=== PATIENT | female | born 1960 | race Caucasian/White ===

== ENCOUNTER → 2016-10-24 | Outpatient (REF) | payer BC ==
[~2016-10-24] MED LIST: /CIPR75TA; /ZOLP6ER; ALEV220C2 PO; ALLE25CA; AMBI10TA PO; ANAS0.12 PO; CELE-19 PO; CELE20TA PO; DILA2TAB; DILA4TAB PO; EX-L5TAB; FLAG500T; FLEXERIL PO; FURO20TA2 PO; METO10TA2; MIRA3350 PO; OMEP20CA3 PO; PERC5TAB8; PROBCAP13 PO; PROCAER4 PR; PROZ40CA; SENN8.6T5; VITA400T13 PO; XANA0.25 PO
== END ==
LOC: M LAB REF 16:32
PROVIDERS: ATTEND Internal Medicine
DX: M54.12 Radiculopathy, cervical region (principal)

== ENCOUNTER → 2016-12-04 | Outpatient (CLI) | payer BC ==
--- NOTE | 2016-12-19 00:29 | ECWPNPC ---
PATIENT NAME: RAVEN MUKHERJEE : 1960 GENDER: FEMALE VISIT DATE: 12/04/2016 DISCHARGE DATE: 12/04/16 1637 VISIT LOCKED DATE TIME: PHYSICIAN: BRADEN BAKER RESOURCE: BRADEN BAKER REASON FOR APPOINTMENT 1. NECK HISTORY OF PRESENT ILLNESS NEW PATIENT CONSULT: WHEN DID YOUR PAIN FIRST START? . BRIEFLY DESCRIBE HOW YOUR PAIN STARTED? . HOW DOES YOUR PAIN CHANGE WITH TIME? . DOES YOUR PAIN AWAKEN YOU FROM SLEEP? . HOW MANY HOURS OF SLEEP DO YOU NORMALLY GET? . ANY DIAGNOSTIC TESTING? . FACILITY WHERE TESTS WERE DONE? ____. PAIN TREATMENT TREATMENT YES CANCER HAVE YOU EVER HAD ANY TYPE OF CANCER?NO NO. PAIN SCREENING: PATIENT HAS A COMPLAINT OF ACUTE OR CHRONIC PAIN :YES FALL RISK SCREENING: SCREENING :NO FALLS IN THE PAST YEAR GAN INVENTORY: QUESTIONNAIRE ASSESSEDYES PT DID NOT COMPLETE QUESTIONAIRE SCORE VALUE CALCULATED YES SCORE: UNABLE TO CALCULATE - DID CHECK NO REGARDING THOUGHTS OF SUICIDE AND HOMICIDE TODAY'S VISIT: NOTES: PT REFERRED BY JANICE CORNELIUS WITH DR MARQUEZ AND DR GARCIA/ NEUROSURGERY FOR FURTHER EVALUATION AND TREATMENT OF NECK PAIN. ONSET OF PAIN BEGAN A FEW MONTHS AGO - SEVERE SPASM NECK MUSCLES. . CURRENTLY IS SEEING PHYSICAL THERAPY AND THEY ARE DOING TRACTION THERE IS NO SPINAL FLUID ALONG THE NERVES. TRACTION IS HELPFUL BUT PAIN RETURNS WHEN GOING HOME. HAS PAIN AT BASE OF NECK AND HAD OCCASIONAL HEADACHE - THIS IS NEW. NO PRIOR TRAUMA. NO WORK RELATED INJURY. HAS NUMBNESS AND TINGLING IN HAND RIGHT, 3,RD4,TH AND 5TH FINGERS,. BOTH HANDS, AND LEFT HAND LIS NUMB. HAS TROUBLE DROPPING AND HOLDING ON TO THINGS. HAVING TROUBLE WITH COORDINATION. NO PRIOR OR INJECTION TREATMENTS PHYSICAL THERAPY. NOTES HEAD FEELS STUCK - CAN'T RAISE. . CURRENT MEDICATIONS TAKING ROSUVASTATIN CALCIUM 5 MG TABLET 1 TABLET ORALLY ONCE A DAY TAKING AMBIEN 10 MG TABLET 1 TABLET AT BEDTIME NEEDED ORALLY ONCE A DAY TAKING CELECOXIB 200 MG CAPSULE 1 CAPSULE WITH FOOD ORALLY ONCE A DAY TAKING PRILOSEC 40 MG CAPSULE DELAYED RELEASE 1 CAPSULE ORALLY ONCE A DAY TAKING PROMETHAZINE HCL 25 MG TABLET 1 TABLET NEEDED ORALLY EVERY 6 HR TAKING BACLOFEN 10 MG TABLET 1 TABLET WITH FOOD OR MILK ORALLY THREE TIMES A DAY TAKING CYCLOBENZAPRINE HCL 10 MG TABLET 1 TABLET NEEDED ORALLY BID NEEDED TAKING PERCOCET 5-325 MG TABLET 1 TABLET NEEDED ORALLY EVERY 8 PRN MDD 3 TAKING XANAX 0.25 MG TABLET 1 TABLET ORALLY DAILY TAKING GENERLAC 10 GM/15ML SYRUP 15 ML ORALLY ONCE A DAY TAKING LASIX 20 MG TABLET 1 TABLET ORALLY PRN TAKING HYOSCYAMINE 0.15 MG TABLET ORALLY MEDICATION LIST REVIEWED AND RECONCILED WITH THE PATIENT PAST MEDICAL HISTORY HEMORRHOIDS KIDNEY STONES HYPERLIPIDEMIA BACK PAIN DEPRESSION ANXIETY MUSCLE DISORDER GERD ALLERGIES DEMEROL: ALLERGY CODEINE SULFATE: ITCHING SURGICAL HISTORY PELVIC/ VAGINAL WALL PROLAPSE REPAIR X3 2010 HYSTERETOMY 2006 COLONOSOPY 2015 ANXIALLY LYMPH NODES RIGHT REMOVED..NEGATIVE 2003 FAMILY HISTORY FATHER: MOTHER: ALIVE SIBLINGS: ALIVE SON(S): ALIVE DAUGHTER(S): ALIVE SOCIAL HISTORY GENERAL: TOBACCO USE ARE YOU A:FORMER SMOKER ALCOHOL SCREENING POINTS0 INTERPRETATIONNEGATIVE CAFFEINE CAFFEINE USE?YES 3 CUPS DAILY OCCUPATION: RETIRED. DIET: REGULAR. MARITAL STATUS: ARRIED. YAZDANISM YAZDANISM NO PREFERENCE LANGUAGE LANGUAGES SPOKEN:[facility] PFS, CLERGY, PUBLIC HEALTH REFERRALS CLERGY REFERRAL NEEDED?NO WAS THE PROVIDER NOTIFIED OF ANY PERTINENT INFO?NO PFS REFERRAL NEEDED?NO PUBLIC HEALTH REFERRAL NEEDED?NO PATIENT: ____. HOSPITALIZATION/MAJOR DIAGNOSTIC PROCEDURE NO HOSPITALIZATION HISTORY. REVIEW OF SYSTEMS CONSTITUTIONAL: ANY CHANGE IN YOUR MEDICAL CONDITION? NO . CHILLS NO . FEVER NO . INFECTION: DO YOU HAVE NEW INFECTIONS? NO . DO YOU HAVE HISTORY OF MRSA? NO . MUSCULOSKELETAL: ANY NEW PATTERNS OF PAIN OR NUMBNESS? NO . SYTEMIC LUPUS NO . ARTHRITIS LOWER SPINE IS FUSING ITSELF - HAS BEEN DEALING WITH THIS SINCE .TREATED WITH [place] . GASTROENTEROLOGY: GENERAL FREQ CHOCKING WITH SWALLOW . ANY NEW CHANGE IN BOWEL CONTROL? NO . BARRETTS ESOPHAGUS NO . CIRRHOSIS NO . HEPATITIS NO . LIVER FAILURE NO . ACID REFLUX YES IMPROVED WITH MEDS . UNEXPLAINED WEIGHT LOSS NO . GENITOURINARY: ANY NEW CHANGE IN BLADDER CONTROL? NO . IS THERE A CHANCE YOU COULD BE ? NO . HEMATOLOGY/LYMPH: DO YOU TAKE ANY BLOOD THINNERS? (FOR EXAMPLE- COUMADIN, PLAVIX, AGGRENOX, PLATEL, PRADAXA, OR XARELTO) NO . WHEN WAS YOUR LAST DOSE? DATE: TIME: . LOW PLATELET COUNT NO . SICKLE CELL DISEASE NO . VON WILLIEBRANDS NO . FACTOR V LEIDEN NO . THALLASEMIA NO . ANEMIA NO . EASY BRUISING NO . NEUROLOGY: HAVE YOU FALLEN IN THE PAST 6 MONTHS? NO . ANY NEW EXTREMITY NUMBNESS OR WEAKNESS? NO . HEAD INJURY NO . DEMENTIA NO . CEREBRAL PALSY NO . MULTIPLE SCLEROSIS NO . DIZZINESS NO . HEADACHE NO . STROKES NO . VERTIGO NO . CARDIOLOGY: DO YOU HAVE A PACEMAKER OR DEFIBRILLATOR? NO . ANGINA NO . HEART ATTACK NO . HEART SURGERY NO . CONGESTIVE HEART FAILURE/FLUID OVERLOAD NO . CHEST PAIN NO . HIGH BLOOD PRESSURE NO . IRREGULAR HEART BEAT NO . PALPITATIONS HAD CARDIAC WORKUP. HAD CATH - CLEAN CORONARY ARTERIES . RESPIRATORY: HAVE YOU BEEN SICK IN THE PAST WEEK? NO . FEVER NO . FLU LIKE SYMPTOMS? NO . CPAP NO . BYPAP NO . ASTHMA NO . EMPHYSEMA NO . CHRONIC LUNG DISEASES NO . SHORTNESS OF BREATH ON EXERTION NO . DO YOU USE ANY TYPE OF TOBACCO (SMOKE, SMOKELESS, CHEW)? NO . COUGH NO . SNORING NO . INTEGUMENTARY: DO YOU HAVE ANY RASHES OR OPEN SORES? NO . ALLERGIC/IMMUNO: ARE YOU ALLERGIC TO SHELLFISH OR IV DYE? NO . ANY NEW ALLERGIES? NO . PSYCHIATRIC: DO YOU HAVE THOUGHTS OF HURTING YOURSELF OR SOMEONE ELSE? NO . ARE YOU ABUSED, NEGLECTED, OR IN AN UNSAFE ENVIRONMENT? NO . ENDOCRINOLOGY: ARE YOU DIABETIC? NO . THYROID DISORDER YES - NODES IN THYROID - DR WHITT FOLLOWS . OTHER: DO YOU NEED ANY PRESCRIPTIONS? NO . IF YES, PLEASE LIST: ____ . ANY NEW PROBLEMS WITH YOUR MEDICATIONS? NO . WHEN DID YOU LAST EAT? ____ . WHEN DID YOU LAST DRINK? ____ . WHAT DID YOU LAST DRINK? ____ . NAME OF PERSON DRIVING YOU HOME? ____ . DO YOU HAVE ANY OTHER QUESTIONS OR CONCERNS NO . SKIN: DO YOU HAVE ANY RASHES OR OPEN SORES? HIVES INTERMITTANTLY - UNKNOWN CAUSE . UROLOGY: GENERAL KIDNEYS TONES - DECLINES SURGERY. INTERMITTANT HEMATURIA . REVIEWED BY: PROVIDER: BRADEN MAS . VITAL SIGNS WT 186 LBS, HT 58 IN, BMI 38.87 INDEX, BP 133/74 MM HG, HR 99 /MIN, RR 18 /MIN, TEMP 98.6 F, OXYGEN SAT % 100, NA INITIALS AW 1512, REVIEWED BY: KG. EXAMINATION GENERAL EXAMINATION: PSYCHALERT , ORIENTED X 3 , APPROPRIATE MOOD AND AFFECT . HEENT:NORMOCEPHALIC, NO LYMPHADENOPATHY, NO THYROMEGLY. LUNGS:CLEAR TO AUSCULTATION BILATERALLY, NO WHEEZES, RALES OR RHONCHI. HEART:HEART RATE REGULAR, NORMAL S1S2, NO MURMURS, CLICK OR RUBS, NO CAROTID BRUITS. MUSCULOSKELETAL:MUSCLE STRENGTH TESTING 5/5 BILATERAL UPPER AND LOWER EXTREMITIES. POINT TENDERNESS OVER CERVICAL SPINOUS PROCESSES AND BILATERALLY AT THE OCCIPITAL NOTCH REGIONS. , TRIGGER POINTS AND TIGHT FIBROUS BANDS IDENTIFIED OVER CERVICAL PARASPINOUS MUSCLES AND OVER THE TRAPEZIUS BILATERALLY. FAIR SHOULDER SHRUG. DECREASED ROM WITH NECK FLEXION, EXTENSION AND ROTATION. IMMIGRATION MANAGER STRENGTH EQUAL AND STRONG. NEUROLOGIC EXAM:CN'S II-XII GROSSLY INTACT. TR'S 2+ BILATERAL UPPER EXTREMITIES, 3+ BILATERAL LOWER EXTREMITES. PLANTAR RESPONSE IS FLEXOR. NO CLONUS. DECREASED SENSATION OVER ULNAR DISTRIBUTION BILATERALLY. DIAGNOSTIC TESTS REVIEWEDMRI OF CERVICAL SPINE COMPLETED 10/25/12. CERVICAL SPONDYLOSIS AT THE C2-3 THROUGH C6-7 LEVELS MOST SIGNIFICANT AT C4-5 THROUGH C6-7 WHERE THERE IS MINIMAL SPINAL CORD COMPRESSION. UPDATED XRAY OF CERVICAL SPINE COMPLETED 10/09/16 WHICH DEMONSTRATES SEVERE DEGENERATIVE DISC DISEASE INVOLVING C4 THROUGH C7 WITH PRIMARY FINDINGS AT C4-5 AND C5-6.THESE LEVELS HAVE MARGINAL FORAMINAL LEVEL ENCROACHMENT SPURRS. ASSESSMENTS FACET ARTHROPATHY, CERVICAL - M12.88 (PRIMARY) CERVICAL RADICULOPATHY - M54.12 MYALGIA - M79.1 BILATERAL OCCIPITAL NEURALGIA - M54.81 TREATMENT FACET ARTHROPATHY, CERVICAL CERVICAL FACET JOINT BRADEN VILLAVICENCIO 12/04/2016 4:25:20 PM > BILATERAL CERVICAL FACET BLOCK C2-3, C3-4 NOTES: CONTINUE TRACTION,CERVICAL EPIDURAL INJECTION: YOUR EXPERIENCE MATERIAL WAS PRINTED,CERVICAL EPIDURAL INJECTION: YOUR EXPERIENCE MATERIAL WAS PRINTED. DISPOSITION & COMMUNICATION FOLLOW UP AFTER INJECTION (REASON: CHECK AUTH FOR BILATERAL CERVICAL FACET BLOCK, C2-3, C3-4 GIANLUCA) ELECTRONICALLY SIGNED BY VIJAYA OLIVO ON 12/18/2016 AT 05:03 PM EDT DISCLAIMER : THIS IS A VISIT SUMMARY EXTRACTED FROM THE [employer] CHART. IT IS NOT A COPY OF THE [employer] PROGRESS NOTE. MTDD
== END ==
LOC: M PAIN 15:20
PROVIDERS: ATTEND Nurse Practitioner Family
DX: G89.29 Other chronic pain (principal); M12.88 Other specific arthropathies, not elsewhere classified, other specified site; M54.12 Radiculopathy, cervical region; M79.1 Myalgia; M54.81 Occipital neuralgia; E78.5 Hyperlipidemia, unspecified; F32.9 Major depressive disorder, single episode, unspecified; F41.9 Anxiety disorder, unspecified; K21.9 Gastro-esophageal reflux disease without esophagitis; Z87.891 Personal history of nicotine dependence; Z88.5 Allergy status to narcotic agent; Z79.899 Other long term (current) drug therapy

== ENCOUNTER → 2016-12-18 | Outpatient (CLI) | payer BC ==
[~2016-12-18] MED LIST changes: +BUPIVACAINE HCL 0.25% 30 ML VIAL As Ordered ONE; +ISOVUE-M 300 61% 15ML VIAL (Q9967) As Ordered ONE; +LIDOCAINE 1% SDV INJ 30 ML VIAL As Ordered ONE; +TRIAMCINOLONE ACETONIDE SUSP 40 MG/ML VIAL (J3301) As Ordered ONE; +diazePAM 5 MG TAB As Ordered ONE; +diphenhydrAMINE 25 MG CAP As Ordered ONE; +oxyCODONE 5MG TAB As Ordered ONE
--- NOTE | 2016-12-18 18:14 | REP ---
FACET BLOCK: The images were reviewed with Dr. North. The patient has a history of neck pain and numbness and weakness in the right arm. The portable C-ARM was provided in the OR for Dr. Christie for fluoroscopic guidance. 1 intraoperative fluoroscopic spot film was obtained for needle placement verification for bilateral cervical facet injection. The film is on the PACs system and is available for review. 8 seconds of fluoroscopic time was utilized for this procedure. Reviewed by LAURA Conn 12/19/2016 08:27 AEdited and Signed by Barry North MD 12/19/2016 05:08 P
--- NOTE | 2016-12-23 01:12 | ECWPNPC ---
PATIENT NAME: RAVEN MUKHERJEE : 1960 GENDER: FEMALE VISIT DATE: 12/18/2016 DISCHARGE DATE: 12/18/16 1344 VISIT LOCKED DATE TIME: PHYSICIAN: SARAH BETH CAO RESOURCE: SARAH BETH CAO REASON FOR APPOINTMENT 1. BALDO CERV FACET BLOCK HISTORY OF PRESENT ILLNESS HISTORY OF PRESENT ILLNESS: PAIN THE PATIENT DESCRIBES THE PAIN... THE PATIENT DESCRIBES THE PAIN... PAIN THE PATIENT DESCRIBES THE PAIN... THE PATIENT DESCRIBES THE PAIN... FALL RISK SCREENING: SCREENING :NO FALLS IN THE PAST YEAR :NO FALLS IN THE PAST YEAR SCREENING :NO FALLS IN THE PAST YEAR :NO FALLS IN THE PAST YEAR CURRENT MEDICATIONS TAKING ROSUVASTATIN CALCIUM 5 MG TABLET 1 TABLET ORALLY ONCE A DAY, NOTES: 11/17/16 1100 TAKING AMBIEN 10 MG TABLET 1 TABLET AT BEDTIME NEEDED ORALLY ONCE A DAY, NOTES: 11/17/162299 TAKING CELECOXIB 200 MG CAPSULE 1 CAPSULE WITH FOOD ORALLY ONCE A DAY, NOTES: 11/17/162299 TAKING PRILOSEC 40 MG CAPSULE DELAYED RELEASE 1 CAPSULE ORALLY ONCE A DAY, NOTES: 11/17/162299 TAKING PROMETHAZINE HCL 25 MG TABLET 1 TABLET NEEDED ORALLY EVERY 6 HR, NOTES: MORE THAN A WEEK TAKING BACLOFEN 10 MG TABLET 1 TABLET WITH FOOD OR MILK ORALLY THREE TIMES A DAY, NOTES: 11/17/162299 TAKING CYCLOBENZAPRINE HCL 10 MG TABLET 1 TABLET NEEDED ORALLY BID NEEDED, NOTES: 2-3 DAYS AGO TAKING PERCOCET 5-325 MG TABLET 1 TABLET NEEDED ORALLY EVERY 8 PRN MDD 3, NOTES: MORE THAN A WEEK TAKING XANAX 0.25 MG TABLET 1 TABLET ORALLY DAILY, NOTES: 11/17/162299 TAKING GENERLAC 10 GM/15ML SYRUP 15 ML ORALLY ONCE A DAY, NOTES: MORE THAN A WEEK TAKING LASIX 20 MG TABLET 1 TABLET ORALLY PRN, NOTES: MORE THAN A WEEK TAKING HYOSCYAMINE 0.15 MG TABLET ORALLY DIRECTED, NOTES: 2-3 DAUS AGO MEDICATION LIST REVIEWED AND RECONCILED WITH THE PATIENT PAST MEDICAL HISTORY HEMORRHOIDS KIDNEY STONES HYPERLIPIDEMIA BACK PAIN DEPRESSION ANXIETY MUSCLE DISORDER GERD ALLERGIES DEMEROL: ALLERGY CODEINE SULFATE: ITCHING OXYCODONE HCL: ITCHING SURGICAL HISTORY PELVIC/ VAGINAL WALL PROLAPSE REPAIR X3 2010 HYSTERETOMY 2006 COLONOSOPY 2015 ANXIALLY LYMPH NODES RIGHT REMOVED..NEGATIVE 2003 HOSPITALIZATION/MAJOR DIAGNOSTIC PROCEDURE SURGERIES REVIEW OF SYSTEMS CONSTITUTIONAL: ANY CHANGE IN YOUR MEDICAL CONDITION? NO, NO . CHILLS NO, NO . FEVER NO, NO . INFECTION: DO YOU HAVE NEW INFECTIONS? NO, NO . DO YOU HAVE HISTORY OF MRSA? NO, NO . MUSCULOSKELETAL: ANY NEW PATTERNS OF PAIN OR NUMBNESS? NO, NO . GASTROENTEROLOGY: ANY NEW CHANGE IN BOWEL CONTROL? NO, NO . GENITOURINARY: ANY NEW CHANGE IN BLADDER CONTROL? NO, NO . IS THERE A CHANCE YOU COULD BE ? NO, NO . HEMATOLOGY/LYMPH: DO YOU TAKE ANY BLOOD THINNERS? (FOR EXAMPLE- COUMADIN, PLAVIX, AGGRENOX, PLATEL, PRADAXA, OR XARELTO) NO, NO . WHEN WAS YOUR LAST DOSE? DATE: TIME: , DATE: TIME: . NEUROLOGY: HAVE YOU FALLEN IN THE PAST 6 MONTHS? NO, NO . ANY NEW EXTREMITY NUMBNESS OR WEAKNESS? NO, NO . CARDIOLOGY: DO YOU HAVE A PACEMAKER OR DEFIBRILLATOR? NO, NO . RESPIRATORY: HAVE YOU BEEN SICK IN THE PAST WEEK? NO, NO . FEVER NO, NO . FLU LIKE SYMPTOMS? NO, NO . COUGH NO, NO . INTEGUMENTARY: DO YOU HAVE ANY RASHES OR OPEN SORES? NO, NO . ALLERGIC/IMMUNO: ARE YOU ALLERGIC TO SHELLFISH OR IV DYE? NO, NO . ANY NEW ALLERGIES? NO, NO . PSYCHIATRIC: DO YOU HAVE THOUGHTS OF HURTING YOURSELF OR SOMEONE ELSE? NO, NO . ARE YOU ABUSED, NEGLECTED, OR IN AN UNSAFE ENVIRONMENT? NO, NO . ENDOCRINOLOGY: ARE YOU DIABETIC? NO, NO . OTHER: DO YOU NEED ANY PRESCRIPTIONS? NO, NO . IF YES, PLEASE LIST: ____, ____ . ANY NEW PROBLEMS WITH YOUR MEDICATIONS? NO, NO . WHEN DID YOU LAST EAT? 12/17/16 . WHEN DID YOU LAST DRINK? 12/17/16 . WHAT DID YOU LAST DRINK? WATER . NAME OF PERSON DRIVING YOU HOME? JAY MUKHERJEE . DO YOU HAVE ANY OTHER QUESTIONS OR CONCERNS NO, NO . REVIEWED BY: PROVIDER: , . VITAL SIGNS WT 193.4 LBS, HT 58 IN, BMI 40.42 INDEX, BP 121/65 MM HG, HR 101 /MIN, RR 16 /MIN, TEMP 98.0 F, OXYGEN SAT % 94%, NA INITIALS SC10:44, REVIEWED BY: LS. ASSESSMENTS SPONDYLOSIS WITHOUT MYELOPATHY OR RADICULOPATHY, CERVICAL REGION - M47.812 (PRIMARY) PROCEDURES PN CERVICAL FACET BLOCK LOW BILATERAL CERVICAL PRE PROCEDURE DIAGNOSIS CERVICAL SPONDYLOSIS POST PROCEDURE DIAGNOSIS CERVICAL SPONDYLOSIS PROCEDURE BILATERAL C3-C4, C4-C5, AND C5-C6 CERVICAL FACET BLOCK THERAPEUTIC SURGEON DR. SARAH BETH CAO CLAIM AGENT NONE ANESTHESIA LOCAL PRE PROCEDURE NOTE THE PATIENT HAS HISTORY OF CHRONIC CERVICAL PAIN. I EVALUATE THE PATIENT AND REVIEWED THE CHART. I WENT OVER THE RISKS, ALTERNATIVES, AND BENEFITS ASSOCIATED WITH THIS PROCEDURE. THE PATIENT WOULD LIKE TO PROCEED AND GIVE CONSENT TO PERFORMED THE PROCEDURE. THE PATIENT DENIES UNEXPLAINABLE WEIGHT LOSS, FEVER, CHILLS, OR NEW CHANGES IN URINARY OR BOWEL CONTROL. DESCRIPTION OF PROCEDURE THE PATIENT WAS BROUGHT TO THE PROCEDURE ROOM AND PLACED IN THE PRONE POSITION. THE CERVICOTHORACIC AREA WAS CLEANED WITH CHLORAPREP SOLUTION AND DRAPED ASEPTICALLY. THE PROCEDURE WAS DONE UNDER STERILE CONDITIONS. I CHECKED LATERALITY AND THE LEVEL WHERE THE PROCEDURE WAS GOING TO BE PERFORMED WITH THE PATIENT AND THE SUPPORTING STAFF AT THE MOMENT OF THE TIME OUT IN THE PROCEDURE ROOM. UNDER FLUOROSCOPIC GUIDANCE, TARGET POINT WAS SELECTED AT THE RIGHT AND LEFT C3-C4, C4-C5, AND C5-C6 CERVICAL FACET JOINT. TARGET POINTS WERE SELECTED AFTER LATERAL ROTATION AND TILT OF THE MAGNIFIER OF THE C-ARM. LIDOCAINE 0.5% WAS USED TO NUMB THE SKIN AND THE SUBCUTANEOUS TISSUE BELOW IT. SPINAL NEEDLES, 22-GAUGE, WERE ADVANCED UNDER FLUOROSCOPIC GUIDANCE AND FOLLOWING PATIENT FEEDBACK UNTIL THE TARGETS WERE TOUCHED. THE POSITION OF THE NEEDLES WAS VERIFIED WITH AP AND LATERAL VIEWS. AFTER PROPER POSITION OF THE NEEDLES WAS ACHIEVED, ISOVUE M DYE 30, 0.1 ML WAS INJECTED SHOWING SPREAD OF THE DYE. THEN A SOLUTION OF 0.9 ML OF BUPIVACAINE 0.125% AND KENALOG 10 MG WAS INJECTED AT EACH SITE. THERE WAS NO EVIDENCE OF BLOOD, PARESTHESIA OR CEREBROSPINAL FLUID DURING THE PROCEDURE. THE PATIENT EXPERIENCE A VASOVAGAL DURING THE PROCEDURE. SHE RESPOND WITH IV FLUIDS .THE PATIENT WAS SENT TO THE RECOVERY ROOM. THE PATIENT WAS MOVING THE EXTREMITIES AND DOING WELL. THERE WAS NO COMPLICATION DURING THE PROCEDURE. FLUOROSCOPY TIME WAS 10 SECONDS POST PROCEDURE NOTE BEFORE STARTING THE PROCEDURE THE PATIENT EXPRESSED DESIRE OF USING IV SEDATION. AFTER DISCUSSING THE CASE THE PATIENT AGREED ON DOING THE PROCEDURE WITH LOCAL. UNFORTUNATELY SHE EXPERIENCE A VASOVAGAL. IF ANY PROCEDURE IS DONE IN THE FUTURE THE PATIENT SHOULD RECEIVE AT LEAST 500 CC OF R/L IV AND IV SEDATION. THIS WAS DISCUSSED WITH THE PATIENT. THE PATIENT WILL BE SEEN IN A FOLLOW UP IN THE NEXT FEW WEEKS. INSTRUCTIONS WERE GIVEN, QUESTIONS WERE ANSWERED, AND THE PATIENT EXPRESSED UNDERSTANDING AND AGREES WITH THE PLAN. I, MOE ROBLES, DOCUMENTED THE ABOVE INFORMATION ACTING A SCRIBE FOR DR. CAO. I HAVE REVIEWED THE ABOVE DOCUMENT, WRITTEN BY MOE ROBLES SCRIBE AND I VERIFY THAT IT IS ACCURATE DIAGNOSTIC IMAGING [facility] FACET BLOCK (PAIN)[id number] PROCEDURE CODES 6045F RADXPS IN END [id number] PXD 21461 INJ PARAVERT F JNT C/T 1 LEV 10636 INJ PARAVERT F JNT C/T 2 LEV 47967 INJ PARAVERT F JNT C/T 3 LEV DISPOSITION & COMMUNICATION FOLLOW UP 3 WEEKS ELECTRONICALLY SIGNED BY SARAH BETH CAO MD ON 12/22/2016 AT 09:40 PM EDT DISCLAIMER : THIS IS A VISIT SUMMARY EXTRACTED FROM THE [employer] CHART. IT IS NOT A COPY OF THE [employer] PROGRESS NOTE. MTDD
== END ==
LOC: M PAIN 11:00
PROVIDERS: ATTEND Anesthesiology
DX: G89.29 Other chronic pain (principal); M47.812 Spondylosis without myelopathy or radiculopathy, cervical region; E78.5 Hyperlipidemia, unspecified; F32.9 Major depressive disorder, single episode, unspecified; F41.9 Anxiety disorder, unspecified; K21.9 Gastro-esophageal reflux disease without esophagitis; M62.9 Disorder of muscle, unspecified; Z88.5 Allergy status to narcotic agent; Z79.899 Other long term (current) drug therapy
CPT/HCPCS: 64490; 64491; 64492; J3301; Q9967

== ENCOUNTER → 2017-01-06 | Outpatient (CLI) | payer BC ==
[~2017-01-06] MED LIST changes: -BUPIVACAINE HCL 0.25% 30 ML VIAL As Ordered ONE; -ISOVUE-M 300 61% 15ML VIAL (Q9967) As Ordered ONE; -LIDOCAINE 1% SDV INJ 30 ML VIAL As Ordered ONE; -TRIAMCINOLONE ACETONIDE SUSP 40 MG/ML VIAL (J3301) As Ordered ONE; -diazePAM 5 MG TAB As Ordered ONE; -diphenhydrAMINE 25 MG CAP As Ordered ONE; -oxyCODONE 5MG TAB As Ordered ONE
--- NOTE | 2017-01-24 01:20 | ECWPNPC ---
PATIENT NAME: RAVEN MUKHERJEE : 1960 GENDER: FEMALE VISIT DATE: 01/06/2017 DISCHARGE DATE: 01/06/17 1553 VISIT LOCKED DATE TIME: PHYSICIAN: BRADEN BAKER RESOURCE: BRADEN BAKER REASON FOR APPOINTMENT 1. POST PROCEDURE HISTORY OF PRESENT ILLNESS HISTORY OF PRESENT ILLNESS: PAIN THE PATIENT DESCRIBES THE PAIN... FALL RISK SCREENING: SCREENING :NO FALLS IN THE PAST YEAR TODAY'S VISIT: NOTES: RATES PAIN TODAYA S 6/10. IS S/P BILATERAL THERAPEUTIC CERVICAL FACET BLOCK AT C3-C4, C4-C5 AND C5-C6 ON .. NOTES PAIN LEVEL PRIOR WAS 8/10 AND POST PROCEDURE 0-3/10 FOR 3 DAYS. PAIN INCREASED TO 4/10 FOR ONE WEEK AND IS NOW AT THE CURRENT 6/10. NOTES HAS TENDERNESS OVER THE RIGHT OCCIPUT AND IN THE MIDLINE OF THE NECKS. NO PAIN RADIATING TO ARMS. IMMEDIATELY AFTER THE BLOCK NUMBNESS AND TINGLING WAS GONE IN THE FINGERS BUT IS NOW RETURNING. LAST WEEK HAD KALIESCOPE OF COLORS ALONG THE LEFT VISUAL FIELD, WENT TO BED AND IT RESOLVED BY MORNING. . CURRENT MEDICATIONS TAKING ROSUVASTATIN CALCIUM 5 MG TABLET 1 TABLET ORALLY ONCE A DAY, NOTES: 11/17/16 1100 TAKING AMBIEN 10 MG TABLET 1 TABLET AT BEDTIME NEEDED ORALLY ONCE A DAY, NOTES: 11/17/16 230 TAKING CELECOXIB 200 MG CAPSULE 1 CAPSULE WITH FOOD ORALLY ONCE A DAY, NOTES: 11/17/162299 TAKING PRILOSEC 40 MG CAPSULE DELAYED RELEASE 1 CAPSULE ORALLY ONCE A DAY, NOTES: 11/17/162299 TAKING PROMETHAZINE HCL 25 MG TABLET 1 TABLET NEEDED ORALLY EVERY 6 HR, NOTES: MORE THAN A WEEK TAKING BACLOFEN 10 MG TABLET 1 TABLET WITH FOOD OR MILK ORALLY THREE TIMES A DAY, NOTES: 11/17/162299 TAKING CYCLOBENZAPRINE HCL 10 MG TABLET 1 TABLET NEEDED ORALLY BID NEEDED, NOTES: 2-3 DAYS AGO TAKING PERCOCET 5-325 MG TABLET 1 TABLET NEEDED ORALLY EVERY 8 PRN MDD 3, NOTES: MORE THAN A WEEK TAKING XANAX 0.25 MG TABLET 1 TABLET ORALLY DAILY, NOTES: 11/17/162299 TAKING GENERLAC 10 GM/15ML SYRUP 15 ML ORALLY ONCE A DAY, NOTES: MORE THAN A WEEK TAKING LASIX 20 MG TABLET 1 TABLET ORALLY PRN, NOTES: MORE THAN A WEEK TAKING HYOSCYAMINE 0.15 MG TABLET ORALLY DIRECTED, NOTES: 2-3 DAUS AGO TAKING HYDROMORPHONE HCL 4 MG TABLET 1 TABLET NEEDED ORALLY EVERY 6 HRS TAKING ALEVE 220 MG TABLET 1 TABLET NEEDED ORALLY EVERY 12 HRS TAKING BENADRYL 25 MG CAPSULE 1 CAPSULE NEEDED ORALLY EVERY 8 HRS TAKING MIRALAX - PACKET 1 PACKET MIXED WITH 8 OUNCES OF FLUID ORALLY ONCE A DAY TAKING CELEXA 20 MG TABLET 1 TABLET ORALLY TWICE A DAY MEDICATION LIST REVIEWED AND RECONCILED WITH THE PATIENT PAST MEDICAL HISTORY HEMORRHOIDS KIDNEY STONES HYPERLIPIDEMIA BACK PAIN DEPRESSION ANXIETY MUSCLE DISORDER GERD ALLERGIES DEMEROL: ALLERGY CODEINE SULFATE: ITCHING OXYCODONE HCL: ITCHING REVIEW OF SYSTEMS CONSTITUTIONAL: ANY CHANGE IN YOUR MEDICAL CONDITION? NO . CHILLS NO . FEVER NO . INFECTION: DO YOU HAVE NEW INFECTIONS? NO . DO YOU HAVE HISTORY OF MRSA? NO . MUSCULOSKELETAL: ANY NEW PATTERNS OF PAIN OR NUMBNESS? NO . GASTROENTEROLOGY: ANY NEW CHANGE IN BOWEL CONTROL? NO . GENITOURINARY: ANY NEW CHANGE IN BLADDER CONTROL? NO . IS THERE A CHANCE YOU COULD BE ? NO . HEMATOLOGY/LYMPH: DO YOU TAKE ANY BLOOD THINNERS? (FOR EXAMPLE- COUMADIN, PLAVIX, AGGRENOX, PLATEL, PRADAXA, OR XARELTO) NO . WHEN WAS YOUR LAST DOSE? DATE: TIME: . NEUROLOGY: HAVE YOU FALLEN IN THE PAST 6 MONTHS? NO . ANY NEW EXTREMITY NUMBNESS OR WEAKNESS? NO . CARDIOLOGY: DO YOU HAVE A PACEMAKER OR DEFIBRILLATOR? NO . RESPIRATORY: HAVE YOU BEEN SICK IN THE PAST WEEK? NO . FEVER NO . FLU LIKE SYMPTOMS? NO . COUGH NO . INTEGUMENTARY: DO YOU HAVE ANY RASHES OR OPEN SORES? NO . ALLERGIC/IMMUNO: ARE YOU ALLERGIC TO SHELLFISH OR IV DYE? NO . ANY NEW ALLERGIES? NO . PSYCHIATRIC: DO YOU HAVE THOUGHTS OF HURTING YOURSELF OR SOMEONE ELSE? NO . ARE YOU ABUSED, NEGLECTED, OR IN AN UNSAFE ENVIRONMENT? NO . ENDOCRINOLOGY: ARE YOU DIABETIC? NO . OTHER: DO YOU NEED ANY PRESCRIPTIONS? NO . IF YES, PLEASE LIST: ____ . ANY NEW PROBLEMS WITH YOUR MEDICATIONS? NO . WHEN DID YOU LAST EAT? ____ . WHEN DID YOU LAST DRINK? ____ . WHAT DID YOU LAST DRINK? ____ . NAME OF PERSON DRIVING YOU HOME? ____ . DO YOU HAVE ANY OTHER QUESTIONS OR CONCERNS NO . REVIEWED BY: PROVIDER: BRADEN MAS . VITAL SIGNS WT 191 LBS, HT 58 IN, BMI 39.91 INDEX, BP 127/67 MM HG, HR 93 /MIN, RR 16 /MIN, TEMP 97.5 F, OXYGEN SAT % 94%, NA INITIALS SC 15:00. EXAMINATION GENERAL EXAMINATION: PSYCHALERT , ORIENTED X 3 , APPROPRIATE MOOD AND AFFECT . LUNGS:CLEAR TO AUSCULTATION BILATERALLY, NO WHEEZES, RALES OR RHONCHI. HEART:HEART RATE REGULAR, NORMAL S1S2, NO MURMURS, CLICK OR RUBS, NO CAROTID BRUITS. MUSCULOSKELETAL:MUSCLE STRENGTH TESTING 5/5 BILATERAL UPPER AND LOWER EXTREMITIES. MILD TENDERNESS OVER CERVICAL SPINOUS PROCESSES AND BILATERALLY AT THE OCCIPITAL NOTCH REGIONS. , TRIGGER POINTS AND TIGHT FIBROUS BANDS IDENTIFIED OVER CERVICAL PARASPINOUS MUSCLES AND OVER THE TRAPEZIUS BILATERALLY. FAIR SHOULDER SHRUG. . NEUROLOGIC EXAM:CN'S II-XII GROSSLY INTACT. DECREASED SENSATION OVER ULNAR DISTRIBUTION BILATERALLY. ASSESSMENTS MYALGIA - M79.1 (PRIMARY) BILATERAL OCCIPITAL NEURALGIA - M54.81 TREATMENT MYALGIA NOTES: TRIGGER POINT INJECTION: YOUR EXPERIENCE MATERIAL WAS PRINTED. OTHERS TRIGGER POINT 3 + BRADEN CARDONA 01/06/2017 3:34:09 PM > NECK AND UPPER SHOULDERS BILATERALLY NOTES: CONTINUE PHYSICAL THERAPY AND TRACTION. PROCEDURE CODES FA211 ESTABILISHED PATIENT [facility] CHARGE DISPOSITION & COMMUNICATION FOLLOW UP NEEDS TO BE LAST APPT OF THE DAY(PER DR CAO) MAY NEED IV SEDATION (REASON: CHECK AUTH FOR TPI) ELECTRONICALLY SIGNED BY VIJAYA OLIVO ON 01/23/2017 AT 05:50 PM EDT DISCLAIMER : THIS IS A VISIT SUMMARY EXTRACTED FROM THE [facility] CHART. IT IS NOT A COPY OF THE [facility] PROGRESS NOTE. CAMILA
== END ==
LOC: M PAIN 14:20
PROVIDERS: ATTEND Nurse Practitioner Family
DX: G89.29 Other chronic pain (principal); M79.1 Myalgia; M54.81 Occipital neuralgia; E78.5 Hyperlipidemia, unspecified; F32.9 Major depressive disorder, single episode, unspecified; F41.9 Anxiety disorder, unspecified; K21.9 Gastro-esophageal reflux disease without esophagitis; Z88.5 Allergy status to narcotic agent; Z79.899 Other long term (current) drug therapy

== ENCOUNTER → 2017-01-21 | Outpatient (CLI) | payer BC ==
[~2017-01-21] MED LIST changes: +BUPIVACAINE HCL 0.25% 10 ML VIAL As Ordered ONE; +BUPIVACAINE HCL 0.25% 30 ML VIAL As Ordered ONE; +TRIAMCINOLONE ACETONIDE SUSP 40 MG/ML VIAL (J3301) As Ordered ONE; +diazePAM 5 MG TAB As Ordered ONE; +oxyCODONE 5MG TAB As Ordered ONE
--- NOTE | 2017-02-03 01:54 | ECWPNPC ---
PATIENT NAME: RAVEN MUKHERJEE : 1960 GENDER: FEMALE VISIT DATE: 01/21/2017 DISCHARGE DATE: 01/21/17 1045 VISIT LOCKED DATE TIME: PHYSICIAN: SARAH BETH CAO RESOURCE: SARAH BETH CAO HISTORY OF PRESENT ILLNESS HISTORY OF PRESENT ILLNESS: PAIN THE PATIENT DESCRIBES THE PAIN... FALL RISK SCREENING: SCREENING :NO FALLS IN THE PAST YEAR CURRENT MEDICATIONS TAKING ROSUVASTATIN CALCIUM 5 MG TABLET 1 TABLET ORALLY ONCE A DAY, NOTES: 11/17/16 1100 TAKING AMBIEN 10 MG TABLET 1 TABLET AT BEDTIME NEEDED ORALLY ONCE A DAY, NOTES: 11/17/16 230 TAKING CELECOXIB 200 MG CAPSULE 1 CAPSULE WITH FOOD ORALLY ONCE A DAY, NOTES: 11/17/16 230 TAKING PRILOSEC 40 MG CAPSULE DELAYED RELEASE 1 CAPSULE ORALLY ONCE A DAY, NOTES: 11/17/162299 TAKING PROMETHAZINE HCL 25 MG TABLET 1 TABLET NEEDED ORALLY EVERY 6 HR, NOTES: MORE THAN A WEEK TAKING BACLOFEN 10 MG TABLET 1 TABLET WITH FOOD OR MILK ORALLY THREE TIMES A DAY, NOTES: 01-20-172199 TAKING CYCLOBENZAPRINE HCL 10 MG TABLET 1 TABLET NEEDED ORALLY BID NEEDED, NOTES: 01-20-17899 TAKING PERCOCET 5-325 MG TABLET 1 TABLET NEEDED ORALLY EVERY 8 PRN MDD 3, NOTES: BEEN A WHILE TAKING XANAX 0.25 MG TABLET 1 TABLET ORALLY DAILY, NOTES: 01-21-17799 TAKING GENERLAC 10 GM/15ML SYRUP 15 ML ORALLY ONCE A DAY, NOTES: A WEEK AGO TAKING LASIX 20 MG TABLET 1 TABLET ORALLY PRN, NOTES: NEEDED BEEN A WHILE TAKING HYOSCYAMINE 0.15 MG TABLET ORALLY DIRECTED, NOTES: 01-21-17799 TAKING HYDROMORPHONE HCL 4 MG TABLET 1 TABLET NEEDED ORALLY EVERY 6 HRS, NOTES: BEEN A WHILE TAKING ALEVE 220 MG TABLET 1 TABLET NEEDED ORALLY EVERY 12 HRS, NOTES: NEEDS BEEN OVER A WEEK TAKING BENADRYL 25 MG CAPSULE 1 CAPSULE NEEDED ORALLY EVERY 8 HRS, NOTES: BEEN A WHILE TAKING MIRALAX - PACKET 1 PACKET MIXED WITH 8 OUNCES OF FLUID ORALLY ONCE A DAY, NOTES: A WEEK TAKING CELEXA 20 MG TABLET 1 TABLET ORALLY TWICE A DAY, NOTES: 6-6-17 0800 MEDICATION LIST REVIEWED AND RECONCILED WITH THE PATIENT PAST MEDICAL HISTORY HEMORRHOIDS KIDNEY STONES HYPERLIPIDEMIA BACK PAIN DEPRESSION ANXIETY MUSCLE DISORDER GERD ALLERGIES DEMEROL: ALLERGY CODEINE SULFATE: ITCHING OXYCODONE HCL: ITCHING REVIEW OF SYSTEMS CONSTITUTIONAL: ANY CHANGE IN YOUR MEDICAL CONDITION? NO . CHILLS NO . FEVER NO . INFECTION: DO YOU HAVE NEW INFECTIONS? NO . DO YOU HAVE HISTORY OF MRSA? NO . MUSCULOSKELETAL: ANY NEW PATTERNS OF PAIN OR NUMBNESS? NO . GASTROENTEROLOGY: ANY NEW CHANGE IN BOWEL CONTROL? NO . GENITOURINARY: ANY NEW CHANGE IN BLADDER CONTROL? NO . IS THERE A CHANCE YOU COULD BE ? NO . HEMATOLOGY/LYMPH: DO YOU TAKE ANY BLOOD THINNERS? (FOR EXAMPLE- COUMADIN, PLAVIX, AGGRENOX, PLATEL, PRADAXA, OR XARELTO) NO . WHEN WAS YOUR LAST DOSE? DATE: TIME: . NEUROLOGY: HAVE YOU FALLEN IN THE PAST 6 MONTHS? NO . ANY NEW EXTREMITY NUMBNESS OR WEAKNESS? NO . CARDIOLOGY: DO YOU HAVE A PACEMAKER OR DEFIBRILLATOR? NO . RESPIRATORY: HAVE YOU BEEN SICK IN THE PAST WEEK? NO . FEVER NO . FLU LIKE SYMPTOMS? NO . COUGH NO . INTEGUMENTARY: DO YOU HAVE ANY RASHES OR OPEN SORES? NO . ALLERGIC/IMMUNO: ARE YOU ALLERGIC TO SHELLFISH OR IV DYE? NO . ANY NEW ALLERGIES? NO . PSYCHIATRIC: DO YOU HAVE THOUGHTS OF HURTING YOURSELF OR SOMEONE ELSE? NO . ARE YOU ABUSED, NEGLECTED, OR IN AN UNSAFE ENVIRONMENT? NO . ENDOCRINOLOGY: ARE YOU DIABETIC? NO . OTHER: DO YOU NEED ANY PRESCRIPTIONS? NO . IF YES, PLEASE LIST: ____ . ANY NEW PROBLEMS WITH YOUR MEDICATIONS? NO . WHEN DID YOU LAST EAT? ____01-20-17 . WHEN DID YOU LAST DRINK? ____01-21-17 . WHAT DID YOU LAST DRINK? ____ . NAME OF PERSON DRIVING YOU HOME? ____ . DO YOU HAVE ANY OTHER QUESTIONS OR CONCERNS NO . REVIEWED BY: PROVIDER: . VITAL SIGNS WT 198 LBS, HT 58 IN, BMI 41.38 INDEX, BP 145/72 MM HG, HR 98 /MIN, RR 18 /MIN, TEMP 98.0 F, OXYGEN SAT % 96%, NA INITIALS AW 1550, REVIEWED BY: KG. 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) PROCEDURES PN OCCIPITAL NERVE BLOCK GREATER PRE PROCEDURE DIAGNOSIS OCCIPITAL NEURALGIA POST PROCEDURE DIAGNOSIS OCCIPITAL NEURALGIA PROCEDURE BILATERAL GREATER OCCIPITAL NERVE BLOCK SURGEON DR. SARAH BETH CAO DIRECTOR POST NONE ANESTHESIA LOCAL PRE PROCEDURE NOTE 56 YEAR-OLD PATIENT WITH HISTORY OF CHRONIC OCCIPITAL PAIN. THE PAIN IS LOCATED OVER THE OCCIPITAL AREA WITH RADIATION TOWARDS THE PARIETAL AREA OF THE CRANIUM. I EVALUATED THE PATIENT AND REVIEWED THE CHART. I WENT OVER THE RISKS, ALTERNATIVES, AND BENEFITS ASSOCIATED WITH THIS PROCEDURE. THE PATIENT WOULD LIKE TO PROCEED AND GAVE CONSENT TO PERFORM THE PROCEDURE. THE PATIENT DENIES UNEXPLAINABLE WEIGHT LOSS, FEVER, CHILLS, OR NEW CHANGES IN URINARY OR BOWEL CONTROL DESCRIPTION OF PROCEDURE THE PATIENT WAS BROUGHT TO THE PROCEDURE ROOM AND PLACED IN THE SITTING POSITION. THE BILATERAL OCCIPITAL AREA WAS CLEANED WITH ALCOHOL. THE PROCEDURE WAS DONE USING STERILE TECHNIQUES. I CHECKED LATERALITY AND THE LEVEL WHERE THE PROCEDURE WAS GOING TO BE PERFORMED WITH THE PATIENT AND THE SUPPORTING STAFF AT THE MOMENT OF THE TIME OUT IN THE PROCEDURE ROOM. USING A 25-GAUGE NEEDLE, THE BILATERAL OCCIPITAL NERVE WAS INJECTED AT THE NUCHAL LINE, 1-INCH LATERAL OF MIDLINE. I USED A TOTAL OF 15 ML OF BUPIVACAINE 0.25% WITH KENALOG 20 MG AT EACH NERVE. THERE WAS NO EVIDENCE OF BLOOD, PARESTHESIA OR CEREBROSPINAL FLUID DURING THE PROCEDURE. THE PATIENT WAS SENT TO THE RECOVERY ROOM. THE PATIENT WAS MOVING THE EXTREMITIES AND DOING WELL. THERE WAS NO COMPLICATION DURING THE PROCEDURE POST PROCEDURE NOTE THE PATIENT WILL BE SEEN IN A FOLLOW UP IN THE NEXT FEW WEEKS. INSTRUCTIONS WERE GIVEN, QUESTIONS WERE ANSWERED, AND THE PATIENT EXPRESSED UNDERSTANDING AND AGREED WITH THE PLAN. I, SABINE HAMM, DOCUMENTED THE ABOVE INFORMATION ACTING A SCRIBE FOR DR. CAO. I HAVE REVIEWED THE ABOVE DOCUMENT, WRITTEN BY SABINE MORALES AND I VERIFY THAT IT IS ACCURATE PROCEDURE CODES 29793 N BLOCK INJ OCCIPITAL DISPOSITION & COMMUNICATION FOLLOW UP 3 WEEKS ELECTRONICALLY SIGNED BY SARAH BETH CAO MD ON 02/02/2017 AT 03:08 PM EDT DISCLAIMER : THIS IS A VISIT SUMMARY EXTRACTED FROM THE [employer] CHART. IT IS NOT A COPY OF THE [employer] PROGRESS NOTE. CAMILA
== END ==
LOC: M PAIN 15:20
PROVIDERS: ATTEND Anesthesiology
DX: G89.29 Other chronic pain (principal); M54.81 Occipital neuralgia; E78.5 Hyperlipidemia, unspecified; F32.9 Major depressive disorder, single episode, unspecified; F41.9 Anxiety disorder, unspecified; K21.9 Gastro-esophageal reflux disease without esophagitis; Z88.5 Allergy status to narcotic agent; Z79.899 Other long term (current) drug therapy
CPT/HCPCS: 64405; J3301

== ENCOUNTER → 2017-01-21 | Outpatient (CLI) | payer BC ==
[~2017-01-21] MED LIST changes: -BUPIVACAINE HCL 0.25% 10 ML VIAL As Ordered ONE; -BUPIVACAINE HCL 0.25% 30 ML VIAL As Ordered ONE; -TRIAMCINOLONE ACETONIDE SUSP 40 MG/ML VIAL (J3301) As Ordered ONE; -diazePAM 5 MG TAB As Ordered ONE; -oxyCODONE 5MG TAB As Ordered ONE
--- NOTE | 2017-01-22 06:16 | REP ---
Clinical: Nontoxic nodule for follow up. Technique: Real time otero scale and color evaluation using linear high frequency transducer. Comparison: 07/06/2015. Findings: The thyroid gland is relatively normal in contour, size, and echogenicity. Isthmus measures 2.4 mm in width. Right lobe measures 5.4 x 2.0 x 1.8 cm with a 1.5 x 1.1 x 1.3 cm mid pole solid nodule similar to prior examination. Left lobe measures 4.7 x 1.6 x 1.5 cm with new 3 mm and relatively stable 7 mm solid nodules which are otherwise nonspecific. Impression: Nodules as described above with prominent dominant nodule in the right midpole similar to prior examination. Signed by Silverio Peters MD 01/22/2017 06:07 A
== END ==
LOC: M RAD 12:17
PROVIDERS: ATTEND Otolaryngology
DX: E04.1 Nontoxic single thyroid nodule (principal)

== ENCOUNTER → 2017-02-09 | Outpatient (CLI) | payer BC ==
[~2017-02-09] MED LIST changes: +ALPR0.25 PO; +BACL10TA2 PO; +BENA25TA10 PO; -CELE-19 PO; +CELE10TA PO; +CELE1CAP4 PO; +CYCL10TA PO; -DILA4TAB PO; +DILA4TAB13 PO; +EXCETAB80 PO; +FLOM5CAP PO; +HYOS125TA PO; +OXYB5TAB10 PO; +OXYC-517 PO; +OXYC1TAB23 PO; +PANT40TA2 PO; +PROM25TA PO; +PROM50TA4 PO; +RANI75TA9 PO; +ULTR50TA8 PO; +ZOFR20TA PO; +ZOFR4TAB3 PO; +ZOLP10TA2
--- NOTE | 2017-02-26 00:44 | ECWPNPC ---
PATIENT NAME: RAVEN MUKHERJEE : 1960 GENDER: FEMALE VISIT DATE: 02/09/2017 DISCHARGE DATE: 02/09/17 1415 VISIT LOCKED DATE TIME: PHYSICIAN: BRADEN BAKER RESOURCE: BRADEN BAKER REASON FOR APPOINTMENT 1. POST PROC HISTORY OF PRESENT ILLNESS TODAY'S VISIT: NOTES: RATES PAIN TODAY 3/10 . IS S/P BILATERAL GREATER OCCIPITAL NERVE BLOCK COMPLETED ON 01/20/17. REPORTS TREATMENT WAS VERY SUCCESSFUL AND DECREASED PAIN FROM 7/10 TO 2/10. RIGHT SIDE STILL SOMEWHAT UNCOMFORTABLE. HAS HAS SOME "LITTLE HEADACHES" BUT NO MIGRAINES OR MIGRAINE AURAS. HAS BEEN USING CERVICAL TRACTION WITH GOOD EFFECT. CAN STRETCH ARMS AND HYACINTH NECK NOW. . HISTORY OF PRESENT ILLNESS: PAIN THE PATIENT DESCRIBES THE PAIN... FALL RISK SCREENING: SCREENING :NO FALLS IN THE PAST YEAR CURRENT MEDICATIONS TAKING AMBIEN 10 MG TABLET 1 TABLET AT BEDTIME NEEDED ORALLY ONCE A DAY, NOTES: 11/17/16 2300 TAKING BACLOFEN 10 MG TABLET 1 TABLET WITH FOOD OR MILK ORALLY THREE TIMES A DAY, NOTES: 01-20-172199 TAKING CYCLOBENZAPRINE HCL 10 MG TABLET 1 TABLET NEEDED ORALLY BID NEEDED, NOTES: 01-20-17 0900 TAKING PERCOCET 5-325 MG TABLET 1 TABLET NEEDED ORALLY EVERY 8 PRN MDD 3, NOTES: BEEN A WHILE TAKING GENERLAC 10 GM/15ML SYRUP 15 ML ORALLY ONCE A DAY, NOTES: A WEEK AGO TAKING LASIX 20 MG TABLET 1 TABLET ORALLY PRN, NOTES: NEEDED BEEN A WHILE TAKING HYOSCYAMINE 0.15 MG TABLET ORALLY DIRECTED, NOTES: 01-21-17 0800 TAKING HYDROMORPHONE HCL 4 MG TABLET 1 TABLET NEEDED ORALLY EVERY 6 HRS, NOTES: BEEN A WHILE TAKING ALEVE 220 MG TABLET 1 TABLET NEEDED ORALLY EVERY 12 HRS, NOTES: NEEDS BEEN OVER A WEEK TAKING BENADRYL 25 MG CAPSULE 1 CAPSULE NEEDED ORALLY EVERY 8 HRS, NOTES: BEEN A WHILE TAKING MIRALAX - PACKET 1 PACKET MIXED WITH 8 OUNCES OF FLUID ORALLY ONCE A DAY, NOTES: A WEEK TAKING CELEXA 20 MG TABLET 1 TABLET ORALLY TWICE A DAY, NOTES: 01-20-17 0800 NOT-TAKING ROSUVASTATIN CALCIUM 5 MG TABLET 1 TABLET ORALLY ONCE A DAY, NOTES: 11/17/16 1100 NOT-TAKING CELECOXIB 200 MG CAPSULE 1 CAPSULE WITH FOOD ORALLY ONCE A DAY, NOTES: 11/17/16 2300 NOT-TAKING PRILOSEC 40 MG CAPSULE DELAYED RELEASE 1 CAPSULE ORALLY ONCE A DAY, NOTES: 11/17/16 230 NOT-TAKING PROMETHAZINE HCL 25 MG TABLET 1 TABLET NEEDED ORALLY EVERY 6 HR, NOTES: MORE THAN A WEEK NOT-TAKING XANAX 0.25 MG TABLET 1 TABLET ORALLY DAILY, NOTES: 01-21-17 0800 MEDICATION LIST REVIEWED AND RECONCILED WITH THE PATIENT PAST MEDICAL HISTORY HEMORRHOIDS KIDNEY STONES HYPERLIPIDEMIA BACK PAIN DEPRESSION ANXIETY MUSCLE DISORDER GERD ALLERGIES DEMEROL: ALLERGY CODEINE SULFATE: ITCHING OXYCODONE HCL: ITCHING REVIEW OF SYSTEMS REVIEWED BY: PROVIDER: BRADEN MAS . CONSTITUTIONAL: ANY CHANGE IN YOUR MEDICAL CONDITION? NO . CHILLS NO . FEVER NO . INFECTION: DO YOU HAVE NEW INFECTIONS? NO . DO YOU HAVE HISTORY OF MRSA? NO . MUSCULOSKELETAL: ANY NEW PATTERNS OF PAIN OR NUMBNESS? NO . GASTROENTEROLOGY: ANY NEW CHANGE IN BOWEL CONTROL? NO . GENITOURINARY: ANY NEW CHANGE IN BLADDER CONTROL? NO . IS THERE A CHANCE YOU COULD BE ? NO . HEMATOLOGY/LYMPH: DO YOU TAKE ANY BLOOD THINNERS? (FOR EXAMPLE- COUMADIN, PLAVIX, AGGRENOX, PLATEL, PRADAXA, OR XARELTO) NO . WHEN WAS YOUR LAST DOSE? DATE: TIME: . NEUROLOGY: HAVE YOU FALLEN IN THE PAST 6 MONTHS? NO . ANY NEW EXTREMITY NUMBNESS OR WEAKNESS? NO . CARDIOLOGY: DO YOU HAVE A PACEMAKER OR DEFIBRILLATOR? NO . RESPIRATORY: HAVE YOU BEEN SICK IN THE PAST WEEK? NO . FEVER NO . FLU LIKE SYMPTOMS? NO . COUGH NO . INTEGUMENTARY: DO YOU HAVE ANY RASHES OR OPEN SORES? NO . ALLERGIC/IMMUNO: ARE YOU ALLERGIC TO SHELLFISH OR IV DYE? NO . ANY NEW ALLERGIES? NO . PSYCHIATRIC: DO YOU HAVE THOUGHTS OF HURTING YOURSELF OR SOMEONE ELSE? NO . ARE YOU ABUSED, NEGLECTED, OR IN AN UNSAFE ENVIRONMENT? NO . ENDOCRINOLOGY: ARE YOU DIABETIC? NO . OTHER: DO YOU NEED ANY PRESCRIPTIONS? NO . IF YES, PLEASE LIST: ____ . ANY NEW PROBLEMS WITH YOUR MEDICATIONS? NO . WHEN DID YOU LAST EAT? ____ . WHEN DID YOU LAST DRINK? ____ . WHAT DID YOU LAST DRINK? ____ . NAME OF PERSON DRIVING YOU HOME? ____ . DO YOU HAVE ANY OTHER QUESTIONS OR CONCERNS NO . VITAL SIGNS WT 187 LBS, HT 58 IN, BMI 39.08 INDEX, BP 132/69 MM HG, HR 84 /MIN, RR 16 /MIN, TEMP 97.5 F, OXYGEN SAT % 95%, SAFE IN ENV? (Y/N) YES, NA INITIALS CT 13:36, REVIEWED BY: MIRTA. EXAMINATION GENERAL EXAMINATION: PSYCHALERT , ORIENTED X 3 , APPROPRIATE MOOD AND AFFECT . LUNGS:CLEAR TO AUSCULTATION BILATERALLY. HEART:HEART RATE REGULAR. MUSCULOSKELETAL:MILD OCCIPITAL NOTCH TENDERNESS RIGHT SIDE ONLY. FEW TRIGGER POINTS NOTED OVER C7 PRMINENCE. CARPET OR RUG LAYER HELPER STRENGTH EQUAL AND STRONG. SOME DECREASE IN CERVICAL ROM. 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) MYALGIA - M79.1 (PRIMARY) TREATMENT OCCIPITAL NEURALGIA NOTES: CONTINUE EXERCISES AND STRETCHES. CONTINUE CERVICAL TRACTION. CONTINUE MASSAGE TO NECK AND SHOULDERS. PROCEDURE CODES FA211 ESTABILISHED PATIENT [facility] CHARGE DISPOSITION & COMMUNICATION FOLLOW UP 3 MONTH - OK TO CALL FOR REPEAT INJECTION (REASON: OCCIPITAL NEURALGIA) ELECTRONICALLY SIGNED BY VIJAYA OLIVO ON 02/25/2017 AT 09:03 AM EDT DISCLAIMER : THIS IS A VISIT SUMMARY EXTRACTED FROM THE [employer] CHART. IT IS NOT A COPY OF THE [employer] PROGRESS NOTE. CAMILA
== END ==
LOC: M PAIN 13:20
PROVIDERS: ATTEND Nurse Practitioner Family
DX: M54.81 Occipital neuralgia (principal); M79.1 Myalgia; Z79.891 Long term (current) use of opiate analgesic; Z79.899 Other long term (current) drug therapy; Z88.5 Allergy status to narcotic agent; Z88.8 Allergy status to other drugs, medicaments and biological substances

== ENCOUNTER 2017-02-17 20:39 | Emergency (ER) | payer BC ==
[~2017-02-17] VITALS: Ht 172.7 cm; Wt 86.8 kg
[~2017-02-17 20:39] MED LIST changes: -ALPR0.25 PO; -BACL10TA2 PO; -BENA25TA10 PO; -CELE10TA PO; -CYCL10TA PO; -EXCETAB80 PO; -FLOM5CAP PO; -HYOS125TA PO; -OXYB5TAB10 PO; -OXYC-517 PO; -OXYC1TAB23 PO; -PANT40TA2 PO; -PROM25TA PO; -PROM50TA4 PO; -RANI75TA9 PO; -ULTR50TA8 PO; -ZOFR20TA PO; -ZOFR4TAB3 PO; -ZOLP10TA2
[2017-02-17] MEDS ORDERED: ONDANSETRON 4MG/2ML VIAL (J2405) IV ONE (21:15)
[2017-02-17] MEDS ORDERED: KETOROLAC 30 MG/ML VIAL (J1885) IV ONE (21:15)
[2017-02-17] MEDS ORDERED: NS 1,000 ML IV ONE (21:15)
[2017-02-17] MEDS ORDERED: MORPHINE 2 MG/ML 1ML SYRINGE IV ONE (21:45)
[2017-02-17 22:00] LABS: BASO % 0.3 % (0.0-1.0); EOS # 0.1 K/mm3 (0.0-0.50); EOS % 0.8 % (0.0-3.0); LARGE UNSTAINED CELL # 0.2 K/mm3 (0.0-0.4); LARGE UNSTAINED CELL % 1.4 % (0.0-4.0); LYMPH # 2.3 K/mm3 (1.5-4.5); LYMPH % 20.7 % (24.0-44.0); MEAN CORPUSCULAR HEMOGLOBIN 29.1 pg (27.0-33.0); MEAN CORPUSCULAR HGB CONC 33.2 g/dl (32.0-36.5); MEAN CORPUSCULAR VOLUME 87.7 fl (80.0-96.0); MONO # 0.6 K/mm3 (0.0-0.8); MONO % 5.3 % (0.0-5.0); NEUTROPHILS # 7.4 K/mm3 (1.8-7.7); NEUTROPHILS % 71.4 % (36.0-66.0); PLATELET COUNT, AUTOMATED 261 k/mm3 (150-450); RED CELL DISTRIBUTION WIDTH 13.8 % (11.5-14.5); WHITE BLOOD COUNT 10.4 K/mm3 (4.0-10.0)
[2017-02-17 22:09] LABS: ALBUMIN 4.1 GM/DL (3.2-5.2); ALBUMIN/GLOBULIN RATIO 1.32 (1.00-1.93); ALKALINE PHOSPHATASE 96 U/L (45-117); ALT/SGPT 25 U/L (12-78); AMYLASE 59 U/L (25-115); ANION GAP 7 MEQ/L (8-16); AST/SGOT 15 U/L (15-37); BILIRUBIN,DIRECT < 0.1 MG/DL (0.0-0.2); BILIRUBIN,TOTAL 0.3 MG/DL (0.2-1.0); BLOOD UREA NITROGEN 15 MG/DL (7-18); CALCIUM LEVEL 8.7 MG/DL (8.5-10.1); CARBON DIOXIDE LEVEL 27 MEQ/L (21-32); CHLORIDE LEVEL 106 MEQ/L (98-107); CREATININE FOR GFR 0.93 MG/DL (0.55-1.02); GLOMERULAR FILTRATION RATE > 60.0 (>51); GLUCOSE, FASTING 106 MG/DL (70-105); POTASSIUM SERUM 4.2 MEQ/L (3.5-5.1); SODIUM LEVEL 140 MEQ/L (136-145); TOTAL PROTEIN 7.2 GM/DL (6.4-8.2)
[2017-02-17] MEDS ORDERED: METOCLOPRAMIDE INJ 10MG/2ML VIAL (J2765) IV ONE (22:30)
[2017-02-17] MEDS ORDERED: HYDROmorphone HCL 1 MG/ML SYRINGE (J1170) IV ONE (22:30)
--- NOTE | 2017-02-17 22:42 | REP ---
Clinical: Right flank pain. Findings: Moderate acute right-sided obstructive uropathy with hydronephrosis and proximal hydroureter along with periureteral stranding secondary to a 9 mm obstructing calculus in the ureteropelvic junction (images 75 - 79). 4 mm nonobstructing left renal calculus identified. Liver, spleen, pancreas, gallbladder, and bilateral adrenal glands are normal. The enteric system is without obstruction or acute inflammatory process. Colonic and sigmoid diverticulosis noted without acute diverticulitis. Pelvis demonstrates normal bladder and evidence for prior hysterectomy. No pelvic fluid or ascites. No free air. No adenopathy. Musculoskeletal structures demonstrate age-related degenerative changes. Lung bases are clear. Impression: 1. Moderate acute right-sided obstructive uropathy with a 9 mm calculus at the ureteropelvic junction. 4 mm nonobstructing left renal calculus. 2. Colonic diverticulosis without acute diverticulitis. Signed by Silverio Peters MD 02/17/2017 10:33 P
[2017-02-17 22:58] VITALS: BP 135/70
[2017-02-17] MEDS ORDERED: OXYC1TAB23 PO (23:02)
[2017-02-17] MEDS ORDERED: FLOM5CAP PO (23:02)
[2017-02-17] MEDS ORDERED: ZOFR4TAB3 PO (23:02)
[2017-02-19] MEDS ORDERED: PANT40TA2 PO (13:03)
[2017-02-19] MEDS ORDERED: BACL10TA2 PO (13:03)
[2017-02-19] MEDS ORDERED: FLOM5CAP PO (13:03)
[2017-02-19] MEDS ORDERED: CELE10TA PO (13:03)
[2017-02-19] MEDS ORDERED: EXCETAB80 PO (13:03)
[2017-02-19] MEDS ORDERED: BENA25TA10 PO (13:03)
[2017-03-26] MEDS ORDERED: CYCL10TA PO (10:02)
== END 2017-02-17 23:23 | disposition home or self-care (01) ==
LOC: M ED 20:39
DX: N20.1 Calculus of ureter (principal); Z87.442 Personal history of urinary calculi; Z87.891 Personal history of nicotine dependence; Z84.1 Family history of disorders of kidney and ureter; K57.90 Diverticulosis of intestine, part unspecified, without perforation or abscess without bleeding; Z79.899 Other long term (current) drug therapy; Z88.5 Allergy status to narcotic agent
CPT/HCPCS: 74176; 80048; 80076; 81001; 82150; 83690; 85025; 96361; 96374; 96375; 99283; J1170; J1885; J2405; J2765

== ENCOUNTER → 2017-02-19 | Day surgery (SDC) | payer BC, MEDICARE ==
[~2017-02-19] VITALS: Ht 172.7 cm; Wt 85.0 kg
[~2017-02-19] MED LIST changes: +ALPR0.25 PO; +BACL10TA2 PO; +BENA25TA10 PO; +CELE10TA PO; +CONRAY-60 60% 50ML VIAL (Q9961) As Ordered ONE; +CYCL10TA PO; +EXCETAB80 PO; +FLOM5CAP PO; +HYOS125TA PO; +KETOROLAC 30 MG/ML VIAL (J1885) IV ONE; +LIDOCAINE 2% 5ML JELLY UROJET As Ordered ONE; +LIDOCAINE 2% INJ 100 MG/5 ML SDV (FOR ANES.) As Ordered ONE; +LR 1,000 ML IV SCH; +MIDAZOLAM INJ 2 MG/2 ML VIAL (J2250) As Ordered ONE; +MORPHINE 4 MG/ML 1ML SYRINGE IV ONE; +ONDANSETRON 4MG/2ML VIAL (J2405) IV ONE; +ONDANSETRON 4MG/2ML VIAL (J2405) IV PRN; +OXYB5TAB10 PO; +OXYC-517 PO; +OXYC1TAB23 PO; +PANT40TA2 PO; +PERCOCET 5MG/325MG TAB PO PRN; +PROM25TA PO; +PROM50TA4 PO; +PROPOFOL 200 MG/20 ML VIAL As Ordered ONE; +RANI75TA9 PO; +SODIUM CHLORIDE 0.9% 1000 ML IV ONE; +ULTR50TA8 PO; +ZOFR20TA PO; +ZOFR4TAB3 PO; +ZOLP10TA2; +ceFAZolin 2 GM/D5W 50 ML IV BAG (J0690) As Ordered ONE; +diphenhydrAMINE INJ 50MG/ML VIAL (J1200) IV ONE; +fentaNYL 100 MCG/2 ML INJECTION (J3010) As Ordered ONE; +fentaNYL 100 MCG/2 ML INJECTION (J3010) IV PRN; +oxyBUTYnin 5 MG TAB PO PRN
[2017-02-19 09:37] LABS: BASO # 0.1 K/mm3 (0.0-0.2); BASO % 0.7 % (0.0-1.0); EOS # 0.2 K/mm3 (0.0-0.50); EOS % 2.7 % (0.0-3.0); LARGE UNSTAINED CELL # 0.2 K/mm3 (0.0-0.4); LYMPH # 2.3 K/mm3 (1.5-4.5); LYMPH % 28.1 % (24.0-44.0); MEAN CORPUSCULAR HGB CONC 32.8 g/dl (32.0-36.5); MEAN CORPUSCULAR VOLUME 88.4 fl (80.0-96.0); MONO # 0.6 K/mm3 (0.0-0.8); MONO % 7.2 % (0.0-5.0); NEUTROPHILS # 4.8 K/mm3 (1.8-7.7); NEUTROPHILS % 59.2 % (36.0-66.0); PLATELET COUNT, AUTOMATED 242 k/mm3 (150-450); RED CELL DISTRIBUTION WIDTH 13.6 % (11.5-14.5)
[2017-02-19 09:46] LABS: CALCIUM LEVEL 8.6 MG/DL (8.5-10.1); CREATININE FOR GFR 1.16 MG/DL (0.55-1.02); GLOMERULAR FILTRATION RATE 51.1 (>51); POTASSIUM SERUM 4.1 MEQ/L (3.5-5.1)
--- NOTE | 2017-02-19 17:06 | SMCUROLCON ---
Urology Consultation General Date of Consultation 02/19/17 Reason For Consultation This patient is seen for R Ureteral Stone. History of Present Illness This is a 56 y/o F w/ no significant PMH, coming back to the ER today w/ increasing right flank pain. She was seen in the ER 2 days ago w/ acute onset right flank pain and was found to have a 9mm obstructing proximal right ureteral stone. She was sent home once her pain was controlled but then the pain worsened today. She denies dysuria. She denies fevers or chills. A urine culture was not obtained 2 days ago but her UA was notable for 9 WBCs. The patient notes that she has passed one stone previously but has never had surgery for kidney stones. Past Medical History Medical History Kidney Stones Surgical Hstory Hysterectomy Medications Current Medications Current Medications Home Med (Med Rec Complete!) ASDIRECTED XX ; Start 02/19/17 at 13:15; Stop at 13:15; Status DC Allergies Allergies: Coded Allergies: Codeine (Verified Allergy, Mild, ITCHING, 11/16/12) Meperidine (Verified Adverse Reaction, Mild, , IRRITATION CLINICAL CYTOPATHOLOGIST AT SITE, 11/16/12) Review of Systems General: Denies: Fatigue, Malaise Constitutional: Denies: Fever, Chills, Sweats, Weakness, Malaise ENT: Denies: Head Aches Skin: Denies: Rash, Lesions, Breakdown Pulmonary: Denies: Dyspnea, Cough Cardiovascular: Denies Chest Pain, Denies Palpitations Gastrointestinal: Reports: Nausea, Abdominal Pain (right abdominal pain) Genitourinary: Denies: Dysuria, Frequency, Incontinence, Hematuria Musculoskeletal: Reports: Back Pain (right flank pain) Neurological: Denies: Weakness, Numbness, Incoordination, Change in Speech Psych: Reports: Mood Normal Physical Examination General Exam: No Acute Distress ENT EXAM: Atraumatic Chest Exam: Clear to auscultation Heart Exam: Rate Normal, Regular Rhythm Abdomen Exam: Soft, Tenderness (right upper and lower quadrant tenderness) Skin Exam: Nl turgor and temperature Neuro Exam: Normal Speech Psych Exam: Mental status NL, Mood NL Vital Signs/I&O Vital Signs Date Time Temp Pulse Resp B/P (MAP) Pulse Ox O2 Delivery O2 Flow Rate FiO2 02/19/17 16:53 18 Room Air 02/19/17 16:35 98.2 86 152/72 (98) 95 Laboratory Data 24H Labs Laboratory Tests 2 02/19/17 09:12: White Blood Count 8.0, Red Blood Count 4.44, Hemoglobin 12.9, Hematocrit 39.3, Mean Corpuscular Volume 88.4, Mean Corpuscular Hemoglobin 29.0, Mean Corpuscular Hemoglobin Concent 32.8, Red Cell Distribution Width 13.6, Platelet Count 242, Neutrophils (%) (Auto) 59.2, Lymphocytes (%) (Auto) 28.1, Monocytes ( %) (Auto) 7.2H, Eosinophils (%) (Auto) 2.7, Basophils (%) (Auto) 0.7, Neutrophils # (Auto) 4.8, Lymphocytes # (Auto) 2.3, Monocytes # (Auto) 0.6, Eosinophils # (Auto) 0.2, Basophils # (Auto) 0.1, Large Unclassified Cells % 2.0 , Large Unclassified Cells # 0.2, Anion Gap 6L, Glomerular Filtration Rate 51.1 , Blood Urea Nitrogen 17, Creatinine 1.16H, Sodium Level 142, Potassium Level 4.1, Chloride Level 108H, Carbon Dioxide Level 28, Calcium Level 8.6 CBC/BMP Laboratory Tests 02/19/17 09:12 Red Blood Count 4.44, Mean Corpuscular Volume 88.4, Mean Corpuscular Hemoglobin 29.0, Mean Corpuscular Hemoglobin Concent 32.8, Red Cell Distribution Width 13.6 , Neutrophils (%) (Auto) 59.2, Lymphocytes (%) (Auto) 28.1, Monocytes (%) (Auto ) 7.2 H, Eosinophils (%) (Auto) 2.7, Basophils (%) (Auto) 0.7, Neutrophils # ( Auto) 4.8, Lymphocytes # (Auto) 2.3, Monocytes # (Auto) 0.6, Eosinophils # (Auto ) 0.2, Basophils # (Auto) 0.1, Calcium Level 8.6 Assessment This is a 56 y/o F w/ an obstructing 9mm right ureteral stone. As we do not have a negative urine culture on her, I recommended just placing a stent today, w/ the plan to bring her back later once we have demonstrated a negative culture , for definitive management of the stone. The patient is agreeable. Plan - after a discussion of the risks and benefits, informed consent was signed for cystoscopy, right ureteral stent placement - 2g ancef IV supervisor [employer] to OR - NPO until surgery - likely discharge home after stent placement POORNIMA DUMONT MD Feb 19, 2017 17:06
[2017-02-19 21:49] VITALS: BP 169/79
--- NOTE | 2017-02-20 08:23 | REP ---
Clinical: Right-sided obstructive uropathy. Technique: Retrograde pyelogram with intraoperative fluoroscopic imaging. Findings: Intraoperative images demonstrate moderate right hydronephrosis with a mid ureteral stone and satisfactory placement for ureteral stent. Total fluoroscopic time 19 seconds. Impression: Hydronephrosis and ureteral stone with ureteral stent in place. Signed by Silverio Peters MD 02/20/2017 08:15 A
--- NOTE | 2017-02-20 15:28 | RO ---
DATE OF PROCEDURE: 02/19/2017 PREPROCEDURE DIAGNOSIS: Obstructing right ureteral stone. POSTPROCEDURE DIAGNOSIS: Obstructive right ureteral stone. PROCEDURE: Cystoscopy, right retrograde pyelogram with intraoperative interpretation of images, right ureteral stent placement. SURGEON: Dr. Calos Arrington AS400 ANALYST: None. ANESTHESIA: MAC. OPERATIVE INDICATIONS: This is a 56-year-old female who presented to the emergency room a few days ago with severe right flank pain. A CAT scan of the abdomen and pelvis was notable for obstructing proximal 9 mm right ureteral stone. The pain was well controlled in the emergency room and therefore she was sent home. Her pain returned today and she came back to the emergency room. Because this was her second trip to the emergency room, the recommendation was made that she come to the operating room for right ureteral stent placement. Of note, she did not have a urine culture done and it is possible that she might have a urinary tract infection. For that reason, we decided to place a stent this evening. DESCRIPTION OF PROCEDURE: The patient was brought to the operating room and MAC anesthesia was induced. Prophylactic antibiotics were infused. She was then placed in the dorsal lithotomy position and prepped and draped in the usual sterile fashion. A rigid cystoscope was then inserted into the urethral meatus and advanced into the bladder. A wire was advanced up the right collecting system. A ureteral catheter was then advanced over the wire up to the right collecting system. The wire was then removed and ureteral catheter was utilized first to obtain a urine sample from the right renal pelvis. This was sent for culture. Next, a retrograde pyelogram was performed and was notable for moderate to severe right hydronephrosis. At this point, the wire was advanced back up the right collecting system and then the ureteral catheter was removed leaving the wire in place. The wire was then utilized to advance a #6-Australian x 22-32 cm JJ ureteral stent up the right collecting system. The wire was then removed, and there were adequate curls of the stent in the right renal pelvis and in the bladder. The bladder was then emptied of all fluid, and this marked the conclusion of the procedure. The patient was then taken out of the dorsal lithotomy position, awakened from anesthesia, and transported to the recovery room in stable condition. ESTIMATED BLOOD LOSS: 0 mL. COMPLICATIONS: None. SPECIMENS: Right renal pelvis urine for culture. PLAN: The patient will be discharged home on antibiotics and pain medication. We will have her back to be seen in the office in a few weeks to set up for definitive stone management.
== END | disposition home or self-care (01) ==
LOC: M ED 08:11 → M SDC 16:26
PROVIDERS: ATTEND Urology
DX: N20.1 Calculus of ureter (principal); F41.9 Anxiety disorder, unspecified; E78.4 Other hyperlipidemia; Z79.899 Other long term (current) drug therapy; Z87.891 Personal history of nicotine dependence; M54.5 Low back pain
CPT/HCPCS: 52332; 74420; 80048; 85025; 87086; 99284; C1726; C2617; J0690; J1200; J1885; J2250; J2405; J3010; Q9961

== ENCOUNTER → 2017-03-02 | Outpatient (REF) | payer BC ==
[~2017-03-02] MED LIST changes: -CONRAY-60 60% 50ML VIAL (Q9961) As Ordered ONE; -KETOROLAC 30 MG/ML VIAL (J1885) IV ONE; -LIDOCAINE 2% 5ML JELLY UROJET As Ordered ONE; -LIDOCAINE 2% INJ 100 MG/5 ML SDV (FOR ANES.) As Ordered ONE; -LR 1,000 ML IV SCH; -MIDAZOLAM INJ 2 MG/2 ML VIAL (J2250) As Ordered ONE; -MORPHINE 4 MG/ML 1ML SYRINGE IV ONE; -ONDANSETRON 4MG/2ML VIAL (J2405) IV ONE; -ONDANSETRON 4MG/2ML VIAL (J2405) IV PRN; -PERCOCET 5MG/325MG TAB PO PRN; -PROPOFOL 200 MG/20 ML VIAL As Ordered ONE; -SODIUM CHLORIDE 0.9% 1000 ML IV ONE; -ceFAZolin 2 GM/D5W 50 ML IV BAG (J0690) As Ordered ONE; -diphenhydrAMINE INJ 50MG/ML VIAL (J1200) IV ONE; -fentaNYL 100 MCG/2 ML INJECTION (J3010) As Ordered ONE; -fentaNYL 100 MCG/2 ML INJECTION (J3010) IV PRN; -oxyBUTYnin 5 MG TAB PO PRN
== END ==
LOC: M SMT 17:44
PROVIDERS: ATTEND Urology
DX: Z01.818 Encounter for other preprocedural examination (principal); N20.0 Calculus of kidney; N39.0 Urinary tract infection, site not specified

== ENCOUNTER → 2017-03-03 | Outpatient (CLI) | payer BC ==
--- NOTE | 2017-03-03 12:30 | REP ---
Chest two views HISTORY: Kidney stones Comparison: 04/06/2013 The lungs are clear. The heart is normal in size. The pulmonary vasculature is normal in appearance. The bony structure is intact. IMPRESSION: No acute disease. Signed by Choco Hensley MD 03/03/2017 12:21 P
--- NOTE | 2017-03-03 13:17 | REP ---
KUB, TWO VIEWS: HISTORY: Kidney stones. A small amount of air is present in the small and large intestine. There are no air fluid levels or dilated loops of intestine. There is no pneumoperitoneum. A right ureteral stent is present. There is no definite nephrolithiasis. IMPRESSION: Nonspecific bowel gas pattern. Signed by Choco Hensley MD 03/03/2017 01:36 P
[2017-03-03 18:32] LABS: INR 0.96
[2017-03-03 18:37] LABS: CALCIUM LEVEL 8.8 MG/DL (8.5-10.1); CREATININE FOR GFR 1.06 MG/DL (0.55-1.02); GLOMERULAR FILTRATION RATE 56.7 (>51); POTASSIUM SERUM 4.1 MEQ/L (3.5-5.1)
[2017-03-03 19:01] LABS: MEAN CORPUSCULAR HEMOGLOBIN 29.2 pg (27.0-33.0); MEAN CORPUSCULAR HGB CONC 33.1 g/dl (32.0-36.5); MEAN CORPUSCULAR VOLUME 88.1 fl (80.0-96.0); RED CELL DISTRIBUTION WIDTH 13.4 % (11.5-14.5); WHITE BLOOD COUNT 7.2 K/mm3 (4.0-10.0)
== END ==
LOC: M SMT 11:44
PROVIDERS: ATTEND Urology
DX: Z01.818 Encounter for other preprocedural examination (principal); N20.0 Calculus of kidney

== ENCOUNTER → 2017-03-05 | Day surgery (SDC) | payer BC ==
[~2017-03-05] VITALS: Ht 172.7 cm; Wt 87.1 kg
[~2017-03-05] MED LIST changes: +LIDOCAINE 2% INJ 100 MG/5 ML SDV (FOR ANES.) As Ordered ONE; +MIDAZOLAM INJ 2 MG/2 ML VIAL (J2250) As Ordered ONE; +ONDANSETRON 4MG/2ML VIAL (J2405) As Ordered ONE; +PROPOFOL 500 MG/50 ML VIAL As Ordered ONE; +fentaNYL 100 MCG/2 ML INJECTION (J3010) As Ordered ONE
[2017-03-05 11:45] VITALS: BP 118/74
--- NOTE | 2017-03-06 10:09 | RO ---
DATE OF PROCEDURE: 03/05/2017 PREPROCEDURE DIAGNOSIS: Right ureteral stone. POSTPROCEDURE DIAGNOSIS: Right ureteral stone. PROCEDURE: Right extracorporeal shockwave lithotripsy. SURGEON: Dr. Calos Arrington GAS SYSTEM OPERATOR: None ANESTHESIA: Monitored anesthesia care (MAC). OPERATIVE INDICATIONS: This is a 56-year-old female who presented to the emergency room with severe right flank pain and was found to have an obstructing 8 mm proximal right ureteral stone. Due to the concern of a possible infection at this time, a stent was placed to decompress her kidney and she was placed on antibiotics. She was brought to the operating room today for definitive management of her stone. DESCRIPTION OF PROCEDURE: The patient was brought to the operating room where MAC anesthesia was administered. Prophylactic antibiotics were infused. She was then placed in supine position in preparation of right sided extracorporeal shockwave lithotripsy. Fluoroscopy was utilized to monitor stone position and fragmentation throughout the procedure. Shockwaves were then delivered to the right sided ureteral stone ungated. There were no arrhythmias. The stone did appear to fragment well. After 3000 shocks, the procedure was concluded. The patient was then awakened from anesthesia and transported to the recovery room in stable condition. ESTIMATED BLOOD LOSS: 0 mL. COMPLICATIONS: None. SPECIMENS: None. PLAN: The patient will followup in the clinic in a few weeks with imaging prior to assess for residual stone burden. If she has passed all of her stones at that point, we will remove her stent. CAMILA
== END | disposition home or self-care (01) ==
LOC: M SDC 07:58
PROVIDERS: ATTEND Urology
DX: N20.0 Calculus of kidney (principal); N20.1 Calculus of ureter; E78.5 Hyperlipidemia, unspecified; Z79.899 Other long term (current) drug therapy
CPT/HCPCS: 50590; J0690; J2250; J2405; J3010

== ENCOUNTER → 2017-03-09 | Outpatient (REF) | payer BC ==
[~2017-03-09] MED LIST changes: -LIDOCAINE 2% INJ 100 MG/5 ML SDV (FOR ANES.) As Ordered ONE; -MIDAZOLAM INJ 2 MG/2 ML VIAL (J2250) As Ordered ONE; -ONDANSETRON 4MG/2ML VIAL (J2405) As Ordered ONE; -PROPOFOL 500 MG/50 ML VIAL As Ordered ONE; -fentaNYL 100 MCG/2 ML INJECTION (J3010) As Ordered ONE
[2017-03-09 20:11] LABS: YEAST LIKE CELL URINE AUTO LARGE
== END ==
LOC: M SMT 16:59
PROVIDERS: ATTEND Urology
DX: R82.90 Unspecified abnormal findings in urine (principal)

== ENCOUNTER → 2017-03-25 | Outpatient (REF) | payer BC | LOC: M SMT 17:11 | PROVIDERS: ATTEND Urology | DX: Z01.818 Encounter for other preprocedural examination (principal); N20.0 Calculus of kidney; N39.0 Urinary tract infection, site not specified ==

== ENCOUNTER → 2017-03-25 | Outpatient (CLI) | payer BC ==
--- NOTE | 2017-03-25 12:24 | REP ---
KUB, ONE VIEW: HISTORY: Kidney stones. COMPARISON: 03/03/2017. Air is present in small and large intestine. There are no air fluid levels or dilated loops of intestine. There is no pneumoperitoneum. A right ureteral stent is present. Several calcifications are present overlying the right kidney and adjacent to the proximal stent consistent with nephrolithiasis. IMPRESSION: 1. Right nephrolithiasis. 2. There are several calcifications adjacent to the proximal right ureteral stent representing stones in the proximal right ureter. Signed by Choco Hensley MD 03/25/2017 12:29 P
[2017-03-25 18:51] LABS: MEAN CORPUSCULAR HEMOGLOBIN 29.1 pg (27.0-33.0); MEAN CORPUSCULAR HGB CONC 33.4 g/dl (32.0-36.5); MEAN CORPUSCULAR VOLUME 87.1 fl (80.0-96.0); RED CELL DISTRIBUTION WIDTH 13.3 % (11.5-14.5); WHITE BLOOD COUNT 5.9 K/mm3 (4.0-10.0)
[2017-03-25 19:48] LABS: ANION GAP 8 MEQ/L (8-16); BLOOD UREA NITROGEN 14 MG/DL (7-18); CALCIUM LEVEL 8.7 MG/DL (8.5-10.1); CARBON DIOXIDE LEVEL 26 MEQ/L (21-32); CHLORIDE LEVEL 108 MEQ/L (98-107); CREATININE FOR GFR 0.93 MG/DL (0.55-1.02); GLOMERULAR FILTRATION RATE > 60.0 (>51); GLUCOSE, FASTING 89 MG/DL (70-105); POTASSIUM SERUM 4.3 MEQ/L (3.5-5.1); SODIUM LEVEL 142 MEQ/L (136-145)
== END ==
LOC: M SMT 11:36
PROVIDERS: ATTEND Urology
DX: Z01.818 Encounter for other preprocedural examination (principal); N20.0 Calculus of kidney

== ENCOUNTER 2017-03-27 09:16 | Day surgery (SDC) | payer BC ==
[~2017-03-27] VITALS: Ht 172.7 cm; Wt 81.6 kg
[~2017-03-27 09:16] MED LIST changes: -ALPR0.25 PO; -HYOS125TA PO; +LR 1,000 ML IV ONE; -OXYB5TAB10 PO; -OXYC-517 PO; -PROM25TA PO; -PROM50TA4 PO; -RANI75TA9 PO; -ULTR50TA8 PO; -ZOFR20TA PO; -ZOLP10TA2
[2017-03-27] MEDS ORDERED: LIDOCAINE 1% SDV 5 ML VIAL SQ ONE (09:30)
[2017-03-27] MEDS ORDERED: CONRAY-60 60% 50ML VIAL (Q9961) As Ordered ONE (10:21)
[2017-03-27] MEDS ORDERED: PROPOFOL 200 MG/20 ML VIAL As Ordered ONE (10:49)
[2017-03-27] MEDS ORDERED: fentaNYL 100 MCG/2 ML INJECTION (J3010) As Ordered ONE (10:49)
[2017-03-27] MEDS ORDERED: MIDAZOLAM INJ 2 MG/2 ML VIAL (J2250) As Ordered ONE (10:49)
[2017-03-27] MEDS ORDERED: LIDOCAINE 2% INJ 100 MG/5 ML SDV (FOR ANES.) As Ordered ONE (10:49)
[2017-03-27] MEDS ORDERED: ONDANSETRON 4MG/2ML VIAL (J2405) As Ordered ONE (11:18)
[2017-03-27] MEDS ORDERED: dexameTHASONE 4 MG/ML 1ML VIAL (J1100) As Ordered ONE (11:18)
--- NOTE | 2017-03-27 12:02 | REP ---
C-ARM VIEWS DURING RETROGRADE PYELOGRAM AND URETERAL STENT PLACEMENT: Three C-arm views are performed. There is passage of a wire through the right ureter and contrast is injected into a dilated right pelvicaliceal system. There is placement of a right ureteral stent with the proximal end coiled in the right renal pelvis and the distal end coiled in the region of the urinary bladder. 17 seconds of fluoroscopy time utilized. Signed by Barry North MD 03/27/2017 05:09 P
[2017-03-27] MEDS ORDERED: PERCOCET 5MG/325MG TAB PO PRN ×3 (12:15)
[2017-03-27] MEDS ORDERED: oxyBUTYnin 5 MG TAB PO PRN (12:15)
[2017-03-27] MEDS ORDERED: LR 1,000 ML IV SCH (12:15)
[2017-03-27] MEDS ORDERED: METOCLOPRAMIDE INJ 10MG/2ML VIAL (J2765) IV PRN (12:15)
[2017-03-27] MEDS ORDERED: ONDANSETRON 4MG/2ML VIAL (J2405) IV PRN (12:15)
[2017-03-27] MEDS ORDERED: MEPERIDINE INJ 25 MG/ML VIAL (J2175) IV PRN (12:15)
[2017-03-27] MEDS: fentaNYL 100 MCG/2 ML INJECTION (J3010) IV PRN ×2 (12:22→12:27)
[2017-03-27 14:00] VITALS: BP 161/77
--- NOTE | 2017-03-28 10:43 | RO ---
DATE OF PROCEDURE: 03/27/2017 PREPROCEDURE DIAGNOSIS: Right ureteral stones. POSTPROCEDURE DIAGNOSIS: Right ureteral stones. PROCEDURE: Cystoscopy, right ureteroscopy with laser lithotripsy and basket extraction of stones, right retrograde pyelogram with intraoperative interpretation of images, right ureteral stent exchange. SURGEON: Calos Arrington MD FLYER BUILDER: None. ANESTHESIA: General. OPERATIVE INDICATIONS: This is a 56-year-old female who previously underwent a right extracorporeal shockwave lithotripsy. On followup KUB done in the office, she still had three stones in the proximal ureter. It was, therefore, recommended that she be brought to the operating room today for the above-listed procedure. DESCRIPTION OF PROCEDURE: The patient was brought to the operating room, and general anesthesia was induced. Prophylactic antibiotics were infused. She was then placed in dorsal lithotomy position and prepped and draped in the usual sterile fashion. A rigid cystoscope was inserted into the urethral meatus and advanced to the bladder. Her previously placed stent was seen and then grasped and withdrawn so that the distal end was protruded from the urethral meatus. I advanced a wire up the stent into the right collecting system. The stent was then removed leaving the wire in place. Next, I advanced a ureteral access sheath over the wire up the right collecting system. The wire was then secured to the drape to serve as a safety wire. We then went up the ureteral access sheath with the flexible ureteroscope, and in the proximal ureter, three stones were seen. Two of the stones were small enough to grab with the basket and withdraw. The other stone was too big and, therefore, it was broken into smaller fragments using a 200 micron laser fiber. Once that was done, the stone fragments were removed with the basket. The kidney was then examined, and no additional stone fragments were seen. A retrograde pyelogram was performed and was negative for extravasation. At this point, the ureteroscope was removed along with the access sheath, and no additional stones were seen in the ureter. I then used the previously placed wire to advance a #6-Fijian by 22-32 cm JJ ureteral stent up the right collecting system. The wire was then removed, and there were adequate curls of the stent in the right renal pelvis and in the bladder. The bladder was then emptied of all fluid, and this marked the conclusion of the procedure. The patient was taken out of the dorsal lithotomy position, awakened from anesthesia, and transported to the recovery room in stable condition. ESTIMATED BLOOD LOSS: 0 mL. COMPLICATIONS: None. SPECIMENS: Kidney stones. PLAN: The patient will followup in the clinic in a few weeks for stent removal. CAMILA
== END 2017-03-27 14:15 | disposition home or self-care (01) ==
LOC: M SDC 09:16
PROVIDERS: ATTEND Urology
DX: N20.0 Calculus of kidney (principal); N20.1 Calculus of ureter; E78.5 Hyperlipidemia, unspecified; Z87.891 Personal history of nicotine dependence; Z88.8 Allergy status to other drugs, medicaments and biological substances; Z79.899 Other long term (current) drug therapy
CPT/HCPCS: 52356; 74420; 82360; 88300; C1769; C1894; C2617; J0690; J1100; J2250; J2405; J3010; Q9961

== ENCOUNTER 2017-04-16 23:14 | Observation (INO) | payer BC ==
[~2017-04-16] VITALS: Ht 172.7 cm; Wt 88.3 kg
[~2017-04-16 23:14] MED LIST changes: -LR 1,000 ML IV ONE; +TAMSULOSIN 0.4 MG CAP PO SCH
[2017-04-16] MEDS ORDERED: OXYC-517 PO (23:38)
[2017-04-16] MEDS ORDERED: OXYB5TAB10 PO (23:38)
[2017-04-16] MEDS ORDERED: ALPR0.25 PO (23:38)
[2017-04-16] MEDS ORDERED: ZOLP10TA2 (23:38)
[2017-04-16] MEDS ORDERED: BACL10TA2 PO (23:38)
[2017-04-16] MEDS ORDERED: PROM50TA4 PO (23:40)
[2017-04-17] VITALS (9 sets, daily range): BP systolic 107–153; BP diastolic 55–76
[2017-04-17] MEDS ORDERED: ONDANSETRON 4MG/2ML VIAL (J2405) IV ONE (00:30)
[2017-04-17] MEDS ORDERED: NS 1,000 ML IV ONE (00:30)
[2017-04-17] MEDS: MORPHINE 4 MG/ML 1ML SYRINGE IV PRN ×2 (00:52→01:43)
[2017-04-17 00:59] LABS: BASO # 0.1 K/mm3 (0.0-0.2); BASO % 0.5 % (0.0-1.0); EOS # 0.5 K/mm3 (0.0-0.50); EOS % 4.6 % (0.0-3.0); LARGE UNSTAINED CELL # 0.1 K/mm3 (0.0-0.4); LARGE UNSTAINED CELL % 0.9 % (0.0-4.0); LYMPH # 1.5 K/mm3 (1.5-4.5); MEAN CORPUSCULAR HEMOGLOBIN 28.2 pg (27.0-33.0); MEAN CORPUSCULAR HGB CONC 32.9 g/dl (32.0-36.5); MEAN CORPUSCULAR VOLUME 85.6 fl (80.0-96.0); MONO # 0.8 K/mm3 (0.0-0.8); MONO % 6.9 % (0.0-5.0); NEUTROPHILS # 8.2 K/mm3 (1.8-7.7); NEUTROPHILS % 74.2 % (36.0-66.0); PLATELET COUNT, AUTOMATED 263 k/mm3 (150-450); RED CELL DISTRIBUTION WIDTH 13.6 % (11.5-14.5)
[2017-04-17 01:01] LABS: CALCIUM LEVEL 8.5 MG/DL (8.5-10.1); CREATININE FOR GFR 1.41 MG/DL (0.55-1.02); GLOMERULAR FILTRATION RATE 40.8 (>51); POTASSIUM SERUM 4.5 MEQ/L (3.5-5.1)
--- NOTE | 2017-04-17 01:20 | REPUSA ---
CLINICAL HISTORY: Abdominal pain. TECHNIQUE: Multiple axial, sagittal and coronal CT images were obtained through the abdomen and pelvi s without administration of oral or IV contrast material. COMMENTS: Comparison to prior exam on 02/17/2017. No change in the size 5.4 mm obstructing stone of the right ureter at L4/L5 level. This stone was at the L2 level on the prior exam. Mild increase in right hydroureteronephrosis. Mild increase in right perinephric fat stranding. Unchanged 4.1 mm nonobstructing left renal stone. Prior hysterectomy. Moderate large bowel fecal stasis. The liver is of uniform attenuation without mass or defect. There is no intra or extrahepatic biliary ductal dilatation. The spleen is normal. The gallbladder is within normal limits. The pancreas is of normal contour and attenuation characteristics. There is no evidence of adrenal mass. There is no evidence for appendicitis. There is no bowel wall thickening. No evidence for small or la rge bowel obstruction. There is no evidence of abdominal ascites or lymphadenopathy. There is no evidence of intrinsic or extrinsic bladder mass. There is no pelvic ascites or lymphadeno shawn. Images of the lung bases show no evidence of pleural or parenchymal mass. There are no pleural effusi ons. The bony structures are free of lytic or blastic lesions. Multilevel degenerative changes are seen in volving the thoracolumbar spine. Scattered calcifications are seen involving the aorta and major branches compatible with atherosclero sis. IMPRESSION: Comparison to prior exam on 02/17/2017. No change in the size 5.4 mm obstructing stone of the right ureter at L4/L5 level. This stone was at the L2 level on the prior exam. Mild increase in right hydroureteronephrosis. Mild increase in right perinephric fat stranding. Unchanged 4.1 mm nonobstructing left renal stone. Prior hysterectomy. Moderate large bowel fecal stasis. Uncomplicated diverticulosis. Thank you for your kind referral of this patient.
[2017-04-17] MEDS ORDERED: MORPHINE 4 MG/ML 1ML SYRINGE As Ordered ONE (02:22)
[2017-04-17] MEDS: MORPHINE 2 MG/ML 1ML SYRINGE IV PRN ×4 (02:24→13:04)
[2017-04-17] MEDS ORDERED: PROM25TA PO (02:25)
[2017-04-17] MEDS ORDERED: MORPHINE 2 MG/ML 1ML SYRINGE As Ordered ONE (02:25)
[2017-04-17] MEDS ORDERED: CELE1CAP4 PO (02:27)
[2017-04-17] MEDS ORDERED: RANI75TA9 PO (02:27)
[2017-04-17] MEDS ORDERED: HYOS125TA PO (02:27)
[2017-04-17] MEDS ORDERED: zolPIDEM TARTRATE 10MG TAB PO PRN (02:30)
[2017-04-17] MEDS ORDERED: NS 1,000 ML IV SCH (02:30)
[2017-04-17] MEDS ORDERED: KETOROLAC 30 MG/ML VIAL (J1885) IV ONE ×2 (07:15→14:30)
--- NOTE | 2017-04-17 07:30 | SMCUROLCON ---
Urology Consultation General Date of Consultation 04/17/17 Reason For Consultation This patient is seen for Kindey Stones. History of Present Illness This is a 56 y/o F w/ a history of kidney stones, s/p right ureteroscopy with laser lithotripsy and basket extraction of stones, and right ureteral stent exchange on 03/27/17, presenting to the ER w/ acute onset right flank pain. The patient had her stent removed in the office a few days ago and yesterday had the onset of severe right flank pain. She has had some nausea but denies vomiting. She denies dysuria. She denies fevers or chills. A CT A/P w/o contrast was obtained in the ER which was notable for an obstructing 7mm mid right ureteral stone. Past Medical History Medical History kidney stones Medications Current Medications Current Medications Citalopram Hydrobromide (CeleXA) 20 mg DAILY PO ; Start 04/17/17 at 09:00; Stop 05/17/17 at 08:59 Home Med (Med Rec Complete!) ASDIRECTED XX ; Start 04/17/17 at 02:30; Stop at 02:31; Status DC Morphine Sulfate (Morphine Sulfate Inj) 2 mg Q2HP PRN IV SEVERE PAIN (PS 8-10) Last administered on 04/17/17 06:20; Start 04/17/17 at 02:30; Stop 04/24/17 at 02: 29 Morphine Sulfate (Morphine Sulfate Inj) 4 mg Q15M PRN IV MODERATE/SEVERE PAIN ( PS 5-10) Last administered on 04/17/17 01:43; Start 04/17/17 at 00:30; Stop at 01:43; Status DC Ondansetron HCl (ZOFRAN INJection) 4 mg Q6HP PRN IV NAUSEA OR VOMITING; Start 04/17/17 at 02:30; Stop 05/17/17 at 02:29 Sodium Chloride 1,000 ml @ 50 mls/hr Q20H IV Last administered on 04/17/17 02: 30; Start 04/17/17 at 02:30; Stop 05/17/17 at 02:29 Tamsulosin HCl (Flomax) 0.4 mg DAILY@2100 PO ; Start 04/16/17 at 21:00; Stop at 20:59 Zolpidem Tartrate (Ambien) 10 mg QHSP PRN PO INSOMNIA; Start 04/17/17 at 02:30; Stop 04/24/17 at 02:29 Allergies Allergies: Coded Allergies: Omeprazole (Unverified Allergy, Unknown, CAUSES BEING BRUISED EASILY, ) Codeine (Verified Adverse Reaction, Mild, ITCHING, 03/26/17) Meperidine (Verified Adverse Reaction, Mild, IRRITATION CARE HOME AT SITE , 03/26/17) Review of Systems General: Denies: Fatigue, Malaise Constitutional: Denies: Fever, Chills, Sweats, Weakness, Malaise Eyes: Denies: Pain, Vision change Skin: Denies: Rash, Lesions, Breakdown, Nail Changes Pulmonary: Denies: Dyspnea, Cough Cardiovascular: Denies Chest Pain, Denies Palpitations Gastrointestinal: Reports: Nausea, Denies: Vomiting, Abdominal Pain Genitourinary: Denies: Dysuria, Frequency, Incontinence, Hematuria Musculoskeletal: Reports: Back Pain (right flank pain) Psych: Reports: Mood Normal Physical Examination General Exam: Alert, No Acute Distress ENT EXAM: Atraumatic Chest Exam: Clear to auscultation, Normal air movement Heart Exam: Rate Normal, Regular Rhythm Skin Exam: Nl turgor and temperature Neuro Exam: Normal Speech Psych Exam: Mental status NL, Mood NL Vital Signs/I&O Vital Signs Date Time Temp Pulse Resp B/P (MAP) Pulse Ox O2 Delivery O2 Flow Rate FiO2 04/17/17 06:52 16 04/17/17 01:28 Room Air 04/17/17 00:52 98 04/17/17 00:41 04/16/17 23:31 99.2 116 Laboratory Data 24H Labs Laboratory Tests 2 04/17/17 00:34: White Blood Count 11.0H, Red Blood Count 4.58, Hemoglobin 12.9, Hematocrit 39.2 , Mean Corpuscular Volume 85.6, Mean Corpuscular Hemoglobin 28.2, Mean Corpuscular Hemoglobin Concent 32.9, Red Cell Distribution Width 13.6, Platelet Count 263, Neutrophils (%) (Auto) 74.2H, Lymphocytes (%) (Auto) 13.0L, Monocytes (%) (Auto) 6.9H, Eosinophils (%) (Auto) 4.6H, Basophils (%) (Auto) 0.5 , Neutrophils # (Auto) 8.2H, Lymphocytes # (Auto) 1.5, Monocytes # (Auto) 0.8, Eosinophils # (Auto) 0.5, Basophils # (Auto) 0.1, Large Unclassified Cells % 0.9 , Large Unclassified Cells # 0.1, Anion Gap 8, Glomerular Filtration Rate 40.8L , Blood Urea Nitrogen 13, Creatinine 1.41H, Sodium Level 141, Potassium Level 4.5, Chloride Level 106, Carbon Dioxide Level 27, Calcium Level 8.5 04/17/17 01:24: Urine Appearance HAZY, Urine Color YELLOW, Urine pH 5.0, Urine Specific [place] 1.014, Urine Protein NEGATIVE, Urine Glucose (UA) NEGATIVE, Urine Ketones NEGATIVE, Urine Urobilinogen 0.2, Urine Bilirubin NEGATIVE, Urine Leukocyte Esterase 3+H, Urine Blood 1+H, Urine Nitrite NEGATIVE, Urine WBC (Auto) 54H, Urine RBC (Auto) 8H, Urine Hyaline Casts (Auto) 0, Urine Bacteria (Auto) NEGATIVE, Urine Squamous Epithelial Cells 0, Urine Mucus (Auto) SMALL, Urine Sperm (Auto) CBC/BMP Laboratory Tests 04/17/17 00:34 Red Blood Count 4.58, Mean Corpuscular Volume 85.6, Mean Corpuscular Hemoglobin 28.2, Mean Corpuscular Hemoglobin Concent 32.9, Red Cell Distribution Width 13.6 , Neutrophils (%) (Auto) 74.2 H, Lymphocytes (%) (Auto) 13.0 L, Monocytes (%) ( Auto) 6.9 H, Eosinophils (%) (Auto) 4.6 H, Basophils (%) (Auto) 0.5, Neutrophils # (Auto) 8.2 H, Lymphocytes # (Auto) 1.5, Monocytes # (Auto) 0.8, Eosinophils # (Auto) 0.5, Basophils # (Auto) 0.1, Calcium Level 8.5 Microbiology Microbiology 04/17/17 Urine Culture, Received Pending Assessment This is a 56 y/o F w/ an obstructing 7mm mid right ureteral stone. Plan - admit for pain control - morphine prn pain - IVF - flomax - strain urine - NPO - plan for OR later today for cystoscopy, right ureteroscopy w/ laser lithotripsy, right ureteral stent placement POORNIMA DUMONT MD Apr 17, 2017 07:30
[2017-04-17] MEDS: CitaloPRAM (CeleXA) 20 MG TAB PO SCH (10:11)
[2017-04-17] MEDS: ONDANSETRON 4MG/2ML VIAL (J2405) IV PRN ×2 (13:04→23:24)
[2017-04-17] MEDS ORDERED: CONRAY-60 60% 50ML VIAL (Q9961) As Ordered ONE (17:49)
[2017-04-17] MEDS ORDERED: ceFAZolin 2 GM/D5W 50 ML IV BAG (J0690) As Ordered ONE (17:51)
[2017-04-17] MEDS ORDERED: fentaNYL 100 MCG/2 ML INJECTION (J3010) As Ordered ONE (18:59)
[2017-04-17] MEDS ORDERED: LIDOCAINE 2% INJ 100 MG/5 ML SDV (FOR ANES.) As Ordered ONE (18:59)
[2017-04-17] MEDS ORDERED: METOCLOPRAMIDE INJ 10MG/2ML VIAL (J2765) As Ordered ONE (18:59)
[2017-04-17] MEDS ORDERED: PROPOFOL 200 MG/20 ML VIAL As Ordered ONE (18:59)
[2017-04-17] MEDS ORDERED: MIDAZOLAM INJ 2 MG/2 ML VIAL (J2250) As Ordered ONE (18:59)
[2017-04-17] MEDS ORDERED: ONDANSETRON 4MG/2ML VIAL (J2405) As Ordered ONE (18:59)
[2017-04-17] MEDS ORDERED: LR 1,000 ML IV SCH (19:30)
[2017-04-17] MEDS ORDERED: ONDANSETRON 4MG/2ML VIAL (J2405) IV PRN (19:30)
[2017-04-17] MEDS ORDERED: fentaNYL 100 MCG/2 ML INJECTION (J3010) IV PRN (19:30)
[2017-04-17] MEDS ORDERED: PERCOCET 5MG/325MG TAB PO PRN ×2 (19:30)
--- NOTE | 2017-04-17 21:38 | RO ---
DATE OF PROCEDURE: 04/17/2017 PREPROCEDURE DIAGNOSIS: Obstructing right ureteral stone. POSTPROCEDURE DIAGNOSIS: Obstructing right ureteral stone. PROCEDURE: Cystoscopy, right ureteroscopy with laser lithotripsy and basket extraction of stones, right retrograde pyelogram with intraoperative interpretation of images, right ureteral stent placement. SURGEON: Dr. Calos Arrington TEST ENG: None. ANESTHESIA: General. OPERATIVE INDICATIONS: This is a 56-year-old female with a history of right- sided nephrolithiasis who recently undergone right ureteroscopy with laser lithotripsy. Her stent was removed in the office recently, and she presented to the emergency room with severe right-sided flank pain yesterday evening. A CT scan was notable for an obstructing 7 mm right ureteral stone. Given the severity of her pain and difficulty keeping her pain under control, it was recommended she be brought to the operating room today for the above listed procedure. DESCRIPTION OF PROCEDURE: The patient was brought to the operating room and general anesthesia was induced. Prophylactic antibiotics were infused. She was then placed in the dorsal lithotomy position and prepped and draped in the usual sterile fashion. A rigid cystoscope was inserted into the urethral meatus and advanced to the bladder. Once within the bladder, a wire was advanced up the right collecting system. The cystoscope was then removed, and a ureteral access sheath was advanced over the wire up into the right collecting system. The stylet was then removed and the wire was secured to the drapes to serve as a safety wire. We then went up the ureteral access sheath with a flexible ureteroscope and within the mid ureter, a 7 mm stone was seen. The stone was then fragmented into smaller pieces using a 200 micron laser fiber and all the fragments were then removed with the basket. I then examined the remainder of the ureter as well as the kidney and no additional stones were seen within the ureter or inside the kidney. Of note, the proximal ureter and kidney were severely dilated. A retrograde pyelogram was performed and was notable for moderate to severe right hydroureteronephrosis but no extravasation. At this point, the ureteroscope was removed along with the access sheath and no additional stones were seen behind the access sheath. The previously placed wire was then utilized to advance a 6-Romanian x 22-32 cm JJ ureteral stent up into the right collecting system. The wire was then removed, and there were adequate curls of the stent in the right renal pelvis and in the bladder. The bladder was then emptied of all fluid, and this marked the conclusion of the procedure. The patient was then taken out of the dorsal lithotomy position, awakened from anesthesia, transported to the recovery room in stable condition. Estimated blood loss: 0 mL. Complications: None. Specimens: Kidney stone fragments. PLAN: The patient will followup in the clinic in a week or two for stent removal. CAMILA
[2017-04-18] VITALS: BP 131/71
[2017-04-18] MEDS: ACETAMINOPHEN TAB 650MG DOSE (2X325MG) PO PRN ×2 (00:55→14:38)
[2017-04-18] MEDS: oxyBUTYnin 5 MG TAB PO PRN ×2 (00:55→14:38)
[2017-04-18] MEDS: METOCLOPRAMIDE INJ 10MG/2ML VIAL (J2765) IV PRN ×2 (00:55→14:38)
[2017-04-18 01:00] VITALS: BP 127/59
[2017-04-18 06:00] VITALS: BP 113/56
[2017-04-18 08:00] VITALS: BP 110/56
[2017-04-18] MEDS: CitaloPRAM (CeleXA) 20 MG TAB PO SCH (08:51)
--- NOTE | 2017-04-18 09:47 | REP ---
Clinical: Nephrolithiasis. Technique: Retrograde pyelogram with fluoroscopic imaging. Findings: Intraoperative fluoroscopic images demonstrate moderate right hydroureteronephrosis final images demonstrate satisfactory right ureteral stent placement. Total fluoroscopic time 9 seconds. Impression: Status post right ureteral stent placement. Signed by Silverio Peters MD 04/18/2017 09:39 A
[2017-04-18] MEDS ORDERED: NS 500 ML IV ONE (10:15)
[2017-04-18] MEDS ORDERED: traMADol 50 MG TAB PO PRN (10:15)
--- NOTE | 2017-04-18 10:49 | IPNPDOC ---
Assessment/Plan Date Seen The patient was seen on 04/18/17. Patient Summary This is a 56 y/o F admitted for pain control for an obstructing right ureteral stone, now POD 1 s/p cysto, right ureteroscopy w/ laser lithotripsy and basket extraction of stones, right ureteral stent placement. She did not feel well after surgery last night, but is a little better this morning. I will give her a bolus of IVF as they were turned off after surgery and she has not had much PO intake at all. Likely discharge home later today once patient starts feeling better and taking in more PO. Plan/VTE VTE Prophylaxis Ordered?: Yes VTE Exclusion Mechanical Proph: N/A:VTE Prophy Ordered Plan - bolus 500cc NS - ultram prn pain - oxybutynin prn bladder spasms - ambulate - strict I/Os - likely discharge home later today Subjective Review oF Systems Chief Complaint The patient is a 56-year-old female admitted with a reason for visit of Kindey Stones. Events since Last Encounter Patient noted nausea and chills last night, both improved this morning. She still has not eaten much this morning. Her pain is well-controlled. Objective Physical Examination General Exam: Alert, Cooperative ENT EXAM: Atraumatic ABDOMEN EXAM: Soft, No: Tenderness Skin Exam: Nl turgor and temperature Psych Exam: Mental status NL, Mood NL Vital Signs/I&O Vital Signs Date Time Temp Pulse Resp B/P (MAP) Pulse Ox O2 Delivery O2 Flow Rate FiO2 04/18/17 08:52 18 04/18/17 08:00 98.5 87 110/56 (74) 95 Room Air 04/17/17 19:14 2 I&O- Last 24 Hours up to 6 AM 04/18/17 06:00 Intake Total 1160 ml Output Total 2750 ml Balance -1590 ml Laboratory Data Microbiology Microbiology 04/17/17 Urine Culture - Final, Complete POORNIMA DUMONT MD Apr 18, 2017 10:49
[2017-04-18] MEDS: ONDANSETRON 4MG/2ML VIAL (J2405) IV PRN (11:06)
[2017-04-18 12:00] VITALS: BP 115/58
[2017-04-18] MEDS ORDERED: ULTR50TA8 PO (15:27)
[2017-04-18] MEDS ORDERED: ZOFR20TA PO (15:27)
--- NOTE | 2017-04-19 10:31 | DSES ---
DATE OF ADMISSION: 04/17/2017 DATE OF DISCHARGE: 04/18/2017 ADMISSION DIAGNOSIS: Right ureteral stone. DISCHARGE DIAGNOSIS: Right ureteral stone. PROCEDURES PERFORMED: Cystoscopy, right ureteroscopy, laser lithotripsy with basket retraction of stones, right ureteral stent placement on 04/17/2017. HISTORY OF PRESENT ILLNESS: This is a 56-year-old female with a history of right-sided nephrolithiasis who recently had a stent removed in the office. She presented to the emergency room on the belt brander of 04/17/2017 with severe right flank pain. A CT scan obtained as notable for a 10 mm mid right ureteral stone. They were unable to manage her pain in the emergency room. Therefore, it was decided that she be brought into the hospital under observation with the plan to treat her stone later that day. HOSPITAL COURSE: The patient was admitted to the hospital on the belt brander of 04/17/2017 for pain control. She was taken to the operating room later that day for the above listed procedure. She had a moderate amount of nausea after the procedure, and therefore was not discharged home on that evening. By 2016, the nausea was improved and she was feeling better. She, therefore, was deemed ready for discharge home on 04/18/2017. She was discharged home with the plan for her to followup in the clinic in a few weeks for stent removal. CAMILA
== END 2017-04-18 15:50 | disposition home or self-care (01) ==
LOC: M ED 23:14 → M ED INP 04-17 02:00 → M PED 04-17 11:10
PROVIDERS: ADMIT Urology; ATTEND Urology
DX: N20.1 Calculus of ureter (principal); R11.0 Nausea; E78.4 Other hyperlipidemia; M54.5 Low back pain; Z79.899 Other long term (current) drug therapy; Z88.8 Allergy status to other drugs, medicaments and biological substances
CPT/HCPCS: 52356; 74176; 74420; 80048; 81001; 82360; 85025; 87086; 88300; 96374; 96375; 96376; 99284; C1769; C1894; C2617; J0690; J1885; J2250; J2405; J2765; J3010

== ENCOUNTER → 2017-05-05 | Outpatient (CLI) | payer BC ==
[~2017-05-05] MED LIST changes: +ALPR0.25 PO; +HYOS125TA PO; +OXYB5TAB10 PO; +OXYC-517 PO; +PROM25TA PO; +PROM50TA4 PO; +RANI75TA9 PO; -TAMSULOSIN 0.4 MG CAP PO SCH; +ULTR50TA8 PO; +ZOFR20TA PO; +ZOLP10TA2
--- NOTE | 2017-05-05 14:43 | REP ---
Supine abdomen two views: Comparison is 03/25/2017. There is a right ureteral stent in satisfactory location, unchanged. No calcifications are noted along the stent. No calcifications are projected over the kidneys or bladder. There are surgical staple lines in the pelvis bilaterally. Skeletal structures and soft tissues otherwise are unremarkable. Impression: No renal or ureteral calculi are identified. There is a right ureteral stent, unchanged. The previous calcifications noted adjacent to the proximal portion of the stent are no longer identified. Signed by Barry Solomon MD 05/05/2017 02:35 P
== END ==
LOC: M SMT 13:54
PROVIDERS: ATTEND Urology
DX: N20.0 Calculus of kidney (principal); Z98.890 Other specified postprocedural states

== ENCOUNTER → 2017-05-12 | Outpatient (CLI) | payer BC ==
--- NOTE | 2017-06-08 00:20 | ECWPNPC ---
PATIENT NAME: RAVEN MUKHERJEE : 1960 GENDER: FEMALE VISIT DATE: 05/12/2017 DISCHARGE DATE: 05/12/17 1427 VISIT LOCKED DATE TIME: PHYSICIAN: BRADEN BAKER RESOURCE: BRADEN BAKER REASON FOR APPOINTMENT 1. NECK HISTORY OF PRESENT ILLNESS HISTORY OF PRESENT ILLNESS: PAIN THE PATIENT DESCRIBES THE PAIN... FALL RISK SCREENING: SCREENING :NO FALLS IN THE PAST YEAR TODAY'S VISIT: NOTES: STATES HEAD PAIN AND NECK REMAINS UNDER CONTROL. IS STILL USING TRACTION AND DOING EXERCISES. RATES PAIN TODAY /10. NOTES PAIN IS INTERMITTANT AND SORE. HAS HAD 2 VISUAL [facility]URA PHENOM WITH NO HEADACHE. . CURRENT MEDICATIONS TAKING AMBIEN 10 MG TABLET 1 TABLET AT BEDTIME NEEDED ORALLY ONCE A DAY, NOTES: 11/17/16 2300 TAKING BACLOFEN 10 MG TABLET 1 TABLET WITH FOOD OR MILK ORALLY THREE TIMES A DAY, NOTES: 01-20-17 2200 TAKING HYOSCYAMINE 0.15 MG TABLET ORALLY DIRECTED PRN, NOTES: 01-21-17 0800 TAKING HYDROMORPHONE HCL 4 MG TABLET 1 TABLET NEEDED ORALLY EVERY 6 HRS, NOTES: BEEN A WHILE TAKING ALEVE 220 MG TABLET 1 TABLET NEEDED ORALLY EVERY 12 HRS, NOTES: NEEDS BEEN OVER A WEEK TAKING MIRALAX - PACKET 1 PACKET MIXED WITH 8 OUNCES OF FLUID ORALLY ONCE A DAY, NOTES: A WEEK TAKING CELEXA 20 MG TABLET 1 TABLET ORALLY TWICE A DAY, NOTES: 01-20-17 0800 TAKING OXYBUTYNIN CHLORIDE 5 MG TABLET 1 TABLET ORALLY EVERY 8 HOURS NEEDED FOR BLADDER SPASMS OR URINARY FREQUENCY TAKING TRAMADOL HCL 50 MG TABLET 1 TAB ORALLY EVERY 6 HOURS NEEDED/MMD#4 TAKING OXYCODONE HCL 5 MG CAPSULE 1 CAPSULE NEEDED ORALLY EVERY 6 HRS NOT-TAKING BENADRYL 25 MG CAPSULE 1 CAPSULE NEEDED ORALLY EVERY 8 HRS PRN, NOTES: BEEN A WHILE NOT-TAKING BACTRIM DS 800-160 MG TABLET 1 TABLET FOR YOUR CYSTOSCOPY TODAY ORALLY ONCE NOT-TAKING ULTRAM 50 MG TABLET 1 TABLET ORALLY EVERY 6 HRS NEEDED FOR PAIN (MDD 4) NOT-TAKING ZOFRAN 4 MG TABLET 1 TABLET ORALLY EVERY 6 HOURS NEEDED FOR NAUSEA NOT-TAKING PERCOCET 5-325 MG TABLET 1 TABLET ORALLY EVERY 6 HOURS NEEDED FOR PAIN (MDD 4), NOTES: BEEN A WHILE NOT-TAKING FLOMAX 0.4 MG CAPSULE 1 CAPSULE 30 MINUTES AFTER THE SAME MEAL EACH DAY ORALLY ONCE A DAY NOT-TAKING DIFLUCAN 100 MG TABLET 1 TABLET ORALLY TAKE TWO TABLETS ON DAY 1 AND THEN ONE TABLET DAILY ON DAYS 2-5 NOT-TAKING CYCLOBENZAPRINE HCL 10 MG TABLET 1 TABLET NEEDED ORALLY BID NEEDED, NOTES: 01-20-17 0900 NOT-TAKING GENERLAC 10 GM/15ML SYRUP 15 ML ORALLY ONCE A DAY, NOTES: A WEEK AGO NOT-TAKING LASIX 20 MG TABLET 1 TABLET ORALLY PRN, NOTES: NEEDED BEEN A WHILE NOT-TAKING CIPROFLOXACIN HCL 500 MG TABLET 1 TABLET ORALLY EVERY 12 HRS NOT-TAKING ROSUVASTATIN CALCIUM 5 MG TABLET 1 TABLET ORALLY ONCE A DAY, NOTES: 11/17/16 1100 NOT-TAKING CELECOXIB 200 MG CAPSULE 1 CAPSULE WITH FOOD ORALLY ONCE A DAY, NOTES: 11/17/16 2300 NOT-TAKING PRILOSEC 40 MG CAPSULE DELAYED RELEASE 1 CAPSULE ORALLY ONCE A DAY, NOTES: 11/17/16 230 NOT-TAKING PROMETHAZINE HCL 25 MG TABLET 1 TABLET NEEDED ORALLY EVERY 6 HR, NOTES: MORE THAN A WEEK NOT-TAKING XANAX 0.25 MG TABLET 1 TABLET ORALLY DAILY, NOTES: 01-21-17 0800 MEDICATION LIST REVIEWED AND RECONCILED WITH THE PATIENT PAST MEDICAL HISTORY HEMORRHOIDS KIDNEY STONES HYPERLIPIDEMIA BACK PAIN DEPRESSION ANXIETY MUSCLE DISORDER GERD ALLERGIES DEMEROL: ALLERGY CODEINE SULFATE: ITCHING OXYCODONE HCL: ITCHING SURGICAL HISTORY PELVIC/ VAGINAL WALL PROLAPSE REPAIR X3 2010 HYSTERETOMY 2006 COLONOSOPY 2015 ANXIALLY LYMPH NODES RIGHT REMOVED..NEGATIVE 2004 KIDNEY STONES BY LASER 2017 FAMILY HISTORY FATHER: MOTHER: ALIVE SIBLINGS: ALIVE SON(S): ALIVE DAUGHTER(S): ALIVE HOSPITALIZATION/MAJOR DIAGNOSTIC PROCEDURE SURGERIES KIDNEY STONES 2017 REVIEW OF SYSTEMS REVIEWED BY: PROVIDER: BRADEN MAS . CONSTITUTIONAL: ANY CHANGE IN YOUR MEDICAL CONDITION? NO . CHILLS NO . FEVER NO . INFECTION: DO YOU HAVE NEW INFECTIONS? NO . DO YOU HAVE HISTORY OF MRSA? NO . MUSCULOSKELETAL: ANY NEW PATTERNS OF PAIN OR NUMBNESS? NO . GASTROENTEROLOGY: ANY NEW CHANGE IN BOWEL CONTROL? NO . GENITOURINARY: ANY NEW CHANGE IN BLADDER CONTROL? NO . IS THERE A CHANCE YOU COULD BE ? NO . HEMATOLOGY/LYMPH: DO YOU TAKE ANY BLOOD THINNERS? (FOR EXAMPLE- COUMADIN, PLAVIX, AGGRENOX, PLATEL, PRADAXA, OR XARELTO) NO . WHEN WAS YOUR LAST DOSE? DATE: TIME: . NEUROLOGY: HAVE YOU FALLEN IN THE PAST 6 MONTHS? NO . ANY NEW EXTREMITY NUMBNESS OR WEAKNESS? NO . CARDIOLOGY: DO YOU HAVE A PACEMAKER OR DEFIBRILLATOR? NO . RESPIRATORY: HAVE YOU BEEN SICK IN THE PAST WEEK? NO . FEVER NO . FLU LIKE SYMPTOMS? NO . COUGH NO . INTEGUMENTARY: DO YOU HAVE ANY RASHES OR OPEN SORES? NO . ALLERGIC/IMMUNO: ARE YOU ALLERGIC TO SHELLFISH OR IV DYE? NO . ANY NEW ALLERGIES? NO . PSYCHIATRIC: DO YOU HAVE THOUGHTS OF HURTING YOURSELF OR SOMEONE ELSE? NO . ARE YOU ABUSED, NEGLECTED, OR IN AN UNSAFE ENVIRONMENT? NO . ENDOCRINOLOGY: ARE YOU DIABETIC? NO . OTHER: DO YOU NEED ANY PRESCRIPTIONS? NO . IF YES, PLEASE LIST: ____ . ANY NEW PROBLEMS WITH YOUR MEDICATIONS? NO . WHEN DID YOU LAST EAT? ____ . WHEN DID YOU LAST DRINK? ____ . WHAT DID YOU LAST DRINK? ____ . NAME OF PERSON DRIVING YOU HOME? ____ . DO YOU HAVE ANY OTHER QUESTIONS OR CONCERNS NO . UROLOGY: GENERAL HAD DIFFICULT SUMMER WITH NEEDING PLACEMENT OF RIGHT URETERAL STENT AND KIDNEY STONES. IS STILL DEALING WITH WITH RIGHT FLANK PAIN. . VITAL SIGNS WT 187 LBS, HT 58 IN, BMI 39.08 INDEX, BP 145/72 MM HG, HR 85 /MIN, RR 18 /MIN, TEMP 96.0 F, OXYGEN SAT % 96%, NA INITIALS AW 1353, REVIEWED BY: KG. EXAMINATION GENERAL EXAMINATION: PSYCHALERT , ORIENTED X 3 , APPROPRIATE MOOD AND AFFECT . LUNGS:CLEAR TO AUSCULTATION BILATERALLY. HEART:HEART RATE REGULAR. MUSCULOSKELETAL:TRIGGER POINTS OVER RIGHT CERVICAL PARAVERTEBRAL MUSCLES AND RIGHT TRAPEZIUS. POINT TENDERNESS OVER RIGHT OCCIPTAL NERVE. . 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 CONSIDER MASSGE TO NECK AND SHOULDER AREA. CONSIDER REPEAT INJECTIONS IF NECESSARY. CALL IF PAIN INCREASES. PROCEDURE CODES [id number] ESTABILISHED PATIENT [facility] CHARGE DISPOSITION & COMMUNICATION FOLLOW UP AUG 2017 (REASON: NECK/HEAD PAIN) ELECTRONICALLY SIGNED BY VIJAYA OLIVO ON 06/07/2017 AT 07:13 PM EDT DISCLAIMER : THIS IS A VISIT SUMMARY EXTRACTED FROM THE [employer] CHART. IT IS NOT A COPY OF THE [employer] PROGRESS NOTE. CAMILA
== END ==
LOC: M PAIN 14:00
PROVIDERS: ATTEND Nurse Practitioner Family
DX: G89.29 Other chronic pain (principal); M54.81 Occipital neuralgia; M79.1 Myalgia; F32.9 Major depressive disorder, single episode, unspecified; F41.9 Anxiety disorder, unspecified; Z88.5 Allergy status to narcotic agent; Z79.891 Long term (current) use of opiate analgesic

== ENCOUNTER → 2017-06-08 | Outpatient (CLI) | payer BC ==
--- NOTE | 2017-06-09 00:11 | ECWPNPC ---
PATIENT NAME: RAVEN MUKHERJEE : 1960 GENDER: FEMALE VISIT DATE: 06/08/2017 DISCHARGE DATE: 06/08/17 1418 VISIT LOCKED DATE TIME: PHYSICIAN: BRADEN BAKER RESOURCE: BRADEN BAKER REASON FOR APPOINTMENT 1. NECK-INCREASING PAIN HISTORY OF PRESENT ILLNESS HISTORY OF PRESENT ILLNESS: PAIN THE PATIENT DESCRIBES THE PAIN... FALL RISK SCREENING: SCREENING :NO FALLS IN THE PAST YEAR TODAY'S VISIT: NOTES: RATES PAIN LEVEL TODAY 8-9/10. STATES HAD BEEN DOING VERY WELL UNTIL 3 WEEKS AGO . REPORTS WENT TO HAVE HAIR DONE, WHEN HEAD WAS BACK EXPERIENCED ACUTE RECURRANCE OF NECK PAIN. AFTER THIS WHEN LOOKING UP HAD SUDDEN HEAVINESS AND NUMBNESS IN LEGS 1.5 WEEKS AGO. USED HER TRACTION FOR 30 MIN AND SYMPTOMS RESOLVED. HAS BEEN USING HER TRACTION DAILY SINCE. HAS HAD NO RECURRANCE OF THE LOWER EXTREMITY WEAKNESS.. CURRENT MEDICATIONS TAKING BACLOFEN 10 MG TABLET 1 TABLET WITH FOOD OR MILK ORALLY THREE TIMES A DAY TAKING HYOSCYAMINE 0.15 MG TABLET ORALLY DIRECTED PRN TAKING HYDROMORPHONE HCL 4 MG TABLET 1 TABLET NEEDED ORALLY EVERY 6 HRS TAKING MIRALAX - PACKET 1 PACKET MIXED WITH 8 OUNCES OF FLUID ORALLY ONCE A DAY TAKING CELEXA 10 MG TABLET 2 TABLETS ORALLY DAILY TAKING TRAMADOL HCL 50 MG TABLET 1 TAB ORALLY EVERY 6 HOURS NEEDED/MMD#4 TAKING OXYCODONE HCL 5 MG CAPSULE 1 CAPSULE NEEDED ORALLY EVERY 6 HRS TAKING ZANTAC 150 MG TABLET 1 TABLET AT BEDTIME ORALLY ONCE A DAY NEEDED TAKING ZOFRAN 4 MG TABLET 1 TABLET ORALLY EVERY 6 HOURS NEEDED FOR NAUSEA TAKING GENERLAC 10 GM/15ML SYRUP 15 ML ORALLY ONCE A DAY NEEDED TAKING LASIX 20 MG TABLET 1 TABLET ORALLY PRN TAKING CELECOXIB 200 MG CAPSULE 1 CAPSULE WITH FOOD ORALLY ONCE A DAY TAKING XANAX 0.25 MG TABLET 1 TABLET ORALLY DAILY NEEDED TAKING AMBIEN 10 MG TABLET 1 TABLET AT BEDTIME NEEDED ORALLY ONCE A DAY NOT-TAKING ALEVE 220 MG TABLET 1 TABLET NEEDED ORALLY EVERY 12 HRS NOT-TAKING OXYBUTYNIN CHLORIDE 5 MG TABLET 1 TABLET ORALLY EVERY 8 HOURS NEEDED FOR BLADDER SPASMS OR URINARY FREQUENCY NOT-TAKING BENADRYL 25 MG CAPSULE 1 CAPSULE NEEDED ORALLY EVERY 8 HRS PRN NOT-TAKING BACTRIM DS 800-160 MG TABLET 1 TABLET FOR YOUR CYSTOSCOPY TODAY ORALLY ONCE NOT-TAKING ULTRAM 50 MG TABLET 1 TABLET ORALLY EVERY 6 HRS NEEDED FOR PAIN (MDD 4) NOT-TAKING PERCOCET 5-325 MG TABLET 1 TABLET ORALLY EVERY 6 HOURS NEEDED FOR PAIN (MDD 4) NOT-TAKING FLOMAX 0.4 MG CAPSULE 1 CAPSULE 30 MINUTES AFTER THE SAME MEAL EACH DAY ORALLY ONCE A DAY NOT-TAKING DIFLUCAN 100 MG TABLET 1 TABLET ORALLY TAKE TWO TABLETS ON DAY 1 AND THEN ONE TABLET DAILY ON DAYS 2-5 NOT-TAKING CYCLOBENZAPRINE HCL 10 MG TABLET 1 TABLET NEEDED ORALLY BID NEEDED NOT-TAKING CIPROFLOXACIN HCL 500 MG TABLET 1 TABLET ORALLY EVERY 12 HRS NOT-TAKING ROSUVASTATIN CALCIUM 5 MG TABLET 1 TABLET ORALLY ONCE A DAY NOT-TAKING PRILOSEC 40 MG CAPSULE DELAYED RELEASE 1 CAPSULE ORALLY ONCE A DAY NOT-TAKING PROMETHAZINE HCL 25 MG TABLET 1 TABLET NEEDED ORALLY EVERY 6 HR MEDICATION LIST REVIEWED AND RECONCILED WITH THE PATIENT PAST MEDICAL HISTORY HEMORRHOIDS KIDNEY STONES HYPERLIPIDEMIA BACK PAIN DEPRESSION ANXIETY MUSCLE DISORDER GERD ALLERGIES DEMEROL: ALLERGY CODEINE SULFATE: ITCHING OXYCODONE HCL: ITCHING SOCIAL HISTORY GENERAL: TOBACCO USE ARE YOU A:FORMER SMOKER ALCOHOL SCREENING DID YOU HAVE A DRINK CONTAINING ALCOHOL IN THE PAST YEAR?NO POINTS0 INTERPRETATIONNEGATIVE CAFFEINE CAFFEINE USE?YES 3 CUPS DAILY OCCUPATION: RETIRED. DIET: REGULAR. MARITAL STATUS: ARRIED. JUDAISM JUDAISM NO PREFERENCE LANGUAGE LANGUAGES SPOKEN:GEORGIAN LEARNING BARRIERS / SPECIAL NEEDS BARRIERS TO LEARNING?NO HEARING IMPAIRED?NO VISION IMPAIRED?YES :CORRECTIVE LENSES COGNITIVELY IMPAIRED?NO READINESS TO LEARN?YES LEARNING PREFERENCES?NO LEARNING CAPABILITIES PRESENT?YES EMOTIONAL BARRIERS?NO SPECIAL DEVICES?NO HEBREW PROFESSOR NEEDED?NO PAIN CLINIC PFS, CLERGY, PUBLIC HEALTH REFERRALS PFS REFERRAL NEEDED?NO CLERGY REFERRAL NEEDED?NO PUBLIC HEALTH REFERRAL NEEDED?NO HAS THE PATIENT BEEN EDUCATED REGARDING HIS/HER PLAN OF CARE?YES HAS THE PATIENT BEEN EDUCATED REGARDING PAIN, THE RISK FOR PAIN, THE IMPORTANCE OF EFFECTIVE PAIN MANAGEMENT, AND THE PAIN ASSESSMENT PROCESS?YES PATIENT: ____. REVIEW OF SYSTEMS REVIEWED BY: PROVIDER: BRADEN MAS . CONSTITUTIONAL: ANY CHANGE IN YOUR MEDICAL CONDITION? NO . CHILLS NO . FEVER NO . INFECTION: DO YOU HAVE NEW INFECTIONS? NO . DO YOU HAVE HISTORY OF MRSA? NO . MUSCULOSKELETAL: ANY NEW PATTERNS OF PAIN OR NUMBNESS? NO . GASTROENTEROLOGY: ANY NEW CHANGE IN BOWEL CONTROL? NO . GENITOURINARY: ANY NEW CHANGE IN BLADDER CONTROL? NO . IS THERE A CHANCE YOU COULD BE ? NO . HEMATOLOGY/LYMPH: DO YOU TAKE ANY BLOOD THINNERS? (FOR EXAMPLE- COUMADIN, PLAVIX, AGGRENOX, PLATEL, PRADAXA, OR XARELTO) NO . WHEN WAS YOUR LAST DOSE? DATE: TIME: . NEUROLOGY: HAVE YOU FALLEN IN THE PAST 6 MONTHS? NO . ANY NEW EXTREMITY NUMBNESS OR WEAKNESS? NO . CARDIOLOGY: DO YOU HAVE A PACEMAKER OR DEFIBRILLATOR? NO . RESPIRATORY: HAVE YOU BEEN SICK IN THE PAST WEEK? NO . FEVER NO . FLU LIKE SYMPTOMS? NO . COUGH NO . INTEGUMENTARY: DO YOU HAVE ANY RASHES OR OPEN SORES? NO . ALLERGIC/IMMUNO: ARE YOU ALLERGIC TO SHELLFISH OR IV DYE? NO . ANY NEW ALLERGIES? NO . PSYCHIATRIC: DO YOU HAVE THOUGHTS OF HURTING YOURSELF OR SOMEONE ELSE? NO . ARE YOU ABUSED, NEGLECTED, OR IN AN UNSAFE ENVIRONMENT? NO . ENDOCRINOLOGY: ARE YOU DIABETIC? NO . OTHER: DO YOU NEED ANY PRESCRIPTIONS? YES . IF YES, PLEASE LIST: TRAMADOL 50MG AND OXYCODONE 5MG . ANY NEW PROBLEMS WITH YOUR MEDICATIONS? NO . WHEN DID YOU LAST EAT? ____ . WHEN DID YOU LAST DRINK? ____ . WHAT DID YOU LAST DRINK? ____ . NAME OF PERSON DRIVING YOU HOME? ____ . DO YOU HAVE ANY OTHER QUESTIONS OR CONCERNS NO . VITAL SIGNS WT 185 LBS, HT 58 IN, BMI 38.66 INDEX, BP 120/65 MM HG, HR 85 /MIN, RR 18 /MIN, TEMP 97.8 F, OXYGEN SAT % 97%, SAFE IN ENV? (Y/N) YES, NA INITIALS MD 13:27, REVIEWED BY: EBENEZER. EXAMINATION GENERAL EXAMINATION: PSYCHALERT , ORIENTED X 3 , APPROPRIATE MOOD AND AFFECT . LUNGS:CLEAR TO AUSCULTATION BILATERALLY. HEART:HEART RATE REGULAR. MUSCULOSKELETAL:TRIGGER POINTS OVER RIGHT CERVICAL PARAVERTEBRAL MUSCLES AND RIGHT TRAPEZIUS. POINT TENDERNESS OVER RIGHT OCCIPTAL NERVE. VERY POOR ROM WITH NECK FLEXION, EXTENSION AND ROTATION. SCIENTIST ELECTRONICS EQUAL, STRONG. POOR SHOULDER SHRUG. 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) MYALGIA - M79.1 (PRIMARY) FACET ARTHROPATHY, CERVICAL - M12.88 TREATMENT OCCIPITAL NEURALGIA REFILL TRAMADOL HCL TABLET, 50 MG, 1 TAB, ORALLY, EVERY 6 HOURS NEEDED/MMD#4, 30 DAY(S), 60, REFILLS 0 REFILL OXYCODONE HCL CAPSULE, 5 MG, 1 CAPSULE NEEDED, ORALLY, EVERY 6 HRS PRN PAIN MDD=2, 30 DAY(S), 60, REFILLS 0 [facility] MRI SPINE, CERVICAL WITHOUT [id number],SUSAN M 06/08/2017 1:58:22 PM > INCREASED CERVIAAL PAIN /RADICULAR SX INJECTION FACET JOINT/NERVE CERVICAL/THORACICBRADEN BAKER 06/08/2017 1:59:31 PM > BILATERAL THERAPEUTIC CERVICAL FACET BLOCK NOTES: CONTINUE TO USE TRACTION DAILY,FACET JOINT INJECTION MATERIAL WAS PRINTED. CLINICAL NOTES: PREVIOUS CERVICAL MRI WAS 2012. NOW HAVING SIGNIFICANT CERVICAL JXA=ICULAR SYMPTOMS AND LOSS OF LOWER EXTREMITY MOTOR STRENGTH WITH EXTENSION OF NECK. AM REQUESTING URGENT CERVICAL MRI. PROCEDURE CODES FA211 ESTABILISHED PATIENT [facility] CHARGE DISPOSITION & COMMUNICATION FOLLOW UP AFTER INJECTION (REASON: CHECK AUTH FOR MRI OF C SPINE AND THERAPEUTIC CERVICAL FACET BLOCK) ELECTRONICALLY SIGNED BY VIJAYA OLIVO ON 06/08/2017 AT 03:45 PM EDT DISCLAIMER : THIS IS A VISIT SUMMARY EXTRACTED FROM THE [employer] CHART. IT IS NOT A COPY OF THE [employer] PROGRESS NOTE. MTDD
== END ==
LOC: M PAIN 13:00
PROVIDERS: ATTEND Nurse Practitioner Family
DX: G89.29 Other chronic pain (principal); M54.81 Occipital neuralgia; M79.1 Myalgia; M12.88 Other specific arthropathies, not elsewhere classified, other specified site; E78.5 Hyperlipidemia, unspecified; F32.9 Major depressive disorder, single episode, unspecified; F41.9 Anxiety disorder, unspecified; K21.9 Gastro-esophageal reflux disease without esophagitis; Z88.5 Allergy status to narcotic agent; Z79.899 Other long term (current) drug therapy; Z87.891 Personal history of nicotine dependence

== ENCOUNTER → 2017-07-01 | Outpatient (CLI) | payer BC ==
--- NOTE | 2017-07-15 00:35 | ECWPNPC ---
PATIENT NAME: RAVEN MUKHERJEE : 1960 GENDER: FEMALE VISIT DATE: 07/01/2017 DISCHARGE DATE: 07/01/17 1627 VISIT LOCKED DATE TIME: PHYSICIAN: BRADEN BAKER RESOURCE: BRADEN BAKER REASON FOR APPOINTMENT 1. POST PROCEDURE/ REVIEW MRI READING WITH DR. MAYBERRY HISTORY OF PRESENT ILLNESS HISTORY OF PRESENT ILLNESS: PAIN THE PATIENT DESCRIBES THE PAIN... FALL RISK SCREENING: SCREENING :NO FALLS IN THE PAST YEAR :NO FALLS IN THE PAST YEAR SCREENING :NO FALLS IN THE PAST YEAR :NO FALLS IN THE PAST YEAR PAIN SCREENING: PATIENT HAS A COMPLAINT OF ACUTE OR CHRONIC PAIN :YES TODAY'S VISIT: NOTES: IS S/P BILATERAL CERVICAL FACET BLOCK COMPLETED ON 06/16/17. NOTES IMPROVEMETNT IN PAIN BUT IS STILL HAVING DISCOMFORT AT BASE OF HEAD RIGHT SIDE WITH RAD UP OCC. MIN RAD TO SHOULDER ON THE RIGHT. HAS IM MOVEMENT OF HEA WITH ROTATION. SLEEP IS FAIR BUT FINDS SELF FACE DOWN WITH NECK EXTENDED AND "STUCK" . CURRENT MEDICATIONS TAKING BACLOFEN 10 MG TABLET 1 TABLET WITH FOOD OR MILK ORALLY THREE TIMES A DAY, NOTES: 06-15-172099 TAKING HYOSCYAMINE 0.15 MG TABLET ORALLY DIRECTED PRN, NOTES: NOT LATELY TAKING MIRALAX - PACKET 1 PACKET MIXED WITH 8 OUNCES OF FLUID ORALLY ONCE A DAY, NOTES: NOT LATELY TAKING CELEXA 10 MG TABLET 2 TABLETS ORALLY DAILY, NOTES: 06-15-172099 TAKING ZANTAC 150 MG TABLET 1 TABLET AT BEDTIME ORALLY ONCE A DAY NEEDED, NOTES: 06-15-17899 TAKING GENERLAC 10 GM/15ML SYRUP 15 ML ORALLY ONCE A DAY NEEDED, NOTES: NOT LATELY TAKING XANAX 0.25 MG TABLET 1 TABLET ORALLY DAILY NEEDED, NOTES: 06-15-17899 TAKING AMBIEN 10 MG TABLET 1 TABLET AT BEDTIME NEEDED ORALLY ONCE A DAY, NOTES: 06-15-172099 TAKING TRAMADOL HCL 50 MG TABLET 1 TAB ORALLY EVERY 6 HOURS NEEDED/MMD#4, NOTES: 06-15-17899 TAKING OXYCODONE HCL 5 MG CAPSULE 1 CAPSULE NEEDED ORALLY EVERY 6 HRS PRN PAIN MDD=2, NOTES: NOT LATELY TAKING ZOFRAN 4 MG TABLET 1 TABLET ORALLY EVERY 6 HOURS NEEDED FOR NAUSEA, NOTES: 06-15-172099 TAKING CELECOXIB 200 MG CAPSULE 1 CAPSULE WITH FOOD ORALLY ONCE A DAY, NOTES: 06-15-172099 NOT-TAKING LASIX 20 MG TABLET 1 TABLET ORALLY PRN, NOTES: NOT LATELY NOT-TAKING ALEVE 220 MG TABLET 1 TABLET NEEDED ORALLY EVERY 12 HRS NOT-TAKING OXYBUTYNIN CHLORIDE 5 MG TABLET 1 TABLET ORALLY EVERY 8 HOURS NEEDED FOR BLADDER SPASMS OR URINARY FREQUENCY NOT-TAKING BENADRYL 25 MG CAPSULE 1 CAPSULE NEEDED ORALLY EVERY 8 HRS PRN NOT-TAKING BACTRIM DS 800-160 MG TABLET 1 TABLET FOR YOUR CYSTOSCOPY TODAY ORALLY ONCE NOT-TAKING ULTRAM 50 MG TABLET 1 TABLET ORALLY EVERY 6 HRS NEEDED FOR PAIN (MDD 4) NOT-TAKING PERCOCET 5-325 MG TABLET 1 TABLET ORALLY EVERY 6 HOURS NEEDED FOR PAIN (MDD 4) NOT-TAKING FLOMAX 0.4 MG CAPSULE 1 CAPSULE 30 MINUTES AFTER THE SAME MEAL EACH DAY ORALLY ONCE A DAY NOT-TAKING DIFLUCAN 100 MG TABLET 1 TABLET ORALLY TAKE TWO TABLETS ON DAY 1 AND THEN ONE TABLET DAILY ON DAYS 2-5 NOT-TAKING CYCLOBENZAPRINE HCL 10 MG TABLET 1 TABLET NEEDED ORALLY BID NEEDED NOT-TAKING CIPROFLOXACIN HCL 500 MG TABLET 1 TABLET ORALLY EVERY 12 HRS NOT-TAKING ROSUVASTATIN CALCIUM 5 MG TABLET 1 TABLET ORALLY ONCE A DAY NOT-TAKING PRILOSEC 40 MG CAPSULE DELAYED RELEASE 1 CAPSULE ORALLY ONCE A DAY NOT-TAKING PROMETHAZINE HCL 25 MG TABLET 1 TABLET NEEDED ORALLY EVERY 6 HR NOT-TAKING HYDROMORPHONE HCL 4 MG TABLET 1 TABLET NEEDED ORALLY EVERY 6 HRS MEDICATION LIST REVIEWED AND RECONCILED WITH THE PATIENT PAST MEDICAL HISTORY HEMORRHOIDS KIDNEY STONES HYPERLIPIDEMIA BACK PAIN DEPRESSION ANXIETY MUSCLE DISORDER GERD ALLERGIES DEMEROL: ALLERGY CODEINE SULFATE: ITCHING OXYCODONE HCL: ITCHING HYDROCODONE BITARTRATE: RASH: ALLERGY REVIEW OF SYSTEMS REVIEWED BY: PROVIDER: , . CONSTITUTIONAL: ANY CHANGE IN YOUR MEDICAL CONDITION? NO, NO . CHILLS NO, NO . FEVER NO, NO . INFECTION: DO YOU HAVE NEW INFECTIONS? NO, NO . DO YOU HAVE HISTORY OF MRSA? NO, NO . MUSCULOSKELETAL: ANY NEW PATTERNS OF PAIN OR NUMBNESS? NO, NO . SYTEMIC LUPUS NO . GASTROENTEROLOGY: ANY NEW CHANGE IN BOWEL CONTROL? NO, NO . BARRETTS ESOPHAGUS NO . CIRRHOSIS NO . HEPATITIS NO . LIVER FAILURE NO . ACID REFLUX NO . UNEXPLAINED WEIGHT LOSS NO . GENITOURINARY: ANY NEW CHANGE IN BLADDER CONTROL? NO, NO . IS THERE A CHANCE YOU COULD BE ? NO, NO . HEMATOLOGY/LYMPH: DO YOU TAKE ANY BLOOD THINNERS? (FOR EXAMPLE- COUMADIN, PLAVIX, AGGRENOX, PLATEL, PRADAXA, OR XARELTO) NO, NO . WHEN WAS YOUR LAST DOSE? DATE: TIME: , DATE: TIME: . LOW PLATELET COUNT NO . SICKLE CELL DISEASE NO . VON WILLIEBRANDS NO . FACTOR V LEIDEN NO . THALLASEMIA NO . ANEMIA NO . EASY BRUISING NO . NEUROLOGY: HAVE YOU FALLEN IN THE PAST 6 MONTHS? NO, NO . ANY NEW EXTREMITY NUMBNESS OR WEAKNESS? NO, NO . HEAD INJURY NO . DEMENTIA NO . CEREBRAL PALSY NO . MULTIPLE SCLEROSIS NO . DIZZINESS NO . HEADACHE NO . STROKES NO . VERTIGO NO . CARDIOLOGY: DO YOU HAVE A PACEMAKER OR DEFIBRILLATOR? NO, NO . ANGINA NO . HEART ATTACK NO . HEART SURGERY NO . CONGESTIVE HEART FAILURE/FLUID OVERLOAD NO . CHEST PAIN NO . HIGH BLOOD PRESSURE NO . IRREGULAR HEART BEAT NO . RESPIRATORY: HAVE YOU BEEN SICK IN THE PAST WEEK? NO, NO . FEVER NO, NO . FLU LIKE SYMPTOMS? NO, NO . CPAP NO . BYPAP NO . ASTHMA NO . EMPHYSEMA NO . CHRONIC LUNG DISEASES NO . SHORTNESS OF BREATH ON EXERTION NO . COUGH NO, NO . SNORING NO . INTEGUMENTARY: DO YOU HAVE ANY RASHES OR OPEN SORES? NO, NO . ALLERGIC/IMMUNO: ARE YOU ALLERGIC TO SHELLFISH OR IV DYE? NO, NO . ANY NEW ALLERGIES? NO, NO . PSYCHIATRIC: DO YOU HAVE THOUGHTS OF HURTING YOURSELF OR SOMEONE ELSE? NO, NO . ARE YOU ABUSED, NEGLECTED, OR IN AN UNSAFE ENVIRONMENT? NO, NO . ENDOCRINOLOGY: ARE YOU DIABETIC? NO, NO . THYROID DISORDER NO . OTHER: DO YOU NEED ANY PRESCRIPTIONS? YES, NO . IF YES, PLEASE LIST: ____TRAMADOL, OXYCODONE, ____ . ANY NEW PROBLEMS WITH YOUR MEDICATIONS? NO, NO . WHEN DID YOU LAST EAT? ____, ____ . WHEN DID YOU LAST DRINK? ____, ____ . WHAT DID YOU LAST DRINK? ____, ____ . NAME OF PERSON DRIVING YOU HOME? ____, ____ . DO YOU HAVE ANY OTHER QUESTIONS OR CONCERNS NO, NO . VITAL SIGNS WT 190 LBS, HT 58 IN, BMI 39.71 INDEX, BP 139/69 MM HG, HR 110 /MIN, RR 16 /MIN, TEMP 97.7 F, OXYGEN SAT % 96%, SAFE IN ENV? (Y/N) YES, NA INITIALS SC 15:08, REVIEWED BY: MIRTA. EXAMINATION GENERAL EXAMINATION: PSYCHALERT , ORIENTED X 3 , APPROPRIATE MOOD AND AFFECT . LUNGS:CLEAR TO AUSCULTATION BILATERALLY. HEART:HEART RATE REGULAR. MUSCULOSKELETAL:TRIGGER POINTS OVER RIGHT CERVICAL PARAVERTEBRAL MUSCLES AND RIGHT TRAPEZIUS. POINT TENDERNESS OVER RIGHT OCCIPTAL NERVE. IMPROVEDROM WITH NECK FLEXION, EXTENSION AND ROTATION. COOK SPECIALTY FOREIGN FOOD EQUAL, STRONG. FAIR SHOULDER SHRUG. ASSESSMENTS SPONDYLOSIS OF CERVICAL REGION WITHOUT MYELOPATHY OR RADICULOPATHY - M47.812 (PRIMARY) MYALGIA - M79.1 OCCIPITAL NEURALGIA - M54.81 TREATMENT SPONDYLOSIS OF CERVICAL REGION WITHOUT MYELOPATHY OR RADICULOPATHY REFILL TRAMADOL HCL TABLET, 50 MG, 1 TAB, ORALLY, EVERY 6 HOURS NEEDED/MMD#4, 30 DAY(S), 60, REFILLS 0 REFILL OXYCODONE HCL CAPSULE, 5 MG, 1 CAPSULE NEEDED, ORALLY, EVERY 6 HRS PRN PAIN MDD=2, 30 DAY(S), 60, REFILLS 0 INJECTION ANESTHETIC BRADEN FORREST 07/01/2017 4:13:46 PM > RIGHT GREATER OCCIPITAL NOTES: USE MEDS INFREQ POSSIBLE. CLINICAL NOTES: ISTOP REGISTRY REVIEWED AND DEMNOSTRATES COMPLLIANCE. BRINGS IN MEDICATIONS WHICH IS APPROPRIATE FOR WHAT WAS DISPENSED. RECENT URINE TOXICOLOGY REVIEWED. NO UNAUTHORIZED MEDICATIONS. NO ILLICIT SUBSTANCES AND PRESCRIBED MEDICATIONS WERE PRESENT. #REF [id number]. DISPOSITION & COMMUNICATION FOLLOW UP 1 MONTH (REASON: NECK PAIN) ELECTRONICALLY SIGNED BY VIJAYA OLIVO ON 07/14/2017 AT 06:41 PM EST DISCLAIMER : THIS IS A VISIT SUMMARY EXTRACTED FROM THE [employer] CHART. IT IS NOT A COPY OF THE [employer] PROGRESS NOTE. MTDD
== END ==
LOC: M PAIN 15:00
PROVIDERS: ATTEND Nurse Practitioner Family
DX: G89.29 Other chronic pain (principal); M47.812 Spondylosis without myelopathy or radiculopathy, cervical region; M54.81 Occipital neuralgia; M79.1 Myalgia; Z88.5 Allergy status to narcotic agent; F41.9 Anxiety disorder, unspecified; K21.9 Gastro-esophageal reflux disease without esophagitis; Z79.891 Long term (current) use of opiate analgesic; Z79.899 Other long term (current) drug therapy

== ENCOUNTER → 2017-07-21 | Outpatient (CLI) | payer BC ==
[~2017-07-21] MED LIST changes: +BUPIVACAINE HCL 0.25% 10 ML VIAL As Ordered ONE; +BUPIVACAINE HCL 0.25% 30 ML VIAL As Ordered ONE; +TRIAMCINOLONE ACETONIDE SUSP 40 MG/ML VIAL (J3301) As Ordered ONE; +diazePAM 5 MG TAB As Ordered ONE; +oxyCODONE 5MG TAB As Ordered ONE
--- NOTE | 2017-08-03 00:01 | ECWPNPC ---
PATIENT NAME: RAVEN MUKHERJEE : 1960 GENDER: FEMALE VISIT DATE: 07/21/2017 DISCHARGE DATE: 07/21/17 1340 VISIT LOCKED DATE TIME: PHYSICIAN: SARAH BETH CAO RESOURCE: SARAH BETH CAO REASON FOR APPOINTMENT 1. GREATER OCCIPITAL HISTORY OF PRESENT ILLNESS HISTORY OF PRESENT ILLNESS: PAIN THE PATIENT DESCRIBES THE PAIN... FALL RISK SCREENING: SCREENING :NO FALLS IN THE PAST YEAR CURRENT MEDICATIONS TAKING BACLOFEN 10 MG TABLET 1 TABLET WITH FOOD OR MILK ORALLY THREE TIMES A DAY, NOTES: 07-20-172099 TAKING HYOSCYAMINE 0.15 MG TABLET ORALLY DIRECTED PRN, NOTES: NOT LATELY TAKING MIRALAX - PACKET 1 PACKET MIXED WITH 8 OUNCES OF FLUID ORALLY ONCE A DAY, NOTES: NOT LATELY TAKING CELEXA 10 MG TABLET 2 TABLETS ORALLY DAILY, NOTES: 07-20-17899 TAKING ZANTAC 150 MG TABLET 1 TABLET AT BEDTIME ORALLY ONCE A DAY NEEDED, NOTES: 07-20-17899 TAKING GENERLAC 10 GM/15ML SYRUP 15 ML ORALLY ONCE A DAY NEEDED, NOTES: NOT LATELY TAKING XANAX 0.25 MG TABLET 1 TABLET ORALLY DAILY NEEDED, NOTES: NOT LATELY TAKING AMBIEN 10 MG TABLET 1 TABLET AT BEDTIME NEEDED ORALLY ONCE A DAY, NOTES: 07-20-172099 TAKING ZOFRAN 4 MG TABLET 1 TABLET ORALLY EVERY 6 HOURS NEEDED FOR NAUSEA, NOTES: 07-20-17899 TAKING CELECOXIB 200 MG CAPSULE 1 CAPSULE WITH FOOD ORALLY ONCE A DAY, NOTES: 07-20-172099 TAKING TRAMADOL HCL 50 MG TABLET 1 TAB ORALLY EVERY 6 HOURS NEEDED/MMD#4, NOTES: 07-20-172099 TAKING OXYCODONE HCL 5 MG CAPSULE 1 CAPSULE NEEDED ORALLY EVERY 6 HRS PRN PAIN MDD=2, NOTES: 07-20-172099 UNKNOWN LASIX 20 MG TABLET 1 TABLET ORALLY PRN, NOTES: NOT LATELY UNKNOWN ALEVE 220 MG TABLET 1 TABLET NEEDED ORALLY EVERY 12 HRS UNKNOWN OXYBUTYNIN CHLORIDE 5 MG TABLET 1 TABLET ORALLY EVERY 8 HOURS NEEDED FOR BLADDER SPASMS OR URINARY FREQUENCY UNKNOWN BENADRYL 25 MG CAPSULE 1 CAPSULE NEEDED ORALLY EVERY 8 HRS PRN UNKNOWN BACTRIM DS 800-160 MG TABLET 1 TABLET FOR YOUR CYSTOSCOPY TODAY ORALLY ONCE UNKNOWN ULTRAM 50 MG TABLET 1 TABLET ORALLY EVERY 6 HRS NEEDED FOR PAIN (MDD 4) UNKNOWN PERCOCET 5-325 MG TABLET 1 TABLET ORALLY EVERY 6 HOURS NEEDED FOR PAIN (MDD 4) UNKNOWN FLOMAX 0.4 MG CAPSULE 1 CAPSULE 30 MINUTES AFTER THE SAME MEAL EACH DAY ORALLY ONCE A DAY UNKNOWN DIFLUCAN 100 MG TABLET 1 TABLET ORALLY TAKE TWO TABLETS ON DAY 1 AND THEN ONE TABLET DAILY ON DAYS 2-5 UNKNOWN CYCLOBENZAPRINE HCL 10 MG TABLET 1 TABLET NEEDED ORALLY BID NEEDED UNKNOWN CIPROFLOXACIN HCL 500 MG TABLET 1 TABLET ORALLY EVERY 12 HRS UNKNOWN ROSUVASTATIN CALCIUM 5 MG TABLET 1 TABLET ORALLY ONCE A DAY UNKNOWN PRILOSEC 40 MG CAPSULE DELAYED RELEASE 1 CAPSULE ORALLY ONCE A DAY UNKNOWN PROMETHAZINE HCL 25 MG TABLET 1 TABLET NEEDED ORALLY EVERY 6 HR UNKNOWN HYDROMORPHONE HCL 4 MG TABLET 1 TABLET NEEDED ORALLY EVERY 6 HRS MEDICATION LIST REVIEWED AND RECONCILED WITH THE PATIENT PAST MEDICAL HISTORY HEMORRHOIDS KIDNEY STONES HYPERLIPIDEMIA BACK PAIN DEPRESSION ANXIETY MUSCLE DISORDER GERD ALLERGIES DEMEROL: ALLERGY CODEINE SULFATE: ITCHING OXYCODONE HCL: ITCHING HYDROCODONE BITARTRATE: RASH: ALLERGY REVIEW OF SYSTEMS REVIEWED BY: PROVIDER: . CONSTITUTIONAL: ANY CHANGE IN YOUR MEDICAL CONDITION? NO . CHILLS NO . FEVER NO . INFECTION: DO YOU HAVE NEW INFECTIONS? NO . DO YOU HAVE HISTORY OF MRSA? NO . MUSCULOSKELETAL: ANY NEW PATTERNS OF PAIN OR NUMBNESS? NO . GASTROENTEROLOGY: ANY NEW CHANGE IN BOWEL CONTROL? NO . GENITOURINARY: ANY NEW CHANGE IN BLADDER CONTROL? NO . IS THERE A CHANCE YOU COULD BE ? NO . HEMATOLOGY/LYMPH: DO YOU TAKE ANY BLOOD THINNERS? (FOR EXAMPLE- COUMADIN, PLAVIX, AGGRENOX, PLATEL, PRADAXA, OR XARELTO) NO . WHEN WAS YOUR LAST DOSE? DATE: TIME: . NEUROLOGY: HAVE YOU FALLEN IN THE PAST 6 MONTHS? NO . ANY NEW EXTREMITY NUMBNESS OR WEAKNESS? NO . CARDIOLOGY: DO YOU HAVE A PACEMAKER OR DEFIBRILLATOR? NO . RESPIRATORY: HAVE YOU BEEN SICK IN THE PAST WEEK? NO . FEVER NO . FLU LIKE SYMPTOMS? NO . COUGH NO . INTEGUMENTARY: DO YOU HAVE ANY RASHES OR OPEN SORES? NO . ALLERGIC/IMMUNO: ARE YOU ALLERGIC TO SHELLFISH OR IV DYE? NO . ANY NEW ALLERGIES? NO . PSYCHIATRIC: DO YOU HAVE THOUGHTS OF HURTING YOURSELF OR SOMEONE ELSE? NO . ARE YOU ABUSED, NEGLECTED, OR IN AN UNSAFE ENVIRONMENT? NO . ENDOCRINOLOGY: ARE YOU DIABETIC? NO . OTHER: DO YOU NEED ANY PRESCRIPTIONS? NO . IF YES, PLEASE LIST: ____ . ANY NEW PROBLEMS WITH YOUR MEDICATIONS? NO . WHEN DID YOU LAST EAT? ____LAST NIGHT 10 PM . WHEN DID YOU LAST DRINK? ____11 PM LAST NIGHT . WHAT DID YOU LAST DRINK? ____WATER . NAME OF PERSON DRIVING YOU HOME? ____DOUGLAS . DO YOU HAVE ANY OTHER QUESTIONS OR CONCERNS NO . VITAL SIGNS WT 190 LBS, HT 58 IN, BMI 39.71 INDEX, BP 114/67 MM HG, HR 95 /MIN, RR 16 /MIN, TEMP 97.1 F, OXYGEN SAT % 95%, NA INITIALS SC 10:58, REVIEWED BY: KG. ASSESSMENTS BILATERAL OCCIPITAL NEURALGIA - M54.81 (PRIMARY) PROCEDURES PN OCCIPITAL NERVE BLOCK GREATER AND LESSER PRE PROCEDURE DIAGNOSIS OCCIPITAL NEURALGIA. POST PROCEDURE DIAGNOSIS OCCIPITAL NEURALGIA. PROCEDURE BILATERAL GREATER AND LESSER OCCIPITAL NERVE BLOCK. SURGEON DR. SARAH BETH CAO DRILL PRESS OPERATOR FOR METAL NONE ANESTHESIA LOCAL PRE PROCEDURE NOTE 56 YEAR-OLD PATIENT WITH HISTORY OF CHRONIC OCCIPITAL PAIN. THE PAIN IS LOCATED OVER THE OCCIPITAL AREA WITH RADIATION TOWARDS THE TEMPORAL AREA AND ALSO TO THE PARIETAL AREA OF THE CRANIUM. I EVALUATED THE PATIENT AND REVIEWED THE CHART. I WENT OVER THE RISKS, ALTERNATIVES, AND BENEFITS ASSOCIATED WITH THIS PROCEDURE. THE PATIENT WOULD LIKE TO PROCEED AND GAVE CONSENT TO PERFORM THE PROCEDURE. THE PATIENT DENIES UNEXPLAINABLE WEIGHT LOSS, FEVER, CHILLS, OR NEW CHANGES IN URINARY OR BOWEL CONTROL. DESCRIPTION OF PROCEDURE THE PATIENT WAS BROUGHT TO THE PROCEDURE ROOM AND PLACED IN THE SITTING POSITION. THE RIGHT AND LEFT OCCIPITAL AREA WAS CLEANED WITH ALCOHOL. THE PROCEDURE WAS DONE USING STERILE TECHNIQUES. I CHECKED LATERALITY AND THE LEVEL WHERE THE PROCEDURE WAS GOING TO BE PERFORMED WITH THE PATIENT AND THE SUPPORTING STAFF AT THE MOMENT OF THE TIME OUT IN THE PROCEDURE ROOM. USING A 25-GAUGE NEEDLE, THE OCCIPITAL NERVES, BOTH THE GREATER AND THE LESSER WERE INJECTED AT THE RIGHT AND LEFT AT THE NUCHAL LINE, THE GREATER 1-INCH LATERAL OF MIDLINE AND THE LESSER 1-1/2 INCH LATERAL OF THE MIDLINE. I USED A TOTAL OF 10 ML OF BUPIVACAINE 0.25% WITH KENALOG 10 MG AT EACH NERVE. THERE WAS NO EVIDENCE OF BLOOD, PARESTHESIA OR CEREBROSPINAL FLUID DURING THE PROCEDURE. THE PATIENT WAS SENT TO THE RECOVERY ROOM. THE PATIENT WAS MOVING THE EXTREMITIES AND DOING WELL. THERE WAS NO COMPLICATION DURING THE PROCEDURE. POST PROCEDURE NOTE THE PATIENT WILL BE SEEN IN A FOLLOW UP IN THE NEXT FEW WEEKS. INSTRUCTIONS WERE GIVEN, QUESTIONS WERE ANSWERED, AND THE PATIENT EXPRESSED UNDERSTANDING AND AGREED WITH THE PLAN. I, SABINE HAMM, DOCUMENTED THE ABOVE INFORMATION ACTING A SCRIBE FOR DR. CAO. I HAVE REVIEWED THE ABOVE DOCUMENT, WRITTEN BY SABINE MORALES AND I VERIFY THAT IT IS ACCURATE PROCEDURE CODES 26894 N BLOCK INJ OCCIPITAL, MODIFIERS: 50 72782 N BLOCK OTHER PERIPHERAL, MODIFIERS: 50 DISPOSITION & COMMUNICATION ELECTRONICALLY SIGNED BY SARAH BETH CAO MD ON 08/02/2017 AT 06:27 PM EST DISCLAIMER : THIS IS A VISIT SUMMARY EXTRACTED FROM THE [employer] CHART. IT IS NOT A COPY OF THE [employer] PROGRESS NOTE. MTDD
== END ==
LOC: M PAIN 11:00
PROVIDERS: ATTEND Anesthesiology
DX: G89.29 Other chronic pain (principal); M54.81 Occipital neuralgia; K64.8 Other hemorrhoids; E78.5 Hyperlipidemia, unspecified; F32.9 Major depressive disorder, single episode, unspecified; F41.9 Anxiety disorder, unspecified; K21.9 Gastro-esophageal reflux disease without esophagitis; Z79.891 Long term (current) use of opiate analgesic; Z79.899 Other long term (current) drug therapy; Z88.5 Allergy status to narcotic agent; Z88.8 Allergy status to other drugs, medicaments and biological substances
CPT/HCPCS: 64405; 64450; J3301

== ENCOUNTER → 2017-08-04 | Outpatient (CLI) | payer BC | LOC: M PAIN 13:00 | DX: M54.81 Occipital neuralgia (principal); M47.812 Spondylosis without myelopathy or radiculopathy, cervical region; M79.1 Myalgia; G89.29 Other chronic pain; K64.8 Other hemorrhoids; Z87.442 Personal history of urinary calculi; E78.5 Hyperlipidemia, unspecified; F32.9 Major depressive disorder, single episode, unspecified; F41.9 Anxiety disorder, unspecified; K21.9 Gastro-esophageal reflux disease without esophagitis; Z88.5 Allergy status to narcotic agent; Z88.8 Allergy status to other drugs, medicaments and biological substances; Z79.891 Long term (current) use of opiate analgesic; Z79.899 Other long term (current) drug therapy | CPT/HCPCS: G0463 ==

== ENCOUNTER → 2017-08-13 | Outpatient (REF) | payer BC | LOC: M LAB REF 16:27 | DX: J06.9 Acute upper respiratory infection, unspecified (principal) ==

== ENCOUNTER → 2017-11-02 | Outpatient (CLI) | payer BC | LOC: M PAIN 13:00 | DX: M54.81 Occipital neuralgia (principal); M47.812 Spondylosis without myelopathy or radiculopathy, cervical region; M79.1 Myalgia; E78.5 Hyperlipidemia, unspecified; F32.9 Major depressive disorder, single episode, unspecified; F41.9 Anxiety disorder, unspecified; K21.9 Gastro-esophageal reflux disease without esophagitis; Z79.899 Other long term (current) drug therapy; Z88.5 Allergy status to narcotic agent; Z87.891 Personal history of nicotine dependence | CPT/HCPCS: G0463 ==

== ENCOUNTER → 2017-12-17 | Outpatient (CLI) | payer BC ==
[2017-12-17 18:46] LABS: AMORPHOUS SEDIMENT LARGE (NEGATIVE); APPEARANCE, URINE TURBID (CLEAR); BACTERIA, URINE AUTO NEGATIVE (NEGATIVE); BILIRUBIN, URINE AUTO NEGATIVE (NEGATIVE); BLOOD, URINE BLOOD NEGATIVE (NEGATIVE); COLOR, URINE YELLOW (YELLOW); GLUCOSE, URINE (UA) AUTO NEGATIVE (NEGATIVE); KETONE, URINE AUTO NEGATIVE (NEGATIVE); LEUKOCYTE ESTERASE, URINE AUTO NEGATIVE (NEGATIVE); MUCUS, URINE LARGE (NEGATIVE); NITRITE, URINE AUTO NEGATIVE (NEGATIVE); PROTEIN, URINE AUTO NEGATIVE (NEGATIVE); RBC, URINE AUTO 0 /HPF (0-3); SPECIFIC GRAVITY URINE AUTO 1.026 (1.002-1.035); SQUAMOUS EPITHELIAL CELL UR AU 0 /HPF (0-6); WBC, URINE AUTO 2 /HPF (0-3)
== END ==
LOC: M SMT 14:46
DX: R10.9 Unspecified abdominal pain (principal); Z87.442 Personal history of urinary calculi
CPT/HCPCS: 81001

== ENCOUNTER → 2017-12-30 | Outpatient (CLI) | payer BC | LOC: M RAD 12:21 | DX: E04.1 Nontoxic single thyroid nodule (principal) | CPT/HCPCS: 76536 ==

== ENCOUNTER → 2018-01-28 | Outpatient (REF) | payer BC ==
[2018-01-28 17:18] LABS: LIPASE 128 U/L (73-393)
[2018-01-28 17:18] LABS: AMYLASE 57 U/L (25-115)
== END ==
LOC: M LAB REF 16:29
DX: R10.11 Right upper quadrant pain (principal)
CPT/HCPCS: 82150

== ENCOUNTER → 2018-05-12 | Outpatient (CLI) | payer BC | LOC: M PAIN 13:15 | DX: M54.81 Occipital neuralgia (principal); M47.812 Spondylosis without myelopathy or radiculopathy, cervical region; M79.1 Myalgia; E78.5 Hyperlipidemia, unspecified; K21.9 Gastro-esophageal reflux disease without esophagitis; F32.9 Major depressive disorder, single episode, unspecified; F41.9 Anxiety disorder, unspecified; Z79.891 Long term (current) use of opiate analgesic; Z79.899 Other long term (current) drug therapy; Z88.8 Allergy status to other drugs, medicaments and biological substances; Z88.5 Allergy status to narcotic agent; Z87.891 Personal history of nicotine dependence | CPT/HCPCS: G0463 ==

== ENCOUNTER → 2018-06-01 | Outpatient (CLI) | payer BC ==
[~2018-06-01] MED LIST changes: -/CIPR75TA; -/ZOLP6ER; -ALEV220C2 PO; -ALLE25CA; -ALPR0.25 PO; -AMBI10TA PO; -ANAS0.12 PO; -BACL10TA2 PO; -BENA25TA10 PO; -BUPIVACAINE HCL 0.25% 10 ML VIAL As Ordered ONE; +BUPIVACAINE HCL 0.25% 30 ML VIAL As Ordered; -BUPIVACAINE HCL 0.25% 30 ML VIAL As Ordered ONE; -CELE10TA PO; -CELE1CAP4 PO; -CELE20TA PO; -CYCL10TA PO; -DILA2TAB; -DILA4TAB13 PO; -EX-L5TAB; -EXCETAB80 PO; -FLAG500T; -FLEXERIL PO; -FLOM5CAP PO; -FURO20TA2 PO; -HYOS125TA PO; +ISOVUE-M 300 61% 15ML VIAL (Q9967) As Ordered; +LIDOCAINE 1% SDV INJ 30 ML VIAL As Ordered; -METO10TA2; +MIDAZOLAM INJ 2 MG/2 ML VIAL (J2250) As Ordered; -MIRA3350 PO; -OMEP20CA3 PO; -OXYB5TAB10 PO; -OXYC-517 PO; -OXYC1TAB23 PO; -PANT40TA2 PO; -PERC5TAB8; -PROBCAP13 PO; -PROCAER4 PR; -PROM25TA PO; -PROM50TA4 PO; -PROZ40CA; -RANI75TA9 PO; -SENN8.6T5; +TRIAMCINOLONE ACETONIDE SUSP 40 MG/ML VIAL (J3301) As Ordered; -TRIAMCINOLONE ACETONIDE SUSP 40 MG/ML VIAL (J3301) As Ordered ONE; -ULTR50TA8 PO; -VITA400T13 PO; -XANA0.25 PO; -ZOFR20TA PO; -ZOFR4TAB3 PO; -ZOLP10TA2; -diazePAM 5 MG TAB As Ordered ONE; +fentaNYL 100 MCG/2 ML INJECTION (J3010) As Ordered; -oxyCODONE 5MG TAB As Ordered ONE
== END ==
LOC: M PAIN 14:00
DX: M47.812 Spondylosis without myelopathy or radiculopathy, cervical region (principal); K64.8 Other hemorrhoids; E78.5 Hyperlipidemia, unspecified; F32.9 Major depressive disorder, single episode, unspecified; F41.9 Anxiety disorder, unspecified; K21.9 Gastro-esophageal reflux disease without esophagitis; Z87.442 Personal history of urinary calculi; Z87.891 Personal history of nicotine dependence; Z79.899 Other long term (current) drug therapy; Z88.5 Allergy status to narcotic agent
CPT/HCPCS: J3301

== ENCOUNTER → 2018-06-15 | Outpatient (CLI) | payer BC | LOC: M PAIN 13:30 | DX: M54.81 Occipital neuralgia (principal); M47.812 Spondylosis without myelopathy or radiculopathy, cervical region; M79.18 Myalgia, other site; E78.5 Hyperlipidemia, unspecified; F32.9 Major depressive disorder, single episode, unspecified; F41.9 Anxiety disorder, unspecified; K21.9 Gastro-esophageal reflux disease without esophagitis; Z79.899 Other long term (current) drug therapy; Z88.5 Allergy status to narcotic agent; Z87.891 Personal history of nicotine dependence | CPT/HCPCS: G0463 ==

== ENCOUNTER → 2018-07-12 | Outpatient (CLI) | payer BC ==
[~2018-07-12] MED LIST changes: -ISOVUE-M 300 61% 15ML VIAL (Q9967) As Ordered; -LIDOCAINE 1% SDV INJ 30 ML VIAL As Ordered; -MIDAZOLAM INJ 2 MG/2 ML VIAL (J2250) As Ordered; +diazePAM 5 MG TAB As Ordered; -fentaNYL 100 MCG/2 ML INJECTION (J3010) As Ordered; +oxyCODONE 5MG TAB As Ordered
== END ==
LOC: M PAIN 11:15
DX: G89.29 Other chronic pain (principal); M54.81 Occipital neuralgia; E78.5 Hyperlipidemia, unspecified; F32.9 Major depressive disorder, single episode, unspecified; F41.9 Anxiety disorder, unspecified; E66.01 Morbid (severe) obesity due to excess calories; Z68.41 Body mass index [BMI] 40.0-44.9, adult; Z79.899 Other long term (current) drug therapy; Z88.5 Allergy status to narcotic agent; Z87.891 Personal history of nicotine dependence
CPT/HCPCS: J3301

== ENCOUNTER → 2018-07-28 | Outpatient (CLI) | payer BC ==
[~2018-07-28] MED LIST changes: +/CIPR75TA; +/ZOLP6ER; +ALEV220C2 PO; +ALLE25CA; +ALPR0.25 PO; +AMBI10TA PO; +ANAS0.12 PO; +BACL10TA2 PO; +BENA25TA10 PO; -BUPIVACAINE HCL 0.25% 30 ML VIAL As Ordered; +CELE10TA PO; +CELE1CAP4 PO; +CELE20TA PO; +CYCL10TA PO; +DILA2TAB; +DILA4TAB13 PO; +EX-L5TAB; +EXCETAB80 PO; +FLAG500T; +FLEXERIL PO; +FLOM0.4C39 PO; +FURO20TA2 PO; +HYOS125TA PO; +METO10TA2; +MIRA3350 PO; +OMEP20CA3 PO; +OXYB5TAB10 PO; +OXYC-517 PO; +OXYC1TAB23 PO; +PANT40TA3 PO; +PERC5TAB8; +PROBCAP13 PO; +PROC1AER16 PR; +PROM25TA PO; +PROM50TA4 PO; +PROZ40CA; +RANI75TA10 PO; +SENN8.6T5; -TRIAMCINOLONE ACETONIDE SUSP 40 MG/ML VIAL (J3301) As Ordered; +ULTR50TA8 PO; +VITA400T13 PO; +XANA0.25 PO; +ZOFR4TAB14 PO; +ZOFR4TAB16 PO; +ZOLP10TA2; -diazePAM 5 MG TAB As Ordered; -oxyCODONE 5MG TAB As Ordered
--- NOTE | 2018-08-19 00:22 | ECWPNPC ---
PATIENT NAME: RAVEN MUKHERJEE : 1960 GENDER: FEMALE VISIT DATE: 07/28/2018 DISCHARGE DATE: 07/28/18 1220 VISIT LOCKED DATE TIME: PHYSICIAN: MARYELLEN GARZA RESOURCE: MARYELLEN GARZA REASON FOR APPOINTMENT 1. NECK HISTORY OF PRESENT ILLNESS HISTORY OF PRESENT ILLNESS: HERE FOR POST PROCEDURE F/U.HAD BILATERAL OCCIPITAL NERVE BLOCK ON 07-12-18.REPORTING SIGNIFICANT IMPROVEMENT POST PROCEDURE.RATING PAIN VAS 3/1O.CURRENTLY USING GABAPENTIN 300MG BID.HAVING SOME GI UPSET.DISCUSSED MEDICATION OPTIONS. PAIN THE PATIENT DESCRIBES THE PAIN... FALL RISK SCREENING: SCREENING :NO FALLS IN THE PAST YEAR CURRENT MEDICATIONS TAKING BACLOFEN 10 MG TABLET 1 TABLET WITH FOOD OR MILK ORALLY THREE TIMES A DAY, NOTES: 07/11/18@2100 TAKING OXYCODONE HCL 5 MG CAPSULE 1 CAPSULE NEEDED ORALLY EVERY 6 HRS PRN PAIN MDD=2, NOTES: NONE RECENTLY TAKING LASIX 20 MG TABLET 1 TABLET ORALLY PRN, NOTES: NOT LATELY TAKING ALEVE 220 MG TABLET 1 TABLET NEEDED ORALLY EVERY 12 HRS, NOTES: NONE RECENTLY TAKING OXYBUTYNIN CHLORIDE 5 MG TABLET 1 TABLET ORALLY EVERY 8 HOURS NEEDED FOR BLADDER SPASMS OR URINARY FREQUENCY, NOTES: NONE RECENTLY TAKING AMBIEN 10 MG TABLET 1 TABLET AT BEDTIME NEEDED ORALLY ONCE A DAY, NOTES: 07/11/18@2100 TAKING HYDROMORPHONE HCL 4 MG TABLET 1 TABLET NEEDED ORALLY EVERY 6 HRS, NOTES: NONE RECENTLY TAKING GABAPENTIN 300 MG CAPSULE 1 CAPSULE ORALLY BID, NOTES: 07/11/18@1900 TAKING VOLTAREN 1 % GEL DIRECTED TRANSDERMAL APPLY 4 GRAMM TO NECK Q 6 HRS PRN PAIN, NOTES: 07/11/18@2200 NOT-TAKING ULTRAM 50 MG TABLET 1 TABLET ORALLY EVERY 6 HRS NEEDED FOR PAIN (MDD 4), NOTES: NONE RECENTLY NOT-TAKING PROMETHAZINE HCL 25 MG TABLET 1 TABLET NEEDED ORALLY EVERY 6 HR, NOTES: NONE RECENTLY NOT-TAKING ZOFRAN 4 MG TABLET 1 TABLET ORALLY EVERY 6 HOURS NEEDED FOR NAUSEA, NOTES: NONE RECENTLY MEDICATION LIST REVIEWED AND RECONCILED WITH THE PATIENT PAST MEDICAL HISTORY HEMORRHOIDS KIDNEY STONES HYPERLIPIDEMIA BACK PAIN DEPRESSION ANXIETY MUSCLE DISORDER GERD ALLERGIES DEMEROL: ALLERGY CODEINE SULFATE: ITCHING: CONTRAINDICATION SURGICAL HISTORY PELVIC/ VAGINAL WALL PROLAPSE REPAIR X3 2010 HYSTERETOMY 2006 COLONOSOPY 2015 ANXIALLY LYMPH NODES RIGHT REMOVED..NEGATIVE 2003 KIDNEY STONES BY LASER 2017 FAMILY HISTORY FATHER: MOTHER: ALIVE SIBLINGS: ALIVE, DIAGNOSED WITH HEART DISEASE SON(S): ALIVE DAUGHTER(S): ALIVE SOCIAL HISTORY GENERAL: TOBACCO USE ARE YOU A:FORMER SMOKER HOW LONG HAS IT BEEN SINCE YOU LAST SMOKED?5-10 YEARS ALCOHOL SCREENING DID YOU HAVE A DRINK CONTAINING ALCOHOL IN THE PAST YEAR?NO POINTS0 INTERPRETATIONNEGATIVE RECREATIONAL DRUG USE DRUG USE?NO CAFFEINE CAFFEINE USE?YES 3 CUPS DAILY YARSANI YARSANI NO PREFERENCE LANGUAGE LANGUAGES SPOKEN:SETS[place]NA LEARNING BARRIERS / SPECIAL NEEDS BARRIERS TO LEARNING?NO HEARING IMPAIRED?NO VISION IMPAIRED?YES :CORRECTIVE LENSES COGNITIVELY IMPAIRED?NO READINESS TO LEARN?YES LEARNING PREFERENCES?NO LEARNING CAPABILITIES PRESENT?YES EMOTIONAL BARRIERS?NO SPECIAL DEVICES?NO 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 DIET: REGULAR. MARITAL STATUS: . PAIN CLINIC PFS, CLERGY, PUBLIC HEALTH REFERRALS PFS REFERRAL NEEDED?NO CLERGY REFERRAL NEEDED?NO PUBLIC HEALTH REFERRAL NEEDED?NO HAS THE PATIENT BEEN EDUCATED REGARDING HIS/HER PLAN OF CARE?YES HAS THE PATIENT BEEN EDUCATED REGARDING PAIN, THE RISK FOR PAIN, THE IMPORTANCE OF EFFECTIVE PAIN MANAGEMENT, AND THE PAIN ASSESSMENT PROCESS?YES ADVANCE DIRECTIVE ADVANCE DIRECTIVE DISCUSSED WITH PATIENT:YES HCP - FERNIE MUKHERJEE () [phone] REVIEWED WITH PATIENT 05/12/18 1314 JSREVIEWED WITH PATIENT 06/01/18 1425 LASREVIEWED WITH PATIENT 07/28/18 1140 LAS. HOSPITALIZATION/MAJOR DIAGNOSTIC PROCEDURE SURGERIES KIDNEY STONES 2017 REVIEW OF SYSTEMS REVIEWED BY: PROVIDER: MARYELLEN MAS . CONSTITUTIONAL: ANY CHANGE IN YOUR MEDICAL CONDITION? NO . CHILLS NO . FEVER NO . INFECTION: DO YOU HAVE NEW INFECTIONS? NO . DO YOU HAVE HISTORY OF MRSA? NO . MUSCULOSKELETAL: ANY NEW PATTERNS OF PAIN OR NUMBNESS? PT HAD BILATERAL OCCIPITAL NERVE BLOCK 07/12/18 . GASTROENTEROLOGY: ANY NEW CHANGE IN BOWEL CONTROL? NO . GENITOURINARY: ANY NEW CHANGE IN BLADDER CONTROL? NO . IS THERE A CHANCE YOU COULD BE ? NO . HEMATOLOGY/LYMPH: DO YOU TAKE ANY BLOOD THINNERS? (FOR EXAMPLE- COUMADIN, PLAVIX, AGGRENOX, PLATEL, PRADAXA, OR XARELTO) NO . WHEN WAS YOUR LAST DOSE? DATE: TIME: . NEUROLOGY: HAVE YOU FALLEN IN THE PAST 6 MONTHS? NO . ANY NEW EXTREMITY NUMBNESS OR WEAKNESS? NO . CARDIOLOGY: DO YOU HAVE A PACEMAKER OR DEFIBRILLATOR? NO . RESPIRATORY: HAVE YOU BEEN SICK IN THE PAST WEEK? YES TREATED WITH ANTIBIOTICS FOR AN UPPER RESPIRATORY INFECTION . FEVER NO . FLU LIKE SYMPTOMS? NO . COUGH NO . INTEGUMENTARY: DO YOU HAVE ANY RASHES OR OPEN SORES? NO . ALLERGIC/IMMUNO: ARE YOU ALLERGIC TO SHELLFISH OR IV DYE? NO . ANY NEW ALLERGIES? NO . PSYCHIATRIC: DO YOU HAVE THOUGHTS OF HURTING YOURSELF OR SOMEONE ELSE? NO . ARE YOU ABUSED, NEGLECTED, OR IN AN UNSAFE ENVIRONMENT? NO . ENDOCRINOLOGY: ARE YOU DIABETIC? NO . OTHER: DO YOU NEED ANY PRESCRIPTIONS? YES . IF YES, PLEASE LIST: ____OXYCODONE . ANY NEW PROBLEMS WITH YOUR MEDICATIONS? NO . WHEN DID YOU LAST EAT? ____ . WHEN DID YOU LAST DRINK? ____ . WHAT DID YOU LAST DRINK? ____ . NAME OF PERSON DRIVING YOU HOME? ____ . DO YOU HAVE ANY OTHER QUESTIONS OR CONCERNS NO . VITAL SIGNS WT 200.6 LBS, HT 58 IN, BMI 41.92 INDEX, BP 136/73 MM HG, HR 98 /MIN, RR 18 /MIN, TEMP 96.3 F, OXYGEN SAT % 94%, SAFE IN ENV? (Y/N) YES, NA INITIALS PA 11:27, REVIEWED BY: MIRTA. EXAMINATION GENERAL EXAMINATION: LUNGS:LUNG SOUNDS ARE CLEAR . HEART:HEART RATE REGULAR . MUSCULOSKELETAL:*, MUSCLE STRENGTH TESTING 5/5 BILATERAL UPPER EXTREMITIES. . CERVICAL+ FOR PAIN WITH PALPATION OF CERVICAL SPINE. + FOR PAIN WITH PALPATION OF CERVICAL PARASPINALS. . DIAGNOSTIC TESTS REVIEWEDCERVICAL MRI. 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 (REF # [id number], [facility] NARCOTIC AGREEMENT WAS REVIEWED AND SIGNED TODAY BY THE PATIENT. SEE ATTACHED DOCUMENT FOR FULL DETAILS; THESE SPECIFIC ISSUES WERE REVIEWED: 1) ALL PAIN MEDS IN THEIR ORIGINAL BOTTLES AND ANY WEEKLY PLANNERS ARE TO BE BROUGHT TO THE PAIN CENTER AT EVERY VISIT. 2) THE PATIENT IS NOT TO INCREASE DOSING OR TIMING OF THEIR PAIN MEDICATION WITHOUT SPECIFICDIRECTION OF THEIR PAIN CENTERPROVIDER (NOT ER OR OTHER PROVIDERS). 3) ALL PAIN MEDS ARE TO BE KEPT SECURED, IN A LOCKED BOX. 4) NO PAIN MEDS ARE TO BE SHARED WITH ANY OTHER PERSON FOR ANY REASON. 5) NO PAIN MEDS MAY BE TAKEN FROM ANY FRIENDS OR RELATIVES FOR ANY REASON 6) NO MEDS OR SUBSTANCES WHICH ARE NOT LEGAL ARE TO BE USED- NO MARIJUANA, NO COCAINE, AMPHETAMINES, HEROIN, OR OTHERS ARE EVER TO BE USED. 7)URINE TESTING IS DONE TO ACCOUN TFOR MEDS AND SUBSTANCES BEING TAKEN AND WILL BE DONE RANDOMLY. THIS IS FOR OUR PATIENT''S AND COMMUNITY SAFETY. , RISKS AND BENEFITS OF NARCOTIC/OPIOD MEDICATIONS WERE REVIEWED WITH PATIENT - THIS INCLUDES BUT IS NOT LIMITED TO RISK OF DEPENDANCE/DEVELOPMENT OF ADDICTION, MOOD DISTURBANCE AND DEPRESSION, OSTEOPOROSIS, HORMONAL AND LABIDAL CHANGES, RESPIRATORY DEPRESSION AND . PATIENT IS ADVISED NOT TO DRIVE OR DRINK ALCOHOL WHILE ON THESE MEDICATIONS. PREVENTIVE MEDICINE PAIN CLINIC TEACHING: MEDICATIONS REVIEWED MED CHANGES WITH PT,INCLUDING GABAPENTIN AND OXYCODONE. PT VERBALIZES UNDERSTANDING. 07/28/18 1215 LAS. PROCEDURE CODES FA211 ESTABILISHED PATIENT [facility] FACILITY CHARGE DISPOSITION & COMMUNICATION FOLLOW UP 2 MONTHS ELECTRONICALLY SIGNED BY TG AGARWAL ON 08/18/2018 AT 04:01 PM EST DISCLAIMER : THIS IS A VISIT SUMMARY EXTRACTED FROM THE [employer] CHART. IT IS NOT A COPY OF THE [email or web address] PROGRESS NOTE. CAMILA
== END ==
LOC: M PAIN 11:30
PROVIDERS: ATTEND Nurse Practitioner Family
DX: M54.81 Occipital neuralgia (principal); M47.812 Spondylosis without myelopathy or radiculopathy, cervical region; K64.9 Unspecified hemorrhoids; E78.5 Hyperlipidemia, unspecified; F32.9 Major depressive disorder, single episode, unspecified; F41.9 Anxiety disorder, unspecified; K21.9 Gastro-esophageal reflux disease without esophagitis; Z79.899 Other long term (current) drug therapy; Z87.442 Personal history of urinary calculi; Z87.891 Personal history of nicotine dependence; Z88.5 Allergy status to narcotic agent; Z88.8 Allergy status to other drugs, medicaments and biological substances

== ENCOUNTER → 2018-10-05 | Outpatient (CLI) | payer BC ==
[~2018-10-05] MED LIST changes: -PROM25TA PO; +PROM25TA12 PO; -RANI75TA10 PO; +RANI75TA15 PO
--- NOTE | 2018-10-18 01:02 | ECWPNPC ---
PATIENT NAME: RAVEN MUKHERJEE : 1960 GENDER: FEMALE VISIT DATE: 10/05/2018 DISCHARGE DATE: 10/05/18 1440 VISIT LOCKED DATE TIME: PHYSICIAN: MARYELLEN GARZA RESOURCE: MARYELLEN GARZA REASON FOR APPOINTMENT 1. NECK HISTORY OF PRESENT ILLNESS HISTORY OF PRESENT ILLNESS: HERE FOR F/U AND MEDICINE MANAGEMENT OF CHRONIC NECK PAIN.HAVING LEFT NECK NEURITIS THAT CAUSES LEFT EAR ITCHING.RATING PAIN VAS 5/10.DISCUSSED TREATMENT OPTIONS. PAIN THE PATIENT DESCRIBES THE PAIN... FALL RISK SCREENING: SCREENING : NO FALLS IN THE PAST YEAR. CURRENT MEDICATIONS TAKING BACLOFEN 10 MG TABLET 1 TABLET WITH FOOD OR MILK ORALLY THREE TIMES A DAY TAKING OXYCODONE HCL 5 MG CAPSULE 1 CAPSULE NEEDED ORALLY EVERY 6 HRS PRN PAIN MDD=2 TAKING LASIX 20 MG TABLET 1 TABLET ORALLY PRN TAKING ALEVE 220 MG TABLET 1 TABLET NEEDED ORALLY EVERY 12 HRS, NOTES: NONE RECENTLY TAKING OXYBUTYNIN CHLORIDE 5 MG TABLET 1 TABLET ORALLY EVERY 8 HOURS NEEDED FOR BLADDER SPASMS OR URINARY FREQUENCY, NOTES: NONE RECENTLY TAKING AMBIEN 10 MG TABLET 1 TABLET AT BEDTIME NEEDED ORALLY ONCE A DAY TAKING HYDROMORPHONE HCL 4 MG TABLET 1 TABLET NEEDED ORALLY EVERY 6 HRS, NOTES: NONE RECENTLY TAKING GABAPENTIN 300 MG CAPSULE 1 CAPSULE ORALLY BID TAKING VOLTAREN 1 % GEL DIRECTED TRANSDERMAL APPLY 4 GRAMM TO NECK Q 6 HRS PRN PAIN TAKING GABAPENTIN 100 MG CAPSULE 2 ORALLY THREE TIMES A DAY NOT-TAKING ULTRAM 50 MG TABLET 1 TABLET ORALLY EVERY 6 HRS NEEDED FOR PAIN (MDD 4), NOTES: NONE RECENTLY NOT-TAKING PROMETHAZINE HCL 25 MG TABLET 1 TABLET NEEDED ORALLY EVERY 6 HR, NOTES: NONE RECENTLY NOT-TAKING ZOFRAN 4 MG TABLET 1 TABLET ORALLY EVERY 6 HOURS NEEDED FOR NAUSEA, NOTES: NONE RECENTLY DISCONTINUED OXYCODONE HCL 5 MG TABLET 1 TABLET NEEDED ORALLY EVERY 6 HRS MDD4 #45 TAB SHOULD LAST 30 DAYS MEDICATION LIST REVIEWED AND RECONCILED WITH THE PATIENT PAST MEDICAL HISTORY HEMORRHOIDS KIDNEY STONES HYPERLIPIDEMIA BACK PAIN DEPRESSION ANXIETY MUSCLE DISORDER GERD ALLERGIES DEMEROL: ALLERGY CODEINE SULFATE: ITCHING: CONTRAINDICATION SURGICAL HISTORY PELVIC/ VAGINAL WALL PROLAPSE REPAIR X3 2010 HYSTERETOMY 2006 COLONOSOPY 2015 ANXIALLY LYMPH NODES RIGHT REMOVED..NEGATIVE 2003 KIDNEY STONES BY LASER 2016 FAMILY HISTORY FATHER: MOTHER: ALIVE SIBLINGS: ALIVE, DIAGNOSED WITH HEART DISEASE SON(S): ALIVE DAUGHTER(S): ALIVE SOCIAL HISTORY GENERAL: TOBACCO USE ARE YOU A:FORMER SMOKER HOW LONG HAS IT BEEN SINCE YOU LAST SMOKED?5-10 YEARS ALCOHOL SCREENING DID YOU HAVE A DRINK CONTAINING ALCOHOL IN THE PAST YEAR?NO POINTS0 INTERPRETATIONNEGATIVE RECREATIONAL DRUG USE DRUG USE?NO CAFFEINE CAFFEINE USE?YES 3 CUPS 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 DIET: REGULAR. MARITAL STATUS: . PAIN CLINIC PFS, CLERGY, PUBLIC HEALTH REFERRALS PFS REFERRAL NEEDED?NO CLERGY REFERRAL NEEDED?NO PUBLIC HEALTH REFERRAL NEEDED?NO HAS THE PATIENT BEEN EDUCATED REGARDING HIS/HER PLAN OF CARE?YES HAS THE PATIENT BEEN EDUCATED REGARDING PAIN, THE RISK FOR PAIN, THE IMPORTANCE OF EFFECTIVE PAIN MANAGEMENT, AND THE PAIN ASSESSMENT PROCESS?YES REVIEWED WITH PATIENT 05/12/18 1314 JSREVIEWED WITH PATIENT 06/01/18 1425 LASREVIEWED WITH PATIENT 07/28/18 1140 LAS. HOSPITALIZATION/MAJOR DIAGNOSTIC PROCEDURE SURGERIES KIDNEY STONES 2017 REVIEW OF SYSTEMS REVIEWED BY: PROVIDER: MARYELLEN MAS . CONSTITUTIONAL: ANY CHANGE IN YOUR MEDICAL CONDITION? NO . CHILLS NO . FEVER NO . INFECTION: DO YOU HAVE NEW INFECTIONS? NO . DO YOU HAVE HISTORY OF MRSA? NO . MUSCULOSKELETAL: ANY NEW PATTERNS OF PAIN OR NUMBNESS? NO . GASTROENTEROLOGY: ANY NEW CHANGE IN BOWEL CONTROL? NO . GENITOURINARY: ANY NEW CHANGE IN BLADDER CONTROL? NO . IS THERE A CHANCE YOU COULD BE ? NO . HEMATOLOGY/LYMPH: DO YOU TAKE ANY BLOOD THINNERS? (FOR EXAMPLE- COUMADIN, PLAVIX, AGGRENOX, PLATEL, PRADAXA, OR XARELTO) NO . WHEN WAS YOUR LAST DOSE? DATE: TIME: . NEUROLOGY: HAVE YOU FALLEN IN THE PAST 12 MONTHS? NO . ANY NEW EXTREMITY NUMBNESS OR WEAKNESS? NO . CARDIOLOGY: DO YOU HAVE A PACEMAKER OR DEFIBRILLATOR? NO . RESPIRATORY: HAVE YOU BEEN SICK IN THE PAST WEEK? NO . FEVER NO . FLU LIKE SYMPTOMS? NO . COUGH NO . INTEGUMENTARY: DO YOU HAVE ANY RASHES OR OPEN SORES? NO . ALLERGIC/IMMUNO: ARE YOU ALLERGIC TO IV DYE? NO . ANY NEW ALLERGIES? NO . PSYCHIATRIC: DO YOU HAVE THOUGHTS OF HURTING YOURSELF OR SOMEONE ELSE? NO . ARE YOU ABUSED, NEGLECTED, OR IN AN UNSAFE ENVIRONMENT? NO . ENDOCRINOLOGY: ARE YOU DIABETIC? NO . OTHER: DO YOU NEED ANY PRESCRIPTIONS? NO . IF YES, PLEASE LIST: ____ . ANY NEW PROBLEMS WITH YOUR MEDICATIONS? NO . WHEN DID YOU LAST EAT? ____ . WHEN DID YOU LAST DRINK? ____ . WHAT DID YOU LAST DRINK? ____ . NAME OF PERSON DRIVING YOU HOME? ____ . DO YOU HAVE ANY OTHER QUESTIONS OR CONCERNS NO . VITAL SIGNS WT 200 LBS, HT 58 IN, BMI 41.80 INDEX, BP 130/73 MM HG, HR 90 /MIN, RR 16 /MIN, TEMP 98.6 F, OXYGEN SAT % 96, REVIEWED BY: EM. EXAMINATION GENERAL EXAMINATION: LUNGS:LUNG SOUNDS ARE CLEAR . HEART:HEART RATE REGULAR . MUSCULOSKELETAL:*, MUSCLE STRENGTH TESTING 5/5 BILATERAL UPPER EXTREMITIES. . CERVICAL+ FOR PAIN WITH PALPATION OF CERVICAL SPINE. + FOR PAIN WITH PALPATION OF CERVICAL PARASPINALS. TRIGGER POINTS OVER BIALT. TRAPEZIUS AND OCCIPITAL NERVE ROUTES. DIAGNOSTIC TESTS REVIEWEDCERVICAL MRI. 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 NECK L>R, ISTOP REGISTRY REVIEWED AND DEMONSTRATES COMPLLIANCE. UTOX TODAY, RISKS AND BENEFITS OF NARCOTIC/OPIOD MEDICATIONS WERE REVIEWED WITH PATIENT - THIS INCLUDES BUT IS NOT LIMITED TO RISK OF DEPENDANCE/DEVELOPMENT OF ADDICTION, MOOD DISTURBANCE AND DEPRESSION, OSTEOPOROSIS, HORMONAL AND LABIDAL CHANGES, RESPIRATORY DEPRESSION AND . PATIENT IS ADVISED NOT TO DRIVE OR DRINK ALCOHOL WHILE ON THESE MEDICATIONS. PROCEDURE CODES FA211 ESTABILISHED PATIENT [facility] FACILITY CHARGE DISPOSITION & COMMUNICATION FOLLOW UP POST (REASON: OCCIPITAL NERVE BLOCK VS TPI BILAT. NECK L>R) ELECTRONICALLY SIGNED BY TG AGARWAL ON 10/17/2018 AT 04:19 PM EST DISCLAIMER : THIS IS A VISIT SUMMARY EXTRACTED FROM THE [employer] CHART. IT IS NOT A COPY OF THE [employer] PROGRESS NOTE. MTDD
== END ==
LOC: M PAIN 13:45
PROVIDERS: ATTEND Nurse Practitioner Family
DX: M54.81 Occipital neuralgia (principal); M47.812 Spondylosis without myelopathy or radiculopathy, cervical region; K64.8 Other hemorrhoids; E78.5 Hyperlipidemia, unspecified; F32.9 Major depressive disorder, single episode, unspecified; F41.9 Anxiety disorder, unspecified; K21.9 Gastro-esophageal reflux disease without esophagitis; Z87.442 Personal history of urinary calculi; Z87.891 Personal history of nicotine dependence; Z79.899 Other long term (current) drug therapy; Z79.891 Long term (current) use of opiate analgesic; Z88.5 Allergy status to narcotic agent

== ENCOUNTER → 2018-10-28 | Outpatient (CLI) | payer BC ==
[~2018-10-28] MED LIST changes: +BUPIVACAINE HCL 0.25% 10 ML VIAL As Ordered ONE; +BUPIVACAINE HCL 0.25% 30 ML VIAL As Ordered ONE; +TRIAMCINOLONE ACETONIDE SUSP 40 MG/ML VIAL (J3301) As Ordered ONE; +diazePAM 5 MG TAB As Ordered ONE; +oxyCODONE 5MG TAB As Ordered ONE
--- NOTE | 2018-11-10 00:02 | ECWPNPC ---
PATIENT NAME: RAVEN MUKHERJEE : 1960 GENDER: FEMALE VISIT DATE: 10/28/2018 DISCHARGE DATE: 10/28/18 1546 VISIT LOCKED DATE TIME: PHYSICIAN: SARAH BETH CAO MD RESOURCE: SARAH BETH CAO MD REASON FOR APPOINTMENT 1. OCC VS TPI HISTORY OF PRESENT ILLNESS HISTORY OF PRESENT ILLNESS: PAIN THE PATIENT DESCRIBES THE PAIN... FALL RISK SCREENING: SCREENING : NO FALLS IN THE PAST YEAR. CURRENT MEDICATIONS TAKING BACLOFEN 10 MG TABLET 1 TABLET WITH FOOD OR MILK ORALLY THREE TIMES A DAY, NOTES: 10/27/18 PM TAKING LASIX 20 MG TABLET 1 TABLET ORALLY PRN, NOTES: FEW DAYS AGO TAKING ALEVE 220 MG TABLET 1 TABLET NEEDED ORALLY EVERY 12 HRS, NOTES: NONE RECENTLY TAKING OXYBUTYNIN CHLORIDE 5 MG TABLET 1 TABLET ORALLY EVERY 8 HOURS NEEDED FOR BLADDER SPASMS OR URINARY FREQUENCY, NOTES: NONE RECENTLY TAKING AMBIEN 10 MG TABLET 1 TABLET AT BEDTIME NEEDED ORALLY ONCE A DAY, NOTES: 10/27/18 PM TAKING HYDROMORPHONE HCL 4 MG TABLET 1 TABLET NEEDED ORALLY EVERY 6 HRS, NOTES: NONE RECENTLY TAKING GABAPENTIN 300 MG CAPSULE 1 CAPSULE ORALLY BID, NOTES: 10/26/18 TAKING VOLTAREN 1 % GEL DIRECTED TRANSDERMAL APPLY 4 GRAMM TO NECK Q 6 HRS PRN PAIN, NOTES: 10/27/18 TAKING GABAPENTIN 100 MG CAPSULE 2 ORALLY THREE TIMES A DAY, NOTES: NONE RECENT TAKING OXYCODONE HCL 5 MG CAPSULE 1 CAPSULE NEEDED ORALLY EVERY 6 HRS PRN PAIN MDD=2, NOTES: 10/27/18 PM NOT-TAKING ULTRAM 50 MG TABLET 1 TABLET ORALLY EVERY 6 HRS NEEDED FOR PAIN (MDD 4), NOTES: NONE RECENTLY NOT-TAKING PROMETHAZINE HCL 25 MG TABLET 1 TABLET NEEDED ORALLY EVERY 6 HR, NOTES: NONE RECENTLY NOT-TAKING ZOFRAN 4 MG TABLET 1 TABLET ORALLY EVERY 6 HOURS NEEDED FOR NAUSEA, NOTES: NONE RECENTLY MEDICATION LIST REVIEWED AND RECONCILED WITH THE PATIENT PAST MEDICAL HISTORY HEMORRHOIDS KIDNEY STONES HYPERLIPIDEMIA BACK PAIN DEPRESSION ANXIETY MUSCLE DISORDER GERD ALLERGIES DEMEROL: ALLERGY CODEINE SULFATE: ITCHING - CONTRAINDICATION SURGICAL HISTORY PELVIC/ VAGINAL WALL PROLAPSE REPAIR X3 2010 HYSTERETOMY 2006 COLONOSOPY 2015 ANXIALLY LYMPH NODES RIGHT REMOVED..NEGATIVE 2003 KIDNEY STONES BY LASER 2017 FAMILY HISTORY FATHER: MOTHER: ALIVE SIBLINGS: ALIVE, DIAGNOSED WITH HEART DISEASE SON(S): ALIVE DAUGHTER(S): ALIVE SOCIAL HISTORY GENERAL: TOBACCO USE ARE YOU A:FORMER SMOKER HOW LONG HAS IT BEEN SINCE YOU LAST SMOKED?5-10 YEARS LATEX QUESTIONNAIRE LATEX ALLERGY : HAVE YOU EVER DEVELOPED ANY TYPE OF REACTION AFTER HANDLING LATEX PRODUCTS SUCH RUBBER GLOVES, CONDOMS, DIAPHRAGMS, BALLOONS, SOCKS, OR UNDERWEAR?NO LATEX ALLERGY : HAVE YOU EVER DEVELOPED ANY TYPE OF REACTION DURING OR AFTER DENTAL APPOINTMENT, VAGINAL/RECTAL EXAMINATION, SURGICAL PROCEDURE, OR ANY OTHER EXPOSURE?NO LATEX RISK : HAVE YOU EVER HAD ANY DIFFICULTY BREATHING OR HIVES AFTER EATING OR HANDLING ANY FRUITS, OR VEGETABLES; SUCH KIWI, BANANAS, STONE FRUITS, OR CHESTNUTSNO LATEX RISK : DO YOU HAVE A PREVIOUS PERSONAL HISTORY OF MORE THAN NINE SURGERIES, SPINA BIFIDA, OR REPEATED CATHERTIZATIONS? 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 DIET: REGULAR. MARITAL STATUS: . PAIN CLINIC PFS, CLERGY, PUBLIC HEALTH REFERRALS PFS REFERRAL NEEDED?NO CLERGY REFERRAL NEEDED?NO PUBLIC HEALTH REFERRAL NEEDED?NO HAS THE PATIENT BEEN EDUCATED REGARDING HIS/HER PLAN OF CARE?YES HAS THE PATIENT BEEN EDUCATED REGARDING PAIN, THE RISK FOR PAIN, THE IMPORTANCE OF EFFECTIVE PAIN MANAGEMENT, AND THE PAIN ASSESSMENT PROCESS?YES ADVANCE DIRECTIVE ADVANCE DIRECTIVE DISCUSSED WITH PATIENT:YES HCP - FERNIE Ponce MUKHERJEE () [phone] REVIEWED WITH PATIENT 05/12/18 1314 JSREVIEWED WITH PATIENT 06/01/18 1425 LASREVIEWED WITH PATIENT 07/28/18 1140 LASREVIEWED WITH PT 10/28/18 1455 BV. HOSPITALIZATION/MAJOR DIAGNOSTIC PROCEDURE SURGERIES KIDNEY STONES 2016 REVIEW OF SYSTEMS REVIEWED BY: PROVIDER: . CONSTITUTIONAL: ANY CHANGE IN YOUR MEDICAL CONDITION? NO . CHILLS NO . FEVER NO . INFECTION: DO YOU HAVE NEW INFECTIONS? NO . DO YOU HAVE HISTORY OF MRSA? NO . MUSCULOSKELETAL: ANY NEW PATTERNS OF PAIN OR NUMBNESS? NO . GASTROENTEROLOGY: ANY NEW CHANGE IN BOWEL CONTROL? NO . GENITOURINARY: ANY NEW CHANGE IN BLADDER CONTROL? NO . IS THERE A CHANCE YOU COULD BE ? NO . HEMATOLOGY/LYMPH: DO YOU TAKE ANY BLOOD THINNERS? (FOR EXAMPLE- COUMADIN, PLAVIX, AGGRENOX, PLATEL, PRADAXA, OR XARELTO) NO . WHEN WAS YOUR LAST DOSE? DATE: TIME: . NEUROLOGY: HAVE YOU FALLEN IN THE PAST 12 MONTHS? NO . ANY NEW EXTREMITY NUMBNESS OR WEAKNESS? NO . CARDIOLOGY: DO YOU HAVE A PACEMAKER OR DEFIBRILLATOR? NO . RESPIRATORY: HAVE YOU BEEN SICK IN THE PAST WEEK? NO . FEVER NO . FLU LIKE SYMPTOMS? NO . COUGH NO . INTEGUMENTARY: DO YOU HAVE ANY RASHES OR OPEN SORES? NO . ALLERGIC/IMMUNO: ARE YOU ALLERGIC TO IV DYE? NO . ANY NEW ALLERGIES? NO . PSYCHIATRIC: DO YOU HAVE THOUGHTS OF HURTING YOURSELF OR SOMEONE ELSE? NO . ARE YOU ABUSED, NEGLECTED, OR IN AN UNSAFE ENVIRONMENT? NO . ENDOCRINOLOGY: ARE YOU DIABETIC? NO . OTHER: DO YOU NEED ANY PRESCRIPTIONS? NO . IF YES, PLEASE LIST: ____ . ANY NEW PROBLEMS WITH YOUR MEDICATIONS? NO . WHEN DID YOU LAST EAT? [id number] . WHEN DID YOU LAST DRINK? [id number] . WHAT DID YOU LAST DRINK? WATER . NAME OF PERSON DRIVING YOU HOME? JAY MUKHERJEE . DO YOU HAVE ANY OTHER QUESTIONS OR CONCERNS NO . VITAL SIGNS WT 200 LBS, HT 58 IN, BMI 41.80 INDEX, BP 130/69 MM HG, HR 84 /MIN, RR 16 /MIN, TEMP 96.7 F, OXYGEN SAT % 93%, NA INITIALS SC 13:29, REVIEWED BY: BV. ASSESSMENTS MYALGIA, OTHER SITE - M79.18 (PRIMARY) PROCEDURES PN TRIGGER POINT INJECTION WITH STEROIDS PRE PROCEDURE DIAGNOSIS 1. MYALGIA 2. PAIN AT BILATERAL NECK AREA POST PROCEDURE DIAGNOSIS 1. MYALGIA 2. PAIN AT BILATERAL NECK AREA PROCEDURE TRIGGER POINT INJECTION AT BILATERAL NECK AREA SURGEON DR. SARAH BETH CAO POLYSTYRENE BEAD MOLDER NONE ANESTHESIA LOCAL PRE PROCEDURE NOTE THE PATIENT HAS A HISTORY OF CHRONIC PAIN AT THE RIGHT AND LEFT NECK AREA. I EVALUATE THE PATIENT AND REVIEWED THE CHART. THERE IS EVIDENCE OF BANDS OF TISSUE WITH RESTRICTION OF MOVEMENT AND PRESENCE OF TRIGGER POINT AT THE AFFECTED AREA. I WENT OVER THE RISKS, ALTERNATIVES, AND BENEFITS ASSOCIATED WITH THIS PROCEDURE. THE PATIENT WOULD LIKE TO PROCEED AND GIVE CONSENT TO PERFORMED THE PROCEDURE. THE PATIENT DENIES UNEXPLAINABLE WEIGHT LOSS, FEVER, CHILLS, OR NEW CHANGES IN URINARY OR BOWEL CONTROL DESCRIPTION OF PROCEDURE THE PATIENT WAS BROUGHT TO THE PROCEDURE ROOM AND PLACED IN THE SITTING POSITION. THE AREA WAS CLEANED WITH ALCOHOL. THE PROCEDURE WAS DONE USING ASEPTIC STERILE TECHNIQUE. I CHECKED LATERALITY AND THE LEVEL WHERE THE PROCEDURE WAS GOING TO BE PERFORMED WITH THE PATIENT AND THE SUPPORTING STAFF AT THE MOMENT OF THE TIME OUT IN THE PROCEDURE ROOM. USING A 25-GAUGE NEEDLE, TRIGGER POINTS WERE INJECTED AT THE RIGHT AND LEFT NECK AREA WITH A TOTAL OF 40 ML OF BUPIVACAINE 0.25% AND KENALOG 40 MG. THERE WAS NO EVIDENCE OF BLOOD, PARESTHESIA OR CEREBROSPINAL FLUID DURING THE PROCEDURE. THE PATIENT WAS SENT TO THE RECOVERY ROOM. THE PATIENT WAS MOVING THE EXTREMITIES AND DOING WELL. THERE WAS NO COMPLICATION DURING THE PROCEDURE POST PROCEDURE NOTE THE PATIENT WILL BE SEEN IN A FOLLOW UP IN THE NEXT FEW WEEKS. INSTRUCTIONS WERE GIVEN, QUESTIONS WERE ANSWERED, AND THE PATIENT EXPRESSED UNDERSTANDING AND AGREES WITH THE PLAN. I, SANDIP CMKEON, DOCUMENTED THE ABOVE INFORMATION ACTING A SCRIBE FOR DR. CAO. I HAVE REVIEWED THE ABOVE DOCUMENT, WRITTEN BY SANDIP MORALES AND I VERIFY THAT IT IS ACCURATE. PROCEDURE CODES 50320 INJ TRIGGER POINT / [facility] FOLLOW UP 3 WEEKS ELECTRONICALLY SIGNED BY SARAH BETH CAO MD, MD ON 11/09/2018 AT 11:29 AM EDT DISCLAIMER : THIS IS A VISIT SUMMARY EXTRACTED FROM THE [employer] CHART. IT IS NOT A COPY OF THE [employer] PROGRESS NOTE. CAMILA
== END ==
LOC: M PAIN 13:30
PROVIDERS: ATTEND Anesthesiology
DX: M79.18 Myalgia, other site (principal); K64.8 Other hemorrhoids; E78.5 Hyperlipidemia, unspecified; M54.9 Dorsalgia, unspecified; F32.9 Major depressive disorder, single episode, unspecified; F41.9 Anxiety disorder, unspecified; K21.9 Gastro-esophageal reflux disease without esophagitis; Z87.891 Personal history of nicotine dependence; Z79.891 Long term (current) use of opiate analgesic; Z79.899 Other long term (current) drug therapy; Z87.442 Personal history of urinary calculi; Z88.5 Allergy status to narcotic agent
CPT/HCPCS: 20552; J3301

== ENCOUNTER → 2018-12-06 | Outpatient (CLI) | payer BC ==
[~2018-12-06] MED LIST changes: +AZEL1SPR3 NARES; -BUPIVACAINE HCL 0.25% 10 ML VIAL As Ordered ONE; -BUPIVACAINE HCL 0.25% 30 ML VIAL As Ordered ONE; +DICL1GEL3; +GABA-1171; +LIDO1PAD; +OXYC-517; -TRIAMCINOLONE ACETONIDE SUSP 40 MG/ML VIAL (J3301) As Ordered ONE; -diazePAM 5 MG TAB As Ordered ONE; -oxyCODONE 5MG TAB As Ordered ONE
--- NOTE | 2018-12-22 01:26 | ECWPNPC ---
PATIENT NAME: RAVEN MUKHERJEE : 1960 GENDER: FEMALE VISIT DATE: 12/06/2018 DISCHARGE DATE: 12/06/18 1343 VISIT LOCKED DATE TIME: PHYSICIAN: MARYELLEN GARZA RESOURCE: MARYELLEN GARZA REASON FOR APPOINTMENT 1. POST PROC HISTORY OF PRESENT ILLNESS HISTORY OF PRESENT ILLNESS: HERE FOR POST PROCEDURE F/U.HAD TPI ON 10/28.DOING WELL POST PROCEDURE..RATING PAIN VAS 4/10.FINDS OXYCODONE HELPFUL BUT THERE ARE SOME DAYS THAT ARE BAD AND SHE WOULD LIKE TO BE ABLE TO TAKE MORE THAN 2 PILLS.DISCUSSED MEDICATION AND TREATMENT OPTIONS. PAIN THE PATIENT DESCRIBES THE PAIN... FALL RISK SCREENING: SCREENING :NO FALLS REPORTED IN THE LAST YEAR CURRENT MEDICATIONS TAKING BACLOFEN 10 MG TABLET 1 TABLET WITH FOOD OR MILK ORALLY THREE TIMES A DAY TAKING LASIX 20 MG TABLET 1 TABLET ORALLY PRN TAKING ALEVE 220 MG TABLET 1 TABLET NEEDED ORALLY EVERY 12 HRS TAKING OXYBUTYNIN CHLORIDE 5 MG TABLET 1 TABLET ORALLY EVERY 8 HOURS NEEDED FOR BLADDER SPASMS OR URINARY FREQUENCY TAKING AMBIEN 10 MG TABLET 1 TABLET AT BEDTIME NEEDED ORALLY ONCE A DAY TAKING HYDROMORPHONE HCL 4 MG TABLET 1 TABLET NEEDED ORALLY EVERY 6 HRS TAKING VOLTAREN 1 % GEL DIRECTED TRANSDERMAL APPLY 4 GRAMM TO NECK Q 6 HRS PRN PAIN TAKING GABAPENTIN 100 MG CAPSULE 2 ORALLY THREE TIMES A DAY TAKING OXYCODONE HCL 5 MG CAPSULE 1 CAPSULE NEEDED ORALLY EVERY 6 HRS PRN PAIN MDD=2 NOT-TAKING GABAPENTIN 300 MG CAPSULE 1 CAPSULE ORALLY BID, NOTES: DUPLICATE NOT-TAKING ULTRAM 50 MG TABLET 1 TABLET ORALLY EVERY 6 HRS NEEDED FOR PAIN (MDD 4), NOTES: NONE RECENTLY NOT-TAKING PROMETHAZINE HCL 25 MG TABLET 1 TABLET NEEDED ORALLY EVERY 6 HR, NOTES: NONE RECENTLY NOT-TAKING ZOFRAN 4 MG TABLET 1 TABLET ORALLY EVERY 6 HOURS NEEDED FOR NAUSEA, NOTES: NONE RECENTLY MEDICATION LIST REVIEWED AND RECONCILED WITH THE PATIENT PAST MEDICAL HISTORY HEMORRHOIDS KIDNEY STONES HYPERLIPIDEMIA BACK PAIN DEPRESSION ANXIETY MUSCLE DISORDER GERD NECK PAIN ALLERGIES DEMEROL: ALLERGY CODEINE SULFATE: ITCHING - CONTRAINDICATION SURGICAL HISTORY PELVIC/ VAGINAL WALL PROLAPSE REPAIR X3 2010 HYSTERETOMY 2006 COLONOSOPY 2015 ANXIALLY LYMPH NODES RIGHT REMOVED..NEGATIVE 2003 KIDNEY STONES BY LASER 2016 FAMILY HISTORY FATHER: MOTHER: ALIVE SIBLINGS: ALIVE, DIAGNOSED WITH HEART DISEASE SON(S): ALIVE DAUGHTER(S): ALIVE SOCIAL HISTORY GENERAL: TOBACCO USE ARE YOU A:FORMER SMOKER HOW LONG HAS IT BEEN SINCE YOU LAST SMOKED?5-10 YEARS LATEX QUESTIONNAIRE LATEX ALLERGY : HAVE YOU EVER DEVELOPED ANY TYPE OF REACTION AFTER HANDLING LATEX PRODUCTS SUCH RUBBER GLOVES, CONDOMS, DIAPHRAGMS, BALLOONS, SOCKS, OR UNDERWEAR?NO LATEX ALLERGY : HAVE YOU EVER DEVELOPED ANY TYPE OF REACTION DURING OR AFTER DENTAL APPOINTMENT, VAGINAL/RECTAL EXAMINATION, SURGICAL PROCEDURE, OR ANY OTHER EXPOSURE?NO LATEX RISK : HAVE YOU EVER HAD ANY DIFFICULTY BREATHING OR HIVES AFTER EATING OR HANDLING ANY FRUITS, OR VEGETABLES; SUCH KIWI, BANANAS, STONE FRUITS, OR CHESTNUTSNO LATEX RISK : DO YOU HAVE A PREVIOUS PERSONAL HISTORY OF MORE THAN NINE SURGERIES, SPINA BIFIDA, OR REPEATED CATHERTIZATIONS? NO LATEX RISK : ARE YOU FREQUENTLY EXPOSED TO LATEX PRODUCTS IN YOUR OCCUPATION?NO DATE ASKED : 10/28/2018 ALCOHOL SCREENING DID YOU HAVE A DRINK CONTAINING ALCOHOL IN THE PAST YEAR?NO POINTS0 INTERPRETATIONNEGATIVE RECREATIONAL DRUG USE DRUG USE?NO CAFFEINE CAFFEINE USE?YES 3 CUPS DAILY BUDDHISM BUDDHISM NO PREFERENCE LANGUAGE LANGUAGES SPOKEN:TURKISH LEARNING BARRIERS / SPECIAL NEEDS BARRIERS TO LEARNING?NO HEARING IMPAIRED?NO VISION IMPAIRED?YES :CORRECTIVE LENSES COGNITIVELY IMPAIRED?NO READINESS TO LEARN?YES LEARNING PREFERENCES?NO LEARNING CAPABILITIES PRESENT?YES EMOTIONAL BARRIERS?NO SPECIAL DEVICES?NO 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 DIET: REGULAR. MARITAL STATUS: . PAIN CLINIC PFS, CLERGY, PUBLIC HEALTH REFERRALS PFS REFERRAL NEEDED?NO CLERGY REFERRAL NEEDED?NO PUBLIC HEALTH REFERRAL NEEDED?NO HAS THE PATIENT BEEN EDUCATED REGARDING HIS/HER PLAN OF CARE?YES HAS THE PATIENT BEEN EDUCATED REGARDING PAIN, THE RISK FOR PAIN, THE IMPORTANCE OF EFFECTIVE PAIN MANAGEMENT, AND THE PAIN ASSESSMENT PROCESS?YES ADVANCE DIRECTIVE ADVANCE DIRECTIVE DISCUSSED WITH PATIENT:YES HCP - FERNIE Kris LONNY () [phone] REVIEWED WITH PATIENT 05/12/18 1314 JSREVIEWED WITH PATIENT 06/01/18 1425 LASREVIEWED WITH PATIENT 07/28/18 1140 LASREVIEWED WITH PT 10/28/18 1455 BVREVIEWED WITH PATIENT 12/06/18 1317 JS. 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 CONSTITUTIONAL: ANY CHANGE IN YOUR MEDICAL CONDITION? NO . CHILLS NO . FEVER NO . INFECTION: DO YOU HAVE NEW INFECTIONS? NO . DO YOU HAVE HISTORY OF MRSA? NO . MUSCULOSKELETAL: ANY NEW PATTERNS OF PAIN OR NUMBNESS? NO . GASTROENTEROLOGY: ANY NEW CHANGE IN BOWEL CONTROL? NO . GENITOURINARY: ANY NEW CHANGE IN BLADDER CONTROL? NO . IS THERE A CHANCE YOU COULD BE ? NO . HEMATOLOGY/LYMPH: DO YOU TAKE ANY BLOOD THINNERS? (FOR EXAMPLE- COUMADIN, PLAVIX, AGGRENOX, PLATEL, PRADAXA, OR XARELTO) NO . WHEN WAS YOUR LAST DOSE? DATE: TIME: . NEUROLOGY: HAVE YOU FALLEN IN THE PAST 12 MONTHS? NO . ANY NEW EXTREMITY NUMBNESS OR WEAKNESS? NO . CARDIOLOGY: DO YOU HAVE A PACEMAKER OR DEFIBRILLATOR? NO . RESPIRATORY: HAVE YOU BEEN SICK IN THE PAST WEEK? NO . FEVER NO . FLU LIKE SYMPTOMS? NO . COUGH NO . INTEGUMENTARY: DO YOU HAVE ANY RASHES OR OPEN SORES? NO . ALLERGIC/IMMUNO: ARE YOU ALLERGIC TO IV DYE? NO . ANY NEW ALLERGIES? NO . PSYCHIATRIC: DO YOU HAVE THOUGHTS OF HURTING YOURSELF OR SOMEONE ELSE? NO . ARE YOU ABUSED, NEGLECTED, OR IN AN UNSAFE ENVIRONMENT? NO . ENDOCRINOLOGY: ARE YOU DIABETIC? NO . OTHER: DO YOU NEED ANY PRESCRIPTIONS? YES . IF YES, PLEASE LIST: ____OXYCODONE - WOULD LIKE TO DISCUSS INCREASING TO 3X/DAY . ANY NEW PROBLEMS WITH YOUR MEDICATIONS? NO . WHEN DID YOU LAST EAT? ____ . WHEN DID YOU LAST DRINK? ____ . WHAT DID YOU LAST DRINK? ____ . NAME OF PERSON DRIVING YOU HOME? ____ . DO YOU HAVE ANY OTHER QUESTIONS OR CONCERNS YES, WOULD LIKE TO DISCUSS INCREASING THE OXYCODONE TO 3X/DAY FROM 2X/DAY . VITAL SIGNS WT 196.8 LBS, HT 58 IN, BMI 41.13 INDEX, BP 115/66 MM HG, HR 94 /MIN, RR 16 /MIN, TEMP 98.4 F, OXYGEN SAT % 94%, SAFE IN ENV? (Y/N) YES, REVIEWED BY: MARJAN. EXAMINATION GENERAL EXAMINATION: GENERAL APPEARANCE:AWAKE,ALERT ,PLEAASANT . PSYCHAFFECT NORMAL . LUNGS:LUNG CARLOS ARE CLEAR TO AUSCULTATION BILATERALLY. GOOD MOVEMENT OF AIR . HEART:S1, S2 IN A REGULAR RATE AND RHYTHM. NO SIGNIFICANT MURMURS, RUBS OR GALLOPS NOTED . ASSESSMENTS SPONDYLOSIS OF CERVICAL REGION WITHOUT MYELOPATHY OR RADICULOPATHY - M47.812 TREATMENT SPONDYLOSIS OF CERVICAL REGION WITHOUT MYELOPATHY OR RADICULOPATHY REFILL OXYCODONE HCL CAPSULE, 5 MG, 1 CAPSULE NEEDED, ORALLY, Q8H PRN MDD3, 30 DAY(S), 90, REFILLS 0 NOTES: ISTOP REGISTRY REVIEWED AND DEMONSTRATES COMPLLIANCE. BRINGS IN MEDICATIONS WHICH IS APPROPRIATE FOR WHAT WAS DISPENSED. RECENT URINE TOXICOLOGY REVIEWED. NO UNAUTHORIZED MEDICATIONS. NO ILLICIT SUBSTANCES AND PRESCRIBED MEDICATIONS WERE PRESENT. , RISKS AND BENEFITS OF NARCOTIC/OPIOD MEDICATIONS WERE REVIEWED WITH PATIENT - THIS INCLUDES BUT IS NOT LIMITED TO RISK OF DEPENDANCE/DEVELOPMENT OF ADDICTION, MOOD DISTURBANCE AND DEPRESSION, OSTEOPOROSIS, HORMONAL AND LABIDAL CHANGES, RESPIRATORY DEPRESSION AND . PATIENT IS ADVISED NOT TO DRIVE OR DRINK ALCOHOL WHILE ON THESE MEDICATIONSINCREASE OXYCODONE 5MG TO 3 PER DAY IF SEVERE PAIN DISP #90. PROCEDURE CODES FA211 ESTABILISHED PATIENT [facility]ACILITY CHARGE DISPOSITION & COMMUNICATION FOLLOW UP 2 MONTHS ELECTRONICALLY SIGNED BY MARYELLEN MAS, TG ON 12/20/2018 AT 05:12 PM EDT DISCLAIMER : THIS IS A VISIT SUMMARY EXTRACTED FROM THE [employer] CHART. IT IS NOT A COPY OF THE [employer] PROGRESS NOTE. MTDD
== END ==
LOC: M PAIN 13:00
PROVIDERS: ATTEND Nurse Practitioner Family
DX: M47.812 Spondylosis without myelopathy or radiculopathy, cervical region (principal); E78.5 Hyperlipidemia, unspecified; F32.9 Major depressive disorder, single episode, unspecified; F41.9 Anxiety disorder, unspecified; E66.01 Morbid (severe) obesity due to excess calories; Z68.41 Body mass index [BMI] 40.0-44.9, adult; Z79.899 Other long term (current) drug therapy; Z88.5 Allergy status to narcotic agent; Z87.891 Personal history of nicotine dependence

== ENCOUNTER 2018-12-08 11:02 | Emergency (ER) | payer BC ==
[~2018-12-08] VITALS: Ht 170.2 cm; Wt 89.1 kg
[~2018-12-08 11:02] MED LIST changes: -AZEL1SPR3 NARES; -DICL1GEL3; -GABA-1171; -LIDO1PAD; -OXYC-517
[2018-12-08] MEDS ORDERED: LIDO1PAD (11:10)
[2018-12-08] MEDS ORDERED: GABA-1171 (11:10)
[2018-12-08] MEDS ORDERED: DICL1GEL3 (11:10)
[2018-12-08] MEDS ORDERED: OXYC-517 (11:10)
[2018-12-08 11:54] LABS: BASO % 0.6 % (0.0-1.0); EOS # 0.1 10^3/uL (0.0-0.50); EOS % 0.9 % (0.0-3.0); HEMATOCRIT 41.9 % (36.0-47.0); HEMOGLOBIN 13.5 g/dl (12.0-15.5); LYMPH # 2.1 10^3/uL (1.5-4.5); LYMPH % 30.8 % (24.0-44.0); MEAN CORPUSCULAR HEMOGLOBIN 27.7 pg (27.0-33.0); MEAN CORPUSCULAR HGB CONC 32.2 g/dl (32.0-36.5); MEAN CORPUSCULAR VOLUME 85.9 fl (80.0-96.0); MONO # 0.5 10^3/uL (0.0-0.8); MONO % 7.6 % (0.0-5.0); NEUTROPHILS % 59.8 % (36.0-66.0); PLATELET COUNT, AUTOMATED 264 10^3/uL (150-450); RED BLOOD COUNT 4.88 10^6/uL (4.00-5.40); WHITE BLOOD COUNT 6.7 10^3/uL (4.0-10.0)
--- NOTE | 2018-12-08 12:09 | REP ---
Chest two views HISTORY: Chest pain Comparison: 03/03/2017 The lungs are clear. The heart is normal in size. The pulmonary vasculature is normal in appearance. The bony structure is intact. IMPRESSION: No acute disease. Electronically Signed by Choco Hensley MD 12/08/2018 12:00 P
[2018-12-08 12:12] LABS: INR 1.11; PARTIAL THROMBOPLASTIN TIME 28.6 SECONDS (25.4-37.6); PROTHROMBIN TIME 14.4 SECONDS (12.1-14.4)
[2018-12-08 12:33] LABS: ALBUMIN 3.7 GM/DL (3.2-5.2); ALT/SGPT 19 U/L (12-78); BILIRUBIN,DIRECT < 0.1 MG/DL (0.0-0.2); BILIRUBIN,TOTAL 0.3 MG/DL (0.2-1.0); BLOOD UREA NITROGEN 12 MG/DL (7-18); CALCIUM LEVEL 8.9 MG/DL (8.8-10.2); CARBON DIOXIDE LEVEL 28 MEQ/L (21-32); CHLORIDE LEVEL 106 MEQ/L (98-107); CPK CREATINE PHOSPHOKINASE 67 U/L (26-192); CREATININE FOR GFR 0.93 MG/DL (0.55-1.30); FREE T4 0.88 NG/DL (0.76-1.46); GLOMERULAR FILTRATION RATE > 60.0 (>45); GLUCOSE, FASTING 111 MG/DL (70-100); LIPASE 95 U/L (73-393); MB/CK RELATIVE INDEX 2.09 (< OR =4); POTASSIUM SERUM 3.8 MEQ/L (3.5-5.1); SODIUM LEVEL 138 MEQ/L (136-145); TOTAL PROTEIN 7.1 GM/DL (6.4-8.2); TROPONIN I < 0.02 NG/ML (< 0.10)
[2018-12-08] MEDS ORDERED: ISOVUE-370 76% 100ML VIAL (Q9967) As Ordered ONE (13:35)
--- NOTE | 2018-12-08 14:09 | REP ---
CT Head without contrast HISTORY: Headache COMPARISON: None There is no intraparenchymal hemorrhage, acute infarct, mass or midline shift. The ventricular system is normal in appearance. There is no extra cerebral collection. There is no fracture. The visualized sinuses are clear. IMPRESSION: There is no intracranial lesion. Electronically Signed by Choco Hensely MD 12/08/2018 02:00 P
[2018-12-08] MEDS ORDERED: KETOROLAC 30 MG/ML VIAL (J1885) IV ONE (14:45)
--- NOTE | 2018-12-08 15:19 | REP ---
Maxillofacial CT without contrast History: Headache Contrast: Isovue 370 75 ml The sinuses are clear. The osteomeatal units are patent. The middle and inferior nasal turbinates are partially paradoxical. There is mild deviation of the nasal septum to the right. The cribriform plate, medial mcdaniels of the orbits and optic canals are intact. The carotid canals form a segment of the posterolateral mcdaniels of the sphenoid sinus. Contents of the orbits are normal. Calcifications are present in the tonsils. This is secondary to previous inflammatory disease. The salivary glands are normal in size and density. Small lymph nodes less than 1 cm in size are present in the internal jugular chains, posterior triangles, and submandibular areas. IMPRESSION: There is no acute or chronic sinusitis. Electronically Signed by Choco Hensley MD 12/08/2018 03:26 P
[2018-12-08] MEDS ORDERED: oxyCODONE 5MG TAB PO ONE (15:45)
[2018-12-08 16:00] VITALS: BP 156/78
[2018-12-08] MEDS ORDERED: AZEL1SPR3 NARES (16:46)
--- NOTE | 2018-12-08 22:16 | ECGEPIP ---
Stationary ECG Study [facility] - ED Test Date: 2018-12-08 Pat Name: RAVEN MUKHERJEE Department: Room: - Gender: F Edgerman: stevenson : 1960 Requested By: DARCI Mullins Order Number: [id number] Reading MD: Crescencio Elaine Measurements Intervals [place] Rate: 91 P: 54 CA: 164 QRS: 236 QRSD: 133 T: 33 QT: 384 QTc: 473 Interpretive Statements SINUS RHYTHM RIGHT AXIS DEVIATION RIGHT BUNDLE BRANCH BLOCK NO PRIORS FOR COMPARISON Electronically Signed On 12-08-2018 22:15:47 EDT by Crescencio Elaine
== END 2018-12-08 17:02 | disposition home or self-care (01) ==
LOC: M ED 11:02
DX: J31.0 Chronic rhinitis (principal); R51 Headache; K08.89 Other specified disorders of teeth and supporting structures; I45.10 Unspecified right bundle-branch block; F33.9 Major depressive disorder, recurrent, unspecified; Z79.899 Other long term (current) drug therapy; Z88.5 Allergy status to narcotic agent; Z88.8 Allergy status to other drugs, medicaments and biological substances
CPT/HCPCS: 70450; 70487; 71046; 80048; 80076; 82550; 82553; 83690; 84439; 84443; 84484; 85025; 85610; 85730; 93005; 93041; 94760; 96374; 99285; J1885; Q9967

== ENCOUNTER → 2019-03-02 | Outpatient (CLI) | payer BC ==
[~2019-03-02] MED LIST changes: +AZEL1SPR3 NARES; +DICL1GEL3; +GABA-1171; +KETO10TAB PO; +LIDO1PAD; +MACR100C43 PO; -OMEP20CA3 PO; +OMEP20CA4 PO; +OXYC-517
--- NOTE | 2019-03-17 00:35 | ECWPNPC ---
PATIENT NAME: RAVEN MUKHERJEE : 1960 GENDER: FEMALE VISIT DATE: 03/02/2019 DISCHARGE DATE: 03/02/1935 VISIT LOCKED DATE TIME: PHYSICIAN: MARYELLEN GARZA RESOURCE: MARYELLEN GARZA REASON FOR APPOINTMENT 1. ABD/ LOW BACK PAIN HISTORY OF PRESENT ILLNESS HISTORY OF PRESENT ILLNESS: HERE FOR F/U OF RIGHT LOW BACK AND RIGHT ABD PAIN.DOING BETTER WITH HYDROMORPHONE PRESCRIBED LAST WEEK FOR F/U AFTER ACUTE FLARE.RATING PAIN VAS 8/10.COMPLAINING OF CONSTIPATION. PAIN THE PATIENT DESCRIBES THE PAIN... FALL RISK SCREENING: SCREENING :NO FALLS REPORTED IN THE LAST YEAR CURRENT MEDICATIONS TAKING LASIX 20 MG TABLET 1 TABLET ORALLY PRN TAKING ALEVE 220 MG TABLET 1 TABLET NEEDED ORALLY EVERY 12 HRS TAKING AMBIEN 10 MG TABLET 1 TABLET AT BEDTIME NEEDED ORALLY ONCE A DAY TAKING VOLTAREN 1 % GEL DIRECTED TRANSDERMAL APPLY 4 GRAMM TO NECK Q 6 HRS PRN PAIN TAKING DILAUDID 4 MG TABLET 1 TABLET NEEDED ORALLY EVERY 6 HRS PRN MDD4 TAKING MIRALAX - POWDER DIRECTED ORALLY NOT-TAKING BACLOFEN 10 MG TABLET 1 TABLET WITH FOOD OR MILK ORALLY THREE TIMES A DAY NOT-TAKING GABAPENTIN 100 MG CAPSULE 2 ORALLY THREE TIMES A DAY, NOTES: SNT BEEN TAKING NOT-TAKING KETOROLAC TROMETHAMINE 10 MG TABLET 1 TABLET WITH FOOD OR MILK NEEDED ORALLY EVERY 6 HRS NOT-TAKING OXYBUTYNIN CHLORIDE 5 MG TABLET 1 TABLET ORALLY EVERY 8 HOURS NEEDED FOR BLADDER SPASMS OR URINARY FREQUENCY NOT-TAKING HYDROMORPHONE HCL 4 MG TABLET 1 TABLET NEEDED ORALLY EVERY 6 HRS NOT-TAKING GABAPENTIN 300 MG CAPSULE 1 CAPSULE ORALLY BID, NOTES: DUPLICATE NOT-TAKING ULTRAM 50 MG TABLET 1 TABLET ORALLY EVERY 6 HRS NEEDED FOR PAIN (MDD 4), NOTES: NONE RECENTLY NOT-TAKING PROMETHAZINE HCL 25 MG TABLET 1 TABLET NEEDED ORALLY EVERY 6 HR, NOTES: NONE RECENTLY NOT-TAKING ZOFRAN 4 MG TABLET 1 TABLET ORALLY EVERY 6 HOURS NEEDED FOR NAUSEA, NOTES: NONE RECENTLY MEDICATION LIST REVIEWED AND RECONCILED WITH THE PATIENT PAST MEDICAL HISTORY HEMORRHOIDS KIDNEY STONES HYPERLIPIDEMIA BACK PAIN DEPRESSION ANXIETY MUSCLE DISORDER GERD NECK PAIN ALLERGIES DEMEROL: ALLERGY CODEINE SULFATE: ITCHING - CONTRAINDICATION SURGICAL HISTORY PELVIC/ VAGINAL WALL PROLAPSE REPAIR X3 2010 HYSTERETOMY 2006 COLONOSOPY 2015 ANXIALLY LYMPH NODES RIGHT REMOVED..NEGATIVE 2003 KIDNEY STONES BY LASER 2017 FAMILY HISTORY FATHER: MOTHER: ALIVE SIBLINGS: ALIVE, DIAGNOSED WITH HEART DISEASE SON(S): ALIVE DAUGHTER(S): ALIVE SOCIAL HISTORY GENERAL: TOBACCO USE ARE YOU A:FORMER SMOKER HOW LONG HAS IT BEEN SINCE YOU LAST SMOKED?5-10 YEARS DIET: REGULAR. LANGUAGE LANGUAGES SPOKEN:ESTONIAN RECREATIONAL DRUG USE DRUG USE?NO LEARNING BARRIERS / SPECIAL NEEDS BARRIERS TO LEARNING?NO HEARING IMPAIRED?NO VISION IMPAIRED?YES :CORRECTIVE LENSES COGNITIVELY IMPAIRED?NO READINESS TO LEARN?YES LEARNING PREFERENCES?NO LEARNING CAPABILITIES PRESENT?YES EMOTIONAL BARRIERS?NO SPECIAL DEVICES?NO SUPERINTENDENT RECREATION NEEDED?NO PAIN CLINIC PFS, CLERGY, PUBLIC HEALTH REFERRALS PFS REFERRAL NEEDED?NO CLERGY REFERRAL NEEDED?NO PUBLIC HEALTH REFERRAL NEEDED?NO HAS THE PATIENT BEEN EDUCATED REGARDING HIS/HER PLAN OF CARE?YES HAS THE PATIENT BEEN EDUCATED REGARDING PAIN, THE RISK FOR PAIN, THE IMPORTANCE OF EFFECTIVE PAIN MANAGEMENT, AND THE PAIN ASSESSMENT PROCESS?YES LATEX QUESTIONNAIRE LATEX ALLERGY : HAVE YOU EVER DEVELOPED ANY TYPE OF REACTION AFTER HANDLING LATEX PRODUCTS SUCH RUBBER GLOVES, CONDOMS, DIAPHRAGMS, BALLOONS, SOCKS, OR UNDERWEAR?NO LATEX ALLERGY : HAVE YOU EVER DEVELOPED ANY TYPE OF REACTION DURING OR AFTER DENTAL APPOINTMENT, VAGINAL/RECTAL EXAMINATION, SURGICAL PROCEDURE, OR ANY OTHER EXPOSURE?NO LATEX RISK : HAVE YOU EVER HAD ANY DIFFICULTY BREATHING OR HIVES AFTER EATING OR HANDLING ANY FRUITS, OR VEGETABLES; SUCH KIWI, BANANAS, STONE FRUITS, OR CHESTNUTSNO LATEX RISK : DO YOU HAVE A PREVIOUS PERSONAL HISTORY OF MORE THAN NINE SURGERIES, SPINA BIFIDA, OR REPEATED CATHERIZATIONS? NO LATEX RISK : ARE YOU FREQUENTLY EXPOSED TO LATEX PRODUCTS IN YOUR OCCUPATION?NO DATE ASKED : 10/28/2018 CAFFEINE CAFFEINE USE?YES 3 CUPS DAILY ADVANCE DIRECTIVE ADVANCE DIRECTIVE DISCUSSED WITH PATIENT:YES HCP - FERNIE MUKHERJEE () [phone] TAOISM TAOISM NO PREFERENCE MARITAL STATUS: . ALCOHOL SCREENING DID YOU HAVE A DRINK CONTAINING ALCOHOL IN THE PAST YEAR?NO POINTS0 INTERPRETATIONNEGATIVE OCCUPATION: RETIRED. REVIEWED WITH PATIENT 05/12/18 1314 JSREVIEWED WITH PATIENT 06/01/18 1425 LASREVIEWED WITH PATIENT 07/28/18 1140 LASREVIEWED WITH PT 10/28/18 1455 BVREVIEWED WITH PATIENT 12/06/18 1317 JSREVIEWED WITH PT 03/02/19 0909 BV. HOSPITALIZATION/MAJOR DIAGNOSTIC PROCEDURE SURGERIES KIDNEY STONES 2017 REVIEW OF SYSTEMS REVIEWED BY: PROVIDER: MARYELLEN MAS . CONSTITUTIONAL: ANY CHANGE IN YOUR MEDICAL CONDITION? NO . CHILLS NO . FEVER NO . INFECTION: DO YOU HAVE NEW INFECTIONS? NO . DO YOU HAVE HISTORY OF MRSA? NO . MUSCULOSKELETAL: ANY NEW PATTERNS OF PAIN OR NUMBNESS? NO . GASTROENTEROLOGY: ANY NEW CHANGE IN BOWEL CONTROL? NO . GENITOURINARY: ANY NEW CHANGE IN BLADDER CONTROL? NO . IS THERE A CHANCE YOU COULD BE ? NO . HEMATOLOGY/LYMPH: DO YOU TAKE ANY BLOOD THINNERS? (FOR EXAMPLE- COUMADIN, PLAVIX, AGGRENOX, PLATEL, PRADAXA, OR XARELTO) NO . WHEN WAS YOUR LAST DOSE? DATE: TIME: . NEUROLOGY: HAVE YOU FALLEN IN THE PAST 12 MONTHS? NO . ANY NEW EXTREMITY NUMBNESS OR WEAKNESS? NO . CARDIOLOGY: DO YOU HAVE A PACEMAKER OR DEFIBRILLATOR? NO . RESPIRATORY: HAVE YOU BEEN SICK IN THE PAST WEEK? NO . FEVER NO . FLU LIKE SYMPTOMS? NO . COUGH NO . INTEGUMENTARY: DO YOU HAVE ANY RASHES OR OPEN SORES? NO . ALLERGIC/IMMUNO: ARE YOU ALLERGIC TO IV DYE? NO . ANY NEW ALLERGIES? NO . PSYCHIATRIC: DO YOU HAVE THOUGHTS OF HURTING YOURSELF OR SOMEONE ELSE? NO . ARE YOU ABUSED, NEGLECTED, OR IN AN UNSAFE ENVIRONMENT? NO . ENDOCRINOLOGY: ARE YOU DIABETIC? NO . OTHER: DO YOU NEED ANY PRESCRIPTIONS? NO . IF YES, PLEASE LIST: ____ . ANY NEW PROBLEMS WITH YOUR MEDICATIONS? NO . WHEN DID YOU LAST EAT? ____ . WHEN DID YOU LAST DRINK? ____ . WHAT DID YOU LAST DRINK? ____ . NAME OF PERSON DRIVING YOU HOME? ____ . DO YOU HAVE ANY OTHER QUESTIONS OR CONCERNS NO . VITAL SIGNS WT 199.8 LBS, HT 58 IN, BMI 41.75 INDEX, BP 144/74 MM HG, HR 97%, RR 16 /MIN, TEMP 97.6 F, OXYGEN SAT % 94%, NA INITIALS SC 09:17. EXAMINATION GENERAL EXAMINATION: GENERALAWAKE,ALERT ,PLEAASANT . PSYCHAFFECT NORMAL . LUNGS:LUNG CARLOS ARE CLEAR TO AUSCULTATION BILATERALLY. GOOD MOVEMENT OF AIR . HEART:S1, S2 IN A REGULAR RATE AND RHYTHM. NO SIGNIFICANT MURMURS, RUBS OR GALLOPS NOTED . ASSESSMENTS ACUTE RIGHT-SIDED LOW BACK PAIN WITH RIGHT-SIDED SCIATICA - M54.41 (PRIMARY) SPONDYLOSIS OF CERVICAL REGION WITHOUT MYELOPATHY OR RADICULOPATHY - M47.812 TREATMENT ACUTE RIGHT-SIDED LOW BACK PAIN WITH RIGHT-SIDED SCIATICA REFILL DILAUDID TABLET, 4 MG, 1 TABLET NEEDED, ORALLY, EVERY 6 HRS PRN MDD4, 30 DAYS, 45, REFILLS 0 START COLACE CAPSULE, 100 MG, 2 CAP, ORALLY, BID, 30 DAYS, 120 CAPSULE, REFILLS 5 NOTES: ISTOP REGISTRY REVIEWED AND DEMONSTRATES COMPLLIANCE. BRINGS IN MEDICATIONS WHICH IS APPROPRIATE FOR WHAT WAS DISPENSED. RECENT URINE TOXICOLOGY REVIEWED. NO UNAUTHORIZED MEDICATIONS. NO ILLICIT SUBSTANCES AND PRESCRIBED MEDICATIONS WERE PRESENT. , RISKS AND BENEFITS OF NARCOTIC/OPIOD MEDICATIONS WERE REVIEWED WITH PATIENT - THIS INCLUDES BUT IS NOT LIMITED TO RISK OF DEPENDANCE/DEVELOPMENT OF ADDICTION, MOOD DISTURBANCE AND DEPRESSION, OSTEOPOROSIS, HORMONAL AND LABIDAL CHANGES, RESPIRATORY DEPRESSION AND . PATIENT IS ADVISED NOT TO DRIVE OR DRINK ALCOHOL WHILE ON THESE MEDICATIONS. PROCEDURE CODES FA211 ESTABILISHED PATIENT [facility] CHARGE DISPOSITION & COMMUNICATION FOLLOW UP 4-6 WKS ELECTRONICALLY SIGNED BY TG AGARWAL ON 03/16/2019 AT 03:55 PM EDT DISCLAIMER : THIS IS A VISIT SUMMARY EXTRACTED FROM THE [employer] CHART. IT IS NOT A COPY OF THE [employer] PROGRESS NOTE. MTDD
== END ==
LOC: M PAIN 09:00
PROVIDERS: ATTEND Nurse Practitioner Family
DX: M54.41 Lumbago with sciatica, right side (principal); M47.812 Spondylosis without myelopathy or radiculopathy, cervical region; E78.5 Hyperlipidemia, unspecified; F32.9 Major depressive disorder, single episode, unspecified; F41.9 Anxiety disorder, unspecified; K21.9 Gastro-esophageal reflux disease without esophagitis; M54.2 Cervicalgia; K64.8 Other hemorrhoids; M62.9 Disorder of muscle, unspecified; Z87.891 Personal history of nicotine dependence; Z87.442 Personal history of urinary calculi; Z79.899 Other long term (current) drug therapy; Z88.5 Allergy status to narcotic agent

== ENCOUNTER → 2019-03-22 | Outpatient (CLI) | payer BC ==
[2019-03-22 13:47] LABS: BASO % 0.5 % (0.0-1.0); EOS # 0.1 10^3/uL (0.0-0.50); EOS % 1.4 % (0.0-3.0); HEMATOCRIT 44.4 % (36.0-47.0); HEMOGLOBIN 14.3 g/dl (12.0-15.5); LYMPH # 2.2 10^3/uL (1.5-4.5); LYMPH % 37.9 % (24.0-44.0); MEAN CORPUSCULAR HEMOGLOBIN 27.6 pg (27.0-33.0); MEAN CORPUSCULAR HGB CONC 32.2 g/dl (32.0-36.5); MEAN CORPUSCULAR VOLUME 85.5 fl (80.0-96.0); MONO # 0.5 10^3/uL (0.0-0.8); MONO % 9.1 % (0.0-5.0); NEUTROPHILS % 50.9 % (36.0-66.0); PLATELET COUNT, AUTOMATED 248 10^3/uL (150-450); RED BLOOD COUNT 5.19 10^6/uL (4.00-5.40); WHITE BLOOD COUNT 5.8 10^3/uL (4.0-10.0)
[2019-03-22 14:14] LABS: ALBUMIN 3.8 GM/DL (3.2-5.2); ALT/SGPT 20 U/L (12-78); BILIRUBIN,TOTAL 0.4 MG/DL (0.2-1.0); BLOOD UREA NITROGEN 8 MG/DL (7-18); CALCIUM LEVEL 8.9 MG/DL (8.8-10.2); CARBON DIOXIDE LEVEL 30 MEQ/L (21-32); CHLORIDE LEVEL 107 MEQ/L (98-107); CREATININE FOR GFR 0.93 MG/DL (0.55-1.30); GLOMERULAR FILTRATION RATE > 60.0 (>45); GLUCOSE, FASTING 89 MG/DL (70-100); POTASSIUM SERUM 4.4 MEQ/L (3.5-5.1); SODIUM LEVEL 141 MEQ/L (136-145); TOTAL PROTEIN 6.9 GM/DL (6.4-8.2)
[2019-03-22 14:21] LABS: FOLATE 10.2 NG/ML; VITAMIN B12 LEVEL 339 PG/ML
== END ==
LOC: M LAB 12:53
PROVIDERS: ATTEND Internal Medicine Gastroenterology
DX: R93.3 Abnormal findings on diagnostic imaging of other parts of digestive tract (principal)

== ENCOUNTER → 2019-03-24 | Outpatient (REF) | payer BC | LOC: M LAB REF 13:13 | PROVIDERS: ATTEND Internal Medicine Gastroenterology | DX: R93.3 Abnormal findings on diagnostic imaging of other parts of digestive tract (principal) ==

== ENCOUNTER → 2019-03-28 | Outpatient (CLI) | payer BC ==
[~2019-03-28] MED LIST changes: -GABA-1171; +GABA-1171 PO; +GLUCAGON FOR INJ 1 MG VIAL (J1610) As Ordered ONE; +ISOVUE-370 76% 100ML VIAL (Q9967) As Ordered ONE; -OXYC-517; +VoLumen 0.1% SUSPENSION 450ML BOTTLE As Ordered ONE
--- NOTE | 2019-03-28 12:20 | REP ---
CT ENTEROGRAPHY: With IV and oral contrast. HISTORY: Abnormal findings on diagnostic imaging. Evaluate for Crohn disease. COMPARISON STUDY: Comparison CT study is from February 21, 2019. CT ENTEROGRAPHY TECHNIQUE: The patient ingested oral VoLumen for by mouth contrast per protocol. 0.6 mg of intravenous glucagon is administered. 100 mL of Isovue 370 is given intravenously for intravenous contrast. Helical scanning is acquired. Arterial phase and delayed phase imaging was acquired. Thick slab coronal and sagittal MIP images are generated. In addition coronal and sagittal multiplanar re-formation images are generated and reviewed along with axial images. CT ENTEROGRAPHY FINDINGS: Pulmonary digital rig builder radiograph is unremarkable. Normal bowel gas pattern. The lung bases are clear. The liver and the spleen are normal in size homogeneous in texture. No adrenal lesion is seen on either side. No pancreatic abnormality is observed. The gallbladder is small and somewhat contracted. There is an upper pole calculus in the left kidney without evidence of hydronephrosis. This measures 5.5 mm in greatest diameter. It is unchanged from March 28, 2019. Kidneys enhance symmetrically. There is an extrarenal pelvis configuration of the right kidney. There are small renal cortical cysts in the left kidney. There is a small distal abdominal aortic aneurysm measuring 2.4 x 2.6 cm in greatest diameter. This is just below the takeoff of the patent inferior mesenteric artery. 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 There is diverticulosis affecting the sigmoid colon and descending colon segments. There is no CT evidence of diverticulitis. No abnormality is seen in the small or large bowel enhancement. There is no obstructive lesion. No adenopathy is seen. There is no CT evidence suggestive of Crohn disease. The uterus is surgically absent and there are metallic clips in the left pelvis as on previous study. There is a mobile mesenteric cecum terminating in the left mid abdomen. A normal appendix is seen in the left upper abdomen. No abdominal wall defect is seen. No bony destructive lesion is appreciated. IMPRESSION: Status post hysterectomy. Left colonic diverticulosis. 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 Small distal aortic aneurysm 2.6 cm in greatest diameter. An accessory lower pole artery right kidney. Intrarenal calculus and cortical cysts left kidney. No CT evidence of inflammatory bowel disease. Electronically Signed by Antolin Villalba MD 03/28/2019 04:50 P
== END ==
LOC: M RAD 07:41
PROVIDERS: ATTEND Internal Medicine Gastroenterology
DX: R93.3 Abnormal findings on diagnostic imaging of other parts of digestive tract (principal); K57.30 Diverticulosis of large intestine without perforation or abscess without bleeding; I71.9 Aortic aneurysm of unspecified site, without rupture; Q63.8 Other specified congenital malformations of kidney; N20.0 Calculus of kidney; N28.1 Cyst of kidney, acquired
CPT/HCPCS: 74177; J1610; Q9967

== ENCOUNTER 2019-04-15 07:32 | Day surgery (SDC) | payer BC ==
[~2019-04-15] VITALS: Ht 170.2 cm; Wt 83.0 kg
[~2019-04-15 07:32] MED LIST changes: -DICL1GEL3; +DICL1GEL3 TOP; -GLUCAGON FOR INJ 1 MG VIAL (J1610) As Ordered ONE; -ISOVUE-370 76% 100ML VIAL (Q9967) As Ordered ONE; -LIDO1PAD; +LIDO1PAD TOP; +NS 1,000 ML IV ONE; +OMEP1CAP73 PO; -OMEP20CA4 PO; -VoLumen 0.1% SUSPENSION 450ML BOTTLE As Ordered ONE
[2019-04-15] MEDS ORDERED: propofoL 200 MG/20 ML VIAL As Ordered ONE ×3 (09:14→09:53)
[2019-04-15] MEDS ORDERED: LIDOCAINE 2% INJ 100 MG/5 ML SDV (FOR ANES.) As Ordered ONE (09:14)
--- NOTE | 2019-04-15 10:02 | ROOR ---
Patient Name: Jaja Crawley Procedure Date: 04/15/2019 9:27 AM Date of : 1960 Age: 58 Room: [facility] Gender: Female Note Status: Finalized Procedure: Colonoscopy Indications: Abdominal pain in the right lower quadrant, Abnormal small bowel series Providers: Buddy WOOD MD Referring MD: Saira Gaffney DO Requesting Provider: Medicines: Monitored Anesthesia Care Complications: No immediate complications. Procedure: Pre-Anesthesia Assessment: - The heart rate, respiratory rate, oxygen saturations, blood pressure, adequacy of pulmonary ventilation, and response to care were monitored throughout the procedure. The Colonoscope was introduced through the anus and advanced to 20 cm into the ileum. The colonoscopy was performed without difficulty. The patient tolerated the procedure well. The quality of the bowel preparation was good. Findings: The perianal and digital rectal examinations were normal. A 4 mm polyp was found in the splenic flexure. The polyp was sessile. The polyp was removed with a cold snare. Resection and retrieval were complete. Mild sigmoid diverticulosis and small internal hemorrhoids. The terminal ileum appeared normal. Impression: - One 4 mm polyp at the splenic flexure, removed with a cold snare. Resected and retrieved. - Mild sigmoid diverticulosis and small internal hemorrhoids. - The colon is otherwise normal. - The examined portion (x 20 cm) of the ileum was normal. - (there is no evidence of crohns disease or any other abnormality that could explain your symptoms) Recommendation: - To visualize the small bowel, perform video capsule endoscopy at appointment to be scheduled. - My office will call you in the next few days to set you up for this study/exam. (On CT scan, you were noted to have a "mobile cecum".--refer to surgery for possible intermittent cause for pain.) Buddy Wood MD Buddy WOOD MD 04/15/2019 10:02:13 AM Electronically signed by Buddy WOOD MD Number of Addenda: 0 Note Initiated On: 04/15/2019 9:27 AM Estimated Blood Loss: Estimated blood loss: none.
[2019-04-15 10:20] VITALS: BP 127/66
[2019-07-05] MEDS ORDERED: LEXA1TAB PO (11:19)
[2019-07-05] MEDS ORDERED: ATOR1TAB21 PO (11:19)
== END 2019-04-15 10:31 | disposition home or self-care (01) ==
LOC: M OPP 07:32
PROVIDERS: ATTEND Internal Medicine Gastroenterology
DX: D12.3 Benign neoplasm of transverse colon (principal); K64.9 Unspecified hemorrhoids; K57.30 Diverticulosis of large intestine without perforation or abscess without bleeding; R10.31 Right lower quadrant pain; R93.3 Abnormal findings on diagnostic imaging of other parts of digestive tract; Z79.891 Long term (current) use of opiate analgesic; Z79.899 Other long term (current) drug therapy; Z88.5 Allergy status to narcotic agent; Z88.8 Allergy status to other drugs, medicaments and biological substances; Z87.891 Personal history of nicotine dependence

== ENCOUNTER → 2019-05-06 | Outpatient (CLI) | payer BC ==
[~2019-05-06] MED LIST changes: +DICL1GEL3; -DICL1GEL3 TOP; +LIDO1PAD; -LIDO1PAD TOP; -NS 1,000 ML IV ONE; -OMEP1CAP73 PO; +OMEP20CA4 PO
== END ==
LOC: M PAIN 11:45
PROVIDERS: ATTEND Nurse Practitioner Family
DX: M47.897 Other spondylosis, lumbosacral region (principal); R10.9 Unspecified abdominal pain; G89.29 Other chronic pain; E78.5 Hyperlipidemia, unspecified; Z86.59 Personal history of other mental and behavioral disorders; Z87.891 Personal history of nicotine dependence; Z88.5 Allergy status to narcotic agent; Z79.899 Other long term (current) drug therapy

== ENCOUNTER → 2019-05-10 | Outpatient (CLI) | payer BC ==
--- NOTE | 2019-05-11 04:43 | REP ---
Clinical: Foreign body. Technique: Four supine views of the abdomen and pelvis. Findings: The bowel gas pattern is nonspecific and no obvious significant foreign body is appreciated. Postsurgical changes in the pelvis consistent with prior hysterectomy. Skeletal structures demonstrate mild/moderate degenerative changes to the lower lumbar spine. Phleboliths noted in the pelvis. Impression: Nonspecific examination. No significant foreign body identified. Electronically Signed by Silverio Peters MD 05/11/2019 04:36 A
== END ==
LOC: M RAD 13:07
PROVIDERS: ATTEND Internal Medicine Gastroenterology
DX: I87.8 Other specified disorders of veins (principal); M51.36 Other intervertebral disc degeneration, lumbar region; T18.4XXA Foreign body in colon, initial encounter; T18.3XXA Foreign body in small intestine, initial encounter; Y92.9 Unspecified place or not applicable

== ENCOUNTER → 2019-05-17 | Outpatient (CLI) | payer BC ==
[~2019-05-17] MED LIST changes: +BUPIVACAINE HCL 0.25% 30 ML VIAL As Ordered ONE; +ISOVUE-M 300 61% 15ML VIAL (Q9967) As Ordered ONE; +LIDOCAINE 1% SDV INJ 30 ML VIAL As Ordered ONE; +TRIAMCINOLONE ACETONIDE SUSP 40 MG/ML VIAL (J3301) As Ordered ONE; +diazePAM 5 MG TAB As Ordered ONE; +oxyCODONE 5MG TAB As Ordered ONE
--- NOTE | 2019-05-18 10:34 | REP ---
Partial lumbar spine series: Two views . History: Injection procedure for pain. 35 seconds of fluoroscopy time is reported. Findings: A sequence of two fluoroscopically obtained last image hold procedural spot radiographs of the lumbar spine document needle position and contrast injection associated with injection procedure. Electronically Signed by Antolin Villalba MD 05/18/2019 07:47 A
== END ==
LOC: M PAIN 14:15
PROVIDERS: ATTEND Anesthesiology
DX: M47.816 Spondylosis without myelopathy or radiculopathy, lumbar region (principal); M47.817 Spondylosis without myelopathy or radiculopathy, lumbosacral region; K64.8 Other hemorrhoids; E78.5 Hyperlipidemia, unspecified; F32.9 Major depressive disorder, single episode, unspecified; F41.9 Anxiety disorder, unspecified; K21.9 Gastro-esophageal reflux disease without esophagitis; M54.2 Cervicalgia; Z87.442 Personal history of urinary calculi; Z87.891 Personal history of nicotine dependence; Z79.899 Other long term (current) drug therapy; Z88.5 Allergy status to narcotic agent
CPT/HCPCS: 64493; 64494; J3301; Q9967

== ENCOUNTER → 2019-06-02 | Outpatient (CLI) | payer BC ==
[~2019-06-02] MED LIST changes: -BUPIVACAINE HCL 0.25% 30 ML VIAL As Ordered ONE; -ISOVUE-M 300 61% 15ML VIAL (Q9967) As Ordered ONE; -LIDOCAINE 1% SDV INJ 30 ML VIAL As Ordered ONE; -TRIAMCINOLONE ACETONIDE SUSP 40 MG/ML VIAL (J3301) As Ordered ONE; -diazePAM 5 MG TAB As Ordered ONE; -oxyCODONE 5MG TAB As Ordered ONE
--- NOTE | 2019-06-07 00:46 | ECWPNPC ---
PATIENT NAME: RAVEN MUKHERJEE : 1960 GENDER: FEMALE VISIT DATE: 06/02/2019 DISCHARGE DATE: 06/02/19 1338 VISIT LOCKED DATE TIME: PHYSICIAN: MARYELLEN GARZA RESOURCE: MARYELLEN GARZA REASON FOR APPOINTMENT 1. POST PROC HISTORY OF PRESENT ILLNESS HISTORY OF PRESENT ILLNESS: HERE FOR POST PROCEDURE F/U.HAD BILAT. L4/5-L5/S1 LFBT ON 05/17/19.REPORTING >80% IMPROVEMENT IN PAIN THAT CONTINUES TODAY.USING DILAUDID INFREQUENTLY FOR SEVERE PAIN.REPORTING IMPROVED ACTIVITY TOLERANCE SINCE PROCEDURE.RATING PAIN VAS 2-3/10. PAIN THE PATIENT DESCRIBES THE PAIN... FALL RISK SCREENING: SCREENING :NO FALLS REPORTED IN THE LAST YEAR CURRENT MEDICATIONS TAKING PROMETHAZINE HCL 25 MG TABLET 1 TABLET NEEDED ORALLY EVERY 6 HR, NOTES: NONE RECENTLY TAKING AMBIEN 10 MG TABLET 1 TABLET AT BEDTIME NEEDED ORALLY ONCE A DAY TAKING MIRALAX - POWDER DIRECTED ORALLY DAILY TAKING COLACE 100 MG CAPSULE 2 CAP ORALLY BID (TAKES NEEDED) TAKING CELEXA 20 MG TABLET 1 TABLET ORALLY ONCE A DAY TAKING HYDROMORPHONE HCL 4 MG TABLET 1 TABLET NEEDED ORALLY Q8H PRN MDD3 TAKING VOLTAREN 1 % GEL DIRECTED TRANSDERMAL APPLY 4 GRAMM TO NECK Q 6 HRS PRN PAIN NOT-TAKING GABAPENTIN 100 MG CAPSULE 2 ORALLY THREE TIMES A DAY, NOTES: SNT BEEN TAKING NOT-TAKING BACLOFEN 10 MG TABLET 1 TABLET WITH FOOD OR MILK ORALLY THREE TIMES A DAY NOT-TAKING KETOROLAC TROMETHAMINE 10 MG TABLET 1 TABLET WITH FOOD OR MILK NEEDED ORALLY EVERY 6 HRS NOT-TAKING OXYBUTYNIN CHLORIDE 5 MG TABLET 1 TABLET ORALLY EVERY 8 HOURS NEEDED FOR BLADDER SPASMS OR URINARY FREQUENCY NOT-TAKING GABAPENTIN 300 MG CAPSULE 1 CAPSULE ORALLY BID, NOTES: DUPLICATE NOT-TAKING ULTRAM 50 MG TABLET 1 TABLET ORALLY EVERY 6 HRS NEEDED FOR PAIN (MDD 4), NOTES: NONE RECENTLY NOT-TAKING ZOFRAN 4 MG TABLET 1 TABLET ORALLY EVERY 6 HOURS NEEDED FOR NAUSEA, NOTES: NONE RECENTLY NOT-TAKING LASIX 20 MG TABLET 1 TABLET ORALLY PRN NOT-TAKING ALEVE 220 MG TABLET 1 TABLET NEEDED ORALLY EVERY 12 HRS DISCONTINUED DILAUDID 4 MG TABLET 1 TABLET NEEDED ORALLY MDD 3, NOTES: DUPLICATE MEDICATION LIST REVIEWED AND RECONCILED WITH THE PATIENT PAST MEDICAL HISTORY HEMORRHOIDS KIDNEY STONES HYPERLIPIDEMIA BACK PAIN DEPRESSION ANXIETY MUSCLE DISORDER GERD NECK PAIN MYALGIA GASTRIC ULCERS BILATERAK CERVICAL NEURALGIA UTI FOUND OUT THAT HER APPENDIX IS IN LEFT UPPER QUAD ALLERGIES DEMEROL: "DEADENS THE AREA OF INJECTION" - ALLERGY CODEINE SULFATE: ITCHING - CONTRAINDICATION SURGICAL HISTORY PELVIC/ VAGINAL WALL PROLAPSE REPAIR X3 2010 HYSTERETOMY 2006 COLONOSOPY 2015, 2019 ANXIALLY LYMPH NODES RIGHT REMOVED..NEGATIVE 2004 KIDNEY STONES BY LASER 2016 FAMILY HISTORY FATHER: MOTHER: ALIVE SIBLINGS: ALIVE, DIAGNOSED WITH UNSPECIFIED HEART DISEASE SON(S): ALIVE DAUGHTER(S): ALIVE SOCIAL HISTORY GENERAL: TOBACCO USE ARE YOU A:FORMER SMOKER HOW LONG HAS IT BEEN SINCE YOU LAST SMOKED?5-10 YEARS DIET: REGULAR. LANGUAGE LANGUAGES SPOKEN:ARABIC DOMESTIC VIOLENCE DO YOU FEEL SAFE IN YOUR ENVIRONMENT?YES RECREATIONAL DRUG USE DRUG USE?NO LEARNING BARRIERS / SPECIAL NEEDS BARRIERS TO LEARNING?NO HEARING IMPAIRED?NO VISION IMPAIRED?YES COGNITIVELY IMPAIRED?NO :CORRECTIVE LENSES READINESS TO LEARN?YES LEARNING PREFERENCES?NO LEARNING CAPABILITIES PRESENT?YES EMOTIONAL BARRIERS?NO SPECIAL DEVICES?NO CONCRETE PRECAST MOULDER NEEDED?NO PAIN CLINIC PFS, CLERGY, PUBLIC HEALTH REFERRALS PFS REFERRAL NEEDED?NO CLERGY REFERRAL NEEDED?NO PUBLIC HEALTH REFERRAL NEEDED?NO HAS THE PATIENT BEEN EDUCATED REGARDING HIS/HER PLAN OF CARE?YES HAS THE PATIENT BEEN EDUCATED REGARDING PAIN, THE RISK FOR PAIN, THE IMPORTANCE OF EFFECTIVE PAIN MANAGEMENT, AND THE PAIN ASSESSMENT PROCESS?YES LATEX QUESTIONNAIRE LATEX ALLERGY : HAVE YOU EVER DEVELOPED ANY TYPE OF REACTION AFTER HANDLING LATEX PRODUCTS SUCH RUBBER GLOVES, CONDOMS, DIAPHRAGMS, BALLOONS, SOCKS, OR UNDERWEAR?NO LATEX ALLERGY : HAVE YOU EVER DEVELOPED ANY TYPE OF REACTION DURING OR AFTER DENTAL APPOINTMENT, VAGINAL/RECTAL EXAMINATION, SURGICAL PROCEDURE, OR ANY OTHER EXPOSURE?NO LATEX RISK : HAVE YOU EVER HAD ANY DIFFICULTY BREATHING OR HIVES AFTER EATING OR HANDLING ANY FRUITS, OR VEGETABLES; SUCH KIWI, BANANAS, STONE FRUITS, OR CHESTNUTSNO LATEX RISK : DO YOU HAVE A PREVIOUS PERSONAL HISTORY OF MORE THAN NINE SURGERIES, SPINA BIFIDA, OR REPEATED CATHERIZATIONS? NO LATEX RISK : ARE YOU FREQUENTLY EXPOSED TO LATEX PRODUCTS IN YOUR OCCUPATION?NO DATE ASKED : 06/02/2019 CAFFEINE CAFFEINE USE?YES 3 CUPS DAILY ADVANCE DIRECTIVE ADVANCE DIRECTIVE DISCUSSED WITH PATIENT:YES HCP - FERNIE MUKHERJEE () [phone] SIKHISM SIKHISM NO PREFERENCE MARITAL STATUS: . ALCOHOL SCREENING DID YOU HAVE A DRINK CONTAINING ALCOHOL IN THE PAST YEAR?NO POINTS0 INTERPRETATIONNEGATIVE OCCUPATION: RETIRED. REVIEWED WITH PATIENT 05/12/18 1314 JSREVIEWED WITH PATIENT 06/01/18 1425 LASREVIEWED WITH PATIENT 07/28/18 1140 LASREVIEWED WITH PT 10/28/18 1455 BVREVIEWED WITH PATIENT 12/06/18 1317 JS06/02/19 1311 REVIEWED WITH PT. ADREVIEWED WITH PT 03/02/19 0909 BV. HOSPITALIZATION/MAJOR DIAGNOSTIC PROCEDURE SURGERIES KIDNEY STONES 2017 REVIEW OF SYSTEMS REVIEWED BY: PROVIDER: MARYELLEN MAS . CONSTITUTIONAL: ANY CHANGE IN YOUR MEDICAL CONDITION? NO . CHILLS NO . FEVER NO . INFECTION: DO YOU HAVE NEW INFECTIONS? NO . DO YOU HAVE HISTORY OF MRSA? NO . MUSCULOSKELETAL: ANY NEW PATTERNS OF PAIN OR NUMBNESS? YES, PAIN IS NOT SEVERE SINCE THE PROCEDURE . GASTROENTEROLOGY: ANY NEW CHANGE IN BOWEL CONTROL? NO . GENITOURINARY: ANY NEW CHANGE IN BLADDER CONTROL? NO . IS THERE A CHANCE YOU COULD BE ? NO . HEMATOLOGY/LYMPH: DO YOU TAKE ANY BLOOD THINNERS? (FOR EXAMPLE- COUMADIN, PLAVIX, AGGRENOX, PLATEL, PRADAXA, OR XARELTO) NO . WHEN WAS YOUR LAST DOSE? DATE: TIME: . NEUROLOGY: HAVE YOU FALLEN IN THE PAST 12 MONTHS? NO . ANY NEW EXTREMITY NUMBNESS OR WEAKNESS? NO . CARDIOLOGY: DO YOU HAVE A PACEMAKER OR DEFIBRILLATOR? NO . RESPIRATORY: HAVE YOU BEEN SICK IN THE PAST WEEK? NO . FEVER NO . FLU LIKE SYMPTOMS? NO . COUGH NO . INTEGUMENTARY: DO YOU HAVE ANY RASHES OR OPEN SORES? NO . ALLERGIC/IMMUNO: ARE YOU ALLERGIC TO IV DYE? NO . ANY NEW ALLERGIES? NO . PSYCHIATRIC: DO YOU HAVE THOUGHTS OF HURTING YOURSELF OR SOMEONE ELSE? NO . ARE YOU ABUSED, NEGLECTED, OR IN AN UNSAFE ENVIRONMENT? NO . ENDOCRINOLOGY: ARE YOU DIABETIC? NO . OTHER: DO YOU NEED ANY PRESCRIPTIONS? NO . IF YES, PLEASE LIST: ____ . ANY NEW PROBLEMS WITH YOUR MEDICATIONS? NO . WHEN DID YOU LAST EAT? ____ . WHEN DID YOU LAST DRINK? ____ . WHAT DID YOU LAST DRINK? ____ . NAME OF PERSON DRIVING YOU HOME? ____ . DO YOU HAVE ANY OTHER QUESTIONS OR CONCERNS NO . VITAL SIGNS WT 182 LBS, HT 58 IN, BMI 38.03 INDEX, BP 127/64 MM HG, HR 88 /MIN, RR 16 /MIN, TEMP 98.0 F, OXYGEN SAT % 97%, SAFE IN ENV? (Y/N) Y, NA INITIALS AW 1300, REVIEWED BY: YVETTE. EXAMINATION GENERAL EXAMINATION: GENERALAWAKE,ALERT ,PLEAASANT . PSYCHAFFECT NORMAL . LUNGS:LUNG CARLOS ARE CLEAR TO AUSCULTATION BILATERALLY. GOOD MOVEMENT OF AIR . HEART:S1, S2 IN A REGULAR RATE AND RHYTHM. NO SIGNIFICANT MURMURS, RUBS OR GALLOPS NOTED . ASSESSMENTS OTHER SPONDYLOSIS, LUMBOSACRAL REGION - M47.897 (PRIMARY) TREATMENT OTHER SPONDYLOSIS, LUMBOSACRAL REGION CONTINUE HYDROMORPHONE HCL TABLET, 4 MG, 1 TABLET NEEDED, ORALLY, Q8H PRN MDD3 CONTINUE COLACE CAPSULE, 100 MG, 2 CAP, ORALLY, BID (TAKES NEEDED) NOTES: ISTOP REGISTRY REVIEWED AND DEMONSTRATES COMPLLIANCE. BRINGS IN MEDICATIONS WHICH IS APPROPRIATE FOR WHAT WAS DISPENSED. RECENT URINE TOXICOLOGY REVIEWED. NO UNAUTHORIZED MEDICATIONS. NO ILLICIT SUBSTANCES AND PRESCRIBED MEDICATIONS WERE PRESENT. , RISKS OF NARCOTIC/OPIOD MEDICATIONS INCLUDES BUT IS NOT LIMITED TO RISK OF DEPENDANCE/DEVELOPMENT OF ADDICTION, MOOD DISTURBANCE AND DEPRESSION, OSTEOPOROSIS, HORMONAL AND LABIDAL CHANGES, RESPIRATORY DEPRESSION AND . PATIENT IS ADVISED NOT TO DRIVE OR DRINK ALCOHOL WHILE ON THESE MEDICATIONS. PROCEDURE CODES FA211 ESTABILISHED PATIENT [facility] CHARGE DISPOSITION & COMMUNICATION FOLLOW UP 2 MONTHS ELECTRONICALLY SIGNED BY TG AGARWAL ON 06/06/2019 AT 08:59 AM EDT DISCLAIMER : THIS IS A VISIT SUMMARY EXTRACTED FROM THE [employer] CHART. IT IS NOT A COPY OF THE [employer] PROGRESS NOTE. CAMILA
== END ==
LOC: M PAIN 13:00
PROVIDERS: ATTEND Nurse Practitioner Family
DX: M47.897 Other spondylosis, lumbosacral region (principal); E78.5 Hyperlipidemia, unspecified; Z86.59 Personal history of other mental and behavioral disorders; M79.18 Myalgia, other site; Z87.891 Personal history of nicotine dependence; Z88.5 Allergy status to narcotic agent; Z79.899 Other long term (current) drug therapy

== ENCOUNTER → 2019-07-04 | Outpatient (CLI) | payer BC ==
[~2019-07-04] MED LIST changes: +ATOR1TAB21 PO; -DICL1GEL3; +DICL1GEL3 TOP; +LEXA1TAB PO
[2019-07-04 11:04] LABS: HEMOGLOBIN A1c 5.7 %
[2019-07-04 11:23] LABS: CHOLESTEROL RISK RATIO 5.78 (<5); FREE T4 0.86 NG/DL (0.76-1.46); THYROID STIMULATING HORMONE 2.94 uIU/ML (0.358-3.740); TOTAL 25(OH) VITAMIN D 18.1 NG/ML (30.0-100.0)
--- NOTE | 2019-07-04 14:31 | REPMRS ---
Patient History The patient states she had a clinical breast exam in November 2018.Family history of breast cancer at age 59 in mother, unknown cancer at age 78 in father. Took hormonal contraceptives for 1 year. 3D TOMOSYNTHESIS WAS PERFORMED. The Rafael Jenkins lifetime risk for breast cancer is 11.7%. Digital Mammo Screening Bilat: July 04, 2019 - Exam #: [id number] Bilateral CC and MLO view(s) were taken. Technologist: Nathalie Gautam, Technologist Prior study comparison: February 11, 2013, bilateral bilat screen digital mammo, performed at [facility] ([facility]). June 18, 2011, bilateral bilat screen digital mammo, performed at [facility]. FINDINGS: The breast tissue is heterogeneously dense. This may lower the sensitivity of mammography. There has been no change in the appearance of the mammogram from the prior studies. There is a moderate amount of residual fibroglandular tissue which is fairly symmetric. There is no interval development of dominant mass, areas of architectural distortion, or clustered microcalcification typical of malignancy. Assessment: BI-RADS/ACR category 1 mammogram. Negative Mammogram. Recommendation Routine screening mammogram in 1 year (for women over age 40). This mammogram was interpreted with the aid of an FDA-approved computer-aided dectection system. Electronically Signed By: Barry North MD 07/04/19 7153
== END ==
LOC: M SLEEP HO 09:50
PROVIDERS: ATTEND Nurse Practitioner Family
DX: Z12.31 Encounter for screening mammogram for malignant neoplasm of breast (principal); G47.00 Insomnia, unspecified; E78.5 Hyperlipidemia, unspecified; E04.1 Nontoxic single thyroid nodule; E55.9 Vitamin D deficiency, unspecified

== ENCOUNTER → 2019-07-07 | Outpatient (CLI) | payer BC ==
--- NOTE | 2019-07-18 08:15 | SLEEPHOME ---
DATE OF STUDY: 07/07/2019 ORDERED BY: Mary Daniels Diagnostic home sleep testing was performed due to concern for the obstructive sleep apnea syndrome. For testing, a nocturnal T3 respiratory monitoring device was used. Continuous record was made of pulse, oxygen saturation, airflow, chest and abdominal strain, and body position. 9 hours and 59 minutes of data were reviewed. There were 8 hours and 54 minutes marked as time in bed. During the interval marked time in bed, there were 50 respiratory events identified of 10 seconds in duration or greater for a respiratory event index of 5.6. The events were primarily obstructive. Baseline pulse rate 75 beats per minute. Pulse rate ranged 61-110. Baseline saturation 95.5%. Lowest oxygen saturation 87%. Testing was performed in both the supine and nonsupine positions. IMPRESSION: Abnormal home sleep testing with repetitive respiratory events and oxygen desaturations to 89% with a respiratory event index of 5.6 is consistent with the obstructive sleep apnea syndrome. RECOMMENDATION: The patient should be encouraged to undergo formal sleep evaluation.
== END ==
LOC: M SLEEP HO 13:00
PROVIDERS: ATTEND Nurse Practitioner Family
DX: G47.00 Insomnia, unspecified (principal)

== ENCOUNTER 2019-07-19 11:06 | Day surgery (SDC) | payer BC ==
[~2019-07-19] VITALS: Ht 172.7 cm; Wt 80.3 kg
[~2019-07-19 11:06] MED LIST changes: +NS 1,000 ML IV ONE; +OMEP-172 PO; -OMEP20CA4 PO
[2019-07-19] MEDS ORDERED: LIDOCAINE 2% INJ 100 MG/5 ML SDV (FOR ANES.) As Ordered ONE (11:59)
[2019-07-19] MEDS ORDERED: PROPOFOL 200 MG/20 ML VIAL As Ordered ONE (11:59)
--- NOTE | 2019-07-19 12:36 | ROOR ---
Patient Name: Jjaa Crawley Procedure Date: 07/19/2019 12:12 PM Date of : 1960 Age: 58 Room: [facility] Gender: Female Note Status: Finalized Procedure: Upper GI endoscopy Indications: Abnormal video capsule endoscopy (gastritis/erosions seen on Pillcam) Providers: Buddy WOOD MD Referring MD: [facility] Mary Yang Requesting Provider: Medicines: Monitored Anesthesia Care Complications: No immediate complications. Procedure: Pre-Anesthesia Assessment: - The heart rate, respiratory rate, oxygen saturations, blood pressure, adequacy of pulmonary ventilation, and response to care were monitored throughout the procedure. The Endoscope was introduced through the mouth, and advanced to the second part of duodenum. The upper GI endoscopy was accomplished without difficulty. The patient tolerated the procedure well. Findings: Small Hiatal Hernia. The esophagus was normal. The stomach was normal. The examined duodenum was normal. Biopsies were taken with a cold forceps in the gastric antrum for Helicobacter pylori testing. Impression: - Normal esophagus. - Normal stomach with a small Hiatal Hernia. - Normal examined duodenum. - Biopsies were taken with a cold forceps for Helicobacter pylori testing. Recommendation: - Telephone endoscopist for pathology results in 2 weeks. - Observe patient's clinical course. Buddy Wood MD Buddy WOOD MD 07/19/2019 12:35:53 PM Electronically signed by Buddy WOOD MD Number of Addenda: 0 Note Initiated On: 07/19/2019 12:12 PM Estimated Blood Loss: Estimated blood loss: none.
[2019-07-19 12:45] VITALS: BP 126/64
== END 2019-07-19 12:56 | disposition home or self-care (01) ==
LOC: M OPP 11:06
PROVIDERS: ATTEND Internal Medicine Gastroenterology
DX: K44.9 Diaphragmatic hernia without obstruction or gangrene (principal); K29.50 Unspecified chronic gastritis without bleeding; K21.9 Gastro-esophageal reflux disease without esophagitis; R93.3 Abnormal findings on diagnostic imaging of other parts of digestive tract; Z79.899 Other long term (current) drug therapy; Z88.5 Allergy status to narcotic agent

== ENCOUNTER → 2019-08-02 | Outpatient (CLI) | payer BC ==
[~2019-08-02] MED LIST changes: -NS 1,000 ML IV ONE
--- NOTE | 2019-08-05 03:29 | ECWPNPC ---
PATIENT NAME: RAVEN MUKHERJEE : 1960 GENDER: FEMALE VISIT DATE: 08/02/2019 DISCHARGE DATE: 08/02/19 1349 VISIT LOCKED DATE TIME: PHYSICIAN: MARYELLEN GARZA RESOURCE: MARYELLEN GARZA REASON FOR APPOINTMENT 1. BACK HISTORY OF PRESENT ILLNESS HISTORY OF PRESENT ILLNESS: HERE FOR F/U OF CHRONIC NECK AND LOW BACK PAIN.CHIEF AREA OF PAIN IS NECK AND HEAD.HAS RESPONDED WELL TO CERVICAL FACETS IN THE PAST.HAS STOPPED GABAPENTIN 100MG IT CAUSES BLOATING AND SHE DIDNT LIKE THE WAY IT MAKES HER FEEL.CURRENTLY USING DILAUDID 4MG BID.HAS BEEN TAKING THIS FOR >6MONTHS PRETTY ROUTINELY.TODAY WE DISCUSSED NEED TO LOWER THIS AND LOOK AT DISCONTINUING OVER THE NEXT SEVERAL MONTHS.WE WILL TRY SOME INTERVENTIONAL PROCEDURES AND IF PAIN PERSISTS WE COULD REEVALUATE CHRONIC MEDICATION NEEDS.WE DISCUSSED PROBLEMS ASSOCIATED WITH DAILY OPIOD EXPOSURE.RATING PAIN VAS 5/10. PAIN THE PATIENT DESCRIBES THE PAIN... FALL RISK SCREENING: SCREENING :NO FALLS REPORTED IN THE LAST YEAR CURRENT MEDICATIONS TAKING PROMETHAZINE HCL 25 MG TABLET 1 TABLET NEEDED ORALLY EVERY 6 HR TAKING MIRALAX - POWDER DIRECTED ORALLY DAILY TAKING VOLTAREN 1 % GEL DIRECTED TRANSDERMAL APPLY 4 GRAMM TO NECK Q 6 HRS PRN PAIN TAKING ESCITALOPRAM OXALATE 10 MG TABLET 1 TABLET ORALLY ONCE A DAY TAKING HYDROMORPHONE HCL 4 MG TABLET 1 TABLET NEEDED ORALLY BID PRN Q8-12HR MDD2 TAKING ATORVASTATIN CALCIUM 20 MG TABLET 1 TABLET ORALLY ONCE A DAY TAKING AMBIEN 10 MG TABLET 1 TABLET AT BEDTIME NEEDED ORALLY ONCE A DAY, MDD=1 TAKING GABAPENTIN 100 MG CAPSULE 2 CAPSULE ORALLY TID TAKING OMEPRAZOLE 40 MG CAPSULE DELAYED RELEASE 1 CAPSULE 30 MINUTES BEFORE MORNING MEAL ORALLY ONCE A DAY NOT-TAKING COLACE 100 MG CAPSULE 2 CAP ORALLY BID (TAKES NEEDED) NOT-TAKING ESCITALOPRAM OXALATE 10 TABLET 1 TABLET ORALLY ONCE A DAY, NOTES: DUPLICATE NOT-TAKING CHOLECALCIFEROL 125 MCG (5000 UT) CAPSULE DIRECTED ORALLY DAILY NOT-TAKING ATORVASTATIN CALCIUM 20 TABLET 1 TABLET ORALLY ONCE A DAY, NOTES: DUPLICATE MEDICATION LIST REVIEWED AND RECONCILED WITH THE PATIENT PAST MEDICAL HISTORY HEMORRHOIDS KIDNEY STONES HYPERLIPIDEMIA BACK PAIN DEPRESSION ANXIETY MUSCLE DISORDER GERD NECK PAIN MYALGIA GASTRIC ULCERS BILATERAK CERVICAL NEURALGIA UTI FOUND OUT THAT HER APPENDIX IS IN LEFT UPPER QUAD 03/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 DUNLAP ALLERGIES DEMEROL: "DEADENS THE AREA OF INJECTION" - ALLERGY CODEINE SULFATE: ITCHING - CONTRAINDICATION SURGICAL HISTORY PELVIC/ VAGINAL WALL PROLAPSE REPAIR X3 2010 HYSTERETOMY 2006 COLONOSOPY 2014, 2018 ANXIALLY LYMPH NODES RIGHT REMOVED..NEGATIVE 2003 KIDNEY STONES BY LASER 2016 EGD W/ BIOPSY 06/2019 FAMILY HISTORY FATHER: , CANCER. LUNG CA METASTASIZED TO BRAIN MOTHER: ALIVE, BREAST CANCER. GLAUCOMA SIBLINGS: ALIVE, HEART DISEASE, DIAGNOSED WITH UNSPECIFIED HEART DISEASE SON(S): ALIVE DAUGHTER(S): ALIVE 3 BROTHER(S) , 1 SISTER(S) . SOCIAL HISTORY GENERAL: TOBACCO USE ARE YOU A:FORMER SMOKER HOW LONG HAS IT BEEN SINCE YOU LAST SMOKED?5-10 YEARS DIET: REGULAR. LANGUAGE LANGUAGES SPOKEN:GAMBIAN DOMESTIC VIOLENCE DO YOU FEEL SAFE IN YOUR ENVIRONMENT?YES RECREATIONAL DRUG USE DRUG USE?NO LEARNING BARRIERS / SPECIAL NEEDS BARRIERS TO LEARNING?NO HEARING IMPAIRED?NO VISION IMPAIRED?YES COGNITIVELY IMPAIRED?NO :CORRECTIVE LENSES READINESS TO LEARN?YES LEARNING PREFERENCES?NO LEARNING CAPABILITIES PRESENT?YES EMOTIONAL BARRIERS?NO SPECIAL DEVICES?NO POLITICAL CARTOONIST NEEDED?NO PAIN CLINIC PFS, CLERGY, PUBLIC HEALTH REFERRALS PFS REFERRAL NEEDED?NO CLERGY REFERRAL NEEDED?NO PUBLIC HEALTH REFERRAL NEEDED?NO HAS THE PATIENT BEEN EDUCATED REGARDING HIS/HER PLAN OF CARE?YES HAS THE PATIENT BEEN EDUCATED REGARDING PAIN, THE RISK FOR PAIN, THE IMPORTANCE OF EFFECTIVE PAIN MANAGEMENT, AND THE PAIN ASSESSMENT PROCESS?YES LATEX QUESTIONNAIRE LATEX ALLERGY : HAVE YOU EVER DEVELOPED ANY TYPE OF REACTION AFTER HANDLING LATEX PRODUCTS SUCH RUBBER GLOVES, CONDOMS, DIAPHRAGMS, BALLOONS, SOCKS, OR UNDERWEAR?NO LATEX ALLERGY : HAVE YOU EVER DEVELOPED ANY TYPE OF REACTION DURING OR AFTER DENTAL APPOINTMENT, VAGINAL/RECTAL EXAMINATION, SURGICAL PROCEDURE, OR ANY OTHER EXPOSURE?NO LATEX RISK : HAVE YOU EVER HAD ANY DIFFICULTY BREATHING OR HIVES AFTER EATING OR HANDLING ANY FRUITS, OR VEGETABLES; SUCH KIWI, BANANAS, STONE FRUITS, OR CHESTNUTSNO LATEX RISK : DO YOU HAVE A PREVIOUS PERSONAL HISTORY OF MORE THAN NINE SURGERIES, SPINA BIFIDA, OR REPEATED CATHERIZATIONS? NO LATEX RISK : ARE YOU FREQUENTLY EXPOSED TO LATEX PRODUCTS IN YOUR OCCUPATION?NO DATE ASKED : 06/02/2019 CAFFEINE CAFFEINE USE?YES 3 CUPS DAILY ADVANCE DIRECTIVE ADVANCE DIRECTIVE DISCUSSED WITH PATIENT:YES HCP - FERNIE MUKHERJEE () [phone] JEHOVAH'S WITNESS JEHOVAH'S WITNESS NO PREFERENCE MARITAL STATUS: . ALCOHOL SCREENING DID YOU HAVE A DRINK CONTAINING ALCOHOL IN THE PAST YEAR?NO POINTS0 INTERPRETATIONNEGATIVE OCCUPATION: RETIRED. REVIEWED WITH PATIENT 05/12/18 1314 JSREVIEWED WITH PATIENT 06/01/18 1425 LASREVIEWED WITH PATIENT 07/28/18 1140 LASREVIEWED WITH PT 10/28/18 1455 BVREVIEWED WITH PATIENT 12/06/18 1317 JS06/02/19 1311 REVIEWED WITH PT. ADREVIEWED WITH PT 03/02/19 0909 BVREVIEWED WITH PATIENT 08/02/19 1311 JS. HOSPITALIZATION/MAJOR DIAGNOSTIC PROCEDURE SURGERIES KIDNEY STONES 2017 REVIEW OF SYSTEMS REVIEWED BY: PROVIDER: MARYELLEN MAS . CONSTITUTIONAL: ANY CHANGE IN YOUR MEDICAL CONDITION? NO . CHILLS NO . FEVER NO . INFECTION: DO YOU HAVE NEW INFECTIONS? NO . DO YOU HAVE HISTORY OF MRSA? NO . MUSCULOSKELETAL: ANY NEW PATTERNS OF PAIN OR NUMBNESS? NO . GASTROENTEROLOGY: ANY NEW CHANGE IN BOWEL CONTROL? NO . GENITOURINARY: ANY NEW CHANGE IN BLADDER CONTROL? YES, URINARY URGENCY/FREQUENCY/SLIGHT INCONTINENCE SINCE STARTING THE ATORVASTATIN AND ESCITALOPRAM 2 MONTHS AGO . IS THERE A CHANCE YOU COULD BE ? NO . HEMATOLOGY/LYMPH: DO YOU TAKE ANY BLOOD THINNERS? (FOR EXAMPLE- COUMADIN, PLAVIX, AGGRENOX, PLATEL, PRADAXA, OR XARELTO) NO . WHEN WAS YOUR LAST DOSE? DATE: TIME: . NEUROLOGY: HAVE YOU FALLEN IN THE PAST 12 MONTHS? NO . ANY NEW EXTREMITY NUMBNESS OR WEAKNESS? NO . CARDIOLOGY: DO YOU HAVE A PACEMAKER OR DEFIBRILLATOR? NO . RESPIRATORY: HAVE YOU BEEN SICK IN THE PAST WEEK? NO . FEVER NO . FLU LIKE SYMPTOMS? NO . COUGH NO . INTEGUMENTARY: DO YOU HAVE ANY RASHES OR OPEN SORES? NO . ALLERGIC/IMMUNO: ARE YOU ALLERGIC TO IV DYE? NO . ANY NEW ALLERGIES? NO . PSYCHIATRIC: DO YOU HAVE THOUGHTS OF HURTING YOURSELF OR SOMEONE ELSE? NO . ARE YOU ABUSED, NEGLECTED, OR IN AN UNSAFE ENVIRONMENT? NO . ENDOCRINOLOGY: ARE YOU DIABETIC? NO . OTHER: DO YOU NEED ANY PRESCRIPTIONS? YES . IF YES, PLEASE LIST: ____HYDROMORPHONE, VOLTAREN GEL . ANY NEW PROBLEMS WITH YOUR MEDICATIONS? YES, STATES MULTIPLE NOSE BLEEDS AND URINARY PROBLEMS SINCE STARTING ATORVASTATIN AND ESCITALOPRAM 2 MONTHS AGO. INFORMED PATIENT TO DISCUSS WITH PRESCRIBING PROVIDER . WHEN DID YOU LAST EAT? ____ . WHEN DID YOU LAST DRINK? ____ . WHAT DID YOU LAST DRINK? ____ . NAME OF PERSON DRIVING YOU HOME? ____ . DO YOU HAVE ANY OTHER QUESTIONS OR CONCERNS NO . VITAL SIGNS WT 180 LBS, HT 58 IN, BMI 37.62 INDEX, BP 118/68 MM HG, HR 94 /MIN, RR 16 /MIN, TEMP 97.8 F, OXYGEN SAT % 96%, SAFE IN ENV? (Y/N) YES, REVIEWED BY: JS. EXAMINATION GENERAL EXAMINATION: GENERAL NO ACUTE DISTRESS, PLEASANT. LUNGS: LUNG SOUNDS ARE CLEAR . HEART: HEART RATE REGULAR . MUSCULOSKELETAL:*, MUSCLE STRENGTH TESTING 5/5 BILATERAL UPPER EXTREMITIES. . CERVICAL+ FOR PAIN WITH PALPATION OF CERVICAL SPINE. + FOR PAIN WITH PALPATION OF CERVICAL PARASPINALS.SPECIFIC POINT TENDERNESS NOTED OVER C3/4-/C4/5 CERVICAL FACETS WITH EXTENSION AND FACET LOADING.. DIAGNOSTIC TESTS REVIEWED CERVICAL MRI -06/12/17. ASSESSMENTS SPONDYLOSIS OF CERVICAL REGION WITHOUT MYELOPATHY OR RADICULOPATHY - M47.812 (PRIMARY) TREATMENT SPONDYLOSIS OF CERVICAL REGION WITHOUT MYELOPATHY OR RADICULOPATHY REFILL HYDROMORPHONE HCL TABLET, 2 MG, 1 TABLET NEEDED, ORALLY, Q8H PRN MDD3 #60 TAB SHOULD LAST 30 DAYS, 30 DAYS, 60, REFILLS 0 STOP GABAPENTIN CAPSULE, 100 MG, 2 CAPSULE, ORALLY, TID NOTES: BILAT C3/4-C4/5 CFBTREDUCE DILAUDID(HDROMORPHONE)TO 2MG EVERY 8H NEEDED FOR SEVERE PAIN EPISODES.60 TABLETS WILL BE ISSUED FOR 30 DAY SUPPLY, ISTOP REGISTRY REVIEWED AND DEMONSTRATES COMPLLIANCE. BRINGS IN MEDICATIONS WHICH IS APPROPRIATE FOR WHAT WAS DISPENSED. RECENT URINE TOXICOLOGY REVIEWED. NO UNAUTHORIZED MEDICATIONS. NO ILLICIT SUBSTANCES AND PRESCRIBED MEDICATIONS WERE PRESENT. URINE TOX TODAY, [facility] NARCOTIC AGREEMENT WAS UPDATEDREVIEWED AND SIGNED TODAY BY THE PATIENT. SEE ATTACHED DOCUMENT FOR FULL DETAILS; SPECIFIC ISSUES WERE REVIEWED: 1) KEEP PAIN MEDS IN THEIR ORIGINAL BOTTLES AND ANY WEEKLY PLANNERS ARE TO BE BROUGHT TO THE PAIN CENTER AT EVERY VISIT. 2) THE PATIENT IS NOT TO INCREASE DOSING OR TIMING OF THEIR PAIN MEDICATION WITHOUT SPECIFIC DIRECTION OF THEIR PAIN CENTERPROVIDER (NOT ER OR OTHER PROVIDERS). 3) ALL PAIN MEDS ARE TO BE KEPT SECURED, IN A LOCKED BOX. 4) NO PAIN MEDS ARE TO BE SHARED WITH ANY OTHER PERSON FOR ANY REASON. 5) NO PAIN MEDS MAY BE TAKEN FROM ANY FRIENDS OR RELATIVES FOR ANY REASON 6) NO MEDS OR SUBSTANCES WHICH ARE NOT LEGAL ARE TO BE USED- NO MARIJUANA, NO COCAINE, AMPHETAMINES, HEROIN, OR OTHERS ARE EVER TO BE USED. 7)URINE TESTING IS DONE TO ACCOUNT FOR MEDS AND SUBSTANCES BEING TAKEN AND WILL BE DONE RANDOMLY., RISKS OF NARCOTIC/OPIOD MEDICATIONS INCLUDES BUT IS NOT LIMITED TO RISK OF DEPENDANCE/DEVELOPMENT OF ADDICTION, MOOD DISTURBANCE AND DEPRESSION, OSTEOPOROSIS, HORMONAL AND LABIDAL CHANGES, RESPIRATORY DEPRESSION AND . PATIENT IS ADVISED NOT TO DRIVE OR DRINK ALCOHOL WHILE ON THESE MEDICATIONS. PREVENTIVE MEDICINE PAIN CLINIC TEACHING: PROCEDURE TEACHING REVIEWED INFORMATION ON CERVICAL THERAPEUTIC FACET BLOCK PROCEDURE WITH PATIENT. ALSO REVIEWED PRE-PROCEDURE INSTRUCTIONS. PATIENT VERBALIZED AN UNDERSTANDING. BRANDEN ESQUIVEL 08/02/2019 1:55:43 PM > . PROCEDURE CODES FA211 ESTABILISHED PATIENT [facility] CHARGE DISPOSITION & COMMUNICATION FOLLOW UP POST (REASON: BILAT C3/4-C4/5 CFBT) ELECTRONICALLY SIGNED BY TG AGARWAL ON 08/04/2019 AT 01:36 PM EST DISCLAIMER : THIS IS A VISIT SUMMARY EXTRACTED FROM THE [employer] CHART. IT IS NOT A COPY OF THE [employer] PROGRESS NOTE. CAMILA
== END ==
LOC: M PAIN 13:00
PROVIDERS: ATTEND Nurse Practitioner Family
DX: M47.812 Spondylosis without myelopathy or radiculopathy, cervical region (principal); G89.29 Other chronic pain; E78.5 Hyperlipidemia, unspecified; Z86.59 Personal history of other mental and behavioral disorders; K21.9 Gastro-esophageal reflux disease without esophagitis; M79.10 Myalgia, unspecified site; Z87.891 Personal history of nicotine dependence; Z88.5 Allergy status to narcotic agent; Z79.899 Other long term (current) drug therapy

== ENCOUNTER 2019-08-19 11:55 | Observation (INO) | payer BC ==
[~2019-08-19] VITALS: Ht 172.7 cm; Wt 81.7 kg
[~2019-08-19 11:55] MED LIST changes: -LIDO1PAD; +LIDO1PAD TOP
[2019-08-19 12:30] LABS: BASO # 0.1 10^3/uL (0.0-0.2); BASO % 0.8 % (0.0-1.0); EOS # 0.1 10^3/uL (0.0-0.5); EOS % 0.6 % (0.0-3.0); HEMATOCRIT 39.8 % (36.0-47.0); HEMOGLOBIN 13.2 g/dl (12.0-15.5); LYMPH # 1.8 10^3/uL (1.5-5.0); LYMPH % 18.8 % (24.0-44.0); MEAN CORPUSCULAR HEMOGLOBIN 28.4 pg (27.0-33.0); MEAN CORPUSCULAR HGB CONC 33.2 g/dl (32.0-36.5); MEAN CORPUSCULAR VOLUME 85.8 fl (80.0-96.0); MONO # 0.5 10^3/uL (0.0-0.8); MONO % 5.8 % (0.0-5.0); NEUTROPHILS # 6.9 10^3/uL (1.5-8.5); NEUTROPHILS % 73.7 % (36.0-66.0); PLATELET COUNT, AUTOMATED 215 10^3/uL (150-450); RED BLOOD COUNT 4.64 10^6/uL (4.00-5.40); WHITE BLOOD COUNT 9.3 10^3/uL (4.0-10.0)
[2019-08-19 13:00] LABS: ALBUMIN 3.7 GM/DL (3.2-5.2); BILIRUBIN,DIRECT 0.1 MG/DL (0.0-0.2); BILIRUBIN,TOTAL 0.5 MG/DL (0.2-1.0); TOTAL PROTEIN 7.4 GM/DL (6.4-8.2)
[2019-08-19] MEDS ORDERED: ONDANSETRON 4MG/2ML VIAL (J2405) IV ONE (13:00)
[2019-08-19] MEDS ORDERED: KETOROLAC 30 MG/ML VIAL (J1885) IV ONE ×2 (13:00→21:00)
[2019-08-19] MEDS ORDERED: HYDR2TAB2 PO ×2 (13:04→17:57)
--- NOTE | 2019-08-19 13:18 | REP ---
Clinical: Left renal colic. Technique: Axial noncontrast images from the lung bases to the pubic symphysis with coronal and sagittal re-formations. Findings: The left kidney demonstrates mild edematous enlargement along with mild hydroureteronephrosis secondary to a 2 mm calculus which appears to be at the verge of the ureterovesicle junction/bladder and possibly recently passed into the bladder. A 2 mm nonobstructing left renal calculus is also identified. The right kidney/ureter appears normal. Liver, spleen, pancreas, gallbladder, and bilateral adrenal glands are normal for noncontrast evaluation. The enteric system is without obstruction or acute inflammatory process. Scattered diverticula noted without acute diverticulitis. No ascites. No free air. No adenopathy. Pelvis demonstrates evidence for prior hysterectomy. Skeletal structures demonstrate age-related changes. Impression: 1. Mild left hydronephrosis and hydroureter with a 2 mm calculus at the ureterovesical junction/bladder. 2 mm nonobstructing left renal calculus. Right kidney/ureter normal. 2. Diverticulosis. Electronically Signed by Silverio Peters MD 08/19/2019 01:10 P
[2019-08-19] MEDS ORDERED: TAMSULOSIN 0.4 MG CAP PO ONE (13:30)
[2019-08-19 13:33] LABS: CALCIUM LEVEL 8.9 MG/DL (8.8-10.2); CREATININE FOR GFR 1.14 MG/DL (0.55-1.30); GLOMERULAR FILTRATION RATE 51.8 (>45); POTASSIUM SERUM 3.8 MEQ/L (3.5-5.1)
[2019-08-19] MEDS: HYDROMORPHONE HCL 0.5 MG/ 0.5 ML SYRINGE (J1170 PER 1) IV PRN ×2 (13:45→14:45)
[2019-08-19] MEDS ORDERED: OMEP-221 PO (17:57)
[2019-08-19] MEDS ORDERED: PROM25TA12 PO (17:57)
[2019-08-19] MEDS ORDERED: LEXA1TAB PO (17:57)
[2019-08-19] MEDS ORDERED: LIDOCAINE 5% (LIDODERM) PATCH TOP PRN (19:30)
[2019-08-19] MEDS ORDERED: PROMETHAZINE 25 MG TAB PO PRN (19:30)
[2019-08-19] MEDS ORDERED: ACETAMINOPHEN TAB 650MG DOSE (2X325MG) PO PRN (19:30)
[2019-08-19] MEDS ORDERED: zolPIDEM TARTRATE 5 MG TAB PO PRN (19:30)
[2019-08-19] MEDS: HYDROmorphone 2 MG TAB PO SCH (19:49)
--- NOTE | 2019-08-19 19:54 | HPEPDOC ---
General Date of Admission 08/19/2019 Date of Service: Aug 19, 2019 Attending Physician: MAHAMED VELASQUEZ MD Chief Complaint The patient is a 58-year-old female admitted with a reason for visit of epigastric pain. Source: Patient Exam Limitations: No limitations Timing/Duration: 24 hours Severity: Severe Associated Symptoms: Other (abdominal pain) History of Present Illness 57 y/o W w/ a history of kidney stones well known to urology, patient of Dr. Arrington who is s/p prior ureteroscopy with laser lithotripsy and basket extraction of stones, and ureteral stents who presented to the ED w/ acute onset right flank pain and right lower abdominal pain. In the ED, she was initially hypertensive but otherwise hemodynamically stable and afebrile reporting 10/10 pain. Ms. Crawley also has a history of chronic back pain that is managed at the pain center with recent decrease of her dilaudid from 4 PO BID to 2 PO BID as they attempt to reduce her pain medications with concern for dependency vs. abuse. In the ED, her workup was notable for WBC 9.3, hgb 13.2, HCt 39.8, Cr 1.[address] A/P that showed edematous enlargement of the left kidney along with mild hydroureteronephrosis secondary to a 2 mm calculus which appeared to be at the verge of the ureterovesicle junction/bladder and possibly recently passed into the bladder, as well as a 2 mm nonobstructing left renal calculus with a normal appearing right kidney/ureter. Dr. Arrington was called by the ED and recommended medical management and admission to medicine for pain control with flomax. Home Medications Scheduled Atorvastatin Calcium (Atorvastatin Calcium) 20 Mg Tablet, 20 MG PO DAILY, (Reported) Diclofenac Sodium (Diclofenac Sodium) 1% 100GM Gel..gram., 1 DOSE TOP QID, (Reported) TO NECK NEEDED Escitalopram Oxalate (Lexapro) 10 Mg Tablet, 10 MG PO DAILY, (Reported) Hydromorphone HCl (Hydromorphone HCl) 2 Mg Tablet, 2 MG PO DAILY, (Reported) Omeprazole (Omeprazole) 40 Mg Capsule.dr, 40 MG PO DAILY, (Reported) Polyethylene Glycol 3350 (Miralax) 119 Gm Powder, 17 GRAM PO DAILY, (Reported) Scheduled PRN Hydromorphone HCl (Hydromorphone HCl) 2 Mg Tablet, 2 MG PO DAILY PRN for PAIN, (Reported) Lidocaine (Lidocaine) 5% Adh..patch, 1 PATCH TOP DAILY PRN for PAIN, (Reported) APPLY WHERE NEEDED - DID APPLY ONE 08/19/19 BUT FELL OFF Promethazine HCl (Promethazine HCl) 25 Mg Tablet, 25 MG PO Q6H PRN for NAUSEA OR VOMITING, (Reported) Zolpidem Tartrate (Ambien) 10 Mg Tab, 10 MG PO QHS PRN for SLEEP, (Reported) Allergies Coded Allergies: codeine (Verified Allergy, Mild, ITCH, 07/05/19) meperidine (Verified Adverse Reaction, Mild, DEADENS TISSUE, 07/05/19) Past Medical History Medical History Chronic back pain on chronic opioids with concern for medication abuse and thus actively being de-escalated Extensive history of renal calculi s/p multiple interventions and extractions by urology Surgical History s/p hysterectomy Family History Significant Family History: No pertinent family hx Social History * Smoker: former Smoker Alcohol: occationally Drugs: denies Recent Travel/Sick Contacts: Denies: Recent travel, Recent sick contacts Psychosocial History: No pertinent psych hx Lives with her . A-FIB/CHADSVASC A-FIB History Current/History of A-Fib/PAF?: No Current PO Anticoag Therapy: No Age/Risk Factor Scoring CHADSVASC: CHADSVASC Response (Comments) Value Age Risk Factor Age < 65 years old 0 Gender Risk Factor Female 1 Hx of CHF No 0 Hx of HTN No 0 Hx of Stroke/TIA/or VTE No 0 Hx of Diabetes No 0 Hx of Vascular Disease No 0 Total 1 Treatment Treatment ordered: NONE Reason Anticoagulant not given: Not indicated/[id number] Review of Systems Constitutional: Denies: Chills, Fever, Night Sweats Eyes: Denies: Pain, Vision change ENT: Denies: Head Aches, Ear Pain, Dysphagia Skin: Denies: Rash, Lesions, Breakdown Pulmonary: Denies: Dyspnea, Cough Cardiovascular: Denies: Chest Pain, Palpitations, Orthopnea, Paroxysmal Noc. Dyspnea, Lt Headedness Gastrointestinal: Reports: Abdominal Pain, Other Symptoms (flank pain); Denies: Nausea, Vomiting, Diarrhea, Constipation, Melena, Hematochezia Genitourinary: Denies: Dysuria, Frequency, Incontinence, Retention Hematologic: Denies: Bruising, Bleeding Excessively Endocrine: Denies: Polydipsia, Polyphagia, Polyuria, Heat Intolerance, Cold Int olerance, Other Endocrine Sx Musculoskeletal: Reports: Back Pain (acute on chronic pain at this time); Denies: Neck Pain, Joint Pain, Muscle Pain, Spasms Neurological: Denies: Weakness, Numbness, Change in speech, Confusion Psych: Reports: Mood Normal; Denies: Depression, Memory Issues Physical Examination General Exam: Positive: Alert, Moderate Distress (shaking her legs from pain) Eye Exam: Positive: PERRLA, Conjunctiva & lids normal, EOMI; Negative: Sclera icteric ENT Exam: Positive: Atraumatic, Mucous membr. moist/pink, Pharynx Normal Neck Exam: Positive: Supple; Negative: JVD, thyromegaly Chest Exam: Positive: Clear to auscultation, Normal air movement Heart Exam: Positive: Rate Normal, Regular Rhythm, Normal S1, Normal S2; Negative: Murmurs, Rubs Telemetry: Positive: No significant arrhythmia Abdomen Exam: Positive: Normal bowel sounds, Soft, Tenderness (feels like bilateral lower abdominal quadrants have pain wrapping around to the flanks); Negative: Hepatospenomegaly Extremity Exam: Positive: Normal pulses; Negative: Clubbing, Cyanosis, Edema Skin Exam: Positive: Nl turgor and temperature; Negative: Breakdown, Lesion Neuro Exam: Positive: Normal Gait, Normal Speech, Cranial Nerves 3-12 NL, Reflexes 2+ Psych Exam: Positive: Mental status NL, Mood NL, Oriented x 3 Vital Signs Vital Signs Date Time Temp Pulse Resp B/P (MAP) Pulse Ox O2 Delivery O2 Flow Rate FiO2 08/19/19 17:31 113 18 131/49 (76) 94 Room Air 08/19/19 12:14 97.1 Laboratory Data Labs 24H Laboratory Tests 2 08/19/19 12:17: Immature Granulocyte % (Auto) 0.3, Neutrophils (%) (Auto) 73.7H, Lymphocytes (%) (Auto) 18.8L, Monocytes (%) (Auto) 5.8H, Eosinophils (%) (Auto) 0.6, Basophils (%) (Auto) 0.8, Neutrophils # (Auto) 6.9, Lymphocytes # (Auto) 1.8, Monocytes # (Auto) 0.5, Eosinophils # (Auto) 0.1, Basophils # (Auto) 0.1, Nucleated Red Blood Cells % (auto) 0.0, Anion Gap 9, Glomerular Filtration Rate 51.8, Calcium Level 8.9, Total Bilirubin 0.5, Direct Bilirubin 0.1, Aspartate Amino Transf (AST/SGOT) 18, Alanine Aminotransferase (ALT/SGPT) 25, Alkaline Phosphatase 110, Total Protein 7.4, Albumin 3.7, Albumin/Globulin Ratio 1.00, Lipase 120 CBC/BMP Laboratory Tests 08/19/19 12:17 Assessment/Plan 57 y/o W w/ a history of kidney stones well known to urology, patient of Dr. Arrington who is s/p prior ureteroscopy with laser lithotripsy and basket extraction of stones, and ureteral stents who presented to the ED w/ acute onset right flank pain and right lower abdominal pain and found to have left mild hydroureteronephrosis secondary to a 2 mm calculus which appeared to be at the verge of the ureterovesicle junction/bladder and possibly recently passed into the bladder, as well as a 2 mm nonobstructing left renal calculus now being admitted for pain management with urology recommending no interventions are necessary at this time. Plan: Abdominal and flank pain 2/2 2 mm calculus at the verge of the ureterovesicle junction/bladder possibly recently passed into the bladder, as well as a 2 mm nonobstructing left renal calculus. -continue outpatient pain regimen of dilaudid 2 BID (2mg schedule and the other 2mg as needed) -per urology, no interventions necessary at this time -continue flomax 0.4mg daily Hyperlipidemia: -continue home lipitor Chronic back pain: -continue dilaudid 2 BID (2mg schedule and the other 2mg as needed) per outpatient script -lidoderm patch per outpatient script -diclofenac patch per outpatient script Nausea: -promethazine PRN per outpatient script Depression: -continue home lexapro DVT ppx: lovenox Diet: regular Plan / VTE VTE Prophylaxis Ordered?: Yes MAHAMED VELASQUEZ MD Aug 19, 2019 19:54
[2019-08-19 20:20] VITALS: BP 182/99
[2019-08-19] MEDS: DICLOFENAC EPOLAMINE 1.3 % PATCH TOP SCH (21:00)
[2019-08-19] MEDS: **NOTE PATIENT COMMENT** MISC XX SCH (21:00)
[2019-08-19] MEDS: ONDANSETRON 4 MG TAB (S0181) PO PRN (21:05)
[2019-08-19] MEDS: HYDROmorphone 2 MG TAB PO PRN (22:56)
[2019-08-20] MEDS ORDERED: KETOROLAC 30 MG/ML VIAL (J1885) IV PRN (03:00)
[2019-08-20] MEDS: ONDANSETRON 4 MG TAB (S0181) PO PRN ×2 (05:40→12:16)
[2019-08-20 05:48] LABS: HEMATOCRIT 41.7 % (36.0-47.0); HEMOGLOBIN 13.6 g/dl (12.0-15.5); MEAN CORPUSCULAR HEMOGLOBIN 28.2 pg (27.0-33.0); MEAN CORPUSCULAR HGB CONC 32.6 g/dl (32.0-36.5); MEAN CORPUSCULAR VOLUME 86.3 fl (80.0-96.0); PLATELET COUNT, AUTOMATED 232 10^3/uL (150-450); RED BLOOD COUNT 4.83 10^6/uL (4.00-5.40); WHITE BLOOD COUNT 11.2 10^3/uL (4.0-10.0)
[2019-08-20 06:00] VITALS: BP 167/90
[2019-08-20 06:17] LABS: CALCIUM LEVEL 8.9 MG/DL (8.8-10.2); CREATININE FOR GFR 1.65 MG/DL (0.55-1.30); GLOMERULAR FILTRATION RATE 33.8 (>45); POTASSIUM SERUM 3.8 MEQ/L (3.5-5.1)
[2019-08-20] MEDS: ENOXAPARIN 40 MG/0.4 ML SYRINGE (J1650) SC SCH (08:59)
[2019-08-20] MEDS: DICLOFENAC EPOLAMINE 1.3 % PATCH TOP SCH ×2 (08:59→20:20)
[2019-08-20] MEDS: OMEPRAZOLE 20 MG CAP PO SCH (09:00)
[2019-08-20] MEDS: ATORVASTATIN 20 MG TAB PO SCH (09:01)
[2019-08-20] MEDS: ESCITALOPRAM OXALATE 10 MG TAB (LEXAPRO) PO SCH (09:01)
[2019-08-20] MEDS: TAMSULOSIN 0.4 MG CAP PO SCH (09:01)
[2019-08-20] MEDS: HYDROmorphone 2 MG TAB PO SCH (09:07)
[2019-08-20] MEDS: KCL 20MEQ in NS 1000ML 1,000 ML IV SCH ×2 (11:00→19:16)
--- NOTE | 2019-08-20 11:50 | IPN ---
DATE OF SERVICE: 08/20/2019 Jaja is seen in [facility] [place]. Has left distal ureteral stone that she does not feel she has passed. She still has abdominal pain. She is also developing some acute kidney injury, either from obstruction or ketorolac. She says "From experience, I can tell you I'm not going to pass this thing." PHYSICAL EXAMINATION: 167/90, 98.6 degrees, afebrile. General appearance: Alert and conversant, mild distress. Lungs clear. Heart: Regular rate and rhythm. Abdomen: Soft, nontender. Left costovertebral angle (CVA) tenderness present. No peripheral edema. LABORATORIES: White count is up 11.2, platelets 223. Sodium 140, potassium 3.8, BUN is 14, creatinine has gone from 1.1 to 1.65. IMPRESSION: 1. Left distal ureteral stone with left hydronephrosis. PLAN: She is on tamsulosin. I am adding intravenous (IV) fluids. She does not think she is going to pass this without urologic intervention. Dr. Arrington is familiar with the patient but not formally consulted. 2. Acute kidney injury. Stop the ketorolac. IV fluids have been ordered. She is receiving topical Flector but the absorption is so minimal, I do not think this presents her kidneys in significant risk. If renal function is not better tomorrow, will reimage and see whether the hydronephrosis is worse. 3. Chronic pain syndrome. Continue her analgesic regimen. 4. Hyperlipidemia. Continue atorvastatin 20 mg daily. 5. History of depression. Continue her Lexapro. 6. Deep venous thrombosis (DVT) prophylaxis with Lovenox has been ordered.
[2019-08-20 14:00] VITALS: BP 110/59
[2019-08-20] MEDS: **NOTE PATIENT COMMENT** MISC XX SCH (20:20)
[2019-08-20 22:00] VITALS: BP 132/71
[2019-08-20] MEDS: HYDROmorphone 2 MG TAB PO PRN (22:15)
[2019-08-21] MEDS: KCL 20MEQ in NS 1000ML 1,000 ML IV SCH ×2 (01:56→08:23)
[2019-08-21 06:00] VITALS: BP 128/71
[2019-08-21 06:06] LABS: HEMATOCRIT 35.1 % (36.0-47.0); MEAN CORPUSCULAR HEMOGLOBIN 28.8 pg (27.0-33.0); MEAN CORPUSCULAR HGB CONC 32.2 g/dl (32.0-36.5); MEAN CORPUSCULAR VOLUME 89.5 fl (80.0-96.0); PLATELET COUNT, AUTOMATED 185 10^3/uL (150-450); RED BLOOD COUNT 3.92 10^6/uL (4.00-5.40); WHITE BLOOD COUNT 6.1 10^3/uL (4.0-10.0)
[2019-08-21 06:08] LABS: HEMOGLOBIN 11.3 g/dl (12.0-15.5)
[2019-08-21 06:19] LABS: CALCIUM LEVEL 7.9 MG/DL (8.8-10.2); CREATININE FOR GFR 1.05 MG/DL (0.55-1.30); GLOMERULAR FILTRATION RATE 56.9 (>45)
[2019-08-21] MEDS: ENOXAPARIN 40 MG/0.4 ML SYRINGE (J1650) SC SCH (08:20)
[2019-08-21] MEDS: DICLOFENAC EPOLAMINE 1.3 % PATCH TOP SCH (08:21)
[2019-08-21] MEDS: ATORVASTATIN 20 MG TAB PO SCH (08:23)
[2019-08-21] MEDS: TAMSULOSIN 0.4 MG CAP PO SCH (08:23)
[2019-08-21] MEDS: HYDROmorphone 2 MG TAB PO SCH (08:23)
[2019-08-21] MEDS: OMEPRAZOLE 20 MG CAP PO SCH (08:23)
[2019-08-21] MEDS: ESCITALOPRAM OXALATE 10 MG TAB (LEXAPRO) PO SCH (08:23)
--- NOTE | 2019-08-21 15:18 | DSES ---
DATE OF ADMISSION: 08/19/2019 DATE OF DISCHARGE: 08/21/2019 PRINCIPLE DIAGNOSIS: Left distal ureteral stone with left hydronephrosis - spontaneously passed on 08/20/2019. SECONDARY DIAGNOSES: 1. Acute kidney injury - resolved. 2. Chronic pain syndrome. 3. Hyperlipidemia. 4. History of depression. HISTORY: Jaja Crawley was admitted with left distal ureteral stone. Details of history and physical from admission. HOSPITAL COURSE: Despite her belief that she was going to need surgical intervention, she did spontaneously pass the stone yesterday. She was given IV fluids and tamsulosin and managed to pass the stone. She had acute kidney injury with rise in her creatinine. Her baseline is 1.65, probably from the stone but also she received ketorolac. I stopped that yesterday and gave her IV fluids and her renal function is back to baseline today. The rest of her medical problems remained stable during her hospitalization. Today, she is resting comfortably in no distress. She is afebrile. Vital signs stable. Lungs clear. Heart: Regular rhythm. Abdomen: Soft, nontender. No costovertebral angle (CVA) tenderness. LABS: White count is down to 6.1, hemoglobin 11.3 (after hydration). Sodium 145, potassium 4, BUN 10, creatinine 1.0, glucose 90. Creatinine yesterday is 1.65. Imaging as described in previous dictations. DISPOSITION: Discharge home in improved and stable condition. Followup with her primary care provider at the [place] office within 1 week. Activity as tolerated. Continue her previous renal stone diet with high fluid intake. Her medications will be unchanged from upon admission. She was taking - atorvastatin 20 mg daily - diclofenac gel as needed - Lexapro 10 mg daily - hydromorphone 2 mg daily and then as needed for pain - Lidocaine patch as needed - omeprazole 40 mg daily - MiraLAX as needed - Promethazine 25 mg every 6 hours as needed for nausea - Ambien 10 mg nightly At the time of this dictation, there are no pending labs.
== END 2019-08-21 13:00 | disposition home or self-care (01) ==
LOC: EDBD 11:55 → M ED 11:55 → M ED INP 11:56 → ENRESERVDT 19:35 → ENRESERVTM 19:35 → M MSPAV 20:06
PROVIDERS: ADMIT Internal Medicine; ATTEND Family Medicine
DX: N20.1 Calculus of ureter (principal); N13.39 Other hydronephrosis; N17.9 Acute kidney failure, unspecified; G89.4 Chronic pain syndrome; R11.0 Nausea; F11.20 Opioid dependence, uncomplicated; E78.5 Hyperlipidemia, unspecified; F32.9 Major depressive disorder, single episode, unspecified; M54.9 Dorsalgia, unspecified; Z79.899 Other long term (current) drug therapy; Z88.5 Allergy status to narcotic agent; Z87.442 Personal history of urinary calculi
CPT/HCPCS: 36415; 74176; 80048; 80076; 83690; 85025; 85027; 93041; 96372; 96374; 96375; 96376; 99285; J1170; J1650; J1885; J2405

== ENCOUNTER → 2019-09-05 | Outpatient (CLI) | payer BC ==
[~2019-09-05] MED LIST changes: +HYDR2TAB2 PO; -OMEP-172 PO; +OMEP-221 PO; +OMEP1CAP73 PO
--- NOTE | 2019-09-17 04:44 | ECWPNPC ---
PATIENT NAME: RAVEN MUKHERJEE : 1960 GENDER: FEMALE VISIT DATE: 09/05/2019 DISCHARGE DATE: 09/05/19 1637 VISIT LOCKED DATE TIME: PHYSICIAN: SARAH BETH CAO MD RESOURCE: SARAH BETH CAO MD REASON FOR APPOINTMENT 1. PRE SEDATE CFBT IVSED HISTORY OF PRESENT ILLNESS HISTORY OF PRESENT ILLNESS: PAIN THE PATIENT DESCRIBES THE PAIN... 58-YEAR-OLD FEMALE PATIENT WITH A HISTORY OF CHRONIC NECK PAIN. THE PATIENT DESCRIBES THE PAIN ACHING, SHOOTING, DAILY AND NIGHTLY WITH A PAIN SCORE OF 1-10/10 DEPENDING ON PHYSICAL ACTIVITY. THE PATIENT STATES THAT SHE HAS BEEN SUFFERING WITH THIS PAIN FOR MANY YEARS AND THAT THE PAIN INCREASES WITH ACTIVITY. THE PATIENT STATES THE PAIN INTERFERES WITH HER ABILITY TO GROCERY SHOP, CLEAN HER HOME AND PERFORM HER DAILY ACTIVITIES. PATIENT DENIES UNEXPLAINABLE WEIGHT LOSS, FEVER, CHILLS, NEW CHANGES ON HER URINARY OR BOWEL CONTROL. FALL RISK SCREENING: SCREENING :NO FALLS REPORTED IN THE LAST YEAR CURRENT MEDICATIONS TAKING BUSPIRONE HCL 5 MG TABLET 1 TABLET ORALLY BID TAKING PROMETHAZINE HCL 25 MG TABLET 1 TABLET NEEDED ORALLY EVERY 6 HR TAKING MIRALAX - POWDER DIRECTED ORALLY DAILY TAKING ATORVASTATIN CALCIUM 20 MG TABLET 1 TABLET ORALLY ONCE A DAY TAKING OMEPRAZOLE 40 MG CAPSULE DELAYED RELEASE 1 CAPSULE 30 MINUTES BEFORE MORNING MEAL ORALLY ONCE A DAY TAKING HYDROMORPHONE HCL 2 MG TABLET 1 TABLET NEEDED ORALLY Q8H PRN MDD3 #60 TAB SHOULD LAST 30 DAYS TAKING VOLTAREN 1 % GEL DIRECTED TRANSDERMAL APPLY 4 GRAMM TO NECK Q 6 HRS PRN PAIN TAKING AMBIEN 10 MG TABLET 1 TABLET AT BEDTIME NEEDED ORALLY ONCE A DAY, MDD=1 TAKING LIDOCAINE & ADHESIVE SHEET 5 % KIT DIRECTED EXTERNALLY MEDICATION LIST REVIEWED AND RECONCILED WITH THE PATIENT PAST MEDICAL HISTORY HEMORRHOIDS KIDNEY STONES HYPERLIPIDEMIA BACK PAIN DEPRESSION ANXIETY MUSCLE DISORDER GERD NECK PAIN MYALGIA GASTRIC ULCERS BILATERAK CERVICAL NEURALGIA UTI FOUND OUT THAT HER APPENDIX IS IN LEFT UPPER QUAD 03/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 DUNLAP ALLERGIES DEMEROL: "DEADENS THE AREA OF INJECTION" - ALLERGY CODEINE SULFATE: ITCHING - CONTRAINDICATION SURGICAL HISTORY PELVIC/ VAGINAL WALL PROLAPSE REPAIR X3 2010 HYSTERETOMY 2006 COLONOSOPY 2014, 2019 ANXIALLY LYMPH NODES RIGHT REMOVED..NEGATIVE 2004 KIDNEY STONES BY LASER 2016 EGD W/ BIOPSY 06/2019 FAMILY HISTORY FATHER: , CANCER. LUNG CA METASTASIZED TO BRAIN MOTHER: ALIVE, BREAST CANCER. GLAUCOMA SIBLINGS: ALIVE, HEART DISEASE, DIAGNOSED WITH UNSPECIFIED HEART DISEASE SON(S): ALIVE DAUGHTER(S): ALIVE 3 BROTHER(S) , 1 SISTER(S) . SOCIAL HISTORY GENERAL: TOBACCO USE ARE YOU A:FORMER SMOKER HOW LONG HAS IT BEEN SINCE YOU LAST SMOKED?5-10 YEARS DIET: REGULAR. LANGUAGE LANGUAGES SPOKEN:GERMAN DOMESTIC VIOLENCE DO YOU FEEL SAFE IN YOUR ENVIRONMENT?YES RECREATIONAL DRUG USE DRUG USE?NO LEARNING BARRIERS / SPECIAL NEEDS BARRIERS TO LEARNING?NO HEARING IMPAIRED?NO VISION IMPAIRED?YES COGNITIVELY IMPAIRED?NO :CORRECTIVE LENSES READINESS TO LEARN?YES LEARNING PREFERENCES?NO LEARNING CAPABILITIES PRESENT?YES EMOTIONAL BARRIERS?NO SPECIAL DEVICES?NO GAS INSPECTOR NEEDED?NO PAIN CLINIC PFS, CLERGY, PUBLIC HEALTH REFERRALS PFS REFERRAL NEEDED?NO CLERGY REFERRAL NEEDED?NO PUBLIC HEALTH REFERRAL NEEDED?NO HAS THE PATIENT BEEN EDUCATED REGARDING HIS/HER PLAN OF CARE?YES HAS THE PATIENT BEEN EDUCATED REGARDING PAIN, THE RISK FOR PAIN, THE IMPORTANCE OF EFFECTIVE PAIN MANAGEMENT, AND THE PAIN ASSESSMENT PROCESS?YES LATEX QUESTIONNAIRE LATEX ALLERGY : HAVE YOU EVER DEVELOPED ANY TYPE OF REACTION AFTER HANDLING LATEX PRODUCTS SUCH RUBBER GLOVES, CONDOMS, DIAPHRAGMS, BALLOONS, SOCKS, OR UNDERWEAR?NO LATEX ALLERGY : HAVE YOU EVER DEVELOPED ANY TYPE OF REACTION DURING OR AFTER DENTAL APPOINTMENT, VAGINAL/RECTAL EXAMINATION, SURGICAL PROCEDURE, OR ANY OTHER EXPOSURE?NO DATE ASKED : 06/02/2019 LATEX RISK : HAVE YOU EVER HAD ANY DIFFICULTY BREATHING OR HIVES AFTER EATING OR HANDLING ANY FRUITS, OR VEGETABLES; SUCH KIWI, BANANAS, STONE FRUITS, OR CHESTNUTSNO LATEX RISK : DO YOU HAVE A PREVIOUS PERSONAL HISTORY OF MORE THAN NINE SURGERIES, SPINA BIFIDA, OR REPEATED CATHERIZATIONS? NO LATEX RISK : ARE YOU FREQUENTLY EXPOSED TO LATEX PRODUCTS IN YOUR OCCUPATION?NO CAFFEINE CAFFEINE USE?YES 3 CUPS DAILY ADVANCE DIRECTIVE ADVANCE DIRECTIVE DISCUSSED WITH PATIENT:YES HCP - FERNIE MUKHERJEE () [phone] GNOSTICIST GNOSTICIST NO PREFERENCE MARITAL STATUS: . ALCOHOL SCREENING DID YOU HAVE A DRINK CONTAINING ALCOHOL IN THE PAST YEAR?NO POINTS0 INTERPRETATIONNEGATIVE OCCUPATION: RETIRED. REVIEWED WITH PATIENT 05/12/18 1314 JSREVIEWED WITH PATIENT 06/01/18 1425 LASREVIEWED WITH PATIENT 07/28/18 1140 LASREVIEWED WITH PT 10/28/18 1455 BVREVIEWED WITH PATIENT 12/06/18 1317 JSREVIEWED WITH PATIENT 09/05/2019 LAS06/02/19 1311 REVIEWED WITH PT. ADREVIEWED WITH PT 03/02/19 0909 BVREVIEWED WITH PATIENT 08/02/19 1311 JS. HOSPITALIZATION/MAJOR DIAGNOSTIC PROCEDURE SURGERIES KIDNEY STONES 2017 L KIDNY STONES 2MM RENAL CALCULUS 2MM AT THE URETEROVESICULAR JUNTION 08/19/2019- 08/21/2019 REVIEW OF SYSTEMS REVIEWED BY: PROVIDER: SARAH BETH CAO MD . CONSTITUTIONAL: ANY CHANGE IN YOUR MEDICAL CONDITION? YES KIDNEY STONES . CHILLS NO . FEVER NO . INFECTION: DO YOU HAVE NEW INFECTIONS? NO . DO YOU HAVE HISTORY OF MRSA? NO . MUSCULOSKELETAL: ANY NEW PATTERNS OF PAIN OR NUMBNESS? NO . GASTROENTEROLOGY: ANY NEW CHANGE IN BOWEL CONTROL? NO . GENITOURINARY: ANY NEW CHANGE IN BLADDER CONTROL? NO . IS THERE A CHANCE YOU COULD BE ? NO . HEMATOLOGY/LYMPH: DO YOU TAKE ANY BLOOD THINNERS? (FOR EXAMPLE- COUMADIN, PLAVIX, AGGRENOX, PLATEL, PRADAXA, OR XARELTO) NO . WHEN WAS YOUR LAST DOSE? DATE: TIME: . NEUROLOGY: HAVE YOU FALLEN IN THE PAST 12 MONTHS? NO . ANY NEW EXTREMITY NUMBNESS OR WEAKNESS? NO . CARDIOLOGY: DO YOU HAVE A PACEMAKER OR DEFIBRILLATOR? NO . RESPIRATORY: HAVE YOU BEEN SICK IN THE PAST WEEK? NO . FEVER NO . FLU LIKE SYMPTOMS? NO . COUGH NO . INTEGUMENTARY: DO YOU HAVE ANY RASHES OR OPEN SORES? NO . ALLERGIC/IMMUNO: ARE YOU ALLERGIC TO IV DYE? NO . ANY NEW ALLERGIES? NO . PSYCHIATRIC: DO YOU HAVE THOUGHTS OF HURTING YOURSELF OR SOMEONE ELSE? NO . ARE YOU ABUSED, NEGLECTED, OR IN AN UNSAFE ENVIRONMENT? NO . ENDOCRINOLOGY: ARE YOU DIABETIC? NO . OTHER: DO YOU NEED ANY PRESCRIPTIONS? YES HYDROMORPHONE . IF YES, PLEASE LIST: ____ . ANY NEW PROBLEMS WITH YOUR MEDICATIONS? NO . WHEN DID YOU LAST EAT? ____ . WHEN DID YOU LAST DRINK? ____ . WHAT DID YOU LAST DRINK? ____ . NAME OF PERSON DRIVING YOU HOME? ____ . DO YOU HAVE ANY OTHER QUESTIONS OR CONCERNS NO . VITAL SIGNS WT 183.8 LBS, HT 58 IN, BMI 38.41 INDEX, BP 144/69 MM HG, HR 90 /MIN, RR 20 /MIN, TEMP 98.5 F, OXYGEN SAT % 97% RA, SAFE IN ENV? (Y/N) YES, REVIEWED BY: LASA. VIK CMA. EXAMINATION GENERAL EXAMINATION: PATIENT IS ALERT O X 3 AND COOPERATIVE. LUNGS CLEAR, TO AUSCULTATION. HEART: NO MURMURS OR GALLOPS; FACIAL CRANIAL NERVES ARE GROSSLY NORMAL. GOOD SYMMETRY OF FACIAL MUSCLE MOVEMENT. NORMAL VISUAL CARLOS. THE PATIENT EXHIBITS SEVERE NECK PAIN WITH HYPERPATHIA. PAIN INCREASES OVER THE CERVICAL FACET JOINTS WITH EXTENSION AND LATERAL ROTATION OF THE NECK. MRI OS THE CERVICAL SPINE DONE ON 06/02/2017 SHOWS BILATERAL FACET ARTHROPATHY CHANGES AT MULTIPLE LEVELS. 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 MUKHERJEE' PAIN MANAGEMENT CASE. DUE TO THE CERVICAL DISC DISORDER WITH ARTHROPATHY, I WOULD LIKE TO MOVE FORWARD WITH A BILATERAL THERAPEUTIC CERVICAL FACET BLOCK AT THIS TIME. MS. MUKHERJEE WOULD LIKE TO MOVE FORWARD WITH IV SEDATION DUE TO DISCOMFORT, PAIN AND ANXIETY ASSOCIATED WITH THE PROCEDURE. WE DISCUSSED THE BENEFITS, RISKS, AND ALTERNATIVES OF THE INJECTION AND THE PATIENT WOULD LIKE TO PROCEED. THE PATIENT WILL FOLLOW UP IN SEVERAL WEEKS TO SEE HOW THE INJECTION IS HELPING WITH HER PAIN. INSTRUCTIONS WERE GIVEN, QUESTIONS WERE ANSWERED, PATIENT REPORTS UNDERSTANDING AND AGREES WITH THE PLAN. I, OTTONIEL COLLINS, DOCUMENTED THE ABOVE INFORMATION ACTING A SCRIBE FOR DR. CAO. I HAVE REVIEWED THE ABOVE DOCUMENT, WRITTEN BY CARMEN HEAD, AND I VERIFY THAT IT IS ACCURATE. . PREVENTIVE MEDICINE PAIN CLINIC TEACHING: PROCEDURE TEACHING PRE CERVICAL FACET BLOCK INSTRUCTIONS REVIEWED WITH PT. VERBALIZED UNDERSTANDING.. PROCEDURE CODES FA211 ESTABILISHED PATIENT [facility] FACILITY CHARGE [address]10 OFFICE/OUTPATIENT VISIT EST G8427 CURRENT MEDS W/DOSAGES DOCUMENTED G8730 PAIN ASSESS POS TOOL F/U PLAN DOC DISPOSITION & COMMUNICATION FOLLOW UP REASON: BALDO CFB W/ IV SEDATE ELECTRONICALLY SIGNED BY SARAH BETH CAO MD, MD ON 09/16/2019 AT 05:23 PM EST DISCLAIMER : THIS IS A VISIT SUMMARY EXTRACTED FROM THE [employer] CHART. IT IS NOT A COPY OF THE [facility] PROGRESS NOTE. MTDD
== END ==
LOC: M PAIN 14:15
PROVIDERS: ATTEND Anesthesiology
DX: M47.812 Spondylosis without myelopathy or radiculopathy, cervical region (principal); M54.2 Cervicalgia; Z79.891 Long term (current) use of opiate analgesic; Z79.899 Other long term (current) drug therapy; Z88.5 Allergy status to narcotic agent; Z87.891 Personal history of nicotine dependence

== ENCOUNTER → 2019-09-06 | Outpatient (REF) | payer BC ==
[2019-09-06 18:38] LABS: APPEARANCE, URINE CLEAR (CLEAR); BACTERIA, URINE AUTO NEGATIVE (NEGATIVE); BILIRUBIN, URINE AUTO NEGATIVE (NEGATIVE); BLOOD, URINE BLOOD 1+ (NEGATIVE); COLOR, URINE YELLOW (YELLOW); GLUCOSE, URINE (UA) AUTO NEGATIVE (NEGATIVE); KETONE, URINE AUTO NEGATIVE (NEGATIVE); LEUKOCYTE ESTERASE, URINE AUTO NEGATIVE (NEGATIVE); MUCUS, URINE SMALL (NEGATIVE); NITRITE, URINE AUTO NEGATIVE (NEGATIVE); PROTEIN, URINE AUTO NEGATIVE (NEGATIVE); RBC, URINE AUTO 2 /HPF (0-3); SPECIFIC GRAVITY URINE AUTO 1.016 (1.002-1.035); SQUAMOUS EPITHELIAL CELL UR AU 0 /HPF (0-6); UROBILINOGEN, URINE AUTO 0.2 mg/dL (0.0-2.0); WBC, URINE AUTO 1 /HPF (0-3)
== END ==
LOC: M SMT 17:15
PROVIDERS: ATTEND Nurse Practitioner Family
DX: N20.0 Calculus of kidney (principal)

== ENCOUNTER → 2019-09-28 | Outpatient (CLI) | payer BC ==
[~2019-09-28] MED LIST changes: +BUPIVACAINE HCL 0.25% 30 ML VIAL As Ordered ONE; +ISOVUE-M 300 61% 15ML VIAL (Q9967) As Ordered ONE; +LIDOCAINE 1% SDV INJ 30 ML VIAL As Ordered ONE; +MIDAZOLAM INJ 2 MG/2 ML VIAL (J2250) As Ordered ONE; +TRIAMCINOLONE ACETONIDE SUSP 40 MG/ML VIAL (J3301) As Ordered ONE; +fentaNYL 100 MCG/2 ML INJECTION (J3010) As Ordered ONE
--- NOTE | 2019-09-28 16:09 | REP ---
Cervical spine limited study: Single view. History: Injection procedure for pain. 26 seconds of fluoroscopy time is reported. Findings: A single last image hold fluoroscopically obtained spot radiograph of the cervical spine documents various needle positions and contrast injections associated with injection procedure. Electronically Signed by Antolin Villalba MD 09/28/2019 04:00 P
--- NOTE | 2019-10-18 05:42 | ECWPNPC ---
PATIENT NAME: RAVEN MUKHERJEE : 1960 GENDER: FEMALE VISIT DATE: 09/28/2019 DISCHARGE DATE: 09/28/19 1617 VISIT LOCKED DATE TIME: PHYSICIAN: SARAH BETH CAO MD RESOURCE: SARAH BETH CAO MD REASON FOR APPOINTMENT 1. CFBT IV SEDATION HISTORY OF PRESENT ILLNESS HISTORY OF PRESENT ILLNESS: PAIN THE PATIENT DESCRIBES THE PAIN... FALL RISK SCREENING: SCREENING :NO FALLS REPORTED IN THE LAST YEAR CURRENT MEDICATIONS TAKING PROMETHAZINE HCL 25 MG TABLET 1 TABLET NEEDED ORALLY EVERY 6 HR, NOTES: 09/27 11AM TAKING MIRALAX - POWDER DIRECTED ORALLY DAILY, NOTES: 09/27 9PM TAKING ATORVASTATIN CALCIUM 20 MG TABLET 1 TABLET ORALLY ONCE A DAY, NOTES: 09/27 11AM TAKING OMEPRAZOLE 40 MG CAPSULE DELAYED RELEASE 1 CAPSULE 30 MINUTES BEFORE MORNING MEAL ORALLY ONCE A DAY, NOTES: 09/26 TAKING VOLTAREN 1 % GEL DIRECTED TRANSDERMAL APPLY 4 GRAMM TO NECK Q 6 HRS PRN PAIN, NOTES: 09/27 9AM TAKING AMBIEN 10 MG TABLET 1 TABLET AT BEDTIME NEEDED ORALLY ONCE A DAY, MDD=1, NOTES: 09/27 10PM TAKING LIDOCAINE & ADHESIVE SHEET 5 % KIT DIRECTED EXTERNALLY , NOTES: 2 DAYS TAKING FLOMAX 0.4 MG CAPSULE 1 CAPSULE ORALLY ONCE A DAY, NOTES: 1 WEEK TAKING HYDROMORPHONE HCL 2 MG TABLET 1 TABLET NEEDED ORALLY Q8H PRN MDD3 #60 TAB SHOULD LAST 30 DAYS, NOTES: 09/27 11PM NOT-TAKING BUSPIRONE HCL 5 MG TABLET 1 TABLET ORALLY BID MEDICATION LIST REVIEWED AND RECONCILED WITH THE PATIENT PAST MEDICAL HISTORY HEMORRHOIDS KIDNEY STONES HYPERLIPIDEMIA BACK PAIN DEPRESSION ANXIETY MUSCLE DISORDER GERD NECK PAIN MYALGIA GASTRIC ULCERS BILATERAK CERVICAL NEURALGIA UTI FOUND OUT THAT HER APPENDIX IS IN LEFT UPPER QUAD 03/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 DUNLAP ALLERGIES DEMEROL: "DEADENS THE AREA OF INJECTION" - ALLERGY CODEINE SULFATE: ITCHING - CONTRAINDICATION SURGICAL HISTORY PELVIC/ VAGINAL WALL PROLAPSE REPAIR X3 2010 HYSTERETOMY 2006 COLONOSOPY 2014, 2018 ANXIALLY LYMPH NODES RIGHT REMOVED..NEGATIVE 2004 KIDNEY STONES BY LASER 2016 EGD W/ BIOPSY 06/2019 FAMILY HISTORY FATHER: , CANCER. LUNG CA METASTASIZED TO BRAIN MOTHER: ALIVE, BREAST CANCER. GLAUCOMA SIBLINGS: ALIVE, HEART DISEASE, DIAGNOSED WITH UNSPECIFIED HEART DISEASE SON(S): ALIVE DAUGHTER(S): ALIVE 3 BROTHER(S) , 1 SISTER(S) . NO KNOWN UROLOGICAL FAMILY HISTORY. SOCIAL HISTORY GENERAL: TOBACCO USE ARE YOU A:FORMER SMOKER HOW LONG HAS IT BEEN SINCE YOU LAST SMOKED?5-10 YEARS DIET: REGULAR. LANGUAGE LANGUAGES SPOKEN:NORTHERN IRISH DOMESTIC VIOLENCE DO YOU FEEL SAFE IN YOUR ENVIRONMENT?YES RECREATIONAL DRUG USE DRUG USE?NO LEARNING BARRIERS / SPECIAL NEEDS BARRIERS TO LEARNING?NO HEARING IMPAIRED?NO VISION IMPAIRED?YES COGNITIVELY IMPAIRED?NO :CORRECTIVE LENSES READINESS TO LEARN?YES LEARNING PREFERENCES?NO LEARNING CAPABILITIES PRESENT?YES EMOTIONAL BARRIERS?NO SPECIAL DEVICES?NO GUEST EXPERIENCE REPRESENTATIVE NEEDED?NO PAIN CLINIC PFS, CLERGY, PUBLIC HEALTH REFERRALS PFS REFERRAL NEEDED?NO CLERGY REFERRAL NEEDED?NO PUBLIC HEALTH REFERRAL NEEDED?NO WAS THE PROVIDER NOTIFIED OF ANY PERTINENT INFO?YES HAS THE PATIENT BEEN EDUCATED REGARDING HIS/HER PLAN OF CARE?YES HAS THE PATIENT BEEN EDUCATED REGARDING PAIN, THE RISK FOR PAIN, THE IMPORTANCE OF EFFECTIVE PAIN MANAGEMENT, AND THE PAIN ASSESSMENT PROCESS?YES LATEX QUESTIONNAIRE LATEX ALLERGY : HAVE YOU EVER DEVELOPED ANY TYPE OF REACTION AFTER HANDLING LATEX PRODUCTS SUCH RUBBER GLOVES, CONDOMS, DIAPHRAGMS, BALLOONS, SOCKS, OR UNDERWEAR?NO LATEX ALLERGY : HAVE YOU EVER DEVELOPED ANY TYPE OF REACTION DURING OR AFTER DENTAL APPOINTMENT, VAGINAL/RECTAL EXAMINATION, SURGICAL PROCEDURE, OR ANY OTHER EXPOSURE?NO LATEX RISK : HAVE YOU EVER HAD ANY DIFFICULTY BREATHING OR HIVES AFTER EATING OR HANDLING ANY FRUITS, OR VEGETABLES; SUCH KIWI, BANANAS, STONE FRUITS, OR CHESTNUTSNO LATEX RISK : DO YOU HAVE A PREVIOUS PERSONAL HISTORY OF MORE THAN NINE SURGERIES, SPINA BIFIDA, OR REPEATED CATHERIZATIONS? NO LATEX RISK : ARE YOU FREQUENTLY EXPOSED TO LATEX PRODUCTS IN YOUR OCCUPATION?NO DATE ASKED : 09/28/2019 CAFFEINE CAFFEINE USE?YES 3 CUPS DAILY ADVANCE DIRECTIVE ADVANCE DIRECTIVE DISCUSSED WITH PATIENT:YES HCP - FERNIE Kris MUKHERJEE () [phone] RASTAFARI RASTAFARI NO PREFERENCE MARITAL STATUS: . ALCOHOL SCREENING DID YOU HAVE A DRINK CONTAINING ALCOHOL IN THE PAST YEAR?NO POINTS0 INTERPRETATIONNEGATIVE OCCUPATION: RETIRED. REVIEWED WITH PATIENT 05/12/18 1314 JSREVIEWED WITH PATIENT 06/01/18 1425 LASREVIEWED WITH PATIENT 07/28/18 1140 LASREVIEWED WITH PT 10/28/18 1455 BVREVIEWED WITH PATIENT 12/06/18 1317 JSREVIEWED WITH PATIENT 09/05/2019 LAS06/02/19 1311 REVIEWED WITH PT. ADREVIEWED WITH PT 03/02/19 0909 BVREVIEWED WITH PATIENT 08/02/19 1311 JSREVIEWED WITH PATIENT 09/28/2019 DS. HOSPITALIZATION/MAJOR DIAGNOSTIC PROCEDURE SURGERIES KIDNEY STONES 2016 L KIDNY STONES 2MM RENAL CALCULUS 2MM AT THE URETEROVESICULAR JUNTION 08/19/2019- 08/21/2019 REVIEW OF SYSTEMS REVIEWED BY: PROVIDER: . CONSTITUTIONAL: ANY CHANGE IN YOUR MEDICAL CONDITION? NO . CHILLS NO . FEVER NO . INFECTION: DO YOU HAVE NEW INFECTIONS? NO . DO YOU HAVE HISTORY OF MRSA? NO . MUSCULOSKELETAL: ANY NEW PATTERNS OF PAIN OR NUMBNESS? NO . GASTROENTEROLOGY: ANY NEW CHANGE IN BOWEL CONTROL? NO . GENITOURINARY: ANY NEW CHANGE IN BLADDER CONTROL? NO . IS THERE A CHANCE YOU COULD BE ? NO . HEMATOLOGY/LYMPH: DO YOU TAKE ANY BLOOD THINNERS? (FOR EXAMPLE- COUMADIN, PLAVIX, AGGRENOX, PLATEL, PRADAXA, OR XARELTO) NO . WHEN WAS YOUR LAST DOSE? DATE: TIME: . NEUROLOGY: HAVE YOU FALLEN IN THE PAST 12 MONTHS? NO . ANY NEW EXTREMITY NUMBNESS OR WEAKNESS? YES . CARDIOLOGY: DO YOU HAVE A PACEMAKER OR DEFIBRILLATOR? NO . RESPIRATORY: HAVE YOU BEEN SICK IN THE PAST WEEK? NO . FEVER NO . FLU LIKE SYMPTOMS? NO . COUGH NO . INTEGUMENTARY: DO YOU HAVE ANY RASHES OR OPEN SORES? NO . ALLERGIC/IMMUNO: ARE YOU ALLERGIC TO IV DYE? NO . ANY NEW ALLERGIES? NO . PSYCHIATRIC: DO YOU HAVE THOUGHTS OF HURTING YOURSELF OR SOMEONE ELSE? NO . ARE YOU ABUSED, NEGLECTED, OR IN AN UNSAFE ENVIRONMENT? NO . ENDOCRINOLOGY: ARE YOU DIABETIC? NO . OTHER: DO YOU NEED ANY PRESCRIPTIONS? NO . IF YES, PLEASE LIST: ____ . ANY NEW PROBLEMS WITH YOUR MEDICATIONS? NO . WHEN DID YOU LAST EAT? 09-27-19 2100 . WHEN DID YOU LAST DRINK? 09-28-19 0700 . WHAT DID YOU LAST DRINK? WATER . NAME OF PERSON DRIVING YOU HOME? FERNIE . DO YOU HAVE ANY OTHER QUESTIONS OR CONCERNS YES - WANTS TO KNOW IF COULD BE STARTED ON NUCYNTA . VITAL SIGNS WT 182.6 LBS, HT 58 IN, BMI 38.16 INDEX, BP 130/61 MM HG, HR 81 /MIN, RR 18 /MIN, TEMP 96.3 F, OXYGEN SAT % 96, SAFE IN ENV? (Y/N) Y, NA INITIALS MS 1347, REVIEWED BY: LS/DS. ASSESSMENTS SPONDYLOSIS OF CERVICAL REGION WITHOUT MYELOPATHY OR RADICULOPATHY - M47.812 (PRIMARY) TREATMENT SPONDYLOSIS OF CERVICAL REGION WITHOUT MYELOPATHY OR RADICULOPATHY SMC FACET BLOCK (PAIN)[id number] PROCEDURES PN CERVICAL FACET BLOCK LOW BILATERAL CERVICAL PRE PROCEDURE DIAGNOSIS CERVICAL SPONDYLOSIS POST PROCEDURE DIAGNOSIS CERVICAL SPONDYLOSIS PROCEDURE BILATERAL C2-C3 AND C3-C4 CERVICAL THERAPEUTIC FACET BLOCK SURGEON DR. SARAH BETH CAO CARCASS WASHER NONE ANESTHESIA LOCAL PRE PROCEDURE NOTE THE PATIENT HAS HISTORY OF CHRONIC CERVICAL PAIN. I EVALUATED THE PATIENT AND REVIEWED THE CHART. I WENT OVER THE RISKS, ALTERNATIVES, AND BENEFITS ASSOCIATED WITH THIS PROCEDURE. THE PATIENT WOULD LIKE TO MOVE FORWARD WITH IV SEDATION DUE TO DISCOMFORT, PAIN, AND ANXIETY ASSOCIATED WITH THE PROCEDURE. THE PATIENT WOULD LIKE TO PROCEED AND GIVE CONSENT TO PERFORMED THE PROCEDURE. THE PATIENT DENIES UNEXPLAINABLE WEIGHT LOSS, FEVER, CHILLS, OR NEW CHANGES IN URINARY OR BOWEL CONTROL. DESCRIPTION OF PROCEDURE THE PATIENT WAS BROUGHT TO THE PROCEDURE ROOM AND PLACED IN THE PRONE POSITION. THE CERVICOTHORACIC AREA WAS CLEANED WITH CHLORAPREP SOLUTION AND DRAPED ASEPTICALLY. THE PROCEDURE WAS DONE UNDER STERILE CONDITIONS. I CHECKED LATERALITY AND THE LEVEL WHERE THE PROCEDURE WAS GOING TO BE PERFORMED WITH THE PATIENT AND THE SUPPORTING STAFF AT THE MOMENT OF THE TIME OUT IN THE PROCEDURE ROOM. UNDER FLUOROSCOPIC GUIDANCE, TARGET POINT WAS SELECTED AT THE RIGHT AND LEFT C2-C3 AND RIGHT AND LEFT C3-C4 CERVICAL FACET JOINTS. TARGET POINTS WERE SELECTED AFTER LATERAL ROTATION AND TILT OF THE MAGNIFIER OF THE C-ARM. LIDOCAINE 0.5% WAS USED TO NUMB THE SKIN AND THE SUBCUTANEOUS TISSUE BELOW IT. SPINAL NEEDLES, 22-GAUGE, WERE ADVANCED UNDER FLUOROSCOPIC GUIDANCE AND FOLLOWING PATIENT FEEDBACK UNTIL THE TARGETS WERE TOUCHED. THE POSITION OF THE NEEDLES WAS VERIFIED WITH AP AND LATERAL VIEWS. AFTER PROPER POSITION OF THE NEEDLES WAS ACHIEVED, ISOVUE M DYE 30, 0.1 ML WAS INJECTED SHOWING SPREAD OF THE DYE. THEN A SOLUTION OF 0.9 ML OF BUPIVACAINE 0.125% AND KENALOG 10 MG WAS INJECTED AT EACH SITE. THERE WAS NO EVIDENCE OF BLOOD, PARESTHESIA OR CEREBROSPINAL FLUID DURING THE PROCEDURE. THE PATIENT WAS SENT TO THE RECOVERY ROOM. THE PATIENT WAS MOVING THE EXTREMITIES AND DOING WELL. THERE WAS NO COMPLICATION DURING THE PROCEDURE. PATIENT RECEIVED VERSED 2 MG AND FENTANYL 100 MCG IV DIVIDED DOSES. FACE TO FACE TIME WAS 12 MINUTES. FLUOROSCOPY TIME WAS 26 SECONDS POST PROCEDURE NOTE THE PATIENT WILL BE SEEN IN A FOLLOW UP IN THE NEXT FEW WEEKS. INSTRUCTIONS WERE GIVEN, QUESTIONS WERE ANSWERED, AND THE PATIENT EXPRESSED UNDERSTANDING AND AGREES WITH THE PLAN. I, STEPHANIE NGUYỄN, DOCUMENTED THE ABOVE INFORMATION ACTING A SCRIBE FOR DR. CAO. I HAVE REVIEWED THE ABOVE DOCUMENT, WRITTEN BY STEPHANIE NGUYỄN SCRIBE AND I VERIFY THAT IT IS ACCURATE. PROCEDURE CODES 58094 INJ PARAVERT F JNT C/T 1 LEV, MODIFIERS: 50 15832 INJ PARAVERT F JNT C/T 2 LEV, MODIFIERS: 50 6045F RADXPS IN END [id number] PXD 94709 MOD SED SAME PHYS/QHP 5/>YRS DISPOSITION & COMMUNICATION FOLLOW UP 3 WEEKS ELECTRONICALLY SIGNED BY SARAH BETH CAO MD, MD ON 10/17/2019 AT 09:26 AM EST DISCLAIMER : THIS IS A VISIT SUMMARY EXTRACTED FROM THE [employer] CHART. IT IS NOT A COPY OF THE [employer] PROGRESS NOTE. MTDD
== END ==
LOC: M PAIN 13:30
PROVIDERS: ATTEND Anesthesiology
DX: M47.812 Spondylosis without myelopathy or radiculopathy, cervical region (principal)
CPT/HCPCS: 64490; 64491; 99152; J2250; J3010; J3301; Q9967

== ENCOUNTER → 2019-10-12 | Outpatient (CLI) | payer BC ==
[~2019-10-12] MED LIST changes: -BUPIVACAINE HCL 0.25% 30 ML VIAL As Ordered ONE; -ISOVUE-M 300 61% 15ML VIAL (Q9967) As Ordered ONE; -LIDOCAINE 1% SDV INJ 30 ML VIAL As Ordered ONE; -MIDAZOLAM INJ 2 MG/2 ML VIAL (J2250) As Ordered ONE; -TRIAMCINOLONE ACETONIDE SUSP 40 MG/ML VIAL (J3301) As Ordered ONE; -fentaNYL 100 MCG/2 ML INJECTION (J3010) As Ordered ONE
--- NOTE | 2019-11-01 03:45 | ECWPNPC ---
PATIENT NAME: RAVEN MUKHERJEE : 1960 GENDER: FEMALE VISIT DATE: 10/12/2019 DISCHARGE DATE: 10/12/19 1515 VISIT LOCKED DATE TIME: PHYSICIAN: MARYELLEN GARZA RESOURCE: MARYELLEN GARZA REASON FOR APPOINTMENT 1. POST CERVICAL BILATERAL HISTORY OF PRESENT ILLNESS HISTORY OF PRESENT ILLNESS: PAIN THE PATIENT DESCRIBES THE PAIN... FALL RISK SCREENING: SCREENING :NO FALLS REPORTED IN THE LAST YEAR CURRENT MEDICATIONS TAKING PROMETHAZINE HCL 25 MG TABLET 1 TABLET NEEDED ORALLY EVERY 6 HR TAKING MIRALAX - POWDER DIRECTED ORALLY DAILY TAKING ATORVASTATIN CALCIUM 20 MG TABLET 1 TABLET ORALLY ONCE A DAY TAKING OMEPRAZOLE 40 MG CAPSULE DELAYED RELEASE 1 CAPSULE 30 MINUTES BEFORE MORNING MEAL ORALLY ONCE A DAY TAKING VOLTAREN 1 % GEL DIRECTED TRANSDERMAL APPLY 4 GRAMM TO NECK Q 6 HRS PRN PAIN TAKING LIDOCAINE & ADHESIVE SHEET 5 % KIT DIRECTED EXTERNALLY TAKING FLOMAX 0.4 MG CAPSULE 1 CAPSULE ORALLY ONCE A DAY TAKING HYDROMORPHONE HCL 2 MG TABLET 1 TABLET NEEDED ORALLY Q8H PRN MDD3 #60 TAB SHOULD LAST 30 DAYS TAKING AMBIEN 10 MG TABLET 1 TABLET AT BEDTIME NEEDED ORALLY ONCE A DAY, MDD=1 TAKING ESCITALOPRAM OXALATE 10 MG TABLET 1 TABLET ORALLY ONCE A DAY NOT-TAKING BUSPIRONE HCL 5 MG TABLET 1 TABLET ORALLY BID MEDICATION LIST REVIEWED AND RECONCILED WITH THE PATIENT PAST MEDICAL HISTORY HEMORRHOIDS KIDNEY STONES HYPERLIPIDEMIA BACK PAIN DEPRESSION ANXIETY MUSCLE DISORDER GERD NECK PAIN MYALGIA GASTRIC ULCERS BILATERAK CERVICAL NEURALGIA UTI FOUND OUT THAT HER APPENDIX IS IN LEFT UPPER QUAD 03/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 DUNLAP ALLERGIES DEMEROL: "DEADENS THE AREA OF INJECTION" - ALLERGY CODEINE SULFATE: ITCHING - CONTRAINDICATION SURGICAL HISTORY PELVIC/ VAGINAL WALL PROLAPSE REPAIR X3 2010 HYSTERETOMY 2006 COLONOSOPY 2014, 2019 ANXIALLY LYMPH NODES RIGHT REMOVED..NEGATIVE 2003 KIDNEY STONES BY LASER 2016 EGD W/ BIOPSY 06/2019 FAMILY HISTORY FATHER: , CANCER. LUNG CA METASTASIZED TO BRAIN MOTHER: ALIVE, BREAST CANCER. GLAUCOMA SIBLINGS: ALIVE, HEART DISEASE, DIAGNOSED WITH UNSPECIFIED HEART DISEASE SON(S): ALIVE DAUGHTER(S): ALIVE 3 BROTHER(S) , 1 SISTER(S) . NO KNOWN UROLOGICAL FAMILY HISTORY. SOCIAL HISTORY GENERAL: TOBACCO USE ARE YOU A:FORMER SMOKER HOW LONG HAS IT BEEN SINCE YOU LAST SMOKED?5-10 YEARS DIET: REGULAR. LANGUAGE LANGUAGES SPOKEN:TONGAN DOMESTIC VIOLENCE DO YOU FEEL SAFE IN YOUR ENVIRONMENT?YES RECREATIONAL DRUG USE DRUG USE?NO LEARNING BARRIERS / SPECIAL NEEDS BARRIERS TO LEARNING?NO HEARING IMPAIRED?NO VISION IMPAIRED?YES COGNITIVELY IMPAIRED?NO :CORRECTIVE LENSES READINESS TO LEARN?YES LEARNING PREFERENCES?NO LEARNING CAPABILITIES PRESENT?YES EMOTIONAL BARRIERS?NO SPECIAL DEVICES?NO LOADING MACHINE ADJUSTER NEEDED?NO PAIN CLINIC PFS, CLERGY, PUBLIC HEALTH REFERRALS PFS REFERRAL NEEDED?NO CLERGY REFERRAL NEEDED?NO PUBLIC HEALTH REFERRAL NEEDED?NO WAS THE PROVIDER NOTIFIED OF ANY PERTINENT INFO?YES HAS THE PATIENT BEEN EDUCATED REGARDING HIS/HER PLAN OF CARE?YES HAS THE PATIENT BEEN EDUCATED REGARDING PAIN, THE RISK FOR PAIN, THE IMPORTANCE OF EFFECTIVE PAIN MANAGEMENT, AND THE PAIN ASSESSMENT PROCESS?YES LATEX QUESTIONNAIRE LATEX ALLERGY : HAVE YOU EVER DEVELOPED ANY TYPE OF REACTION AFTER HANDLING LATEX PRODUCTS SUCH RUBBER GLOVES, CONDOMS, DIAPHRAGMS, BALLOONS, SOCKS, OR UNDERWEAR?NO LATEX ALLERGY : HAVE YOU EVER DEVELOPED ANY TYPE OF REACTION DURING OR AFTER DENTAL APPOINTMENT, VAGINAL/RECTAL EXAMINATION, SURGICAL PROCEDURE, OR ANY OTHER EXPOSURE?NO LATEX RISK : HAVE YOU EVER HAD ANY DIFFICULTY BREATHING OR HIVES AFTER EATING OR HANDLING ANY FRUITS, OR VEGETABLES; SUCH KIWI, BANANAS, STONE FRUITS, OR CHESTNUTSNO LATEX RISK : DO YOU HAVE A PREVIOUS PERSONAL HISTORY OF MORE THAN NINE SURGERIES, SPINA BIFIDA, OR REPEATED CATHERIZATIONS? NO LATEX RISK : ARE YOU FREQUENTLY EXPOSED TO LATEX PRODUCTS IN YOUR OCCUPATION?NO DATE ASKED : 09/28/2019 CAFFEINE CAFFEINE USE?YES 3 CUPS DAILY ADVANCE DIRECTIVE ADVANCE DIRECTIVE DISCUSSED WITH PATIENT:YES HCP - FERNIE MUKHERJEE () [phone] MORMON MORMON NO PREFERENCE MARITAL STATUS: . ALCOHOL SCREENING DID YOU HAVE A DRINK CONTAINING ALCOHOL IN THE PAST YEAR?NO POINTS0 INTERPRETATIONNEGATIVE OCCUPATION: RETIRED. REVIEWED WITH PATIENT 05/12/18 1314 JSREVIEWED WITH PATIENT 06/01/18 1425 LASREVIEWED WITH PATIENT 07/28/18 1140 LASREVIEWED WITH PT 10/28/18 1455 BVREVIEWED WITH PATIENT 12/06/18 1317 JSREVIEWED WITH PATIENT 09/05/2019 LAS06/02/19 1311 REVIEWED WITH PT. HAIEVVAIBHAVWED WITH PT 03/02/19 0909 BVREVIEWED WITH PATIENT 08/02/19 1311 JSREVIEWED WITH PATIENT 09/28/2019 DSREVIEWED WITH PATIENT 10/12/2019 1417 JS. HOSPITALIZATION/MAJOR DIAGNOSTIC PROCEDURE SURGERIES KIDNEY STONES 2017 L KIDNY STONES 2MM RENAL CALCULUS 2MM AT THE URETEROVESICULAR JUNTION 08/19/2019- 08/21/2019 REVIEW OF SYSTEMS REVIEWED BY: PROVIDER: MARYELLEN MAS . CONSTITUTIONAL: ANY CHANGE IN YOUR MEDICAL CONDITION? NO . CHILLS NO . FEVER NO . INFECTION: DO YOU HAVE NEW INFECTIONS? NO . DO YOU HAVE HISTORY OF MRSA? NO . MUSCULOSKELETAL: ANY NEW PATTERNS OF PAIN OR NUMBNESS? NO . GASTROENTEROLOGY: ANY NEW CHANGE IN BOWEL CONTROL? NO . GENITOURINARY: ANY NEW CHANGE IN BLADDER CONTROL? NO . IS THERE A CHANCE YOU COULD BE ? NO . HEMATOLOGY/LYMPH: DO YOU TAKE ANY BLOOD THINNERS? (FOR EXAMPLE- COUMADIN, PLAVIX, AGGRENOX, PLATEL, PRADAXA, OR XARELTO) NO . WHEN WAS YOUR LAST DOSE? DATE: TIME: . NEUROLOGY: HAVE YOU FALLEN IN THE PAST 12 MONTHS? NO . ANY NEW EXTREMITY NUMBNESS OR WEAKNESS? NO . CARDIOLOGY: DO YOU HAVE A PACEMAKER OR DEFIBRILLATOR? NO . RESPIRATORY: HAVE YOU BEEN SICK IN THE PAST WEEK? NO . FEVER NO . FLU LIKE SYMPTOMS? NO . COUGH NO . INTEGUMENTARY: DO YOU HAVE ANY RASHES OR OPEN SORES? NO . ALLERGIC/IMMUNO: ARE YOU ALLERGIC TO IV DYE? NO . ANY NEW ALLERGIES? NO . PSYCHIATRIC: DO YOU HAVE THOUGHTS OF HURTING YOURSELF OR SOMEONE ELSE? NO . ARE YOU ABUSED, NEGLECTED, OR IN AN UNSAFE ENVIRONMENT? NO . ENDOCRINOLOGY: ARE YOU DIABETIC? NO . OTHER: DO YOU NEED ANY PRESCRIPTIONS? YES . IF YES, PLEASE LIST: ____HYDROMORPHONE, DICLOFENAC GEL, LIDOCAINE PATCHES . ANY NEW PROBLEMS WITH YOUR MEDICATIONS? NO . WHEN DID YOU LAST EAT? ____ . WHEN DID YOU LAST DRINK? ____ . WHAT DID YOU LAST DRINK? ____ . NAME OF PERSON DRIVING YOU HOME? ____ . DO YOU HAVE ANY OTHER QUESTIONS OR CONCERNS YES, WOULD LIKE TO DISCUSS A NEW MEDICATION - NUCYNTA . VITAL SIGNS WT 179.0 LBS, HT 58 IN, BMI 37.41 INDEX, BP 129/69 MM HG, HR 79 /MIN, RR 18 /MIN, TEMP 99.0 F, OXYGEN SAT % 96%, SAFE IN ENV? (Y/N) YES, NA INITIALS AW 1414, REVIEWED BY: MARJAN. EXAMINATION GENERAL EXAMINATION: GENERAL NO ACUTE DISTRESS, PLEASANT. LUNGS: LUNG SOUNDS ARE CLEAR . HEART: HEART RATE REGULAR . MUSCULOSKELETAL:*, MUSCLE STRENGTH TESTING 5/5 BILATERAL UPPER EXTREMITIES. . CERVICAL:+ FOR PAIN WITH PALPATION OF CERVICAL SPINE. + FOR PAIN WITH PALPATION OF CERVICAL PARASPINALS.SPECIFIC POINT TENDERNESS NOTED OVER C3/4-/C4/5 CERVICAL FACETS WITH EXTENSION AND FACET LOADING.. DIAGNOSTIC TESTS REVIEWED CERVICAL MRI -06/12/17. ASSESSMENTS SPONDYLOSIS OF CERVICAL REGION WITHOUT MYELOPATHY OR RADICULOPATHY - M47.812 (PRIMARY) TREATMENT SPONDYLOSIS OF CERVICAL REGION WITHOUT MYELOPATHY OR RADICULOPATHY REFILL VOLTAREN GEL, 1 %, DIRECTED, TRANSDERMAL, APPLY 4 GRAMM TO NECK Q 6 HRS PRN PAIN, 30 DAY(S), 2 TUBE, REFILLS 2 REFILL HYDROMORPHONE HCL TABLET, 2 MG, 1 TABLET NEEDED, ORALLY, Q8H PRN MDD3 #60 TAB SHOULD LAST 30 DAYS, 30 DAYS, 60, REFILLS 0 START NUCYNTA TABLET, 100 MG, 1 TABLET, ORALLY, BID MDD2, 30 DAYS, 60, REFILLS 0 NOTES: ISTOP REGISTRY REVIEWED AND DEMONSTRATES COMPLLIANCE. (REF # ) BRINGS IN MEDICATIONS WHICH IS APPROPRIATE FOR WHAT WAS DISPENSED. RECENT URINE TOXICOLOGY REVIEWED. NO UNAUTHORIZED MEDICATIONS. NO ILLICIT SUBSTANCES AND PRESCRIBED MEDICATIONS WERE PRESENT. , RISKS OF NARCOTIC/OPIOD MEDICATIONS INCLUDES BUT IS NOT LIMITED TO RISK OF DEPENDANCE/DEVELOPMENT OF ADDICTION, MOOD DISTURBANCE AND DEPRESSION, OSTEOPOROSIS, HORMONAL AND LABIDAL CHANGES, RESPIRATORY DEPRESSION AND . PATIENT IS ADVISED NOT TO DRIVE OR DRINK ALCOHOL WHILE ON THESE MEDICATIONS. PROCEDURE CODES FA211 ESTABILISHED PATIENT [facility] FACILITY CHARGE DISPOSITION & COMMUNICATION FOLLOW UP 4-6WK (REASON: MED MGMNT) ELECTRONICALLY SIGNED BY TG AGARWAL ON 10/31/2019 AT 09:03 AM EDT DISCLAIMER : THIS IS A VISIT SUMMARY EXTRACTED FROM THE [employer] CHART. IT IS NOT A COPY OF THE [employer] PROGRESS NOTE. CAMILA
== END ==
LOC: M PAIN 13:45
PROVIDERS: ATTEND Nurse Practitioner Family
DX: M47.812 Spondylosis without myelopathy or radiculopathy, cervical region (principal); Z79.891 Long term (current) use of opiate analgesic; Z79.899 Other long term (current) drug therapy; Z87.891 Personal history of nicotine dependence; Z88.5 Allergy status to narcotic agent

== ENCOUNTER → 2019-10-31 | Outpatient (CLI) | payer BC ==
--- NOTE | 2019-11-15 01:13 | ECWPNPC ---
PATIENT NAME: RAVEN MUKHERJEE : 1960 GENDER: FEMALE VISIT DATE: 10/31/2019 DISCHARGE DATE: 10/31/19 1444 VISIT LOCKED DATE TIME: PHYSICIAN: MARYELLEN GARZA RESOURCE: MARYELLEN GARZA REASON FOR APPOINTMENT 1. BACK PAIN HISTORY OF PRESENT ILLNESS HISTORY OF PRESENT ILLNESS: HERE FOR FOLLOW-UP OF CHRONIC LOW BACK PAIN. WAS DOING WELL UP UNTIL ABOUT ONE WEEK AGO. 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 SHE HAS A HISTORY OF HAVING LOW BACK PAIN EXACERBATION SIMILAR TO THIS AND SEVERE OVER THE YEARS. RATING PAIN LEVEL A 7-10 OVER 10. STATES SHE'S BEEN BASICALLY BEDRIDDEN. SHE STOPPED NUCYNTA AND IS STRICTLY USING DILAUDID 2 MG TABLET 1-2 TABLETS BASED ON SEVERITY OF PAIN. CURRENTLY USING ONE TABLET 2 MG STRENGTH TWICE A DAY AND WOULD LIKE TO GO BACK TO NUCYNTA WHEN THIS FLAREUP CALMS DOWN. REVIEWED MRI AND DISCUSSED TREATMENT OPTIONS. PAIN THE PATIENT DESCRIBES THE PAIN... FALL RISK SCREENING: SCREENING :NO FALLS REPORTED IN THE LAST YEAR CURRENT MEDICATIONS TAKING PROMETHAZINE HCL 25 MG TABLET 1 TABLET NEEDED ORALLY EVERY 6 HR TAKING MIRALAX - POWDER DIRECTED ORALLY DAILY TAKING ATORVASTATIN CALCIUM 20 MG TABLET 1 TABLET ORALLY ONCE A DAY TAKING OMEPRAZOLE 40 MG CAPSULE DELAYED RELEASE 1 CAPSULE 30 MINUTES BEFORE MORNING MEAL ORALLY ONCE A DAY TAKING LIDOCAINE & ADHESIVE SHEET 5 % KIT DIRECTED EXTERNALLY TAKING FLOMAX 0.4 MG CAPSULE 1 CAPSULE ORALLY ONCE A DAY TAKING ESCITALOPRAM OXALATE 10 MG TABLET 1 TABLET ORALLY ONCE A DAY TAKING VOLTAREN 1 % GEL DIRECTED TRANSDERMAL APPLY 4 GRAMM TO NECK Q 6 HRS PRN PAIN TAKING HYDROMORPHONE HCL 2 MG TABLET 1 TABLET NEEDED ORALLY Q8H PRN MDD3 #60 TAB SHOULD LAST 30 DAYS TAKING NUCYNTA 100 MG TABLET 1 TABLET ORALLY BID MDD2 TAKING LIDODERM 5 % PATCH 1 PATCH REMOVE AFTER 12 HOURS EXTERNALLY ONCE A DAY TAKING AMBIEN 10 MG TABLET 1 TABLET AT BEDTIME NEEDED ORALLY ONCE A DAY, MDD=1 NOT-TAKING BUSPIRONE HCL 5 MG TABLET 1 TABLET ORALLY BID MEDICATION LIST REVIEWED AND RECONCILED WITH THE PATIENT PAST MEDICAL HISTORY HEMORRHOIDS KIDNEY STONES HYPERLIPIDEMIA BACK PAIN DEPRESSION ANXIETY MUSCLE DISORDER GERD NECK PAIN MYALGIA GASTRIC ULCERS BILATERAK CERVICAL NEURALGIA UTI FOUND OUT THAT HER APPENDIX IS IN LEFT UPPER QUAD 03/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 DUNLAP ALLERGIES DEMEROL: "DEADENS THE AREA OF INJECTION" - ALLERGY CODEINE SULFATE: ITCHING - CONTRAINDICATION SURGICAL HISTORY PELVIC/ VAGINAL WALL PROLAPSE REPAIR X3 2010 HYSTERETOMY 2006 COLONOSOPY 2014, 2018 ANXIALLY LYMPH NODES RIGHT REMOVED..NEGATIVE 2003 KIDNEY STONES BY LASER 2016 EGD W/ BIOPSY 06/2019 FAMILY HISTORY FATHER: , CANCER. LUNG CA METASTASIZED TO BRAIN MOTHER: ALIVE, BREAST CANCER. GLAUCOMA SIBLINGS: ALIVE, HEART DISEASE, DIAGNOSED WITH UNSPECIFIED HEART DISEASE SON(S): ALIVE DAUGHTER(S): ALIVE 3 BROTHER(S) , 1 SISTER(S) . NO KNOWN UROLOGICAL FAMILY HISTORY. SOCIAL HISTORY GENERAL: TOBACCO USE ARE YOU A:FORMER SMOKER HOW LONG HAS IT BEEN SINCE YOU LAST SMOKED?5-10 YEARS DIET: REGULAR. 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 NEEDED?NO PAIN CLINIC PFS, CLERGY, PUBLIC HEALTH REFERRALS PFS REFERRAL NEEDED?NO CLERGY REFERRAL NEEDED?NO PUBLIC HEALTH REFERRAL NEEDED?NO WAS THE PROVIDER NOTIFIED OF ANY PERTINENT INFO?YES HAS THE PATIENT BEEN EDUCATED REGARDING HIS/HER PLAN OF CARE?YES HAS THE PATIENT BEEN EDUCATED REGARDING PAIN, THE RISK FOR PAIN, THE IMPORTANCE OF EFFECTIVE PAIN MANAGEMENT, AND THE PAIN ASSESSMENT PROCESS?YES LATEX QUESTIONNAIRE LATEX ALLERGY : HAVE YOU EVER DEVELOPED ANY TYPE OF REACTION AFTER HANDLING LATEX PRODUCTS SUCH RUBBER GLOVES, CONDOMS, DIAPHRAGMS, BALLOONS, SOCKS, OR UNDERWEAR?NO LATEX ALLERGY : HAVE YOU EVER DEVELOPED ANY TYPE OF REACTION DURING OR AFTER DENTAL APPOINTMENT, VAGINAL/RECTAL EXAMINATION, SURGICAL PROCEDURE, OR ANY OTHER EXPOSURE?NO LATEX RISK : HAVE YOU EVER HAD ANY DIFFICULTY BREATHING OR HIVES AFTER EATING OR HANDLING ANY FRUITS, OR VEGETABLES; SUCH KIWI, BANANAS, STONE FRUITS, OR CHESTNUTSNO LATEX RISK : DO YOU HAVE A PREVIOUS PERSONAL HISTORY OF MORE THAN NINE SURGERIES, SPINA BIFIDA, OR REPEATED CATHERIZATIONS? NO LATEX RISK : ARE YOU FREQUENTLY EXPOSED TO LATEX PRODUCTS IN YOUR OCCUPATION?NO DATE ASKED : 09/28/2019 CAFFEINE CAFFEINE USE?YES 3 CUPS DAILY ADVANCE DIRECTIVE ADVANCE DIRECTIVE DISCUSSED WITH PATIENT:YES HCP - FERNIE MUKHERJEE () [phone] CHRISTIAN CHRISTIAN NO PREFERENCE MARITAL STATUS: . ALCOHOL SCREENING DID YOU HAVE A DRINK CONTAINING ALCOHOL IN THE PAST YEAR?NO POINTS0 INTERPRETATIONNEGATIVE OCCUPATION: RETIRED. HOSPITALIZATION/MAJOR DIAGNOSTIC PROCEDURE SURGERIES KIDNEY STONES 2016 L KIDNY STONES 2MM RENAL CALCULUS 2MM AT THE URETEROVESICULAR JUNTION 08/19/2019- 08/21/2019 REVIEW OF SYSTEMS REVIEWED BY: PROVIDER: MARYELLEN MAS . CONSTITUTIONAL: ANY CHANGE IN YOUR MEDICAL CONDITION? NO . CHILLS NO . FEVER NO . INFECTION: DO YOU HAVE NEW INFECTIONS? NO . DO YOU HAVE HISTORY OF MRSA? NO . MUSCULOSKELETAL: ANY NEW PATTERNS OF PAIN OR NUMBNESS? YES, STATES SCIATIC PAIN DOWN BOTH LEGS, TODAY THE LEFT SIDE IS WORSE. WORSENING SINCE October WHEN SHE HURT HER BACK PICKING UP HER PORTABLE DENISE MACHINE - FEELS LIKE SHE THREW OUT HER BACK . GASTROENTEROLOGY: ANY NEW CHANGE IN BOWEL CONTROL? NO . GENITOURINARY: ANY NEW CHANGE IN BLADDER CONTROL? NO . IS THERE A CHANCE YOU COULD BE ? NO . HEMATOLOGY/LYMPH: DO YOU TAKE ANY BLOOD THINNERS? (FOR EXAMPLE- COUMADIN, PLAVIX, AGGRENOX, PLATEL, PRADAXA, OR XARELTO) NO . WHEN WAS YOUR LAST DOSE? DATE: TIME: . NEUROLOGY: HAVE YOU FALLEN IN THE PAST 12 MONTHS? NO . ANY NEW EXTREMITY NUMBNESS OR WEAKNESS? YES, NUMBNESS AND WEAKNESS TO BILATERAL LEGS . CARDIOLOGY: DO YOU HAVE A PACEMAKER OR DEFIBRILLATOR? NO . RESPIRATORY: HAVE YOU BEEN SICK IN THE PAST WEEK? NO . FEVER NO . FLU LIKE SYMPTOMS? NO . COUGH NO . INTEGUMENTARY: DO YOU HAVE ANY RASHES OR OPEN SORES? NO . ALLERGIC/IMMUNO: ARE YOU ALLERGIC TO IV DYE? NO . ANY NEW ALLERGIES? NO . PSYCHIATRIC: DO YOU HAVE THOUGHTS OF HURTING YOURSELF OR SOMEONE ELSE? NO . ARE YOU ABUSED, NEGLECTED, OR IN AN UNSAFE ENVIRONMENT? NO . ENDOCRINOLOGY: ARE YOU DIABETIC? NO . OTHER: DO YOU NEED ANY PRESCRIPTIONS? NO . IF YES, PLEASE LIST: ____ . ANY NEW PROBLEMS WITH YOUR MEDICATIONS? NO . WHEN DID YOU LAST EAT? ____ . WHEN DID YOU LAST DRINK? ____ . WHAT DID YOU LAST DRINK? ____ . NAME OF PERSON DRIVING YOU HOME? ____ . DO YOU HAVE ANY OTHER QUESTIONS OR CONCERNS NO . VITAL SIGNS WT 176.8 LBS, HT 58 IN, BMI 36.95 INDEX, BP 128/68 MM HG, HR 86 /MIN, RR 18 /MIN, TEMP 97.6 F, OXYGEN SAT % 94%, SAFE IN ENV? (Y/N) YES, NA INITIALS AW 1356, REVIEWED BY: MARJAN. EXAMINATION GENERAL EXAMINATION: GENERAL AWAKE,ALERT ,PLEASANT . PSYCH AFFECT NORMAL . LUNGS: LUNG CARLOS ARE CLEAR TO AUSCULTATION BILATERALLY. GOOD MOVEMENT OF AIR . HEART: S1, S2 IN A REGULAR RATE AND RHYTHM. NO SIGNIFICANT MURMURS, RUBS OR GALLOPS NOTED . MUSCULOSKELETAL: SLIGHT WEAKNESS OVER LEFT LEG NOTED. LUMBAR: PALPATION: + FOR PAIN OVER L/S SPINE. + FOR PAIN OVER L/S PARASPINALS SLE: POSITIVE OVER LEFT LEG AT 45. DIAGNOSTIC TESTS REVIEWED MRI L/S SPINE-03/03/19. 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 MOST RECENTLY, SHE'S BEEN ABLE TO REDUCE THIS TO 2 MG TABLET TWICE A DAY. GOAL WILL BE TO RETURN TO USE OF NUCYNTA 100 MG MORNING AND NIGHT AND USES DIET LAUDED SPARINGLY FOR SEVERE PAIN EPISODES ONLY.ISTOP REGISTRY REVIEWED AND DEMONSTRATES COMPLLIANCE. (REF # ) BRINGS IN MEDICATIONS WHICH IS APPROPRIATE FOR WHAT WAS DISPENSED. RECENT URINE TOXICOLOGY REVIEWED. NO UNAUTHORIZED MEDICATIONS. NO ILLICIT SUBSTANCES AND PRESCRIBED MEDICATIONS WERE PRESENT. , RISKS OF NARCOTIC/OPIOD MEDICATIONS INCLUDES BUT IS NOT LIMITED TO RISK OF DEPENDANCE/DEVELOPMENT OF ADDICTION, MOOD DISTURBANCE AND DEPRESSION, OSTEOPOROSIS, HORMONAL AND LABIDAL CHANGES, RESPIRATORY DEPRESSION AND . PATIENT IS ADVISED NOT TO DRIVE OR DRINK ALCOHOL WHILE ON THESE MEDICATIONS, . PREVENTIVE MEDICINE PAIN CLINIC TEACHING: PROCEDURE TEACHING REVIEWED INFORMATION ON LUMBAR EPIDURAL STEROID INJECTION PROCEDURE WITH PATIENT. ALSO REVIEWED PRE-PROCEDURE INSTRUCTIONS. PATIENT VERBALIZED AN UNDERSTANDING. SIERRAKEVINBRANDEN L 10/31/2019 2:56:58 PM > . PROCEDURE CODES FA211 ESTABILISHED PATIENT [facility] CHARGE DISPOSITION & COMMUNICATION FOLLOW UP NEEDS IV SEDATION (REASON: L4/5 LESI W IV SEDATION) ELECTRONICALLY SIGNED BY TG AGARWAL ON 11/14/2019 AT 02:39 PM EDT DISCLAIMER : THIS IS A VISIT SUMMARY EXTRACTED FROM THE [employer] CHART. IT IS NOT A COPY OF THE [employer] PROGRESS NOTE. CAMILA
== END ==
LOC: M PAIN 13:45
PROVIDERS: ATTEND Nurse Practitioner Family
DX: M51.16 Intervertebral disc disorders with radiculopathy, lumbar region (principal); Z79.891 Long term (current) use of opiate analgesic; Z79.899 Other long term (current) drug therapy; Z87.891 Personal history of nicotine dependence; Z88.5 Allergy status to narcotic agent

== ENCOUNTER → 2019-11-14 | Outpatient (REF) | payer BC | LOC: M SFHCPLAZ 16:36 | PROVIDERS: ATTEND Student in an Organized Health Care Education/Training Program | DX: J02.9 Acute pharyngitis, unspecified (principal) ==

== ENCOUNTER → 2019-12-08 | Outpatient (CLI) | payer BC ==
[~2019-12-08] MED LIST changes: +CYCL-707 PO; -CYCL10TA PO
--- NOTE | 2019-12-15 02:49 | ECWPNPC ---
PATIENT NAME: RAVEN MUKHERJEE : 1960 GENDER: FEMALE VISIT DATE: 12/08/2019 DISCHARGE DATE: 12/08/19 1617 VISIT LOCKED DATE TIME: PHYSICIAN: SARAH BETH CAO MD RESOURCE: SARAH BETH CAO MD REASON FOR APPOINTMENT 1. ISAAC [email or web address] HISTORY OF PRESENT ILLNESS HISTORY OF PRESENT ILLNESS: PAIN THE PATIENT DESCRIBES THE PAIN... PERMISSION FROM PATIENT WAS RECEIVED TO DO TELEMEDICINE VISIT USING ZOOM APPLICATION. 59 YEAR OLD FEMALE PATIENT WITH A HISTORY OF CHRONIC LOW BACK AND LEG PAIN. THE PATIENT DESCRIBES HER PAIN BURNING, INTERMITTENT, AND SHOOTING WITH A PAIN SCORE OF 6-9/10 DEPENDING ON PHYSICAL ACTIVITY. THE PATIENT STATES HER PAIN IS MAINLY ON THE LEFT SIDE OF HER LOWER BACK AND IT RADIATES DOWN THE SIDE TO THE FRONT OF HER LEG TO HER KNEE. THE PATIENT SAYS SHE HAS BEEN SUFFERING FROM HER PAIN FOR OVER 20 YEARS AND IT IS AFFECTING HER ABILITY TO PERFORM HER DAILY ACTIVITIES SUCH WALKING, LIFTING HER LEGS AND FEET THAT OFTEN CAUSES HER TO FALL, AND CLEANING HER HOUSE. THE PATIENT IS USING SEVERAL MEDICATIONS SUCH LIDOCAINE, VOLTAREN, AND NUCYNTA, WHICH SHE SAYS HELPS AID IN SOME PAIN RELIEF. THE PATIENT DENIES UNEXPLAINED WEIGHT LOSS, FEVER, CHILLS, NEW CHANGES IN HER URINARY OR BOWEL CONTROL. FALL RISK SCREENING: SCREENING :NO FALLS REPORTED IN THE LAST YEAR CURRENT MEDICATIONS TAKING LIDOCAINE & ADHESIVE SHEET 5 % KIT DIRECTED EXTERNALLY TAKING MIRALAX - POWDER DIRECTED ORALLY DAILY TAKING ATORVASTATIN CALCIUM 20 MG TABLET 1 TABLET ORALLY ONCE A DAY TAKING ESCITALOPRAM OXALATE 10 MG TABLET 1 TABLET ORALLY ONCE A DAY TAKING VOLTAREN 1 % GEL DIRECTED TRANSDERMAL APPLY 4 GRAMM TO NECK Q 6 HRS PRN PAIN TAKING PROMETHAZINE HCL 25 MG TABLET 1 TABLET NEEDED ORALLY EVERY 6 HR TAKING OMEPRAZOLE 40 MG CAPSULE DELAYED RELEASE 1 CAPSULE 30 MINUTES BEFORE MORNING MEAL ORALLY ONCE A DAY TAKING NUCYNTA 100 MG TABLET 1 TABLET ORALLY BID MDD2 TAKING AMBIEN 10 MG TABLET 1 TABLET AT BEDTIME NEEDED ORALLY ONCE A DAY, MDD=1 NOT-TAKING BUSPIRONE HCL 5 MG TABLET 1 TABLET ORALLY BID NOT-TAKING FLOMAX 0.4 MG CAPSULE 1 CAPSULE ORALLY ONCE A DAY NOT-TAKING LIDODERM 5 % PATCH 1 PATCH REMOVE AFTER 12 HOURS EXTERNALLY ONCE A DAY NOT-TAKING HYDROMORPHONE HCL 2 MG TABLET 1 TABLET NEEDED ORALLY Q8H PRN MDD3 #60 TAB SHOULD LAST 30 DAYS NOT-TAKING AMOXICILLIN-POT CLAVULANATE 875-125 MG TABLET 1 TABLET ORALLY EVERY 12 HRS NOT-TAKING CEPACOL 15-2.3 MG LOZENGE DIRECTED MOUTH/THROAT EVERY 6 HOURS NEEDED FOR SORE THROAT NOT-TAKING TESSALON PERLES 100 MG CAPSULE 1 CAPSULE NEEDED ORALLY THREE TIMES A DAY MEDICATION LIST REVIEWED AND RECONCILED WITH THE PATIENT PAST MEDICAL HISTORY HO NEPHROLITHIASIS HYPERLIPIDEMIA CHRONIC MDD/TERE/COMORBID INSOMNIA GERD/HO PUD PHI 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 DUNLAP HYPERLIPIDEMIA ALLERGIES DEMEROL: "DEADENS THE AREA OF INJECTION" - ALLERGY CODEINE SULFATE: ITCHING - CONTRAINDICATION SURGICAL HISTORY PELVIC/ VAGINAL WALL PROLAPSE REPAIR X3 2010 HYSTERETOMY 2006 COLONOSOPY 2014, 2018 ANXIALLY LYMPH NODES RIGHT REMOVED..NEGATIVE 2003 KIDNEY STONES BY LASER 2016 EGD W/ BIOPSY 06/2019 FAMILY HISTORY FATHER: , CANCER. LUNG CA METASTASIZED TO BRAIN MOTHER: ALIVE, BREAST CANCER. GLAUCOMA SIBLINGS: ALIVE, HEART DISEASE, DIAGNOSED WITH UNSPECIFIED HEART DISEASE SON(S): ALIVE DAUGHTER(S): ALIVE 3 BROTHER(S) , 1 SISTER(S) . NO KNOWN UROLOGICAL FAMILY HISTORY. SOCIAL HISTORY GENERAL: TOBACCO USE ARE YOU A:FORMER SMOKER HOW LONG HAS IT BEEN SINCE YOU LAST SMOKED?5-10 YEARS LATEX QUESTIONNAIRE LATEX ALLERGY : HAVE YOU EVER DEVELOPED ANY TYPE OF REACTION AFTER HANDLING LATEX PRODUCTS SUCH RUBBER GLOVES, CONDOMS, DIAPHRAGMS, BALLOONS, SOCKS, OR UNDERWEAR?NO LATEX ALLERGY : HAVE YOU EVER DEVELOPED ANY TYPE OF REACTION DURING OR AFTER DENTAL APPOINTMENT, VAGINAL/RECTAL EXAMINATION, SURGICAL PROCEDURE, OR ANY OTHER EXPOSURE?NO DATE ASKED : 09/28/2019 LATEX RISK : HAVE YOU EVER HAD ANY DIFFICULTY BREATHING OR HIVES AFTER EATING OR HANDLING ANY FRUITS, OR VEGETABLES; SUCH KIWI, BANANAS, STONE FRUITS, OR CHESTNUTSNO LATEX RISK : DO YOU HAVE A PREVIOUS PERSONAL HISTORY OF MORE THAN NINE SURGERIES, SPINA BIFIDA, OR REPEATED CATHERIZATIONS? NO LATEX RISK : ARE YOU FREQUENTLY EXPOSED TO LATEX PRODUCTS IN YOUR OCCUPATION?NO ALCOHOL SCREENING DID YOU HAVE A DRINK CONTAINING ALCOHOL IN THE PAST YEAR?NO POINTS0 INTERPRETATIONNEGATIVE RECREATIONAL DRUG USE DRUG USE?NO CAFFEINE CAFFEINE USE?YES 3 CUPS DAILY BAHAI BAHAI NO PREFERENCE LANGUAGE LANGUAGES SPOKEN:TOGOLESE LEARNING BARRIERS / SPECIAL NEEDS BARRIERS TO LEARNING?NO HEARING IMPAIRED?NO VISION IMPAIRED?YES COGNITIVELY IMPAIRED?NO :CORRECTIVE LENSES READINESS TO LEARN?YES LEARNING PREFERENCES?NO LEARNING CAPABILITIES PRESENT?YES EMOTIONAL BARRIERS?NO SPECIAL DEVICES?NO WAITER/WAITRESS FORMAL NEEDED?NO DOMESTIC VIOLENCE DO YOU FEEL SAFE IN YOUR ENVIRONMENT?YES OCCUPATION: RETIRED. DIET: REGULAR. MARITAL STATUS: . NEW PATIENT PAIN DIARY PATIENT DESCRIBES PAIN :BURNING, IT COMES AND GOES, SHOOTING 12/08/19 FROM 0-10, WHAT LEVEL IS YOUR PAIN TODAY?7 PRECIPITATING FACTORS WALKING ALLEVIATING FACTORS MEDS AND LAYING DOWN PAIN CLINIC PFS, CLERGY, PUBLIC HEALTH REFERRALS PFS REFERRAL NEEDED?NO CLERGY REFERRAL NEEDED?NO PUBLIC HEALTH REFERRAL NEEDED?NO WAS THE PROVIDER NOTIFIED OF ANY PERTINENT INFO?YES HAS THE PATIENT BEEN EDUCATED REGARDING HIS/HER PLAN OF CARE?YES HAS THE PATIENT BEEN EDUCATED REGARDING PAIN, THE RISK FOR PAIN, THE IMPORTANCE OF EFFECTIVE PAIN MANAGEMENT, AND THE PAIN ASSESSMENT PROCESS?YES ADVANCE DIRECTIVE ADVANCE DIRECTIVE DISCUSSED WITH PATIENT:YES HCP - FERNIE Kris LONNY () [phone] HOSPITALIZATION/MAJOR DIAGNOSTIC PROCEDURE SURGERIES KIDNEY STONES 2016 L KIDNY STONES 2MM RENAL CALCULUS 2MM AT THE URETEROVESICULAR JUNTION 08/19/2019- 08/21/2019 REVIEW OF SYSTEMS REVIEWED BY: PROVIDER: SARAH BETH CAO MD . CONSTITUTIONAL: ANY CHANGE IN YOUR MEDICAL CONDITION? NO . CHILLS NO . FEVER NO . INFECTION: DO YOU HAVE NEW INFECTIONS? NO . DO YOU HAVE HISTORY OF MRSA? NO . MUSCULOSKELETAL: ANY NEW PATTERNS OF PAIN OR NUMBNESS? NO . GASTROENTEROLOGY: ANY NEW CHANGE IN BOWEL CONTROL? NO . GENITOURINARY: ANY NEW CHANGE IN BLADDER CONTROL? NO . IS THERE A CHANCE YOU COULD BE ? NO . HEMATOLOGY/LYMPH: DO YOU TAKE ANY BLOOD THINNERS? (FOR EXAMPLE- COUMADIN, PLAVIX, AGGRENOX, PLATEL, PRADAXA, OR XARELTO) NO . WHEN WAS YOUR LAST DOSE? DATE: TIME: . NEUROLOGY: HAVE YOU FALLEN IN THE PAST 12 MONTHS? YES, TRIPPED OVER FEET LAST WEEK FROM WEAKNESS INJURING LEFT KNEE AND LEFT SHOULDER, PT DENIED SEEKING TX, PT TX'D HERSELF WITH JACCUZZI TUB . ANY NEW EXTREMITY NUMBNESS OR WEAKNESS? NO . CARDIOLOGY: DO YOU HAVE A PACEMAKER OR DEFIBRILLATOR? NO . RESPIRATORY: HAVE YOU BEEN SICK IN THE PAST WEEK? NO . FEVER NO . FLU LIKE SYMPTOMS? NO . COUGH NO . INTEGUMENTARY: DO YOU HAVE ANY RASHES OR OPEN SORES? NO . ALLERGIC/IMMUNO: ARE YOU ALLERGIC TO IV DYE? NO . ANY NEW ALLERGIES? NO . PSYCHIATRIC: DO YOU HAVE THOUGHTS OF HURTING YOURSELF OR SOMEONE ELSE? NO . ARE YOU ABUSED, NEGLECTED, OR IN AN UNSAFE ENVIRONMENT? NO . ENDOCRINOLOGY: ARE YOU DIABETIC? NO . OTHER: DO YOU NEED ANY PRESCRIPTIONS? NO . IF YES, PLEASE LIST: ____ . ANY NEW PROBLEMS WITH YOUR MEDICATIONS? NO . WHEN DID YOU LAST EAT? ____ . WHEN DID YOU LAST DRINK? ____ . WHAT DID YOU LAST DRINK? ____ . NAME OF PERSON DRIVING YOU HOME? ____ . DO YOU HAVE ANY OTHER QUESTIONS OR CONCERNS NO . EXAMINATION GENERAL EXAMINATION: TELEMEDICINE USING ZOOM APPLICATION. PATIENT IS ALERT O X 3 AND COOPERATIVE. THE PATIENT SHOWED WHERE THE PAIN STARTS IN HER LOW BACK THAT RADIATES DOWN HER HIP AND DOWN THE SIDE TO THE FRONT OF HER LEFT LEG. MRI OF THE LUMBAR SPINE DONE ON 03/13/2019 SHOWS LEFT BULGING DISC AND NARROWING AT L4-L5. ASSESSMENTS INTERVERTEBRAL DISC DISORDERS WITH RADICULOPATHY, LUMBAR REGION - M51.16 (PRIMARY) TREATMENT INTERVERTEBRAL DISC DISORDERS WITH RADICULOPATHY, LUMBAR REGION CLINICAL NOTES: WE DISCUSSED SEVERAL ISSUES WITH MS. MUKHERJEE' PAIN MANAGEMENT CASE. I DISCUSSED WITH THE PATIENT THAT SHE IS A CANDIDATE FOR AN L4-L5 LUMBAR EPIDURAL STEROID INJECTION. IN VIEW OF THE CURRENT COVID-19 SITUATION, WE DISCUSSED THE CONCERNS OF STEROIDS POTENTIALLY CAUSING IMMUNOSUPPRESSION SHORT-TERM AND FURTHER COMPLICATIONS IF THEY COME IN CONTACT WITH COVID-19. THE PATIENT SAYS SHE IS INCLINED TO AVOID STEROIDS IF SHE IS ABLE TO CONTROL HER PAIN WITH MEDICATION MANAGEMENT. THE PATIENT SAYS SHE IS MANAGING HER PAIN WITH THEIR CURRENT MEDICATION REGIMEN, THEREFORE WE AGREED ON HOLDING INJECTION THERAPY FOR NOW. THE PATIENT WILL FOLLOW UP WITH SERVER MARYELLEN GARZA IN SEVERAL WEEKS TO SEE HOW HER PAIN IS DOING. I HAD A LONG CONVERSATION WITH THE PATIENT FOR MORE THAN 15 MINUTES AND MORE THAN HALF OF THE TIME WAS SPENT DISCUSSING THE PATIENTS CARE, MEDICATION MANAGEMENT, AND ADDRESSING ANY CONCERNS. THE TOTAL TIME FOR TODAY'S VISIT WAS 24 MINUTES. INSTRUCTIONS WERE GIVEN, QUESTIONS WERE ANSWERED, PATIENT REPORTS UNDERSTANDING AND AGREES WITH THE PLAN. I, STEPHANIE NGUYỄN, DOCUMENTED THE ABOVE INFORMATION ACTING A SCRIBE FOR DR. CAO. I HAVE REVIEWED THE ABOVE DOCUMENT, WRITTEN BY STEPHANIE NGUYỄN SCRIBE AND I VERIFY THAT IT IS ACCURATE. . DISPOSITION & COMMUNICATION FOLLOW UP 3 WEEKS (REASON: F/UP WITH MARYELLEN (SCHEDULED)) ELECTRONICALLY SIGNED BY SARAH BETH CAO MD, MD ON 12/14/2019 AT 12:14 PM EDT DISCLAIMER : THIS IS A VISIT SUMMARY EXTRACTED FROM THE [employer] CHART. IT IS NOT A COPY OF THE [employer] PROGRESS NOTE. CAMILA
== END ==
LOC: M PAIN 13:45
PROVIDERS: ATTEND Anesthesiology
DX: M51.16 Intervertebral disc disorders with radiculopathy, lumbar region (principal); Z79.899 Other long term (current) drug therapy; Z87.891 Personal history of nicotine dependence; Z88.5 Allergy status to narcotic agent

== ENCOUNTER → 2019-12-26 | Outpatient (CLI) | payer BC ==
--- NOTE | 2019-12-28 04:25 | ECWPNPC ---
PATIENT NAME: RAVEN MUKHERJEE : 1960 GENDER: FEMALE VISIT DATE: 12/26/2019 DISCHARGE DATE: 12/26/19954 VISIT LOCKED DATE TIME: PHYSICIAN: MARYELLEN GARZA RESOURCE: MARYELLEN GARZA REASON FOR APPOINTMENT 1. [email or web address] POST PROC, PAT COMPLETED HISTORY OF PRESENT ILLNESS HISTORY OF PRESENT ILLNESS: PATIENT IS AGREEABLE TO TELEPHONE VISIT TODAY. REPORTING A SIGNIFICANT SPIKE IN HER NECK PAIN AND LOW BACK PAIN WITH NECK BEING THE WORST AREA OF PAIN OVER THE PAST FEW MONTHS. FEELS NUCYNTA 100 MG IS INEFFECTIVE. RATING PAIN LEVEL AN 8/10 VAS. DISCUSSED MEDICATION AND TREATMENT OPTIONS. PAIN THE PATIENT DESCRIBES THE PAIN... FALL RISK SCREENING: SCREENING :NO FALLS REPORTED IN THE LAST YEAR CURRENT MEDICATIONS TAKING LIDOCAINE & ADHESIVE SHEET 5 % KIT DIRECTED EXTERNALLY TAKING MIRALAX - POWDER DIRECTED ORALLY DAILY TAKING ATORVASTATIN CALCIUM 20 MG TABLET 1 TABLET ORALLY ONCE A DAY TAKING ESCITALOPRAM OXALATE 10 MG TABLET 1 TABLET ORALLY ONCE A DAY TAKING VOLTAREN 1 % GEL DIRECTED TRANSDERMAL APPLY 4 GRAMM TO NECK Q 6 HRS PRN PAIN TAKING PROMETHAZINE HCL 25 MG TABLET 1 TABLET NEEDED ORALLY EVERY 6 HR TAKING OMEPRAZOLE 40 MG CAPSULE DELAYED RELEASE 1 CAPSULE 30 MINUTES BEFORE MORNING MEAL ORALLY ONCE A DAY TAKING NUCYNTA 100 MG TABLET 1 TABLET ORALLY BID MDD2 TAKING AMBIEN 10 MG TABLET 1 TABLET AT BEDTIME NEEDED ORALLY ONCE A DAY, MDD=1 NOT-TAKING BUSPIRONE HCL 5 MG TABLET 1 TABLET ORALLY BID NOT-TAKING FLOMAX 0.4 MG CAPSULE 1 CAPSULE ORALLY ONCE A DAY NOT-TAKING LIDODERM 5 % PATCH 1 PATCH REMOVE AFTER 12 HOURS EXTERNALLY ONCE A DAY NOT-TAKING HYDROMORPHONE HCL 2 MG TABLET 1 TABLET NEEDED ORALLY Q8H PRN MDD3 #60 TAB SHOULD LAST 30 DAYS NOT-TAKING AMOXICILLIN-POT CLAVULANATE 875-125 MG TABLET 1 TABLET ORALLY EVERY 12 HRS NOT-TAKING CEPACOL 15-2.3 MG LOZENGE DIRECTED MOUTH/THROAT EVERY 6 HOURS NEEDED FOR SORE THROAT NOT-TAKING TESSALON PERLES 100 MG CAPSULE 1 CAPSULE NEEDED ORALLY THREE TIMES A DAY MEDICATION LIST REVIEWED AND RECONCILED WITH THE PATIENT PAST MEDICAL HISTORY HO NEPHROLITHIASIS HYPERLIPIDEMIA CHRONIC MDD/TERE/COMORBID INSOMNIA GERD/HO PUD PHI 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 DUNLAP HYPERLIPIDEMIA ALLERGIES DEMEROL: "DEADENS THE AREA OF INJECTION" - ALLERGY CODEINE SULFATE: ITCHING - CONTRAINDICATION SURGICAL HISTORY PELVIC/VAGINAL WALL PROLAPSE REPAIR X3 2010 HYSTERECTOMY 2006 COLONOSOPY 2014, 2018 AXILLARY LYMPH NODES RIGHT REMOVED..NEGATIVE 2004 KIDNEY STONES BY LASER 2016 EGD W/BIOPSY 06/2019 FAMILY HISTORY FATHER: , CANCER. LUNG CA METASTASIZED TO BRAIN MOTHER: ALIVE, BREAST CANCER. GLAUCOMA SIBLINGS: ALIVE, HEART DISEASE, DIAGNOSED WITH UNSPECIFIED HEART DISEASE SON(S): ALIVE DAUGHTER(S): ALIVE 3 BROTHER(S) , 1 SISTER(S) . NO KNOWN UROLOGICAL FAMILY HISTORY. SOCIAL HISTORY GENERAL: TOBACCO USE ARE YOU A:FORMER SMOKER HOW LONG HAS IT BEEN SINCE YOU LAST SMOKED?5-10 YEARS LATEX QUESTIONNAIRE LATEX ALLERGY : HAVE YOU EVER DEVELOPED ANY TYPE OF REACTION AFTER HANDLING LATEX PRODUCTS SUCH RUBBER GLOVES, CONDOMS, DIAPHRAGMS, BALLOONS, SOCKS, OR UNDERWEAR?NO LATEX ALLERGY : HAVE YOU EVER DEVELOPED ANY TYPE OF REACTION DURING OR AFTER DENTAL APPOINTMENT, VAGINAL/RECTAL EXAMINATION, SURGICAL PROCEDURE, OR ANY OTHER EXPOSURE?NO DATE ASKED : 09/28/2019 LATEX RISK : HAVE YOU EVER HAD ANY DIFFICULTY BREATHING OR HIVES AFTER EATING OR HANDLING ANY FRUITS, OR VEGETABLES; SUCH KIWI, BANANAS, STONE FRUITS, OR CHESTNUTSNO LATEX RISK : DO YOU HAVE A PREVIOUS PERSONAL HISTORY OF MORE THAN NINE SURGERIES, SPINA BIFIDA, OR REPEATED CATHERIZATIONS? NO LATEX RISK : ARE YOU FREQUENTLY EXPOSED TO LATEX PRODUCTS IN YOUR OCCUPATION?NO ALCOHOL SCREENING DID YOU HAVE A DRINK CONTAINING ALCOHOL IN THE PAST YEAR?NO POINTS0 INTERPRETATIONNEGATIVE RECREATIONAL DRUG USE DRUG USE?NO DENIES 12/23/19 CAFFEINE CAFFEINE USE?YES 3 CUPS DAILY MOSQUE MOSQUE NO PREFERENCE LANGUAGE LANGUAGES SPOKEN:ALGERIAN LEARNING BARRIERS / SPECIAL NEEDS BARRIERS TO LEARNING?NO HEARING IMPAIRED?NO VISION IMPAIRED?YES COGNITIVELY IMPAIRED?NO :CORRECTIVE LENSES READINESS TO LEARN?YES LEARNING PREFERENCES?NO LEARNING CAPABILITIES PRESENT?YES EMOTIONAL BARRIERS?NO SPECIAL DEVICES?NO STARTER MECHANIC NEEDED?NO DOMESTIC VIOLENCE DO YOU FEEL SAFE IN YOUR ENVIRONMENT?YES OCCUPATION: RETIRED. DIET: REGULAR. MARITAL STATUS: . NEW PATIENT PAIN DIARY PATIENT DESCRIBES PAIN :BURNING, IT COMES AND GOES, SHOOTING 12/23/19 FROM 0-10, WHAT LEVEL IS YOUR PAIN TODAY?7 PRECIPITATING FACTORS WALKING ALLEVIATING FACTORS MEDS AND LAYING DOWN PAIN CLINIC PFS, CLERGY, PUBLIC HEALTH REFERRALS PFS REFERRAL NEEDED?NO CLERGY REFERRAL NEEDED?NO PUBLIC HEALTH REFERRAL NEEDED?NO WAS THE PROVIDER NOTIFIED OF ANY PERTINENT INFO?YES HAS THE PATIENT BEEN EDUCATED REGARDING HIS/HER PLAN OF CARE?YES HAS THE PATIENT BEEN EDUCATED REGARDING PAIN, THE RISK FOR PAIN, THE IMPORTANCE OF EFFECTIVE PAIN MANAGEMENT, AND THE PAIN ASSESSMENT PROCESS?YES ADVANCE DIRECTIVE ADVANCE DIRECTIVE DISCUSSED WITH PATIENT:YES HCP - FERNIE Kris LONNY () [phone] HOSPITALIZATION/MAJOR DIAGNOSTIC PROCEDURE SURGERIES KIDNEY STONES 2017 L KIDNEY STONES 2MM RENAL CALCULUS 2MM AT THE URETEROVESICULAR JUNCTION 08/19/2019- 08/21/2019 REVIEW OF SYSTEMS REVIEWED BY: PROVIDER: MARYELLEN MAS . CONSTITUTIONAL: ANY CHANGE IN YOUR MEDICAL CONDITION? NO . CHILLS NO . FEVER NO . INFECTION: DO YOU HAVE NEW INFECTIONS? NO . DO YOU HAVE HISTORY OF MRSA? NO . MUSCULOSKELETAL: ANY NEW PATTERNS OF PAIN OR NUMBNESS? YES . GASTROENTEROLOGY: ANY NEW CHANGE IN BOWEL CONTROL? NO . GENITOURINARY: ANY NEW CHANGE IN BLADDER CONTROL? NO . IS THERE A CHANCE YOU COULD BE ? NO . HEMATOLOGY/LYMPH: DO YOU TAKE ANY BLOOD THINNERS? (FOR EXAMPLE- COUMADIN, PLAVIX, AGGRENOX, PLATEL, PRADAXA, OR XARELTO) NO . WHEN WAS YOUR LAST DOSE? DATE: TIME: . NEUROLOGY: HAVE YOU FALLEN IN THE PAST 12 MONTHS? YES . ANY NEW EXTREMITY NUMBNESS OR WEAKNESS? YES . CARDIOLOGY: DO YOU HAVE A PACEMAKER OR DEFIBRILLATOR? NO . RESPIRATORY: HAVE YOU BEEN SICK IN THE PAST WEEK? NO . FEVER NO . FLU LIKE SYMPTOMS? NO . COUGH NO . INTEGUMENTARY: DO YOU HAVE ANY RASHES OR OPEN SORES? NO . ALLERGIC/IMMUNO: ARE YOU ALLERGIC TO IV DYE? NO . ANY NEW ALLERGIES? NO . PSYCHIATRIC: DO YOU HAVE THOUGHTS OF HURTING YOURSELF OR SOMEONE ELSE? NO . ARE YOU ABUSED, NEGLECTED, OR IN AN UNSAFE ENVIRONMENT? NO . ENDOCRINOLOGY: ARE YOU DIABETIC? NO . OTHER: DO YOU NEED ANY PRESCRIPTIONS? YES . IF YES, PLEASE LIST: NUCYNTA . ANY NEW PROBLEMS WITH YOUR MEDICATIONS? NO . WHEN DID YOU LAST EAT? ____ . WHEN DID YOU LAST DRINK? ____ . WHAT DID YOU LAST DRINK? ____ . NAME OF PERSON DRIVING YOU HOME? ____ . DO YOU HAVE ANY OTHER QUESTIONS OR CONCERNS YES - NEW RIGHT THIGH NUMBNESS . ASSESSMENTS LUMBAR DISC DISEASE WITH RADICULOPATHY - M51.16 (PRIMARY) SPONDYLOSIS OF CERVICAL REGION WITHOUT MYELOPATHY OR RADICULOPATHY - M47.812 CHRONIC PRESCRIPTION OPIATE USE - Z79.891 TREATMENT LUMBAR DISC DISEASE WITH RADICULOPATHY STOP NUCYNTA TABLET, 100 MG, 1 TABLET, ORALLY, BID MDD2 START NUCYNTA ER TABLET EXTENDED RELEASE 12 HOUR, 150 MG, 1 TABLET, ORALLY, EVERY 12 HRS MDD2, 30 DAYS, 60, REFILLS 0 START DILAUDID TABLET, 2 MG, 1 TABLET NEEDED, ORALLY, Q8H PRN MDD3 #60 TAB SHOULD LAST 30 DAYS, 30 DAYS, 60, REFILLS 0 NOTES: ISTOP REGISTRY REVIEWED AND DEMONSTRATES COMPLLIANCE. . RECENT URINE TOXICOLOGY REVIEWED. NO UNAUTHORIZED MEDICATIONS. NO ILLICIT SUBSTANCES AND PRESCRIBED MEDICATIONS WERE PRESENT. URINE TOXICOLOGY AT FOLLOW-UP DISCUSSED MEDICATION AND TREATMENT OPTIONS. WHICH TOOK OVER 12 MINUTES OF TELEPHONE CONSULT TIME. TOTAL TIME SPENT DURING TELEPHONE VISIT WAS APPROXIMATELY 12 MINUTES. INSTRUCTED TO STOP NUCYNTA 100 MG AND START NUCYNTA EXTENDED RELEASE 150 MG TWICE A DAY. RESTART DILAUDID-HP 2 MG TABLET AND TAKE EVERY 8 HOURS NEEDED FOR SEVERE PAIN EPISODES ONLY. I'VE INSTRUCTED HER NOT TO TAKE THIS ON A DAILY BASIS OR ON SCHEDULE, WHICH SHE AGREES TO. WE DISCUSSED ISSUES ASSOCIATED WITH OPIATES TO INCLUDE TOLERANCE AND WAIST TO AVOID THIS. I WILL GIVE HER #60 TABLETS FOR 30 DAY SUPPLY OF DILAUDID 2 MG TABLET. INSTRUCTED TO CALL US WITH ANY PROBLEMS. FOLLOW-UP IS SCHEDULED AT THE PAIN CLINIC IN 6 WEEKS. URINE TOXICOLOGY WILL BE OBTAINED. DISPOSITION & COMMUNICATION FOLLOW UP 6 WEEKS-MED MGMNT/UTOX/DISCUSS PROCEDURES (REASON: NECK/LOW BACK PAIN) ELECTRONICALLY SIGNED BY TG AGARWAL ON 12/27/2019 AT 03:41 PM EDT DISCLAIMER : THIS IS A VISIT SUMMARY EXTRACTED FROM THE [employer] [facility] CHART. IT IS NOT A COPY OF THE [employer] [facility] PROGRESS NOTE. CAMILA
== END ==
LOC: M PAIN 13:00
PROVIDERS: ATTEND Nurse Practitioner Family
DX: M51.16 Intervertebral disc disorders with radiculopathy, lumbar region (principal); M47.812 Spondylosis without myelopathy or radiculopathy, cervical region; Z79.891 Long term (current) use of opiate analgesic; Z79.899 Other long term (current) drug therapy; Z88.5 Allergy status to narcotic agent; Z87.891 Personal history of nicotine dependence

== ENCOUNTER → 2020-04-26 | Outpatient (CLI) | payer BC ==
[~2020-04-26] MED LIST changes: +PANT40TA29 PO; -PANT40TA3 PO
== END ==
LOC: M PAIN 11:04
PROVIDERS: ATTEND Nurse Practitioner Family
DX: M54.2 Cervicalgia (principal); Z79.891 Long term (current) use of opiate analgesic

== ENCOUNTER → 2020-06-06 | Outpatient (CLI) | payer BC ==
--- NOTE | 2020-06-07 18:28 | ECWPNPC ---
PATIENT NAME: RAVEN MUKHERJEE : 1960 GENDER: FEMALE VISIT DATE: 06/06/2020 DISCHARGE DATE: 06/06/20 1523 VISIT LOCKED DATE TIME: PHYSICIAN: MARYELLEN GARZA PHYSICIAN PAGER NO: ACTIVE RESOURCE: MARYELLEN GARZA REASON FOR APPOINTMENT 1. BACK PAIN - INCREASED PAIN HISTORY OF PRESENT ILLNESS DEPRESSION SCREENING: PHQ-2 (2015 EDITION) LITTLE INTEREST OR PLEASURE IN DOING THINGS?NOT AT ALL FEELING DOWN, DEPRESSED, OR HOPELESS?NOT AT ALL TOTAL SCORE0 GENERAL: BEING SEEN TODAY ON AN URGENT BASIS DUE TO SEVERE FLAREUP OF LOW BACK PAIN WITH LEFT LEG RADICULAR SYMPTOMS. THIS BEGAN ABOUT 5 DAYS AGO. DENIES ANY PRECIPITATING EVENT. HAS BENEFITED FROM LUMBAR FACET BLOCKS IN THE PAST. DISCUSSED MEDICATION AND TREATMENT OPTIONS.-. FALL RISK SCREENING: SCREENING :NO FALLS REPORTED IN THE LAST YEAR NONE PAIN SCREENING: PATIENT HAS A COMPLAINT OF ACUTE OR CHRONIC PAIN :YES LOCATION OF PAIN:NECK, LOW BACK INTENSITY OF PAIN (SCALE OF 1 TO 10):7 NECK A 5 BACK A 7 WHAT DOES YOUR PAIN FEEL LIKE:ACHING, BURNING DURATION:CONTINOUS, CONSTANT PAIN IS INCREASED BY:ACTIVITIES PAIN IS DECREASED BY:USE OF PAIN MEDICATIONS, OTHERS NURSING NOTE: -. PAIN CENTER INTAKE QUESTIONS: DO YOU HAVE A HISTORY OF MRSA? :NO DO YOU TAKE A BLOOD THINNERS? :NO DO YOU HAVE ANY BLEEDING DISORDERS? :NO ANY NEW NUMBNESS OR WEAKNESS IN YOUR LEGS OR ARMS? :NO ANY PACEMAKER,DEFIBRILLATOR, OR DORSAL COLUMN STIMULATOR? :NO DO YOU HAVE ANY RASHES OR OPEN SORES? :NO ARE YOU ALLERGIC TO IV DYE? :NO ARE YOU DIABETIC? :NO ANY NEW PROBLEMS WITH YOUR MEDICATIONS? :NO HAVE YOU RECEIVED A VACCINE IN THE PAST 30 DAYS? :NO DO YOU PLAN TO RECEIVE A VACCINE IN THE NEXT 21 DAYS? :NO DO YOU NEED ANY PRESCRIPTION? :YES HYOSCYAMINE 0.125MG HYDROMORPHONE 4MG [place], [facility], [address] [facility] [address] DO YOU TAKE ANY IMMUNOSUPPRESSIVE MEDICATIONS? :NO IS THERE A CHANCE YOU COULD BE ? :NO ARE YOU BREAST FEEDING? :NO CURRENT MEDICATIONS TAKING LIDOCAINE & ADHESIVE SHEET 5 % KIT DIRECTED EXTERNALLY TAKING MIRALAX - POWDER DIRECTED ORALLY DAILY TAKING ATORVASTATIN CALCIUM 20 MG TABLET 1 TABLET ORALLY ONCE A DAY TAKING ESCITALOPRAM OXALATE 10 MG TABLET 1 TABLET ORALLY ONCE A DAY TAKING VOLTAREN 1 % GEL DIRECTED TRANSDERMAL APPLY 4 GRAMM TO NECK Q 6 HRS PRN PAIN TAKING OMEPRAZOLE 40 MG CAPSULE DELAYED RELEASE 1 CAPSULE 30 MINUTES BEFORE MORNING MEAL ORALLY ONCE A DAY TAKING DILAUDID 2 MG TABLET 1 TABLET NEEDED ORALLY Q8H PRN MDD3 #60 TAB SHOULD LAST 30 DAYS TAKING NUCYNTA ER 150 MG TABLET EXTENDED RELEASE 12 HOUR 1 TABLET ORALLY EVERY 12 HRS MDD2 TAKING AMBIEN 10 MG TABLET 1 TABLET AT BEDTIME NEEDED ORALLY ONCE A DAY, MDD=1 TAKING PROMETHAZINE HCL 25 MG TABLET 1 TABLET NEEDED ORALLY EVERY 6 HR NOT-TAKING BUSPIRONE HCL 5 MG TABLET 1 TABLET ORALLY BID NOT-TAKING FLOMAX 0.4 MG CAPSULE 1 CAPSULE ORALLY ONCE A DAY NOT-TAKING LIDODERM 5 % PATCH 1 PATCH REMOVE AFTER 12 HOURS EXTERNALLY ONCE A DAY NOT-TAKING HYDROMORPHONE HCL 2 MG TABLET 1 TABLET NEEDED ORALLY Q8H PRN MDD3 #60 TAB SHOULD LAST 30 DAYS NOT-TAKING AMOXICILLIN-POT CLAVULANATE 875-125 MG TABLET 1 TABLET ORALLY EVERY 12 HRS NOT-TAKING CEPACOL 15-2.3 MG LOZENGE DIRECTED MOUTH/THROAT EVERY 6 HOURS NEEDED FOR SORE THROAT NOT-TAKING TESSALON PERLES 100 MG CAPSULE 1 CAPSULE NEEDED ORALLY THREE TIMES A DAY MEDICATION LIST REVIEWED AND RECONCILED WITH THE PATIENT PAST MEDICAL HISTORY HO NEPHROLITHIASIS HYPERLIPIDEMIA CHRONIC MDD/TERE/COMORBID INSOMNIA GERD/HO PUD PHI 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 DUNLAP HYPERLIPIDEMIA ALLERGIES DEMEROL: "DEADENS THE AREA OF INJECTION" - ALLERGY CODEINE SULFATE: ITCHING - CONTRAINDICATION SURGICAL HISTORY PELVIC/VAGINAL WALL PROLAPSE REPAIR X3 2010 HYSTERECTOMY 2006 COLONOSOPY 2014, 2018 AXILLARY LYMPH NODES RIGHT REMOVED..NEGATIVE 2003 KIDNEY STONES BY LASER 2016 EGD W/BIOPSY 06/2019 FAMILY HISTORY FATHER: , CANCER. LUNG CA METASTASIZED TO BRAIN MOTHER: ALIVE, BREAST CANCER. GLAUCOMA SIBLINGS: ALIVE, HEART DISEASE, DIAGNOSED WITH UNSPECIFIED HEART DISEASE SON(S): ALIVE DAUGHTER(S): ALIVE 3 BROTHER(S) , 1 SISTER(S) . NO KNOWN UROLOGICAL FAMILY HISTORY. SOCIAL HISTORY GENERAL: TOBACCO USE ARE YOU A:FORMER SMOKER HOW LONG HAS IT BEEN SINCE YOU LAST SMOKED?5-10 YEARS LATEX QUESTIONNAIRE LATEX ALLERGY : HAVE YOU EVER DEVELOPED ANY TYPE OF REACTION AFTER HANDLING LATEX PRODUCTS SUCH RUBBER GLOVES, CONDOMS, DIAPHRAGMS, BALLOONS, SOCKS, OR UNDERWEAR?NO LATEX ALLERGY : HAVE YOU EVER DEVELOPED ANY TYPE OF REACTION DURING OR AFTER DENTAL APPOINTMENT, VAGINAL/RECTAL EXAMINATION, SURGICAL PROCEDURE, OR ANY OTHER EXPOSURE?NO LATEX RISK : HAVE YOU EVER HAD ANY DIFFICULTY BREATHING OR HIVES AFTER EATING OR HANDLING ANY FRUITS, OR VEGETABLES; SUCH KIWI, BANANAS, STONE FRUITS, OR CHESTNUTSNO LATEX RISK : DO YOU HAVE A PREVIOUS PERSONAL HISTORY OF MORE THAN NINE SURGERIES, SPINA BIFIDA, OR REPEATED CATHERIZATIONS? 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 DIET: REGULAR. MARITAL STATUS: . NEW PATIENT PAIN DIARY PATIENT DESCRIBES PAIN : BURNING, IT COMES AND GOES, SHOOTING 12/23/19, FROM 0-10, WHAT LEVEL IS YOUR PAIN TODAY? 7, PRECIPITATING FACTORS WALKING, ALLEVIATING FACTORS MEDS AND LAYING DOWN. PAIN CLINIC PFS, CLERGY, PUBLIC HEALTH REFERRALS PFS REFERRAL NEEDED?NO CLERGY REFERRAL NEEDED?NO PUBLIC HEALTH REFERRAL NEEDED?NO WAS THE PROVIDER NOTIFIED OF ANY PERTINENT INFO?YES HAS THE PATIENT BEEN EDUCATED REGARDING HIS/HER PLAN OF CARE?YES HAS THE PATIENT BEEN EDUCATED REGARDING PAIN, THE RISK FOR PAIN, THE IMPORTANCE OF EFFECTIVE PAIN MANAGEMENT, AND THE PAIN ASSESSMENT PROCESS?YES ADVANCE DIRECTIVE ADVANCE DIRECTIVE DISCUSSED WITH PATIENT:YES HCP - FERNIE MUKHERJEE () [phone] HOSPITALIZATION/MAJOR DIAGNOSTIC PROCEDURE SURGERIES KIDNEY STONES 2017 L KIDNEY STONES 2MM RENAL CALCULUS 2MM AT THE URETEROVESICULAR JUNCTION 08/19/2019- 08/21/2019 REVIEW OF SYSTEMS CONSTITUTIONAL: ANY RECENT FEVER NO . CHILLS NO . WEIGHT CHANGE OF UNKNOWN REASONS NO . GASTROENTEROLOGY: NEW UNEXPLAINABLE CHANGES IN BOWEL CONTROL NO . CONSTIPATION NO . GENITOURINARY: ANY NEW CHANGE IN BLADDER CONTROL? NO . NEUROLOGY: NEW ONSET DIZZINESS OR NEUROLOGICAL CHANGES NOT MENTIONED NO . NEW NUMBNESS OR PAIN PATTERNS NOT MENTIONED AND PERTINENT TO TODAY'S VISIT NO . CARDIOLOGY: NEW CHEST PRESSURE NO . NEW CHEST PAIN NO . RESPIRATORY: UNEXPLAINABLE COUGH NO . NEW SHORTNESS OF BREATH NO . VITAL SIGNS WT 186.2 LBS, HT 58 IN, BMI 38.91 INDEX, BP 126/60 MM HG, HR 82 /MIN, RR 18 /MIN, TEMP 97.3 F, OXYGEN SAT % 95%, SAFE IN ENV? (Y/N) YES, NA INITIALS SC 14:21, REVIEWED BY: MARJAN. EXAMINATION GENERAL EXAMINATION: LUNGS: LUNG SOUNDS ARE CLEAR . HEART: HEART RATE REGULAR . MUSCULOSKELETAL:*, MUSCLE STRENGTH TESTING 5/5 BILATERAL LOWER EXTREMITIES., ,PALPATION: POSITIVE FOR PAIN OVER L/S SPINE. POSITIVE FOR PAIN OVER L/S PARSPINALS.SPECIFIC POINT TENDERNESS OVER BILAT L4/5-L5/S1 LUMBR FACETS WITH FACET LOADING . DIAGNOSTIC TESTS REVIEWED MRI L/S SPINE 03/03/2019 . ASSESSMENTS LUMBAR FACET ARTHROPATHY - M47.816 (PRIMARY) TREATMENT LUMBAR FACET ARTHROPATHY REFILL DILAUDID TABLET, 2 MG, 1 TABLET NEEDED, ORALLY, Q8H PRN MDD3 #60 TAB SHOULD LAST 30 DAYS, 30 DAYS, 60, REFILLS 0 START TIZANIDINE HCL TABLET, 4 MG, 1 TABLET NEEDED, ORALLY, TWICE A DAY NEEDED FOR MUSCLE SPASM TYPE PAIN, 30 DAYS, 45, REFILLS 1 NOTES: BILATERAL L4-5 L5-S1 LUMBAR FACET BLOCK THERAPEUTIC , ISTOP REGISTRY REVIEWED AND DEMONSTRATES COMPLLIANCE. (REF # ) BRINGS IN MEDICATIONS WHICH IS APPROPRIATE FOR WHAT WAS DISPENSED. RECENT URINE TOXICOLOGY REVIEWED. NO UNAUTHORIZED MEDICATIONS. NO ILLICIT SUBSTANCES AND PRESCRIBED MEDICATIONS WERE PRESENT. , RISKS OF NARCOTIC/OPIOD MEDICATIONS INCLUDES BUT IS NOT LIMITED TO RISK OF DEPENDANCE/DEVELOPMENT OF ADDICTION, MOOD DISTURBANCE AND DEPRESSION, OSTEOPOROSIS, HORMONAL AND LABIDAL CHANGES, RESPIRATORY DEPRESSION AND . PATIENT IS ADVISED NOT TO DRIVE OR DRINK ALCOHOL WHILE ON THESE MEDICATIONS. PROCEDURE CODES FA211 ESTABILISHED PATIENT [facility] CHARGE DISPOSITION & COMMUNICATION FOLLOW UP POST PROCEDURE (REASON: BILATERAL L4-5 L5-S1 LUMBAR FACET BLOCK THERAPEUTIC) ELECTRONICALLY SIGNED BY TG AGARWAL ON 06/07/2020 AT 01:58 PM EDT DISCLAIMER : THIS IS A VISIT SUMMARY EXTRACTED FROM THE [employer] CHART. IT IS NOT A COPY OF THE [employer] PROGRESS NOTE. CAMILA
== END ==
LOC: M PAIN 14:30
PROVIDERS: ATTEND Nurse Practitioner Family
DX: M47.816 Spondylosis without myelopathy or radiculopathy, lumbar region (principal); E78.5 Hyperlipidemia, unspecified; K21.9 Gastro-esophageal reflux disease without esophagitis; F33.9 Major depressive disorder, recurrent, unspecified; F41.1 Generalized anxiety disorder; G47.33 Obstructive sleep apnea (adult) (pediatric); G47.00 Insomnia, unspecified; Z87.891 Personal history of nicotine dependence; Z79.899 Other long term (current) drug therapy; Z88.5 Allergy status to narcotic agent

== ENCOUNTER → 2020-06-21 | Outpatient (CLI) | payer BC | LOC: M LABSMTC 13:19 | PROVIDERS: ATTEND Anesthesiology | DX: Z20.828 Contact with and (suspected) exposure to other viral communicable diseases (principal) ==

== ENCOUNTER → 2020-06-26 | Outpatient (CLI) | payer BC ==
[~2020-06-26] MED LIST changes: +BUPIVACAINE HCL 0.25% 30ML VIAL As Ordered ONE; +ISOVUE-M 300 61% 15ML VIAL As Ordered ONE; +LIDOCAINE 1% SDV 30ML VIAL As Ordered ONE; +TRIAMCINOLONE ACETONIDE SUSP 40 MG/ML VIAL (J3301) As Ordered ONE; +diazePAM 5 MG TAB As Ordered ONE; +oxyCODONE 5MG TAB As Ordered ONE
--- NOTE | 2020-06-26 15:30 | REP ---
INDICATION: BILATERAL LUMBAR FACET BLOCK. COMPARISON: None. TECHNIQUE: Four views. 35.3 seconds of fluoroscopy time is reported. FINDINGS: A sequence of 4 last image hold fluoroscopically obtained spot radiograph(s) of the lumbar spine document(s) needle position(s) and contrast injection associated with injection procedure. IMPRESSION: Procedural imaging. <Electronically signed by Jackson Villalba > 06/26/20 0268
--- NOTE | 2020-07-03 02:20 | ECWPNPC ---
PATIENT NAME: RAVEN MUKHERJEE : 1960 GENDER: FEMALE VISIT DATE: 06/26/2020 DISCHARGE DATE: 06/26/20 0000 VISIT LOCKED DATE TIME: PHYSICIAN: SARAH BETH CAO MD PHYSICIAN PAGER NO: ACTIVE RESOURCE: SARAH BETH CAO MD REASON FOR APPOINTMENT 1. BILATERAL L4-5 L5-S1 LUMBAR FACET BLOCK THERAPEUTIC HISTORY OF PRESENT ILLNESS GENERAL: -. FALL RISK SCREENING: SCREENING :NO FALLS REPORTED IN THE LAST YEAR PAIN SCREENING: PATIENT HAS A COMPLAINT OF ACUTE OR CHRONIC PAIN :YES LOCATION OF PAIN:LOW BACK INTENSITY OF PAIN (SCALE OF 1 TO 10):8 WHAT DOES YOUR PAIN FEEL LIKE:ACHING, BURNING, CONTINOUS, SHARP DURATION:CONTINOUS PAIN IS INCREASED BY:ACTIVITIES PAIN IS DECREASED BY:OTHERS NOTHING IS HELPING NURSING NOTE: -. PAIN CENTER INTAKE QUESTIONS: DO YOU HAVE A HISTORY OF MRSA? :NO DO YOU TAKE A BLOOD THINNERS? :NO DO YOU HAVE ANY BLEEDING DISORDERS? :NO ANY NEW NUMBNESS OR WEAKNESS IN YOUR LEGS OR ARMS? :NO ANY PACEMAKER,DEFIBRILLATOR, OR DORSAL COLUMN STIMULATOR? :NO DO YOU HAVE ANY RASHES OR OPEN SORES? :NO ARE YOU ALLERGIC TO IV DYE? :NO ARE YOU DIABETIC? :NO ANY NEW PROBLEMS WITH YOUR MEDICATIONS? :NO HAVE YOU RECEIVED A VACCINE IN THE PAST 30 DAYS? :NO DO YOU PLAN TO RECEIVE A VACCINE IN THE NEXT 21 DAYS? :NO DO YOU TAKE ANY IMMUNOSUPPRESSIVE MEDICATIONS? :NO ANY HISTORY OF SEIZURES? :NO ANY HISTORY OF CARDIAC ISSUES OR EVENTS? :NO DO YOU HAVE SLEEP APNEA? :NO ANY RECENT HEAD INJURY? :NO DO YOU HAVE ANY NEW INFECTIONS? :NO IS THERE A CHANCE YOU COULD BE ? :NO ARE YOU BREAST FEEDING? :NO WHEN DID YOU LAST EAT? : -06/25 2130 WHEN DID YOU LAST DRINK? : -06/26 900 WHAT DID YOU LAST DRINK? : -WATER NAME OF PERSON DRIVING YOU HOME? : JAY DO YOU HAVE ANY OTHER QUESTIONS OR CONCERNS? : - CURRENT MEDICATIONS TAKING LIDOCAINE & ADHESIVE SHEET 5 % KIT DIRECTED EXTERNALLY , NOTES: 06/25/20 TAKING MIRALAX - POWDER DIRECTED ORALLY DAILY, NOTES: 06/22/20 TAKING ATORVASTATIN CALCIUM 20 MG TABLET 1 TABLET ORALLY ONCE A DAY, NOTES: 06/25 2230 TAKING VOLTAREN 1 % GEL DIRECTED TRANSDERMAL APPLY 4 GRAMM TO NECK Q 6 HRS PRN PAIN, NOTES: NONE IN PAST WEEK TAKING OMEPRAZOLE 40 MG CAPSULE DELAYED RELEASE 1 CAPSULE 30 MINUTES BEFORE MORNING MEAL ORALLY ONCE A DAY, NOTES: 06/25/20 1030 TAKING NUCYNTA ER 150 MG TABLET EXTENDED RELEASE 12 HOUR 1 TABLET ORALLY EVERY 12 HRS MDD2, NOTES: NONE IN PAST WEEK TAKING PROMETHAZINE HCL 25 MG TABLET 1 TABLET NEEDED ORALLY EVERY 6 HR, NOTES: 06/25 TAKING DILAUDID 4 MG TABLET 1 TABLET NEEDED ORALLY Q8H PRN MDD3 #60 TAB SHOULD LAST 30 DAYS, NOTES: 06/26/20 07 TAKING TIZANIDINE HCL 4 MG TABLET 1 TABLET NEEDED ORALLY TWICE A DAY NEEDED FOR MUSCLE SPASM TYPE PAIN, NOTES: 06/26/20 07 TAKING AMBIEN 10 MG TABLET 1 TABLET AT BEDTIME NEEDED ORALLY ONCE A DAY, MDD=1, NOTES: 06/25/202229 TAKING ESCITALOPRAM OXALATE 10 MG TABLET 1 TABLET ORALLY ONCE A DAY, NOTES: 06/25/202229 NOT-TAKING HYDROMORPHONE HCL 4 MG TABLET 1 TABLET NEEDED ORALLY Q8H PRN MDD2 NOT-TAKING BUSPIRONE HCL 5 MG TABLET 1 TABLET ORALLY BID NOT-TAKING FLOMAX 0.4 MG CAPSULE 1 CAPSULE ORALLY ONCE A DAY NOT-TAKING LIDODERM 5 % PATCH 1 PATCH REMOVE AFTER 12 HOURS EXTERNALLY ONCE A DAY NOT-TAKING HYDROMORPHONE HCL 2 MG TABLET 1 TABLET NEEDED ORALLY Q8H PRN MDD3 #60 TAB SHOULD LAST 30 DAYS NOT-TAKING AMOXICILLIN-POT CLAVULANATE 875-125 MG TABLET 1 TABLET ORALLY EVERY 12 HRS NOT-TAKING CEPACOL 15-2.3 MG LOZENGE DIRECTED MOUTH/THROAT EVERY 6 HOURS NEEDED FOR SORE THROAT NOT-TAKING TESSALON PERLES 100 MG CAPSULE 1 CAPSULE NEEDED ORALLY THREE TIMES A DAY MEDICATION LIST REVIEWED AND RECONCILED WITH THE PATIENT PAST MEDICAL HISTORY HO NEPHROLITHIASIS HYPERLIPIDEMIA CHRONIC MDD/TERE/COMORBID INSOMNIA GERD/HO PUD PHI 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 DUNLAP HYPERLIPIDEMIA ALLERGIES DEMEROL: "DEADENS THE AREA OF INJECTION" - ALLERGY CODEINE SULFATE: ITCHING - CONTRAINDICATION SURGICAL HISTORY PELVIC/VAGINAL WALL PROLAPSE REPAIR X3 2010 HYSTERECTOMY 2006 COLONOSOPY 2014, 2018 AXILLARY LYMPH NODES RIGHT REMOVED..NEGATIVE 2004 KIDNEY STONES BY LASER 2017 EGD W/BIOPSY 06/2019 FAMILY HISTORY FATHER: , CANCER. LUNG CA METASTASIZED TO BRAIN MOTHER: ALIVE, BREAST CANCER. GLAUCOMA SIBLINGS: ALIVE, HEART DISEASE, DIAGNOSED WITH UNSPECIFIED HEART DISEASE SON(S): ALIVE DAUGHTER(S): ALIVE 3 BROTHER(S) , 1 SISTER(S) . NO KNOWN UROLOGICAL FAMILY HISTORY. SOCIAL HISTORY GENERAL: TOBACCO USE ARE YOU A:FORMER SMOKER HOW LONG HAS IT BEEN SINCE YOU LAST SMOKED?5-10 YEARS LATEX QUESTIONNAIRE LATEX ALLERGY : HAVE YOU EVER DEVELOPED ANY TYPE OF REACTION AFTER HANDLING LATEX PRODUCTS SUCH RUBBER GLOVES, CONDOMS, DIAPHRAGMS, BALLOONS, SOCKS, OR UNDERWEAR?NO LATEX ALLERGY : HAVE YOU EVER DEVELOPED ANY TYPE OF REACTION DURING OR AFTER DENTAL APPOINTMENT, VAGINAL/RECTAL EXAMINATION, SURGICAL PROCEDURE, OR ANY OTHER EXPOSURE?NO LATEX RISK : HAVE YOU EVER HAD ANY DIFFICULTY BREATHING OR HIVES AFTER EATING OR HANDLING ANY FRUITS, OR VEGETABLES; SUCH KIWI, BANANAS, STONE FRUITS, OR CHESTNUTSNO LATEX RISK : DO YOU HAVE A PREVIOUS PERSONAL HISTORY OF MORE THAN NINE SURGERIES, SPINA BIFIDA, OR REPEATED CATHERIZATIONS? NO LATEX RISK : ARE YOU FREQUENTLY EXPOSED TO LATEX PRODUCTS IN YOUR OCCUPATION?NO DATE ASKED : 06/25/2020 ALCOHOL SCREENING DID YOU HAVE A DRINK CONTAINING ALCOHOL IN THE PAST YEAR?NO POINTS0 INTERPRETATIONNEGATIVE RECREATIONAL DRUG USE DRUG USE?NO CAFFEINE CAFFEINE USE?YES 3 CUPS DAILY SABIANIST SABIANIST NO PREFERENCE LANGUAGE LANGUAGES SPOKEN:LITHUANIAN LEARNING BARRIERS / SPECIAL NEEDS BARRIERS TO LEARNING?NO HEARING IMPAIRED?NO VISION IMPAIRED?YES COGNITIVELY IMPAIRED?NO :CORRECTIVE LENSES READINESS TO LEARN?YES LEARNING PREFERENCES?NO LEARNING CAPABILITIES PRESENT?YES EMOTIONAL BARRIERS?NO SPECIAL DEVICES?NO RETAIL MAINTENANCE TECHNICIAN NEEDED?NO DOMESTIC VIOLENCE DO YOU FEEL SAFE IN YOUR ENVIRONMENT?YES OCCUPATION: RETIRED. DIET: REGULAR. MARITAL STATUS: . PAIN CLINIC PFS, CLERGY, PUBLIC HEALTH REFERRALS PFS REFERRAL NEEDED?NO CLERGY REFERRAL NEEDED?NO PUBLIC HEALTH REFERRAL NEEDED?NO WAS THE PROVIDER NOTIFIED OF ANY PERTINENT INFO?YES HAS THE PATIENT BEEN EDUCATED REGARDING HIS/HER PLAN OF CARE?YES HAS THE PATIENT BEEN EDUCATED REGARDING PAIN, THE RISK FOR PAIN, THE IMPORTANCE OF EFFECTIVE PAIN MANAGEMENT, AND THE PAIN ASSESSMENT PROCESS?YES ADVANCE DIRECTIVE ADVANCE DIRECTIVE DISCUSSED WITH PATIENT:YES HCP - FERNIE Kris MUKHERJEE () [phone] HOSPITALIZATION/MAJOR DIAGNOSTIC PROCEDURE SURGERIES KIDNEY STONES 2017 L KIDNEY STONES 2MM RENAL CALCULUS 2MM AT THE URETEROVESICULAR JUNCTION 08/19/2019- 08/21/2019 VITAL SIGNS WT 186.4 LBS, HT 58 IN, BMI 38.95 INDEX, BP 103/67 MM HG, HR 90 /MIN, RR 18 /MIN, TEMP 98.1 F, OXYGEN SAT % 97%, SAFE IN ENV? (Y/N) YES, NA INITIALS SC 12:50, REVIEWED BY: BIN RN @ 1316. EXAMINATION GENERAL EXAMINATION: THE PATIENT IS ALERT, ORIENTED TIMES THREE AND COOPERATIVE. HEART SHOWS REGULAR RHYTHM, NO MURMURS AND NO GALLOPS. LUNGS ARE CLEAR TO AUSCULTATION. ASSESSMENTS SPONDYLOSIS WITHOUT MYELOPATHY OR RADICULOPATHY, LUMBAR REGION - M47.816 (PRIMARY) SPONDYLOSIS WITHOUT MYELOPATHY OR RADICULOPATHY, LUMBOSACRAL REGION - M47.817 TREATMENT SPONDYLOSIS WITHOUT MYELOPATHY OR RADICULOPATHY, LUMBAR REGION [facility] FACET BLOCK (PAIN)[id number] MEDICATION: VALIUM TAB 10MG ORALLY (DIAZEPAM)RAMAKRISHNA BURRIS RN 06/26/2020 1:21:35 PM > LOT #[id number], EXP DATE 10/2020, VERIFIED SONJA MALHOTRA 06/26/2020 1:25:44 PM > ADMINISTERED 1325 MEDICATION: OXYCODONE HCL TAB 10MG ORALLYRAMAKRISHNA BURRIS RN 06/26/2020 1:22:14 PM > LOT# [id number], EXP 09/2021, VERIFIED ROSCOESONJA 06/26/2020 1:26:23 PM > ADMINISTERED 1325 NOTES: DISCHARGE INSTRUCTIONS REVIEWED WITH PATIENT. PATIENT VERBALIZED UNDERSTANDING OF DISCHARGE INSTRUCTIONS. SPONDYLOSIS WITHOUT MYELOPATHY OR RADICULOPATHY, LUMBOSACRAL REGION SMC FACET BLOCK (PAIN)[id number] OTHERS NOTES: PRE PROCEDURE PHONE CALL COMPLETED 06/25/2020 1500 Wali DAO RN. PROCEDURES PAIN NURSING RECORD PRE-PROCEDURE IV SITE N/A, PRE-PROCEDURE ORAL MEDICATIONS PER MD ORDER PROCEDURE IN ROOM 1350, PHYSICIAN IN ROOM 1403, START 1410, FINISH 1416, PHYSICIAN OUT OF ROOM 1418, OUT OF ROOM 1421, STEROID KENALOG, O2 RA, ECG NORMAL SINUS, PATIENT SHIELDED YES, SAFETY STRAP YES, PREP CHLOROPREP BY Russ MALHOTRA RN, IV INFUSED N/A, DRESSING TEGADERM BY DR CAO LOC: 1. ALERT, ORIENTED RESP: 1. REGULAR, NO DYSPNEA COLOR: 1. PINK SKIN: 1. WARM, DRY POSITION: 1. PRONE VITALS: SONJA MALHOTRA 06/26/2020 2:00:15 PM > 127/59 HR 76 16 94% , SONJA MALHOTRA 06/26/2020 2:15:29 PM > 150/73 HR 77 16 96% , SONJA MALHOTRA 06/26/2020 2:32:18 PM > 108/79 HR 75 16 91% D/C V/S DISCHARGE: POST PAIN 0, DRESSING SITE DRY AND INTACT, IV N/A, GAIT STEADY, TEACHING COMPLETED, PATIENT ACKNOWLEDGES UNDERSTANDING YES, PATIENT DISCHARGED AT 1440 PN LUMBAR FACET BLOCK THERAPEUTIC PRE PROCEDURE DIAGNOSIS LUMBAR SPONDYLOSIS, LUMBOSACRAL SPONDYLOSIS POST PROCEDURE DIAGNOSIS LUMBAR SPONDYLOSIS, LUMBOSACRAL SPONDYLOSIS PROCEDURE BILATERAL L4-L5 AND BIALTERAL L5-S1 LUMBAR FACET THERAPEUTIC BLOCK SURGEON DR. SARAH BETH CAO CREATIVE DIRECTOR NONE ANESTHESIA LOCAL PRE PROCEDURE NOTE THE PATIENT HAS A HISTORY OF CHRONIC LOW BACK PAIN. I EVALUATED THE PATIENT AND REVIEWED THE CHART. I WENT OVER THE RISKS, ALTERNATIVES, AND BENEFITS ASSOCIATED WITH THIS PROCEDURE. I DISCUSSED THAT THE USE OF STEROIDS MAY CONTRIBUTE TO IMMUNOSUPPRESSION OF THE PATIENT'S BODY AGAINST INFECTIONS SUCH COVID-19. THE PATIENT IS AWARE OF THE POTENTIAL COMPLICATIONS ASSOCIATED WITH THIS VIRUS, INCLUDING, BUT NOT LIMITED TO, . THE PATIENT WOULD LIKE TO PROCEED AND GIVES CONSENT TO PERFORM THE PROCEDURE. THE PATIENT DENIES UNEXPLAINABLE WEIGHT LOSS, FEVER, CHILLS, OR NEW CHANGES IN URINARY OR BOWEL CONTROL. THE PATIENT IS COVID-19 NEGATIVE DESCRIPTION OF PROCEDURE THE PATIENT WAS BROUGHT TO THE PROCEDURE ROOM AND PLACED IN THE PRONE POSITION. THE LUMBOSACRAL AREA WAS CLEANED WITH CHLORAPREP SOLUTION AND DRAPED ASEPTICALLY. THE PROCEDURE WAS DONE UNDER STERILE CONDITIONS. A TIMEOUT WAS PERFORMED WHERE LATERALITY AND THE SITE OF THE PROCEDURE WERE CHECKED AND CONFIRMED WITH EVERYONE IN THE ROOM. UNDER FLUOROSCOPIC GUIDANCE, THE TARGET POINT WAS SELECTED AT THE RIGHT AND LEFT L4-L5 AND RIGHT AND LEFT L5-S1 FACET JOINTS. THE PATIENT HAS A LUMBARIZATION OF THE FIRST SACRAL SEGMENT. TARGET POINT WAS SELECTED AFTER LATERAL ROTATION AND TILT OF THE MAGNIFIER OF THE C-ARM. I CONFIRMED AGAIN WITH EVERYONE IN THE ROOM THE LATERALITY OF THE TARGET AT 1409. LIDOCAINE 0.5% WAS USED TO NUMB THE SKIN AND THE SUBCUTANEOUS TISSUE BELOW IT. SPINAL NEEDLES, 22-GAUGE, WERE ADVANCED UNDER FLUOROSCOPIC GUIDANCE AND FOLLOWING PATIENT FEEDBACK UNTIL THE TARGETS WERE TOUCHED. THE POSITION OF THE NEEDLES WAS VERIFIED WITH AP AND LATERAL VIEWS. AFTER PROPER POSITION OF THE NEEDLES WAS ACHIEVED, ISOVUE-M DYE 30%, 0.1 ML, WAS INJECTED SHOWING ADEQUATE SPREAD OF THE DYE. KENALOG 20 MG WAS INJECTED AT EACH SITE. THEN, A SOLUTION OF 1.0 ML OF BUPIVACAINE 0.125% OF WAS USED TO FLUSH EACH SITE. THE MEDICATION WAS VERIFIED WITH THE NURSE. THERE WAS NO EVIDENCE OF BLOOD, PARESTHESIA OR CEREBROSPINAL FLUID DURING THE PROCEDURE. THE PATIENT WAS SENT TO THE RECOVERY ROOM. THE PATIENT WAS MOVING THE EXTREMITIES AND DOING WELL. THERE WERE NO COMPLICATIONS DURING THE PROCEDURE. ESTIMATED BLOOD LOSS WAS LESS THAN 5 ML. FLUOROSCOPY TIME WAS 35 SECONDS POST PROCEDURE NOTE THE PATIENT WILL BE SEEN IN A FOLLOW UP IN THE NEXT FEW WEEKS. I AM LOOKING FOR LONG LASTING RELIEF FOR THE PATIENT WITH THIS INTERVENTION. INSTRUCTIONS WERE GIVEN, QUESTIONS WERE ANSWERED, AND THE PATIENT EXPRESSED UNDERSTANDING AND AGREES WITH THE PLAN. I, IVON NICOLE, DOCUMENTED THE ABOVE INFORMATION ACTING A SCRIBE FOR DR. CAO. I HAVE REVIEWED THE ABOVE DOCUMENT, WRITTEN BY IVON NICOLE, NO BAKE MOLDER, AND I VERIFY THAT IT IS ACCURATE PROCEDURE CODES 72807 INJ PARAVERT F JNT L/S 1 LEV, MODIFIERS: 50 [id number] INJ PARAVERT F JNT L/S 2 LEV, MODIFIERS: 50 DISPOSITION & COMMUNICATION FOLLOW UP FOLLOW UP WITH HEMODIALYSIS RN (REASON: POST THERAPEUTIC BILATERAL L4-L5, L5-S1) ELECTRONICALLY SIGNED BY SARAH BETH CAO MD, MD ON 07/02/2020 AT 02:04 PM EST DISCLAIMER : THIS IS A VISIT SUMMARY EXTRACTED FROM THE [facility] CHART. IT IS NOT A COPY OF THE [facility] PROGRESS NOTE. MTDD
== END ==
LOC: M PAIN 13:00
PROVIDERS: ATTEND Anesthesiology
DX: M47.816 Spondylosis without myelopathy or radiculopathy, lumbar region (principal); M47.817 Spondylosis without myelopathy or radiculopathy, lumbosacral region; K21.9 Gastro-esophageal reflux disease without esophagitis; G47.33 Obstructive sleep apnea (adult) (pediatric); Z86.59 Personal history of other mental and behavioral disorders; Z87.891 Personal history of nicotine dependence; Z88.5 Allergy status to narcotic agent; Z79.891 Long term (current) use of opiate analgesic; Z79.899 Other long term (current) drug therapy
CPT/HCPCS: 64493; 64494; J3301; Q9967

== ENCOUNTER → 2020-07-02 | Outpatient (REF) | payer BC ==
[~2020-07-02] MED LIST changes: -BUPIVACAINE HCL 0.25% 30ML VIAL As Ordered ONE; -ISOVUE-M 300 61% 15ML VIAL As Ordered ONE; -LIDOCAINE 1% SDV 30ML VIAL As Ordered ONE; -TRIAMCINOLONE ACETONIDE SUSP 40 MG/ML VIAL (J3301) As Ordered ONE; -diazePAM 5 MG TAB As Ordered ONE; -oxyCODONE 5MG TAB As Ordered ONE
[2020-07-02 18:15] LABS: ALBUMIN 4.1 GM/DL (3.2-5.2); ALT/SGPT 31 U/L (12-78); BILIRUBIN,TOTAL 0.5 MG/DL (0.2-1.0); BLOOD UREA NITROGEN 17 MG/DL (7-18); CALCIUM LEVEL 9.3 MG/DL (8.8-10.2); CARBON DIOXIDE LEVEL 32 MEQ/L (21-32); CHLORIDE LEVEL 104 MEQ/L (98-107); CHOLESTEROL LEVEL 319 MG/DL (<200); CREATININE FOR GFR 0.95 MG/DL (0.55-1.30); FREE T4 0.81 NG/DL (0.76-1.46); GLOMERULAR FILTRATION RATE > 60.0 (>45); GLUCOSE, FASTING 89 MG/DL (70-100); HDL CHOLESTEROL 55 MG/DL (>40); LDL CHOLESTEROL 232 MG/DL (<100); NON-HDL-C 264 MG/DL; POTASSIUM SERUM 4.9 MEQ/L (3.5-5.1); SODIUM LEVEL 138 MEQ/L (136-145); TOTAL 25(OH) VITAMIN D 14.9 NG/ML (30.0-100.0); TOTAL PROTEIN 7.4 GM/DL (6.4-8.2); TRIGLYCERIDES LEVEL 160 MG/DL (<150)
[2020-07-02 18:33] LABS: HEMOGLOBIN A1c 5.7 %
== END ==
LOC: M SFHCPLAZ 15:03
PROVIDERS: ATTEND Nurse Practitioner Family
DX: E78.5 Hyperlipidemia, unspecified (principal); E04.1 Nontoxic single thyroid nodule; R73.01 Impaired fasting glucose; E55.9 Vitamin D deficiency, unspecified

== ENCOUNTER → 2020-07-10 | Outpatient (CLI) | payer BC ==
--- NOTE | 2020-07-17 09:28 | ECWPNPC ---
PATIENT NAME: RAVEN MUKHERJEE : 1960 GENDER: FEMALE VISIT DATE: 07/10/2020 DISCHARGE DATE: 07/10/20 1407 VISIT LOCKED DATE TIME: PHYSICIAN: MARYELLEN GARZA PHYSICIAN PAGER NO: ACTIVE RESOURCE: MARYELLEN GARZA REASON FOR APPOINTMENT 1. BILATERAL L4-5 L5-S1 LUMBAR FACET BLOCK THERAPEUTIC HISTORY OF PRESENT ILLNESS GENERAL: HERE FOR POST PROCEDURE FOLLOW-UP. HAD BILATERAL LUMBAR L4-5, L5-S1 FACET BLOCK THERAPEUTIC ON 06/26/2020. REPORTING MARKED REDUCTION IN PAIN THAT CONTINUES TODAY. OVERALL DOING WELL WITH HER NECK PAIN. FINDS CURRENT CHRONIC PAIN MEDICATION EFFECTIVE AT REDUCING PAIN AND KEEPING HER FUNCTIONAL. DENIES ADVERSE EFFECTS WITH HER MEDICATIONS. BRINGS IN HER MEDICATION WHICH IS APPROPRIATE FOR WHAT WAS DISPENSED. -. FALL RISK SCREENING: SCREENING :NO FALLS REPORTED IN THE LAST YEAR PAIN SCREENING: PATIENT HAS A COMPLAINT OF ACUTE OR CHRONIC PAIN :YES LOCATION OF PAIN:NECK, LOW BACK INTENSITY OF PAIN (SCALE OF 1 TO 10):4 WHAT DOES YOUR PAIN FEEL LIKE:ACHING DURATION:CONTINOUS PAIN IS INCREASED BY:ACTIVITIES, PROLONGED STANDING PAIN IS DECREASED BY:USE OF PAIN MEDICATIONS, SITTING NURSING NOTE: -. PAIN CENTER INTAKE QUESTIONS: DO YOU HAVE A HISTORY OF MRSA? :NO DO YOU TAKE A BLOOD THINNERS? :NO DO YOU HAVE ANY BLEEDING DISORDERS? :NO ANY NEW NUMBNESS OR WEAKNESS IN YOUR LEGS OR ARMS? :NO ANY PACEMAKER,DEFIBRILLATOR, OR DORSAL COLUMN STIMULATOR? :NO DO YOU HAVE ANY RASHES OR OPEN SORES? :NO ARE YOU ALLERGIC TO IV DYE? :NO ARE YOU DIABETIC? :NO ANY NEW PROBLEMS WITH YOUR MEDICATIONS? :NO HAVE YOU RECEIVED A VACCINE IN THE PAST 30 DAYS? :NO DO YOU PLAN TO RECEIVE A VACCINE IN THE NEXT 21 DAYS? :NO DO YOU NEED ANY PRESCRIPTION? :NO DO YOU TAKE ANY IMMUNOSUPPRESSIVE MEDICATIONS? :NO IS THERE A CHANCE YOU COULD BE ? :NO ARE YOU BREAST FEEDING? :NO CURRENT MEDICATIONS TAKING LIDOCAINE & ADHESIVE SHEET 5 % KIT DIRECTED EXTERNALLY , NOTES: 06/25/20 TAKING MIRALAX - POWDER DIRECTED ORALLY DAILY, NOTES: 06/22/20 TAKING VOLTAREN 1 % GEL DIRECTED TRANSDERMAL APPLY 4 GRAMM TO NECK Q 6 HRS PRN PAIN, NOTES: NONE IN PAST WEEK TAKING OMEPRAZOLE 40 MG CAPSULE DELAYED RELEASE 1 CAPSULE 30 MINUTES BEFORE MORNING MEAL ORALLY ONCE A DAY, NOTES: 06/25/20 1030 TAKING PROMETHAZINE HCL 25 MG TABLET 1 TABLET NEEDED ORALLY EVERY 6 HR, NOTES: 06/25 TAKING DILAUDID 4 MG TABLET 1 TABLET NEEDED ORALLY Q8H PRN MDD3 #60 TAB SHOULD LAST 30 DAYS, NOTES: 06/26/20 0700 TAKING TIZANIDINE HCL 4 MG TABLET 1 TABLET NEEDED ORALLY TWICE A DAY NEEDED FOR MUSCLE SPASM TYPE PAIN, NOTES: 06/26/20 0700 TAKING AMBIEN 10 MG TABLET 1 TABLET AT BEDTIME NEEDED ORALLY ONCE A DAY TAKING ESCITALOPRAM OXALATE 10 MG TABLET 1 TABLET ORALLY ONCE A DAY TAKING ATORVASTATIN CALCIUM 40 MG TABLET 1 TABLET ORALLY ONCE A DAY TAKING HYOSCYAMINE SULFATE 0.125 MG TABLET DISINTEGRATING 1 TABLET ON THE TONGUE AND ALLOW TO DISSOLVE NEEDED ORALLY EVERY 6 HRS NEEDED TAKING CHOLECALCIFEROL 10 MCG (400 UNIT) CAPSULE 1 CAPSULE ORALLY ONCE A DAY NOT-TAKING HYDROMORPHONE HCL 4 MG TABLET 1 TABLET NEEDED ORALLY Q8H PRN MDD2 NOT-TAKING BUSPIRONE HCL 5 MG TABLET 1 TABLET ORALLY BID NOT-TAKING FLOMAX 0.4 MG CAPSULE 1 CAPSULE ORALLY ONCE A DAY NOT-TAKING LIDODERM 5 % PATCH 1 PATCH REMOVE AFTER 12 HOURS EXTERNALLY ONCE A DAY NOT-TAKING HYDROMORPHONE HCL 2 MG TABLET 1 TABLET NEEDED ORALLY Q8H PRN MDD3 #60 TAB SHOULD LAST 30 DAYS NOT-TAKING AMOXICILLIN-POT CLAVULANATE 875-125 MG TABLET 1 TABLET ORALLY EVERY 12 HRS NOT-TAKING CEPACOL 15-2.3 MG LOZENGE DIRECTED MOUTH/THROAT EVERY 6 HOURS NEEDED FOR SORE THROAT NOT-TAKING TESSALON PERLES 100 MG CAPSULE 1 CAPSULE NEEDED ORALLY THREE TIMES A DAY NOT-TAKING NUCYNTA ER 150 MG TABLET EXTENDED RELEASE 12 HOUR 1 TABLET ORALLY EVERY 12 HRS MDD2, NOTES: NONE IN PAST WEEK NOT-TAKING ESCITALOPRAM OXALATE 10 MG TABLET 1 TABLET ORALLY ONCE A DAY, NOTES: 06/25/202229 NOT-TAKING HYOSCYAMINE SULFATE 0.125 MG TABLET DISINTEGRATING 1 TABLET ON THE TONGUE AND ALLOW TO DISSOLVE NEEDED ORALLY EVERY 4 HRS MEDICATION LIST REVIEWED AND RECONCILED WITH THE PATIENT PAST MEDICAL HISTORY HO NEPHROLITHIASIS HYPERLIPIDEMIA CHRONIC MDD/TERE/COMORBID INSOMNIA GERD/HO PUD PHI 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 DUNLAP HYPERLIPIDEMIA ALLERGIES DEMEROL: "DEADENS THE AREA OF INJECTION" - ALLERGY CODEINE SULFATE: ITCHING - CONTRAINDICATION SURGICAL HISTORY PELVIC/VAGINAL WALL PROLAPSE REPAIR X3 2010 HYSTERECTOMY 2006 COLONOSOPY 2014, 2018 AXILLARY LYMPH NODES RIGHT REMOVED..NEGATIVE 2004 KIDNEY STONES BY LASER 2016 EGD W/BIOPSY 06/2019 FAMILY HISTORY FATHER: , CANCER. LUNG CA METASTASIZED TO BRAIN MOTHER: ALIVE, BREAST CANCER. GLAUCOMA SIBLINGS: ALIVE, HEART DISEASE, DIAGNOSED WITH UNSPECIFIED HEART DISEASE SON(S): ALIVE, PTSD DAUGHTER(S): ALIVE 3 BROTHER(S) , 1 SISTER(S) . 2 SON(S) , 1 DAUGHTER(S) - HEALTHY. NO KNOWN UROLOGICAL FAMILY HISTORY. SOCIAL HISTORY GENERAL: TOBACCO USE ARE YOU A:FORMER SMOKER HOW LONG HAS IT BEEN SINCE YOU LAST SMOKED?5-10 YEARS LATEX QUESTIONNAIRE LATEX ALLERGY : HAVE YOU EVER DEVELOPED ANY TYPE OF REACTION AFTER HANDLING LATEX PRODUCTS SUCH RUBBER GLOVES, CONDOMS, DIAPHRAGMS, BALLOONS, SOCKS, OR UNDERWEAR?NO LATEX ALLERGY : HAVE YOU EVER DEVELOPED ANY TYPE OF REACTION DURING OR AFTER DENTAL APPOINTMENT, VAGINAL/RECTAL EXAMINATION, SURGICAL PROCEDURE, OR ANY OTHER EXPOSURE?NO DATE ASKED : 06/25/2020 LATEX RISK : HAVE YOU EVER HAD ANY DIFFICULTY BREATHING OR HIVES AFTER EATING OR HANDLING ANY FRUITS, OR VEGETABLES; SUCH KIWI, BANANAS, STONE FRUITS, OR CHESTNUTSNO LATEX RISK : DO YOU HAVE A PREVIOUS PERSONAL HISTORY OF MORE THAN NINE SURGERIES, SPINA BIFIDA, OR REPEATED CATHERIZATIONS? NO LATEX RISK : ARE YOU FREQUENTLY EXPOSED TO LATEX PRODUCTS IN YOUR OCCUPATION?NO ALCOHOL SCREENING DID YOU HAVE A DRINK CONTAINING ALCOHOL IN THE PAST YEAR?NO POINTS0 INTERPRETATIONNEGATIVE RECREATIONAL DRUG USE DRUG USE?NO CAFFEINE CAFFEINE USE?YES 3 CUPS DAILY HIV / HEP-C SCREENING HIV TEST OFFERED TO PATIENT:YES DATE OFFERED:07/02/2020 HEP-C TEST OFFERED TO PATIENT:YES DATE OFFERED:07/02/2020 PENTECOSTALISM PENTECOSTALISM NO PREFERENCE LANGUAGE LANGUAGES SPOKEN:PERSIAN EDUCATION LEVEL OF EDUCATION:FINISHED HIGH SCHOOL LEARNING BARRIERS / SPECIAL NEEDS BARRIERS TO LEARNING?NO HEARING IMPAIRED?NO VISION IMPAIRED?YES COGNITIVELY IMPAIRED?NO :CORRECTIVE LENSES READINESS TO LEARN?YES LEARNING PREFERENCES?NO LEARNING CAPABILITIES PRESENT?YES EMOTIONAL BARRIERS?NO SPECIAL DEVICES?NO BLACK OFF WORKER NEEDED?NO DOMESTIC VIOLENCE DO YOU FEEL SAFE IN YOUR ENVIRONMENT?YES OCCUPATION: RETIRED. DIET: REGULAR. EXERCISE: NONE. MARITAL STATUS: . OTHERS AT HOME: SPOUSE. PAIN CLINIC PFS, CLERGY, PUBLIC HEALTH REFERRALS PFS REFERRAL NEEDED?NO CLERGY REFERRAL NEEDED?NO PUBLIC HEALTH REFERRAL NEEDED?NO WAS THE PROVIDER NOTIFIED OF ANY PERTINENT INFO?YES HAS THE PATIENT BEEN EDUCATED REGARDING HIS/HER PLAN OF CARE?YES HAS THE PATIENT BEEN EDUCATED REGARDING PAIN, THE RISK FOR PAIN, THE IMPORTANCE OF EFFECTIVE PAIN MANAGEMENT, AND THE PAIN ASSESSMENT PROCESS?YES ADVANCE DIRECTIVE ADVANCE DIRECTIVE DISCUSSED WITH PATIENT:YES HCP - FERNIE LedesmaTamiko LONNY () [phone] HOSPITALIZATION/MAJOR DIAGNOSTIC PROCEDURE SURGERIES KIDNEY STONES 2017 L KIDNEY STONES 2MM RENAL CALCULUS 2MM AT THE URETEROVESICULAR JUNCTION 08/19/2019- 08/21/2019 REVIEW OF SYSTEMS CONSTITUTIONAL: ANY RECENT FEVER NO . CHILLS NO . WEIGHT CHANGE OF UNKNOWN REASONS NO . GASTROENTEROLOGY: NEW UNEXPLAINABLE CHANGES IN BOWEL CONTROL NO . CONSTIPATION NO . GENITOURINARY: ANY NEW CHANGE IN BLADDER CONTROL? NO . NEUROLOGY: NEW ONSET DIZZINESS OR NEUROLOGICAL CHANGES NOT MENTIONED NO . NEW NUMBNESS OR PAIN PATTERNS NOT MENTIONED AND PERTINENT TO TODAY'S VISIT NO . CARDIOLOGY: NEW CHEST PRESSURE NO . NEW CHEST PAIN NO . RESPIRATORY: UNEXPLAINABLE COUGH NO . NEW SHORTNESS OF BREATH NO . VITAL SIGNS WT 182.6 LBS, HT 58 IN, BMI 38.16 INDEX, BP 128/73 MM HG, HR 96 /MIN, RR 18 /MIN, TEMP 96.5 F, OXYGEN SAT % 96%, SAFE IN ENV? (Y/N) YES, NA INITIALS AW 1335REVIEWED 07/10/20 1356 Ragini MEIER RN. EXAMINATION GENERAL EXAMINATION: GENERALAWAKE,ALERT ,PLEASANT . PSYCHAFFECT NORMAL . LUNGS:LUNG CARLOS ARE CLEAR TO AUSCULTATION BILATERALLY. GOOD MOVEMENT OF AIR . HEART:S1, S2 IN A REGULAR RATE AND RHYTHM. NO SIGNIFICANT MURMURS, RUBS OR GALLOPS NOTED . ASSESSMENTS OTHER CHRONIC PAIN - G89.29 (PRIMARY) LUMBAR FACET ARTHROPATHY - M47.816 TREATMENT OTHER CHRONIC PAIN PAIN PROCEDURE LOGDATE OF [id number]/10/2020PROCEDURE:BILATERAL LUMBARFACET BLOCK THERAPEUTIC L4-, L5-P4TSDOHP OF PRE SEDATEVALIUM 10 MG, OXYCODONE 10 MGRESULT:IMPROVEMENT IN PAIN POST PROCEDURE DISPOSITION & COMMUNICATION FOLLOW UP 3 MONTHS (REASON: MEDICATION MANAGEMENT NECK PAIN/LOW BACK PAIN) ELECTRONICALLY SIGNED BY TG AGARWAL ON 07/16/2020 AT 01:49 PM EST DISCLAIMER : THIS IS A VISIT SUMMARY EXTRACTED FROM THE [employer] CHART. IT IS NOT A COPY OF THE [facility] PROGRESS NOTE. CAMILA
== END ==
LOC: M PAIN 13:45
PROVIDERS: ATTEND Nurse Practitioner Family
DX: M47.816 Spondylosis without myelopathy or radiculopathy, lumbar region (principal); G89.29 Other chronic pain; G47.00 Insomnia, unspecified; K21.9 Gastro-esophageal reflux disease without esophagitis; G47.33 Obstructive sleep apnea (adult) (pediatric); Z87.891 Personal history of nicotine dependence; Z88.5 Allergy status to narcotic agent; Z79.899 Other long term (current) drug therapy

== ENCOUNTER → 2020-07-31 | Outpatient (CLI) | payer BC ==
--- NOTE | 2020-07-31 14:48 | REPMRS ---
Patient History The patient states she has not had a clinical breast exam in over a year. Family history of breast cancer at age 59 in mother, unknown cancer at age 78 in father. Took hormonal contraceptives for 1 year. Digital Woman Screen Mammo: July 31, 2020 - Exam #: [id number] Bilateral CC and MLO view(s) were taken. Technologist: RT Elizabeth Prior study comparison: July 04, 2019, bilateral digital mammo screening bilat, performed at [facility]. June 15, 2017, bilateral digital mammo screening bilat, performed at [facility]. October 19, 2015, bilateral digital mammo screening bilat, performed at [facility]. FINDINGS: There are scattered fibroglandular densities. The Vol[employer] volumetric breast density category is:B. There is a grouping of benign course macro calcifications in the right breast. A stable area of breast parenchymal density is seen medially in the right breast. There has been no change in the appearance of the mammogram from the prior studies. There is a mild amount of scattered fibroglandular density which is fairly symmetric. There is no interval development of dominant mass, architectural distortion, or grouped microcalcification suggestive of malignancy. 3-D tomosynthesis shows no additional findings. Assessment: BI-RADS/ACR category 2 mammogram. Benign Findings. Recommendation Routine screening mammogram of both breasts in 1 year (for women over age 40). This patient's [facility] Lifetime Breast Cancer Risk is estimated at 11.3 %. This mammogram was interpreted with the aid of an FDA-approved computer-aided dectection system. Electronically Signed By: Jackson Villalba MD 07/31/20 [id number]
== END ==
LOC: M WHC 13:34
PROVIDERS: ATTEND Nurse Practitioner Family
DX: Z12.31 Encounter for screening mammogram for malignant neoplasm of breast (principal); R92.1 Mammographic calcification found on diagnostic imaging of breast

== ENCOUNTER → 2020-10-10 | Outpatient (CLI) | payer BC ==
--- NOTE | 2020-10-16 07:47 | ECWPNPC ---
PATIENT NAME: RAVEN MUKHERJEE : 1960 GENDER: FEMALE VISIT DATE: 10/10/2020 DISCHARGE DATE: 10/10/20 1427 VISIT LOCKED DATE TIME: PHYSICIAN: MARYELLEN GARZA PHYSICIAN PAGER NO: ACTIVE RESOURCE: MARYELLEN GARZA REASON FOR APPOINTMENT 1. BACK HISTORY OF PRESENT ILLNESS GENERAL: HERE FOR F/U OF CHRONIC NECK AND LBP OVERALL DOING WELL WITH LOW BACK PAIN.CHIEF AREA OF PAIN IS NECK PAIN THAT RADIATES INTO OCCIPITAL CLUSTER HEADACHE ALMOST DAILY OVER THE PAST MONTH.HAS RESPONDED WELL TO C3/4-C4/5 BILAT. THERAPEUTIC FACET BLOCKS IN THE PAST.FINDS CURRENT CHRONIC PAIN MEDICATION EFFECTIVE AT REDUCING PAIN AND KEEPINGG HER FUNCTIONAL.DENIES SIDE EFFECTS. -. FALL RISK SCREENING: SCREENING :NO FALLS REPORTED IN THE LAST YEAR PAIN SCREENING: PATIENT HAS A COMPLAINT OF ACUTE OR CHRONIC PAIN :YES LOCATION OF PAIN:LOW BACK INTENSITY OF PAIN (SCALE OF 1 TO 10):4 WHAT DOES YOUR PAIN FEEL LIKE:THROBBING DURATION:CONTINOUS, CONSTANT, ALL DAY PAIN IS INCREASED BY:ACTIVITIES PAIN IS DECREASED BY:USE OF PAIN MEDICATIONS NURSING NOTE: -. PAIN CENTER INTAKE QUESTIONS: DO YOU HAVE A HISTORY OF MRSA? :NO DO YOU TAKE A BLOOD THINNERS? :NO DO YOU HAVE ANY BLEEDING DISORDERS? :NO ANY NEW NUMBNESS OR WEAKNESS IN YOUR LEGS OR ARMS? :YES LEFT LEG IS WEAK ANY PACEMAKER,DEFIBRILLATOR, OR DORSAL COLUMN STIMULATOR? :NO DO YOU HAVE ANY RASHES OR OPEN SORES? :NO ARE YOU ALLERGIC TO IV DYE? :NO ARE YOU DIABETIC? :NO ANY NEW PROBLEMS WITH YOUR MEDICATIONS? :NO HAVE YOU RECEIVED A VACCINE IN THE PAST 30 DAYS? :NO DO YOU PLAN TO RECEIVE A VACCINE IN THE NEXT 21 DAYS? :NO DO YOU NEED ANY PRESCRIPTION? :NO DO YOU TAKE ANY IMMUNOSUPPRESSIVE MEDICATIONS? :NO IS THERE A CHANCE YOU COULD BE ? :NO ARE YOU BREAST FEEDING? :NO CURRENT MEDICATIONS TAKING LIDOCAINE & ADHESIVE SHEET 5 % KIT DIRECTED EXTERNALLY TAKING MIRALAX - POWDER DIRECTED ORALLY DAILY TAKING VOLTAREN 1 % GEL DIRECTED TRANSDERMAL APPLY 4 GRAMM TO NECK Q 6 HRS PRN PAIN TAKING OMEPRAZOLE 40 MG CAPSULE DELAYED RELEASE 1 CAPSULE 30 MINUTES BEFORE MORNING MEAL ORALLY ONCE A DAY TAKING ESCITALOPRAM OXALATE 10 MG TABLET 1 TABLET ORALLY ONCE A DAY TAKING ATORVASTATIN CALCIUM 40 MG TABLET 1 TABLET ORALLY ONCE A DAY TAKING HYOSCYAMINE SULFATE 0.125 MG TABLET DISINTEGRATING 1 TABLET ON THE TONGUE AND ALLOW TO DISSOLVE NEEDED ORALLY EVERY 6 HRS NEEDED TAKING CHOLECALCIFEROL 10 MCG (400 UNIT) CAPSULE 1 CAPSULE ORALLY ONCE A DAY TAKING PROMETHAZINE HCL 25 MG TABLET 1 TABLET NEEDED ORALLY EVERY 6 HR TAKING TIZANIDINE HCL 4 MG TABLET 1 TABLET NEEDED ORALLY TWICE A DAY NEEDED FOR MUSCLE SPASM TYPE PAIN TAKING AMBIEN 10 MG TABLET 1 TABLET AT BEDTIME NEEDED ORALLY ONCE A DAY; DO NOT FILL UNTIL 08/19/2020 TAKING DILAUDID 4 MG TABLET 1 TABLET NEEDED ORALLY Q8H PRN MDD3 #60 TAB SHOULD LAST 30 DAYS NOT-TAKING HYDROMORPHONE HCL 4 MG TABLET 1 TABLET NEEDED ORALLY EVERY 8 HRS NOT-TAKING HYDROMORPHONE HCL 4 MG TABLET 1 TABLET NEEDED ORALLY Q8H PRN MDD2 NOT-TAKING BUSPIRONE HCL 5 MG TABLET 1 TABLET ORALLY BID NOT-TAKING FLOMAX 0.4 MG CAPSULE 1 CAPSULE ORALLY ONCE A DAY NOT-TAKING LIDODERM 5 % PATCH 1 PATCH REMOVE AFTER 12 HOURS EXTERNALLY ONCE A DAY NOT-TAKING HYDROMORPHONE HCL 2 MG TABLET 1 TABLET NEEDED ORALLY Q8H PRN MDD3 #60 TAB SHOULD LAST 30 DAYS NOT-TAKING AMOXICILLIN-POT CLAVULANATE 875-125 MG TABLET 1 TABLET ORALLY EVERY 12 HRS NOT-TAKING CEPACOL 15-2.3 MG LOZENGE DIRECTED MOUTH/THROAT EVERY 6 HOURS NEEDED FOR SORE THROAT NOT-TAKING TESSALON PERLES 100 MG CAPSULE 1 CAPSULE NEEDED ORALLY THREE TIMES A DAY NOT-TAKING NUCYNTA ER 150 MG TABLET EXTENDED RELEASE 12 HOUR 1 TABLET ORALLY EVERY 12 HRS MDD2, NOTES: NONE IN PAST WEEK NOT-TAKING ESCITALOPRAM OXALATE 10 MG TABLET 1 TABLET ORALLY ONCE A DAY, NOTES: 06/25/200 NOT-TAKING HYOSCYAMINE SULFATE 0.125 MG TABLET DISINTEGRATING 1 TABLET ON THE TONGUE AND ALLOW TO DISSOLVE NEEDED ORALLY EVERY 4 HRS MEDICATION LIST REVIEWED AND RECONCILED WITH THE PATIENT PAST MEDICAL HISTORY HO NEPHROLITHIASIS HYPERLIPIDEMIA CHRONIC MDD/TERE/COMORBID INSOMNIA GERD/HO PUD PHI 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 DUNLAP HYPERLIPIDEMIA ALLERGIES DEMEROL: "DEADENS THE AREA OF INJECTION" - ALLERGY CODEINE SULFATE: ITCHING - CONTRAINDICATION SOCIAL HISTORY GENERAL: TOBACCO USE ARE YOU A:FORMER SMOKER HOW LONG HAS IT BEEN SINCE YOU LAST SMOKED?5-10 YEARS LATEX QUESTIONNAIRE LATEX ALLERGY : HAVE YOU EVER DEVELOPED ANY TYPE OF REACTION AFTER HANDLING LATEX PRODUCTS SUCH RUBBER GLOVES, CONDOMS, DIAPHRAGMS, BALLOONS, SOCKS, OR UNDERWEAR?NO LATEX ALLERGY : HAVE YOU EVER DEVELOPED ANY TYPE OF REACTION DURING OR AFTER DENTAL APPOINTMENT, VAGINAL/RECTAL EXAMINATION, SURGICAL PROCEDURE, OR ANY OTHER EXPOSURE?NO LATEX RISK : HAVE YOU EVER HAD ANY DIFFICULTY BREATHING OR HIVES AFTER EATING OR HANDLING ANY FRUITS, OR VEGETABLES; SUCH KIWI, BANANAS, STONE FRUITS, OR CHESTNUTSNO LATEX RISK : DO YOU HAVE A PREVIOUS PERSONAL HISTORY OF MORE THAN NINE SURGERIES, SPINA BIFIDA, OR REPEATED CATHERIZATIONS? NO LATEX RISK : ARE YOU FREQUENTLY EXPOSED TO LATEX PRODUCTS IN YOUR OCCUPATION?NO DATE ASKED : 10/10/2020 ALCOHOL USE: NO. ALCOHOL SCREENING DID YOU HAVE A DRINK CONTAINING ALCOHOL IN THE PAST YEAR?NO POINTS0 INTERPRETATIONNEGATIVE RECREATIONAL DRUG USE DRUG USE?NO CAFFEINE CAFFEINE USE?YES 3 CUPS DAILY HIV / HEP-C SCREENING HIV TEST OFFERED TO PATIENT:YES DATE OFFERED:07/02/2020 HEP-C TEST OFFERED TO PATIENT:YES DATE OFFERED:07/02/2020 ALEVISM ALEVISM NO PREFERENCE LANGUAGE LANGUAGES SPOKEN:FRISIAN EDUCATION LEVEL OF EDUCATION:FINISHED HIGH SCHOOL LEARNING BARRIERS / SPECIAL NEEDS BARRIERS TO LEARNING?NO HEARING IMPAIRED?NO VISION IMPAIRED?YES :CORRECTIVE LENSES COGNITIVELY IMPAIRED?NO READINESS TO LEARN?YES LEARNING PREFERENCES?NO LEARNING CAPABILITIES PRESENT?YES EMOTIONAL BARRIERS?NO SPECIAL DEVICES?NO SAS PROGRAMMER REMOTE NEEDED?NO DOMESTIC VIOLENCE DO YOU FEEL SAFE IN YOUR ENVIRONMENT?YES OCCUPATION: RETIRED. DIET: REGULAR. EXERCISE: NONE. MARITAL STATUS: . OTHERS AT HOME: SPOUSE. - PFS REFERRAL NEEDED?NO CLERGY REFERRAL NEEDED?NO PUBLIC HEALTH REFERRAL NEEDED?NO WAS THE PROVIDER NOTIFIED OF ANY PERTINENT INFO?YES HAS THE PATIENT BEEN EDUCATED REGARDING HIS/HER PLAN OF CARE?YES HAS THE PATIENT BEEN EDUCATED REGARDING PAIN, THE RISK FOR PAIN, THE IMPORTANCE OF EFFECTIVE PAIN MANAGEMENT, AND THE PAIN ASSESSMENT PROCESS?YES ADVANCE DIRECTIVE ADVANCE DIRECTIVE DISCUSSED WITH PATIENT:YES HCP - FERNIE Ponce LONNY () [phone] REVIEW OF SYSTEMS CONSTITUTIONAL: ANY RECENT FEVER NO . CHILLS NO . WEIGHT CHANGE OF UNKNOWN REASONS NO . GASTROENTEROLOGY: NEW UNEXPLAINABLE CHANGES IN BOWEL CONTROL NO . CONSTIPATION NO . GENITOURINARY: ANY NEW CHANGE IN BLADDER CONTROL? NO . NEUROLOGY: NEW ONSET DIZZINESS OR NEUROLOGICAL CHANGES NOT MENTIONED NO . NEW NUMBNESS OR PAIN PATTERNS NOT MENTIONED AND PERTINENT TO TODAY'S VISIT NO . CARDIOLOGY: NEW CHEST PRESSURE NO . PATIENT DENIES NO . RESPIRATORY: UNEXPLAINABLE COUGH NO . NEW SHORTNESS OF BREATH NO . VITAL SIGNS WT 186 LBS, HT 58 IN, BMI 38.87 INDEX, BP 142/68 MM HG, HR 83 /MIN, RR 18 /MIN, TEMP 96.7 F, OXYGEN SAT % 95%, SAFE IN ENV? (Y/N) YEST.RAIZA ANGEL. EXAMINATION GENERAL EXAMINATION: GENERALNO ACUTE DISTRESS, WELL NOURISHED AND HYDRATED. PSYCHAPPROPRIATE MOOD AND AFFECT . NECK:NO LYMPHADENOPATHY, SUPPLE, NO THYROMEGALLY, NO JVD OR BRUITS. LUNGS:CLEAR TO AUSCULTATION BILATERALLY, NO WHEEZES, RHONCHI, RALES. CERVICAL: POSITIVE PAIN WITH FACET LOADING BILAT C3/4-/C5/6. DIAGNOSTIC TESTS REVIEWED CERVICAL 2017. ASSESSMENTS CHRONIC PRESCRIPTION OPIATE USE - Z79.891 (PRIMARY) SPONDYLOSIS OF CERVICAL REGION WITHOUT MYELOPATHY OR RADICULOPATHY - M47.812 TREATMENT CHRONIC PRESCRIPTION OPIATE USE CONTINUE DILAUDID TABLET, 4 MG, 1 TABLET NEEDED, ORALLY, Q8H PRN MDD3 #60 TAB SHOULD LAST 30 DAYS REFILL TIZANIDINE HCL TABLET, 4 MG, 1 TABLET NEEDED, ORALLY, TWICE A DAY NEEDED FOR MUSCLE SPASM TYPE PAIN, 30 DAYS, 60, REFILLS 1 NOTES: BILATERAL THERAPEUTIC CERVICAL FACET BLOCK C3/4,C5/6 WITH IV SED PRINTED AND REVIEWED PRE PROCEDURE WITH PATIENT EDUARDO ANGEL , ISTOP REGISTRY REVIEWED AND DEMONSTRATES COMPLLIANCE. BRINGS IN MEDICATIONS WHICH IS APPROPRIATE FOR WHAT WAS DISPENSED. RECENT URINE TOXICOLOGY REVIEWED. NO UNAUTHORIZED MEDICATIONS. NO ILLICIT SUBSTANCES AND PRESCRIBED MEDICATIONS WERE PRESENT. PROCEDURE CODES FA211 ESTABILISHED PATIENT [facility] FACILITY CHARGE DISPOSITION & COMMUNICATION FOLLOW UP IV SED APT/POST PROCEDDURE MARYELLEN/NERISSA (REASON: BILATERAL CERVICAL FACET BLOCK THERAPEUTIC C3/4,C5/6 W IV SEDATION) ELECTRONICALLY SIGNED BY TG AGARWAL ON 10/15/2020 AT 08:46 AM EST DISCLAIMER : THIS IS A VISIT SUMMARY EXTRACTED FROM THE [employer] CHART. IT IS NOT A COPY OF THE [employer] PROGRESS NOTE. MTDD
== END ==
LOC: M PAIN 13:30
PROVIDERS: ATTEND Nurse Practitioner Family
DX: M47.812 Spondylosis without myelopathy or radiculopathy, cervical region (principal); G89.29 Other chronic pain; K21.9 Gastro-esophageal reflux disease without esophagitis; G47.33 Obstructive sleep apnea (adult) (pediatric); Z86.59 Personal history of other mental and behavioral disorders; Z87.891 Personal history of nicotine dependence; Z88.5 Allergy status to narcotic agent; Z79.899 Other long term (current) drug therapy

== ENCOUNTER → 2020-11-02 | Outpatient (CLI) | payer BC ==
--- NOTE | 2020-11-02 23:35 | ECWPNPC ---
PATIENT NAME: RAVEN MUKHERJEE : 1960 GENDER: FEMALE VISIT DATE: 11/02/2020 DISCHARGE DATE: 11/02/20 1238 VISIT LOCKED DATE TIME: PHYSICIAN: SARAH BETH CAO MD PHYSICIAN PAGER NO: ACTIVE RESOURCE: SARAH BETH CAO MD REASON FOR APPOINTMENT 1. PRESEDATE FOR BILATERAL CERVICAL FACET BLOCK THERAPEUTIC C2-C3, C3-C4 HISTORY OF PRESENT ILLNESS GENERAL: 59-YEAR-OLD FEMALE PATIENT WITH A HISTORY OF CHRONIC NECK PAIN. THE PATIENT DESCRIBES THE PAIN CONSTANT, STABBING AND SEVERE WITH A PAIN SCORE RANGING FROM 8-10/10 OVER THE NECK WITH RADIATION OVER THE HEAD ON BOTH SIDES. THIS IS AFFECTING HER ABILITIES TO DO ACTIVITIES SUCH CLEANING HER HOUSE AND GROCERY SHOPPING AND ACTIVITIES OF DAILY LIVING. THE PATIENT HAS HAD A CERVICAL FACET BLOCK THAT HELPED HER OVER A YEAR. FALL RISK SCREENING: SCREENING : NO FALLS REPORTED IN THE LAST YEAR. PAIN SCREENING: PATIENT HAS A COMPLAINT OF ACUTE OR CHRONIC PAIN :YES LOCATION OF PAIN:HEAD, NECK, LOW BACK INTENSITY OF PAIN (SCALE OF 1 TO 10):9 WHAT DOES YOUR PAIN FEEL LIKE:ACHING KNOT FEELING IN BACK DURATION:CONTINOUS, CONSTANT PAIN IS INCREASED BY:ACTIVITIES PAIN IS DECREASED BY:USE OF PAIN MEDICATIONS NURSING NOTE: -. PAIN CENTER INTAKE QUESTIONS: DO YOU HAVE A HISTORY OF MRSA? :NO DO YOU TAKE A BLOOD THINNERS? :NO DO YOU HAVE ANY BLEEDING DISORDERS? :NO ANY NEW NUMBNESS OR WEAKNESS IN YOUR LEGS OR ARMS? :NO ANY PACEMAKER,DEFIBRILLATOR, OR DORSAL COLUMN STIMULATOR? :NO DO YOU HAVE ANY RASHES OR OPEN SORES? :NO ARE YOU ALLERGIC TO IV DYE? :NO ARE YOU DIABETIC? :NO ANY NEW PROBLEMS WITH YOUR MEDICATIONS? :NO HAVE YOU RECEIVED A VACCINE IN THE PAST 30 DAYS? :NO DO YOU PLAN TO RECEIVE A VACCINE IN THE NEXT 21 DAYS? :NO DO YOU NEED ANY PRESCRIPTION? :NO DO YOU TAKE ANY IMMUNOSUPPRESSIVE MEDICATIONS? :NO DO YOU HAVE ANY KIDNEY OR LIVER DISEASE? :YES KIDNEY STONES IS THERE A CHANCE YOU COULD BE ? :NO ARE YOU BREAST FEEDING? :NO CURRENT MEDICATIONS TAKING LIDOCAINE & ADHESIVE SHEET 5 % KIT DIRECTED EXTERNALLY TAKING MIRALAX - POWDER DIRECTED ORALLY DAILY TAKING VOLTAREN 1 % GEL DIRECTED TRANSDERMAL APPLY 4 GRAMM TO NECK Q 6 HRS PRN PAIN TAKING OMEPRAZOLE 40 MG CAPSULE DELAYED RELEASE 1 CAPSULE 30 MINUTES BEFORE MORNING MEAL ORALLY ONCE A DAY TAKING ESCITALOPRAM OXALATE 10 MG TABLET 1 TABLET ORALLY ONCE A DAY TAKING ATORVASTATIN CALCIUM 40 MG TABLET 1 TABLET ORALLY ONCE A DAY TAKING HYOSCYAMINE SULFATE 0.125 MG TABLET DISINTEGRATING 1 TABLET ON THE TONGUE AND ALLOW TO DISSOLVE NEEDED ORALLY EVERY 6 HRS NEEDED TAKING CHOLECALCIFEROL 10 MCG (400 UNIT) CAPSULE 1 CAPSULE ORALLY ONCE A DAY TAKING PROMETHAZINE HCL 25 MG TABLET 1 TABLET NEEDED ORALLY EVERY 6 HR TAKING TIZANIDINE HCL 4 MG TABLET 1 TABLET NEEDED ORALLY TWICE A DAY NEEDED FOR MUSCLE SPASM TYPE PAIN TAKING AMBIEN 10 MG TABLET 1 TABLET AT BEDTIME NEEDED ORALLY ONCE A DAY; DO NOT FILL UNTIL 08/19/2020 TAKING DILAUDID 4 MG TABLET 1 TABLET NEEDED ORALLY Q8H PRN MDD3 #60 TAB SHOULD LAST 30 DAYS NOT-TAKING HYDROMORPHONE HCL 4 MG TABLET 1 TABLET NEEDED ORALLY EVERY 8 HRS NOT-TAKING HYDROMORPHONE HCL 4 MG TABLET 1 TABLET NEEDED ORALLY Q8H PRN MDD2 NOT-TAKING BUSPIRONE HCL 5 MG TABLET 1 TABLET ORALLY BID NOT-TAKING FLOMAX 0.4 MG CAPSULE 1 CAPSULE ORALLY ONCE A DAY NOT-TAKING LIDODERM 5 % PATCH 1 PATCH REMOVE AFTER 12 HOURS EXTERNALLY ONCE A DAY NOT-TAKING HYDROMORPHONE HCL 2 MG TABLET 1 TABLET NEEDED ORALLY Q8H PRN MDD3 #60 TAB SHOULD LAST 30 DAYS NOT-TAKING AMOXICILLIN-POT CLAVULANATE 875-125 MG TABLET 1 TABLET ORALLY EVERY 12 HRS NOT-TAKING CEPACOL 15-2.3 MG LOZENGE DIRECTED MOUTH/THROAT EVERY 6 HOURS NEEDED FOR SORE THROAT NOT-TAKING TESSALON PERLES 100 MG CAPSULE 1 CAPSULE NEEDED ORALLY THREE TIMES A DAY NOT-TAKING NUCYNTA ER 150 MG TABLET EXTENDED RELEASE 12 HOUR 1 TABLET ORALLY EVERY 12 HRS MDD2, NOTES: NONE IN PAST WEEK NOT-TAKING ESCITALOPRAM OXALATE 10 MG TABLET 1 TABLET ORALLY ONCE A DAY, NOTES: 06/25/200 NOT-TAKING HYOSCYAMINE SULFATE 0.125 MG TABLET DISINTEGRATING 1 TABLET ON THE TONGUE AND ALLOW TO DISSOLVE NEEDED ORALLY EVERY 4 HRS MEDICATION LIST REVIEWED AND RECONCILED WITH THE PATIENT PAST MEDICAL HISTORY HO NEPHROLITHIASIS HYPERLIPIDEMIA CHRONIC MDD/TERE/COMORBID INSOMNIA GERD/HO PUD PHI 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 DUNLAP HYPERLIPIDEMIA ALLERGIES DEMEROL: "DEADENS THE AREA OF INJECTION" - ALLERGY CODEINE SULFATE: ITCHING - CONTRAINDICATION SOCIAL HISTORY GENERAL: TOBACCO USE ARE YOU A:FORMER SMOKER HOW LONG HAS IT BEEN SINCE YOU LAST SMOKED?5-10 YEARS LATEX QUESTIONNAIRE LATEX ALLERGY : HAVE YOU EVER DEVELOPED ANY TYPE OF REACTION AFTER HANDLING LATEX PRODUCTS SUCH RUBBER GLOVES, CONDOMS, DIAPHRAGMS, BALLOONS, SOCKS, OR UNDERWEAR?NO LATEX ALLERGY : HAVE YOU EVER DEVELOPED ANY TYPE OF REACTION DURING OR AFTER DENTAL APPOINTMENT, VAGINAL/RECTAL EXAMINATION, SURGICAL PROCEDURE, OR ANY OTHER EXPOSURE?NO DATE ASKED : 10/10/2020 LATEX RISK : HAVE YOU EVER HAD ANY DIFFICULTY BREATHING OR HIVES AFTER EATING OR HANDLING ANY FRUITS, OR VEGETABLES; SUCH KIWI, BANANAS, STONE FRUITS, OR CHESTNUTSNO LATEX RISK : DO YOU HAVE A PREVIOUS PERSONAL HISTORY OF MORE THAN NINE SURGERIES, SPINA BIFIDA, OR REPEATED CATHERIZATIONS? NO LATEX RISK : ARE YOU FREQUENTLY EXPOSED TO LATEX PRODUCTS IN YOUR OCCUPATION?NO ALCOHOL USE: NO. ALCOHOL SCREENING DID YOU HAVE A DRINK CONTAINING ALCOHOL IN THE PAST YEAR?NO POINTS0 INTERPRETATIONNEGATIVE RECREATIONAL DRUG USE DRUG USE?NO CAFFEINE CAFFEINE USE?YES 3 CUPS DAILY HIV / HEP-C SCREENING HIV TEST OFFERED TO PATIENT:YES DATE OFFERED:07/02/2020 HEP-C TEST OFFERED TO PATIENT:YES DATE OFFERED:07/02/2020 TEMPLE TEMPLE NO PREFERENCE LANGUAGE LANGUAGES SPOKEN:SPANISH EDUCATION LEVEL OF EDUCATION:FINISHED HIGH SCHOOL LEARNING BARRIERS / SPECIAL NEEDS BARRIERS TO LEARNING?NO HEARING IMPAIRED?NO VISION IMPAIRED?YES COGNITIVELY IMPAIRED?NO :CORRECTIVE LENSES READINESS TO LEARN?YES LEARNING PREFERENCES?NO LEARNING CAPABILITIES PRESENT?YES EMOTIONAL BARRIERS?NO SPECIAL DEVICES?NO BLENDING PLANT OPERATOR NEEDED?NO DOMESTIC VIOLENCE DO YOU FEEL SAFE IN YOUR ENVIRONMENT?YES OCCUPATION: RETIRED. DIET: REGULAR. EXERCISE: NONE. MARITAL STATUS: . OTHERS AT HOME: SPOUSE. - PFS REFERRAL NEEDED?NO CLERGY REFERRAL NEEDED?NO PUBLIC HEALTH REFERRAL NEEDED?NO WAS THE PROVIDER NOTIFIED OF ANY PERTINENT INFO?YES HAS THE PATIENT BEEN EDUCATED REGARDING HIS/HER PLAN OF CARE?YES HAS THE PATIENT BEEN EDUCATED REGARDING PAIN, THE RISK FOR PAIN, THE IMPORTANCE OF EFFECTIVE PAIN MANAGEMENT, AND THE PAIN ASSESSMENT PROCESS?YES ADVANCE DIRECTIVE ADVANCE DIRECTIVE DISCUSSED WITH PATIENT:YES HCP - FERNIE MUKHERJEE () [phone] REVIEW OF SYSTEMS GLAUCOMA: NOTHYROID DISEASE: NOHYPERTENSION: NOHEART DISEASE: NOLUNG DISEASE: YES OSADIABETES: NOGI DISEASE: GERDLIVER DISEASE: NO KIDNEY DISEASE: NOSTERIOD USE: NONEUROLOGICAL DISEASE: NOBACK PROBLEMS: NOEXTREMITIES: NOGENITOURINARY: NOBLEEDING DISORDER: NOASA CLASS: IIAIRWAY CLASS: II. VITAL SIGNS WT 185 LBS, HT 58 IN, BMI 38.66 INDEX, BP 127/62 MM HG, HR 98 /MIN, RR 16 /MIN, TEMP 96.7 F, OXYGEN SAT % 97, SAFE IN ENV? (Y/N) Y, REVIEWED BY: EM. EXAMINATION GENERAL EXAMINATION: THE PATIENT IS ALERT, ORIENTED TIMES THREE AND COOPERATIVE. LUNGS ARE CLEAR TO AUSCULTATION. HEART SHOWS REGULAR RHYTHM, NO MURMURS AND NO GALLOPS. THERE IS TENDERNESS IN THE RIGHT AND LEFT NECK AREA WITH INCREASING PAIN WITH EXTENSION AND LATERAL ROTATION OVER THE CERVICAL FACET JOINTS. MRI OF THE CERVICAL SPINE DATED 10/16/2016 SHOWS CERVICAL FACET CHANGES. ASSESSMENTS SPONDYLOSIS WITHOUT MYELOPATHY OR RADICULOPATHY, CERVICAL REGION - M47.812 (PRIMARY) FACET ARTHROPATHY, CERVICAL - M47.812 TREATMENT SPONDYLOSIS WITHOUT MYELOPATHY OR RADICULOPATHY, CERVICAL REGION IV LACTATED RINGER'S AT KVO (ORDERED FOR 12/03/2020) OXYGEN AT 2 LITERS PER NASAL CANNULA (ORDERED FOR 12/03/2020) MED: VERSED 1MG IV MIDAZOLAM (ORDERED FOR 12/03/2020) MEDICATION: FENTANYL CITRATE 25MCG IV (ORDERED FOR 12/03/2020) MEDICATION: PAIN ZOFRAN 4MG/2ML IV ONDANSETRON (ORDERED FOR 12/03/2020) CLINICAL NOTES: I DISCUSSED ALTERNATIVES WITH MS. MUKHERJEE. WE AGREE ON DOING A BILATERAL THERAPEUTIC CERVICAL FACET BLOCK C2-C3, C3-C4 WITH IV SEDATION DUE TO ANXIETY AND DISCOMFORT ASSOCIATED WITH THE PROCEDURE. WE ARE GOING TO REPEAT THE INJECTION WE DID LAST TIME SINCE IT GAVE HER OVER A YEAR OF RELIEF. DEPENDING ON THE RESULTS, CONSIDER REPEATING THE CERVICAL MRI THE LAST ONE WAS DONE IN 2017. THE PATIENT REPORTS UNDERSTANDING AND AGREES WITH THE PLAN. I, IVON NICOLE, DOCUMENTED THE ABOVE INFORMATION ACTING A SCRIBE FOR DR. CAO. I HAVE REVIEWED THE ABOVE DOCUMENT, WRITTEN BY IVON NICOLE, DIRECTOR OF ROOMS, AND I VERIFY THAT IT IS ACCURATE. PROCEDURE CODES FA211 ESTABILISHED PATIENT [facility] CHARGE [id number] OFFICE/OUTPATIENT VISIT EST DISPOSITION & COMMUNICATION FOLLOW UP MAY NEED TO CHANGE BOOKING (REASON: BILATERAL THERAPEUTIC CERVICAL FACET BLOCK C2-C3, C3-C4 ) ELECTRONICALLY SIGNED BY SARAH BETH CAO MD, MD ON 11/02/2020 AT 02:59 PM EDT DISCLAIMER : THIS IS A VISIT SUMMARY EXTRACTED FROM THE [facility] CHART. IT IS NOT A COPY OF THE [facility] PROGRESS NOTE. MTDD
== END ==
LOC: M PAIN 11:30
PROVIDERS: ATTEND Anesthesiology
DX: M47.812 Spondylosis without myelopathy or radiculopathy, cervical region (principal); G89.29 Other chronic pain; K21.9 Gastro-esophageal reflux disease without esophagitis; G47.33 Obstructive sleep apnea (adult) (pediatric); Z86.59 Personal history of other mental and behavioral disorders; Z87.891 Personal history of nicotine dependence; Z88.5 Allergy status to narcotic agent; Z79.899 Other long term (current) drug therapy

== ENCOUNTER → 2020-11-08 | Outpatient (CLI) | payer BC | LOC: M LABSMTC 12:16 | PROVIDERS: ATTEND Anesthesiology | DX: Z20.822 Contact with and (suspected) exposure to COVID-19 (principal) ==

== ENCOUNTER → 2020-11-13 | Outpatient (CLI) | payer BC ==
[~2020-11-13] MED LIST changes: +BUPIVACAINE HCL 0.25% 30ML VIAL As Ordered ONE; +ISOVUE-M 300 61% 15ML VIAL As Ordered ONE; +LIDOCAINE 1% SDV 30ML VIAL As Ordered ONE; +MIDAZOLAM INJ 2MG/2ML VIAL (J2250 PER 1MG) As Ordered ONE; +ONDANSETRON 4MG/2ML VIAL As Ordered ONE; +TRIAMCINOLONE ACETONIDE SUSP 40 MG/ML VIAL (J3301) As Ordered ONE; +fentaNYL 100 MCG/2 ML INJECTION (J3010) As Ordered ONE
--- NOTE | 2020-11-13 17:58 | REP ---
INDICATION: BILATERAL CERVICAL THERAPEUTIC FACET BLOCK. COMPARISON: None. TECHNIQUE: Two views. Thirteen seconds of fluoroscopy time is reported. FINDINGS: A sequence of 2 last image hold fluoroscopically obtained spot radiograph(s) of the cervical spine document(s) needle position(s) and contrast injection associated with injection procedure. IMPRESSION: Procedural imaging. <Electronically signed by Jackson Villalba > 11/13/20 [id number]
--- NOTE | 2020-11-15 02:44 | ECWPNPC ---
PATIENT NAME: RAVEN MUKHERJEE : 1960 GENDER: FEMALE VISIT DATE: 11/13/2020 DISCHARGE DATE: 11/13/20 1400 VISIT LOCKED DATE TIME: PHYSICIAN: SARAH BETH CAO MD PHYSICIAN PAGER NO: ACTIVE RESOURCE: SARAH BETH CAO MD REASON FOR APPOINTMENT 1. BILATERAL THERAPEUTIC CERVICAL FACET BLOCK C2-C3, C3-C4 HISTORY OF PRESENT ILLNESS GENERAL: -. FALL RISK SCREENING: SCREENING : NO FALLS REPORTED IN THE LAST YEAR. PAIN SCREENING: PATIENT HAS A COMPLAINT OF ACUTE OR CHRONIC PAIN :YES LOCATION OF PAIN:HEAD, NECK, BOTH SHOULDERS INTENSITY OF PAIN (SCALE OF 1 TO 10):8 WHAT DOES YOUR PAIN FEEL LIKE:THROBBING, OTHER TIGHTNESS DURATION:CONTINOUS, CONSTANT, STEADY, ALL DAY PAIN IS INCREASED BY:ACTIVITIES, OTHERS BENDING, TURNING HEAD PAIN IS DECREASED BY: NOTHING HELPING CURRENTLY NURSING NOTE: -. PAIN CENTER INTAKE QUESTIONS: DO YOU HAVE A HISTORY OF MRSA? :NO DO YOU TAKE A BLOOD THINNERS? :NO DO YOU HAVE ANY BLEEDING DISORDERS? :NO ANY NEW NUMBNESS OR WEAKNESS IN YOUR LEGS OR ARMS? :NO ANY PACEMAKER,DEFIBRILLATOR, OR DORSAL COLUMN STIMULATOR? :NO DO YOU HAVE ANY RASHES OR OPEN SORES? :NO ARE YOU ALLERGIC TO IV DYE? :NO ARE YOU DIABETIC? :NO ANY NEW PROBLEMS WITH YOUR MEDICATIONS? :NO HAVE YOU RECEIVED A VACCINE IN THE PAST 30 DAYS? :NO DO YOU PLAN TO RECEIVE A VACCINE IN THE NEXT 21 DAYS? :NO DO YOU TAKE ANY IMMUNOSUPPRESSIVE MEDICATIONS? :NO ANY HISTORY OF SEIZURES? :NO ANY HISTORY OF CARDIAC ISSUES OR EVENTS? :NO DO YOU HAVE ANY KIDNEY OR LIVER DISEASE? :NO KIDNEY STONES DO YOU HAVE SLEEP APNEA? :NO ANY RECENT HEAD INJURY? :NO DO YOU HAVE ANY NEW INFECTIONS? :NO IS THERE A CHANCE YOU COULD BE ? :NO ARE YOU BREAST FEEDING? :NO WHEN DID YOU LAST EAT? : 11/12/2020 1900 WHEN DID YOU LAST DRINK? : 11/13/2020 0800 WHAT DID YOU LAST DRINK? : WATER NAME OF PERSON DRIVING YOU HOME? : FERNIE DO YOU HAVE ANY OTHER QUESTIONS OR CONCERNS? : - CURRENT MEDICATIONS TAKING MIRALAX - POWDER DIRECTED ORALLY DAILY TAKING VOLTAREN 1 % GEL DIRECTED TRANSDERMAL APPLY 4 GRAMM TO NECK Q 6 HRS PRN PAIN TAKING OMEPRAZOLE 40 MG CAPSULE DELAYED RELEASE 1 CAPSULE 30 MINUTES BEFORE MORNING MEAL ORALLY ONCE A DAY TAKING ATORVASTATIN CALCIUM 40 MG TABLET 1 TABLET ORALLY ONCE A DAY TAKING HYOSCYAMINE SULFATE 0.125 MG TABLET DISINTEGRATING 1 TABLET ON THE TONGUE AND ALLOW TO DISSOLVE NEEDED ORALLY EVERY 6 HRS NEEDED TAKING CHOLECALCIFEROL 10 MCG (400 UNIT) CAPSULE 1 CAPSULE ORALLY ONCE A DAY TAKING PROMETHAZINE HCL 25 MG TABLET 1 TABLET NEEDED ORALLY EVERY 6 HR TAKING TIZANIDINE HCL 4 MG TABLET 1 TABLET NEEDED ORALLY TWICE A DAY NEEDED FOR MUSCLE SPASM TYPE PAIN TAKING DILAUDID 4 MG TABLET 1 TABLET NEEDED ORALLY Q8H PRN MDD3 #60 TAB SHOULD LAST 30 DAYS TAKING ESCITALOPRAM OXALATE 20 MG TABLET 1 TABLET ORALLY ONCE A DAY TAKING LIDODERM 5 % PATCH 1 PATCH REMOVE AFTER 12 HOURS EXTERNALLY ONCE A DAY TAKING AMBIEN 10 MG TABLET 1 TABLET AT BEDTIME NEEDED ORALLY ONCE A DAY; DO NOT FILL UNTIL 08/19/2020 NOT-TAKING LIDOCAINE & ADHESIVE SHEET 5 % KIT DIRECTED EXTERNALLY , NOTES: DUPLICATE NOT-TAKING HYDROMORPHONE HCL 4 MG TABLET 1 TABLET NEEDED ORALLY EVERY 8 HRS NOT-TAKING HYDROMORPHONE HCL 4 MG TABLET 1 TABLET NEEDED ORALLY Q8H PRN MDD2 NOT-TAKING BUSPIRONE HCL 5 MG TABLET 1 TABLET ORALLY BID NOT-TAKING FLOMAX 0.4 MG CAPSULE 1 CAPSULE ORALLY ONCE A DAY NOT-TAKING HYDROMORPHONE HCL 2 MG TABLET 1 TABLET NEEDED ORALLY Q8H PRN MDD3 #60 TAB SHOULD LAST 30 DAYS NOT-TAKING AMOXICILLIN-POT CLAVULANATE 875-125 MG TABLET 1 TABLET ORALLY EVERY 12 HRS NOT-TAKING CEPACOL 15-2.3 MG LOZENGE DIRECTED MOUTH/THROAT EVERY 6 HOURS NEEDED FOR SORE THROAT NOT-TAKING TESSALON PERLES 100 MG CAPSULE 1 CAPSULE NEEDED ORALLY THREE TIMES A DAY NOT-TAKING NUCYNTA ER 150 MG TABLET EXTENDED RELEASE 12 HOUR 1 TABLET ORALLY EVERY 12 HRS MDD2, NOTES: NONE IN PAST WEEK NOT-TAKING ESCITALOPRAM OXALATE 10 MG TABLET 1 TABLET ORALLY ONCE A DAY, NOTES: 06/25/20 2230 NOT-TAKING HYOSCYAMINE SULFATE 0.125 MG TABLET DISINTEGRATING 1 TABLET ON THE TONGUE AND ALLOW TO DISSOLVE NEEDED ORALLY EVERY 4 HRS MEDICATION LIST REVIEWED AND RECONCILED WITH THE PATIENT PAST MEDICAL HISTORY HO NEPHROLITHIASIS HYPERLIPIDEMIA CHRONIC MDD/TERE/COMORBID INSOMNIA GERD/HO PUD PHI 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 DUNLAP HYPERLIPIDEMIA ALLERGIES DEMEROL: "DEADENS THE AREA OF INJECTION" - ALLERGY CODEINE SULFATE: ITCHING - CONTRAINDICATION SOCIAL HISTORY GENERAL: TOBACCO USE ARE YOU A:FORMER SMOKER HOW LONG HAS IT BEEN SINCE YOU LAST SMOKED?5-10 YEARS LATEX QUESTIONNAIRE LATEX ALLERGY : HAVE YOU EVER DEVELOPED ANY TYPE OF REACTION AFTER HANDLING LATEX PRODUCTS SUCH RUBBER GLOVES, CONDOMS, DIAPHRAGMS, BALLOONS, SOCKS, OR UNDERWEAR?NO LATEX ALLERGY : HAVE YOU EVER DEVELOPED ANY TYPE OF REACTION DURING OR AFTER DENTAL APPOINTMENT, VAGINAL/RECTAL EXAMINATION, SURGICAL PROCEDURE, OR ANY OTHER EXPOSURE?NO LATEX RISK : HAVE YOU EVER HAD ANY DIFFICULTY BREATHING OR HIVES AFTER EATING OR HANDLING ANY FRUITS, OR VEGETABLES; SUCH KIWI, BANANAS, STONE FRUITS, OR CHESTNUTSNO LATEX RISK : DO YOU HAVE A PREVIOUS PERSONAL HISTORY OF MORE THAN NINE SURGERIES, SPINA BIFIDA, OR REPEATED CATHERIZATIONS? NO LATEX RISK : ARE YOU FREQUENTLY EXPOSED TO LATEX PRODUCTS IN YOUR OCCUPATION?NO DATE ASKED : 10/10/2020 ALCOHOL USE: NO. ALCOHOL SCREENING DID YOU HAVE A DRINK CONTAINING ALCOHOL IN THE PAST YEAR?NO POINTS0 INTERPRETATIONNEGATIVE RECREATIONAL DRUG USE DRUG USE?NO CAFFEINE CAFFEINE USE?YES 3 CUPS DAILY HIV / HEP-C SCREENING HIV TEST OFFERED TO PATIENT:YES DATE OFFERED:07/02/2020 HEP-C TEST OFFERED TO PATIENT:YES DATE OFFERED:07/02/2020 CHURCH CHURCH NO PREFERENCE LANGUAGE LANGUAGES SPOKEN:CHINESE EDUCATION LEVEL OF EDUCATION:FINISHED HIGH SCHOOL LEARNING BARRIERS / SPECIAL NEEDS CHANGE FROM LAST VISIT?NO BARRIERS TO LEARNING?NO HEARING IMPAIRED?NO VISION IMPAIRED?YES :CORRECTIVE LENSES COGNITIVELY IMPAIRED?NO READINESS TO LEARN?YES LEARNING PREFERENCES?NO LEARNING CAPABILITIES PRESENT?YES EMOTIONAL BARRIERS?NO SPECIAL DEVICES?NO 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 DIET: REGULAR. EXERCISE: NONE. MARITAL STATUS: . OTHERS AT HOME: SPOUSE. - PFS REFERRAL NEEDED?NO CLERGY REFERRAL NEEDED?NO PUBLIC HEALTH REFERRAL NEEDED?NO WAS THE PROVIDER NOTIFIED OF ANY PERTINENT INFO?YES HAS THE PATIENT BEEN EDUCATED REGARDING HIS/HER PLAN OF CARE?YES HAS THE PATIENT BEEN EDUCATED REGARDING PAIN, THE RISK FOR PAIN, THE IMPORTANCE OF EFFECTIVE PAIN MANAGEMENT, AND THE PAIN ASSESSMENT PROCESS?YES ADVANCE DIRECTIVE ADVANCE DIRECTIVE DISCUSSED WITH PATIENT:YES HCP - FERNIE MUKHERJEE () [phone] VITAL SIGNS WT 183 LBS, HT 58 IN, BMI 38.24 INDEX, BP 134/65 MM HG, HR 82 /MIN, RR 18 /MIN, TEMP 97.6 F, OXYGEN SAT % 95, SAFE IN ENV? (Y/N) YES, REVIEWED BY: KG. ASSESSMENTS SPONDYLOSIS WITHOUT MYELOPATHY OR RADICULOPATHY, CERVICAL REGION - M47.812 (PRIMARY) TREATMENT SPONDYLOSIS WITHOUT MYELOPATHY OR RADICULOPATHY, CERVICAL REGION [facility] FACET BLOCK (PAIN)[id number] MEDICATION: FENTANYL CITRATE 50MCG IV DILEIVON THOMAS 11/13/2020 01:33:56 PM - SECOND DOSE ORDERED, VERIFIED WITH IVON CLARKE 11/13/2020 01:34:08 PM - THIRD DOSE ORDERED, VERIFIED WITH SAMANTHA VILLANUEVA 11/13/2020 1:58:08 PM > 1324 50MCG GIVEN, 1327 50MCG GIVEN, 1332 50MCG GIVEN FOR A TOTAL OF 150MCG. COMPLETION OF PROCEDURAL VISIT WHEN MEETS CRITERIASANDIP JESUS 11/13/2020 2:00:23 PM > CRITERIA MET MEDICATION: FENTANYL CITRATE 25MCG IVKATHIE BLAKE 11/13/2020 12:53:14 PM > VERIFIED LENA NICOLEISTAL 11/13/2020 01:50:34 PM - ORDER CANCELED MED: VERSED 1MG IV MIDAZOLAMKATHIE BLAKE 11/13/2020 12:53:48 PM > VERIFIED IVON NICOLE 11/13/2020 01:34:23 PM - SECOND DOSE ORDERED, VERIFIED WITH SAMANTHA VILLANUEVA 11/13/2020 1:59:28 PM > 1324 1MG GIVEN, 1334 1 MG GIVEN FOR A TOTAL OF 2MG. OXYGEN AT 2 LITERS PER NASAL CANNULASANDIP JESUS 11/13/2020 2:03:15 PM > O2 2L NC ON AT 1104 ANN MARIE,SANDIP 11/13/2020 2:03:49 PM > O2 OFF AT 1345 ANN MARIESANDIP 11/13/2020 2:04:33 PM > ADDENDUM TO PREVIOUS NOTE O2 2L NC ON AT 1304 IV LACTATED RINGER'S AT KVSANDIP BARBA 11/13/2020 12:51:35 PM > #22 IV STARTED X 2ND ATTEMPT BY THIS CORE CHECKER IN LEFT HAND, SITE ASYMPTOMATIC FLUSHES WELL. LR INFUSING AT KVO WITHOUT DIFFICULTY SANDIP JESUS 11/13/2020 2:02:37 PM > 300CC LR TOTAL INFUSED MEDICATION: PAIN ZOFRAN 4MG/2ML IV ONDANSETRONMARCELLAKATHIE Delacruz 11/13/2020 12:52:43 PM > VERIFIED SAMANTHA MEEK 11/13/2020 1:49:33 PM > ADMINISTERED @ 1255 OTHERS NOTES: 11/12/20 PAT COMPLETED. Destinee ESQUIVEL RN . PROCEDURES PAIN NURSING RECORD PROCEDURE IN ROOM 1303, PHYSICIAN IN ROOM 1323, START 1328, FINISH 1336, PHYSICIAN OUT OF ROOM 1339, OUT OF ROOM 1347, ECG NORMAL SINUS, PATIENT SHIELDED YES, SAFETY STRAP YES, PREP CHLOROPREP Spencer DAO RN, DRESSING TEGADERM DR. CAO LOC: ANN MARIESANDIP 11/13/2020 1:18:38 PM > , 1. ALERT, ORIENTED RESP: ANN MARIESANDIP ENGLISH 11/13/2020 1:18:41 PM > , 1. REGULAR, NO DYSPNEA COLOR: ANN MARIESANDIP 11/13/2020 1:18:46 PM > , 1. PINK SKIN: ANN MARIESANDIP 11/13/2020 1:18:50 PM > , 1. WARM, DRY POSITION: SANDIP JESUS 11/13/2020 1:18:54 PM > , 1. PRONE VITALS: ANN MARIESANDIP ENGLISH 11/13/2020 1:18:59 PM > 154/72-74-18-99% 2L O2 , ANN MARIESANDIP ENGLISH 11/13/2020 1:27:22 PM > 154/64-84-18-97% 2L O2 , ANN MARIESANDIP ENGLISH 11/13/2020 1:32:45 PM > 164/71-85-18-98% 2L O2 , ANN MARIESANDIP ENGLISH 11/13/2020 1:37:10 PM > 165/78-85-18-94% 2L O2 11/13/2020 1354 169/81-87-18-94% RA NOTES Spencer DAO RN COMPLETION OF PROCEDURE APPOINTMENT: POST PAIN 0, DRESSING SITE DRY AND INTACT BILATERAL POSTERIOR NECK, IV DISCONTINUED, SITE CLEAR, CATHETER INTACT, GAIT WHEELCHAIR, TEACHING COMPLETED, PATIENT ACKNOWLEDGES UNDERSTANDING YES PATIENT VERBALIZES UNDERSTANDING OF POST PROCEDURE INSTRUCTIONS REVIEWED, PROCEDURE APPOINTMENT COMPLETED AT 1401 BY: Spencer DAO RN PN CERVICAL FACET BLOCK LOW BILATERAL CERVICAL PRE PROCEDURE DIAGNOSIS CERVICAL SPONDYLOSIS POST PROCEDURE DIAGNOSIS CERVICAL SPONDYLOSIS PROCEDURE BILATERAL C2-C3 AND BILATERAL [id number] CERVICAL FACET BLOCK SURGEON DR. SARAH BETH CAO POWER SAW MECHANIC NONE ANESTHESIA LOCAL WITH IV SEDATION PRE PROCEDURE NOTE THE PATIENT HAS HISTORY OF CHRONIC CERVICAL PAIN. I EVALUATED THE PATIENT AND REVIEWED THE CHART. I WENT OVER THE RISKS, ALTERNATIVES, AND BENEFITS ASSOCIATED WITH THIS PROCEDURE. THE PATIENT WOULD LIKE TO PROCEED AND GIVE CONSENT TO PERFORMED THE PROCEDURE. THE PATIENT WOULD LIKE TO MOVE FORWARD WITH IV SEDATION DUE TO ANXIETY AND DISCOMFORT ASSOCIATED WITH THE PROCEDURE. THE PATIENT DENIES UNEXPLAINABLE WEIGHT LOSS, FEVER, CHILLS, OR NEW CHANGES IN URINARY OR BOWEL CONTROL. THE PATIENT IS COVID-19 NEGATIVE DESCRIPTION OF PROCEDURE THE PATIENT WAS BROUGHT TO THE PROCEDURE ROOM AND PLACED IN THE PRONE POSITION. THE CERVICOTHORACIC AREA WAS CLEANED WITH CHLORAPREP SOLUTION AND DRAPED ASEPTICALLY. THE PROCEDURE WAS DONE UNDER STERILE CONDITIONS. A TIMEOUT WAS PERFORMED WHERE THE CONSENTED SITE WAS VERIFIED WITH EVERYONE IN THE ROOM. UNDER FLUOROSCOPIC GUIDANCE, TARGET POINT WAS SELECTED AT THE RIGHT AND LEFT C2-C3 AND RIGHT AND LEFT C3-C4 CERVICAL FACET JOINT. TARGET POINTS WERE SELECTED AFTER LATERAL ROTATION AND TILT OF THE MAGNIFIER OF THE C-ARM. I CONFIRMED AGAIN THE SITE OF TARGET. LIDOCAINE 0.5% WAS USED TO NUMB THE SKIN AND THE SUBCUTANEOUS TISSUE BELOW IT. SPINAL NEEDLES, 22-GAUGE, WERE ADVANCED UNDER FLUOROSCOPIC GUIDANCE AND FOLLOWING PATIENT FEEDBACK UNTIL THE TARGETS WERE TOUCHED. THE POSITION OF THE NEEDLES WAS VERIFIED WITH AP AND LATERAL VIEWS. AFTER PROPER POSITION OF THE NEEDLES WAS ACHIEVED, ISOVUE-M DYE 30%, 0.1 ML, WAS INJECTED SHOWING SPREAD OF THE DYE. KENALOG 20 MG WAS INJECTED AT EACH SITE. THEN A SOLUTION OF 6 ML OF BUPIVACAINE 0.125% WAS USED TO FLUSH EACH SITE. THE MEDICATIONS WERE VERIFIED WITH THE NURSE. THERE WAS NO EVIDENCE OF BLOOD, PARESTHESIA OR CEREBROSPINAL FLUID DURING THE PROCEDURE. THE PATIENT WAS SENT TO THE RECOVERY ROOM. THE PATIENT WAS MOVING THE EXTREMITIES AND DOING WELL. THERE WERE NO COMPLICATIONS DURING THE PROCEDURE. ESTIMATED BLOOD LOSS WAS LESS THAN 5 ML. FLUOROSCOPY TIME WAS 13 SECONDS. PATIENT RECEIVED VERSED 2 MG AND FENTANYL 150 MCG IV IN DIVIDED DOSES. XAQN-SX-KHUI START TIME WAS 1324. [id number]-DK-RYEK END TIME WAS 1338. TOTAL AQUF-IE-EZAB TIME WAS 14 MINUTES. POST PROCEDURE NOTE THE PATIENT WILL BE SEEN IN A FOLLOW UP IN THE NEXT FEW WEEKS. I AM LOOKING FOR LONG LASTING RELIEF FOR THE PATIENT WITH THIS INTERVENTION. INSTRUCTIONS WERE GIVEN, QUESTIONS WERE ANSWERED, AND THE PATIENT EXPRESSED UNDERSTANDING AND AGREES WITH THE PLAN. I, IVON NICOLE, DOCUMENTED THE ABOVE INFORMATION ACTING A SCRIBE FOR DR. CAO. I HAVE REVIEWED THE ABOVE DOCUMENT, WRITTEN BY IVON NICOLE, AIR QUALITY INSTRUMENT SPECIALIST, AND I VERIFY THAT IT IS ACCURATE PROCEDURE CODES 68564 INJ PARAVERT F JNT C/T 1 LEV, MODIFIERS: 50 [id number] INJ PARAVERT F JNT C/T 2 LEV, MODIFIERS: 50 [id number] MOD SED SAME PHYS/QHP 5/>YRS DISPOSITION & COMMUNICATION FOLLOW UP FOLLOW UP WITH MANAGER HUMAN CAPITAL (REASON: POST BILATERAL THERAPEUTIC CERVICAL FACET BLOCK C2-C3, C3-C4) ELECTRONICALLY SIGNED BY SARAH BETH CAO MD, MD ON 11/14/2020 AT 04:44 PM EDT DISCLAIMER : THIS IS A VISIT SUMMARY EXTRACTED FROM THE [employer] CHART. IT IS NOT A COPY OF THE [employer] PROGRESS NOTE. MTDD
== END ==
LOC: M PAIN 12:30
PROVIDERS: ATTEND Anesthesiology
DX: M47.812 Spondylosis without myelopathy or radiculopathy, cervical region (principal); K21.9 Gastro-esophageal reflux disease without esophagitis; G47.33 Obstructive sleep apnea (adult) (pediatric); Z86.59 Personal history of other mental and behavioral disorders; Z87.891 Personal history of nicotine dependence; Z88.5 Allergy status to narcotic agent; Z79.899 Other long term (current) drug therapy
CPT/HCPCS: 64490; 64491; 99152; J2250; J2405; J3010; J3301; Q9967

== ENCOUNTER → 2020-11-27 | Outpatient (CLI) | payer BC ==
[~2020-11-27] MED LIST changes: -BUPIVACAINE HCL 0.25% 30ML VIAL As Ordered ONE; -ISOVUE-M 300 61% 15ML VIAL As Ordered ONE; -LIDOCAINE 1% SDV 30ML VIAL As Ordered ONE; -MIDAZOLAM INJ 2MG/2ML VIAL (J2250 PER 1MG) As Ordered ONE; -ONDANSETRON 4MG/2ML VIAL As Ordered ONE; -TRIAMCINOLONE ACETONIDE SUSP 40 MG/ML VIAL (J3301) As Ordered ONE; -fentaNYL 100 MCG/2 ML INJECTION (J3010) As Ordered ONE
--- NOTE | 2020-11-29 01:10 | ECWPNPC ---
PATIENT NAME: RAVEN MUKHERJEE : 1960 GENDER: FEMALE VISIT DATE: 11/27/2020 DISCHARGE DATE: 11/27/20 1202 VISIT LOCKED DATE TIME: PHYSICIAN: MARYELLEN GARZA PHYSICIAN PAGER NO: ACTIVE RESOURCE: MARYELLEN GARZA REASON FOR APPOINTMENT 1. POST BILATERAL CERVICAL FACET BLOCK THERAPEUTIC C3/4,C5/6 W IV SEDATION HISTORY OF PRESENT ILLNESS GENERAL: HERE FOR POST PROCEDURE F/U.HAD BILATERAL C2-3,C3-4 CERVICAL FACET BLOCK THERAPEUTIC ON 11/13/2020..REPORTING IMPROVEMENT IN LOWER NECK PAIN AND IMPROVED ROJM OF NECK BUT CONTINUES TO HAVE SEVERE HEADACHE.DISCUSSED NEED TO UPDATE CERVICAL MRI.WILL DISCUSS DOING DIFFERENT CERVICAL PROCEDURES AT F/U AFTER MRI REVIEW. PATIENT APPEARS UNCOMFORTABLE AND STATES SHE'S HAD A HEADACHE FOR SEVERAL DAYS. REPORTING MORE BAD DAYS WITH HEADACHES YHAN GOOD SINCE CERVICAL PROCEDURE. -. FALL RISK SCREENING: SCREENING : NO FALLS REPORTED IN THE LAST YEAR. PAIN SCREENING: PATIENT HAS A COMPLAINT OF ACUTE OR CHRONIC PAIN :YES LOCATION OF PAIN:NECK INTENSITY OF PAIN (SCALE OF 1 TO 10):4 WHAT DOES YOUR PAIN FEEL LIKE:THROBBING DURATION:CONTINOUS, CONSTANT, ALL DAY PAIN IS INCREASED BY:ACTIVITIES PAIN IS DECREASED BY:USE OF PAIN MEDICATIONS NURSING NOTE: -. PAIN CENTER INTAKE QUESTIONS: DO YOU HAVE A HISTORY OF MRSA? :NO DO YOU TAKE A BLOOD THINNERS? :NO DO YOU HAVE ANY BLEEDING DISORDERS? :NO ANY NEW NUMBNESS OR WEAKNESS IN YOUR LEGS OR ARMS? :NO LEFT LEG IS WEAK ANY PACEMAKER,DEFIBRILLATOR, OR DORSAL COLUMN STIMULATOR? :NO DO YOU HAVE ANY RASHES OR OPEN SORES? :NO ARE YOU ALLERGIC TO IV DYE? :NO ARE YOU DIABETIC? :NO ANY NEW PROBLEMS WITH YOUR MEDICATIONS? :NO HAVE YOU RECEIVED A VACCINE IN THE PAST 30 DAYS? :NO DO YOU PLAN TO RECEIVE A VACCINE IN THE NEXT 21 DAYS? :NO DO YOU NEED ANY PRESCRIPTION? :YES HYDROMORPHINE DO YOU TAKE ANY IMMUNOSUPPRESSIVE MEDICATIONS? :NO IS THERE A CHANCE YOU COULD BE ? :NO ARE YOU BREAST FEEDING? :NO CURRENT MEDICATIONS TAKING MIRALAX - POWDER DIRECTED ORALLY DAILY TAKING VOLTAREN 1 % GEL DIRECTED TRANSDERMAL APPLY 4 GRAMM TO NECK Q 6 HRS PRN PAIN TAKING OMEPRAZOLE 40 MG CAPSULE DELAYED RELEASE 1 CAPSULE 30 MINUTES BEFORE MORNING MEAL ORALLY ONCE A DAY TAKING ATORVASTATIN CALCIUM 40 MG TABLET 1 TABLET ORALLY ONCE A DAY TAKING CHOLECALCIFEROL 10 MCG (400 UNIT) CAPSULE 1 CAPSULE ORALLY ONCE A DAY TAKING PROMETHAZINE HCL 25 MG TABLET 1 TABLET NEEDED ORALLY EVERY 6 HR TAKING TIZANIDINE HCL 4 MG TABLET 1 TABLET NEEDED ORALLY TWICE A DAY NEEDED FOR MUSCLE SPASM TYPE PAIN TAKING DILAUDID 4 MG TABLET 1 TABLET NEEDED ORALLY Q8H PRN MDD3 #60 TAB SHOULD LAST 30 DAYS TAKING ESCITALOPRAM OXALATE 20 MG TABLET 1 TABLET ORALLY ONCE A DAY TAKING LIDODERM 5 % PATCH 1 PATCH REMOVE AFTER 12 HOURS EXTERNALLY ONCE A DAY TAKING AMBIEN 10 MG TABLET 1 TABLET AT BEDTIME NEEDED ORALLY ONCE A DAY; DO NOT FILL UNTIL 08/19/2020 TAKING HYOSCYAMINE SULFATE 0.125 MG TABLET DISINTEGRATING 1 TABLET ON THE TONGUE AND ALLOW TO DISSOLVE NEEDED ORALLY EVERY 6 HRS NEEDED NOT-TAKING LIDOCAINE & ADHESIVE SHEET 5 % KIT DIRECTED EXTERNALLY , NOTES: DUPLICATE NOT-TAKING HYDROMORPHONE HCL 4 MG TABLET 1 TABLET NEEDED ORALLY EVERY 8 HRS NOT-TAKING HYDROMORPHONE HCL 4 MG TABLET 1 TABLET NEEDED ORALLY Q8H PRN MDD2 NOT-TAKING BUSPIRONE HCL 5 MG TABLET 1 TABLET ORALLY BID NOT-TAKING FLOMAX 0.4 MG CAPSULE 1 CAPSULE ORALLY ONCE A DAY NOT-TAKING HYDROMORPHONE HCL 2 MG TABLET 1 TABLET NEEDED ORALLY Q8H PRN MDD3 #60 TAB SHOULD LAST 30 DAYS NOT-TAKING AMOXICILLIN-POT CLAVULANATE 875-125 MG TABLET 1 TABLET ORALLY EVERY 12 HRS NOT-TAKING CEPACOL 15-2.3 MG LOZENGE DIRECTED MOUTH/THROAT EVERY 6 HOURS NEEDED FOR SORE THROAT NOT-TAKING TESSALON PERLES 100 MG CAPSULE 1 CAPSULE NEEDED ORALLY THREE TIMES A DAY NOT-TAKING NUCYNTA ER 150 MG TABLET EXTENDED RELEASE 12 HOUR 1 TABLET ORALLY EVERY 12 HRS MDD2, NOTES: NONE IN PAST WEEK NOT-TAKING ESCITALOPRAM OXALATE 10 MG TABLET 1 TABLET ORALLY ONCE A DAY, NOTES: 06/25/200 NOT-TAKING HYOSCYAMINE SULFATE 0.125 MG TABLET DISINTEGRATING 1 TABLET ON THE TONGUE AND ALLOW TO DISSOLVE NEEDED ORALLY EVERY 4 HRS MEDICATION LIST REVIEWED AND RECONCILED WITH THE PATIENT PAST MEDICAL HISTORY HO NEPHROLITHIASIS HYPERLIPIDEMIA CHRONIC MDD/TERE/COMORBID INSOMNIA GERD/HO PUD PHI 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 DUNLAP HYPERLIPIDEMIA ALLERGIES DEMEROL: "DEADENS THE AREA OF INJECTION" - ALLERGY CODEINE SULFATE: ITCHING - CONTRAINDICATION SURGICAL HISTORY PELVIC/VAGINAL WALL PROLAPSE REPAIR X3 2010 HYSTERECTOMY 2006 COLONOSOPY 2014, 2018 AXILLARY LYMPH NODES RIGHT REMOVED..NEGATIVE 2004 KIDNEY STONES BY LASER 2016 EGD W/BIOPSY 06/2019 SOCIAL HISTORY GENERAL: TOBACCO USE ARE YOU A:FORMER SMOKER HOW LONG HAS IT BEEN SINCE YOU LAST SMOKED?5-10 YEARS LATEX QUESTIONNAIRE LATEX ALLERGY : HAVE YOU EVER DEVELOPED ANY TYPE OF REACTION AFTER HANDLING LATEX PRODUCTS SUCH RUBBER GLOVES, CONDOMS, DIAPHRAGMS, BALLOONS, SOCKS, OR UNDERWEAR?NO LATEX ALLERGY : HAVE YOU EVER DEVELOPED ANY TYPE OF REACTION DURING OR AFTER DENTAL APPOINTMENT, VAGINAL/RECTAL EXAMINATION, SURGICAL PROCEDURE, OR ANY OTHER EXPOSURE?NO LATEX RISK : HAVE YOU EVER HAD ANY DIFFICULTY BREATHING OR HIVES AFTER EATING OR HANDLING ANY FRUITS, OR VEGETABLES; SUCH KIWI, BANANAS, STONE FRUITS, OR CHESTNUTSNO LATEX RISK : DO YOU HAVE A PREVIOUS PERSONAL HISTORY OF MORE THAN NINE SURGERIES, SPINA BIFIDA, OR REPEATED CATHERIZATIONS? NO LATEX RISK : ARE YOU FREQUENTLY EXPOSED TO LATEX PRODUCTS IN YOUR OCCUPATION?NO DATE ASKED : 11/27/2020 ALCOHOL USE: NO. ALCOHOL SCREENING DID YOU HAVE A DRINK CONTAINING ALCOHOL IN THE PAST YEAR?NO POINTS0 INTERPRETATIONNEGATIVE RECREATIONAL DRUG USE DRUG USE?NO CAFFEINE CAFFEINE USE?YES 3 CUPS DAILY HIV / HEP-C SCREENING HIV TEST OFFERED TO PATIENT:YES DATE OFFERED:07/02/2020 HEP-C TEST OFFERED TO PATIENT:YES DATE OFFERED:07/02/2020 [facility] NO PREFERENCE LANGUAGE LANGUAGES SPOKEN:BURMESE EDUCATION LEVEL OF EDUCATION:FINISHED HIGH SCHOOL LEARNING BARRIERS / SPECIAL NEEDS CHANGE FROM LAST VISIT?NO BARRIERS TO LEARNING?NO HEARING IMPAIRED?NO VISION IMPAIRED?YES :CORRECTIVE LENSES COGNITIVELY IMPAIRED?NO READINESS TO LEARN?YES LEARNING PREFERENCES?NO LEARNING CAPABILITIES PRESENT?YES EMOTIONAL BARRIERS?NO SPECIAL DEVICES?NO 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 DIET: REGULAR. EXERCISE: NONE. MARITAL STATUS: . OTHERS AT HOME: SPOUSE. - PFS REFERRAL NEEDED?NO CLERGY REFERRAL NEEDED?NO PUBLIC HEALTH REFERRAL NEEDED?NO WAS THE PROVIDER NOTIFIED OF ANY PERTINENT INFO?YES HAS THE PATIENT BEEN EDUCATED REGARDING HIS/HER PLAN OF CARE?YES HAS THE PATIENT BEEN EDUCATED REGARDING PAIN, THE RISK FOR PAIN, THE IMPORTANCE OF EFFECTIVE PAIN MANAGEMENT, AND THE PAIN ASSESSMENT PROCESS?YES ADVANCE DIRECTIVE ADVANCE DIRECTIVE DISCUSSED WITH PATIENT:YES HCP - FERNIE MUKHERJEE () [phone] HOSPITALIZATION/MAJOR DIAGNOSTIC PROCEDURE SURGERIES KIDNEY STONES 2017 L KIDNEY STONES 2MM RENAL CALCULUS 2MM AT THE URETEROVESICULAR JUNCTION 08/19/2019- 08/21/2019 REVIEW OF SYSTEMS CONSTITUTIONAL: ANY RECENT FEVER NO . CHILLS NO . WEIGHT CHANGE OF UNKNOWN REASONS NO . GASTROENTEROLOGY: NEW UNEXPLAINABLE CHANGES IN BOWEL CONTROL NO . CONSTIPATION NO . GENITOURINARY: ANY NEW CHANGE IN BLADDER CONTROL? NO . NEUROLOGY: NEW ONSET DIZZINESS OR NEUROLOGICAL CHANGES NOT MENTIONED NO . NEW NUMBNESS OR PAIN PATTERNS NOT MENTIONED AND PERTINENT TO TODAY'S VISIT NO . CARDIOLOGY: NEW CHEST PRESSURE NO . PATIENT DENIES NO . RESPIRATORY: UNEXPLAINABLE COUGH NO . NEW SHORTNESS OF BREATH NO . VITAL SIGNS WT 180.4 LBS, HT 58 IN, BMI 37.70 INDEX, BP 128/69 MM HG, HR 95 /MIN, RR 18 /MIN, TEMP 98.1 F, OXYGEN SAT % 97%, SAFE IN ENV? (Y/N) YES, NA INITIALS SC 11:31T.RAIZA ANGEL. EXAMINATION GENERAL EXAMINATION: GENERALNO ACUTE DISTRESS, WELL NOURISHED AND HYDRATED. PSYCHAPPROPRIATE MOOD AND AFFECT . NECK:NO LYMPHADENOPATHY, SUPPLE, NO THYROMEGALLY, NO JVD OR BRUITS. LUNGS:CLEAR TO AUSCULTATION BILATERALLY, NO WHEEZES, RHONCHI, RALES. CERVICAL: POSITIVE PAIN WITH FACET LOADING BILAT C3/4-/C5/6. DIAGNOSTIC TESTS REVIEWED CERVICAL 2017. ASSESSMENTS CHRONIC PRESCRIPTION OPIATE USE - Z79.891 (PRIMARY) OTHER CHRONIC PAIN - G89.29 SPONDYLOSIS OF CERVICAL REGION WITHOUT MYELOPATHY OR RADICULOPATHY - M47.812 TREATMENT CHRONIC PRESCRIPTION OPIATE USE LAB: URINE TEST GROUP JIM EASTMAN 11/27/2020 11:59:36 AM > LAST DOSE: HYDROMORPHONE 11/27/2020 @9:30AM, AMBIEN 11/26/2020 @10:30PM [facility] MRI SPINE, CERVICAL WITHOUT [id number] OTHER CHRONIC PAIN PAIN PROCEDURE LOGDATE OF PROCEDURE1PROCEDURE:BILATERAL THERAPEUTIC CERVICAL FACET BLOCK C2-C3.C3-P8HPJSXH OF PRE SEDATEVERSED 2MG, FENTANYL 150MCGRESULT:IMPROVEMENT IN LOWER NECK BOTH IN PAIN AND ROJM. PROCEDURE CODES FA211 ESTABILISHED PATIENT [facility] FACILITY CHARGE DISPOSITION & COMMUNICATION FOLLOW UP 4 WEEKS (REASON: REVIEW MRI CERVICAL SPINE/REVIEW UTOX) ELECTRONICALLY SIGNED BY TG AGARWAL ON 11/28/2020 AT 03:31 PM EDT DISCLAIMER : THIS IS A VISIT SUMMARY EXTRACTED FROM THE [employer] CHART. IT IS NOT A COPY OF THE [employer] PROGRESS NOTE. MTDD
== END ==
LOC: M PAIN 11:15
PROVIDERS: ATTEND Nurse Practitioner Family
DX: M47.812 Spondylosis without myelopathy or radiculopathy, cervical region (principal); G89.29 Other chronic pain; K21.9 Gastro-esophageal reflux disease without esophagitis; G47.33 Obstructive sleep apnea (adult) (pediatric); Z86.59 Personal history of other mental and behavioral disorders; Z87.891 Personal history of nicotine dependence; Z88.5 Allergy status to narcotic agent; Z79.899 Other long term (current) drug therapy

== ENCOUNTER → 2020-12-25 | Outpatient (CLI) | payer BC ==
--- NOTE | 2020-12-27 02:58 | ECWPNPC ---
PATIENT NAME: RAVEN MUKHERJEE : 1960 GENDER: FEMALE VISIT DATE: 12/25/2020 DISCHARGE DATE: 12/25/20 1214 VISIT LOCKED DATE TIME: PHYSICIAN: MARYELLEN GARZA PHYSICIAN PAGER NO: ACTIVE RESOURCE: MARYELLEN GARZA REASON FOR APPOINTMENT 1. NECK HISTORY OF PRESENT ILLNESS DEPRESSION SCREENING: PHQ-2 (2015 EDITION) LITTLE INTEREST OR PLEASURE IN DOING THINGS?SEVERAL DAYS FEELING DOWN, DEPRESSED, OR HOPELESS?DECLINED TO SPECIFY TOTAL SCORE1 GENERAL: HERE FOR FOLLOW-UP OF PERSISTENT NECK PAIN. PATIENT HAS BEEN VERY UNCOMFORTABLE OVER THE PAST 6 WEEKS. MRI OF THE CERVICAL SPINE IS REVIEWED THAT WAS JUST DONE PER MY ORDER. THIS IS SHOWING MODERATE TO SEVERE CERVICAL STENOSIS AND PROGRESSION OF DISC AND NERVE PATHOLOGY SINCE LAST IMAGING. DOES REPORT DIFFICULTY HOLDING ANYTHING WITH HER HANDS FOR ANY LENGTH OF TIME. REPORTING SOME NUMBNESS ALONG THE ULNAR DISTRIBUTION IN HER ARMS. CHIEF COMPLAINT IS NECK PAIN THAT RADIATES INTO THE HEAD. RECENT TRIAL OF UPPER LEVEL CERVICAL FACET THERAPEUTIC BLOCKS DID NOT HELP HER FOR ANY LENGTH OF TIME. DISCUSSED DOING TRIGGER POINT INJECTIONS. ALSO DISCUSSED SURGICAL REFERRAL. PATIENT IS REFUSING CERVICAL SURGICAL EVALUATION. STATES SHE WAS TOLD IN THE PAST BY 3 DIFFERENT ORTHOPEDIC SURGEONS THAT HER NECK WAS SO SEVERE THAT SHE WOULD HAVE SERIOUS RISKS. DENIES BOWEL OR BLADDER INCONTINENCE. DENIES SADDLE PARESTHESIAS. DENIES WEAKNESS IN THE LOWER EXTREMITIES. -. FALL RISK SCREENING: SCREENING : NO FALLS REPORTED IN THE LAST YEAR. PAIN SCREENING: PATIENT HAS A COMPLAINT OF ACUTE OR CHRONIC PAIN :YES LOCATION OF PAIN:NECK INTENSITY OF PAIN (SCALE OF 1 TO 10):8 WHAT DOES YOUR PAIN FEEL LIKE:ACHING, BURNING, CONTINOUS, STABBING, TENDER, THROBBING, SORE DURATION:CONTINOUS, CONSTANT, ALL DAY PAIN IS INCREASED BY:ACTIVITIES, PROLONGED STANDING PAIN IS DECREASED BY:OTHERS " NOTHING IS HELPING " NURSING NOTE: -. PAIN CENTER INTAKE QUESTIONS: DO YOU HAVE A HISTORY OF MRSA? :NO DO YOU TAKE A BLOOD THINNERS? :NO DO YOU HAVE ANY BLEEDING DISORDERS? :NO ANY NEW NUMBNESS OR WEAKNESS IN YOUR LEGS OR ARMS? :NO LEFT LEG IS WEAK ANY PACEMAKER,DEFIBRILLATOR, OR DORSAL COLUMN STIMULATOR? :NO DO YOU HAVE ANY RASHES OR OPEN SORES? :NO ARE YOU ALLERGIC TO IV DYE? :NO ARE YOU DIABETIC? :NO ANY NEW PROBLEMS WITH YOUR MEDICATIONS? :NO HAVE YOU RECEIVED A VACCINE IN THE PAST 30 DAYS? :NO DO YOU PLAN TO RECEIVE A VACCINE IN THE NEXT 21 DAYS? :NO DO YOU NEED ANY PRESCRIPTION? :YES HYDROMORPHINE DO YOU TAKE ANY IMMUNOSUPPRESSIVE MEDICATIONS? :NO IS THERE A CHANCE YOU COULD BE ? :NO ARE YOU BREAST FEEDING? :NO CURRENT MEDICATIONS TAKING MIRALAX - POWDER DIRECTED ORALLY DAILY TAKING VOLTAREN 1 % GEL DIRECTED TRANSDERMAL APPLY 4 GRAMM TO NECK Q 6 HRS PRN PAIN TAKING OMEPRAZOLE 40 MG CAPSULE DELAYED RELEASE 1 CAPSULE 30 MINUTES BEFORE MORNING MEAL ORALLY ONCE A DAY TAKING ATORVASTATIN CALCIUM 40 MG TABLET 1 TABLET ORALLY ONCE A DAY TAKING CHOLECALCIFEROL 10 MCG (400 UNIT) CAPSULE 1 CAPSULE ORALLY ONCE A DAY TAKING PROMETHAZINE HCL 25 MG TABLET 1 TABLET NEEDED ORALLY EVERY 6 HR TAKING LIDODERM 5 % PATCH 1 PATCH REMOVE AFTER 12 HOURS EXTERNALLY ONCE A DAY TAKING HYOSCYAMINE SULFATE 0.125 MG TABLET DISINTEGRATING 1 TABLET ON THE TONGUE AND ALLOW TO DISSOLVE NEEDED ORALLY EVERY 6 HRS NEEDED TAKING TIZANIDINE HCL 4 MG TABLET 1 TABLET NEEDED ORALLY TWICE A DAY NEEDED FOR MUSCLE SPASM TYPE PAIN TAKING ESCITALOPRAM OXALATE 20 MG TABLET 1 TABLET ORALLY ONCE A DAY TAKING AMBIEN 10 MG TABLET 1 TABLET AT BEDTIME NEEDED ORALLY ONCE A DAY; DO NOT FILL UNTIL 08/19/2020 TAKING DILAUDID 4 MG TABLET 1 TABLET NEEDED ORALLY Q8H PRN MDD3 #60 TAB SHOULD LAST 30 DAYS NOT-TAKING LIDOCAINE & ADHESIVE SHEET 5 % KIT DIRECTED EXTERNALLY , NOTES: DUPLICATE NOT-TAKING HYDROMORPHONE HCL 4 MG TABLET 1 TABLET NEEDED ORALLY EVERY 8 HRS NOT-TAKING HYDROMORPHONE HCL 4 MG TABLET 1 TABLET NEEDED ORALLY Q8H PRN MDD2 NOT-TAKING BUSPIRONE HCL 5 MG TABLET 1 TABLET ORALLY BID NOT-TAKING FLOMAX 0.4 MG CAPSULE 1 CAPSULE ORALLY ONCE A DAY NOT-TAKING HYDROMORPHONE HCL 2 MG TABLET 1 TABLET NEEDED ORALLY Q8H PRN MDD3 #60 TAB SHOULD LAST 30 DAYS NOT-TAKING AMOXICILLIN-POT CLAVULANATE 875-125 MG TABLET 1 TABLET ORALLY EVERY 12 HRS NOT-TAKING CEPACOL 15-2.3 MG LOZENGE DIRECTED MOUTH/THROAT EVERY 6 HOURS NEEDED FOR SORE THROAT NOT-TAKING TESSALON PERLES 100 MG CAPSULE 1 CAPSULE NEEDED ORALLY THREE TIMES A DAY NOT-TAKING NUCYNTA ER 150 MG TABLET EXTENDED RELEASE 12 HOUR 1 TABLET ORALLY EVERY 12 HRS MDD2, NOTES: NONE IN PAST WEEK NOT-TAKING ESCITALOPRAM OXALATE 10 MG TABLET 1 TABLET ORALLY ONCE A DAY, NOTES: 06/25/20 2230 NOT-TAKING HYOSCYAMINE SULFATE 0.125 MG TABLET DISINTEGRATING 1 TABLET ON THE TONGUE AND ALLOW TO DISSOLVE NEEDED ORALLY EVERY 4 HRS MEDICATION LIST REVIEWED AND RECONCILED WITH THE PATIENT PAST MEDICAL HISTORY HO NEPHROLITHIASIS HYPERLIPIDEMIA CHRONIC MDD/TERE/COMORBID INSOMNIA GERD/HO PUD PHI 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 DUNLAP HYPERLIPIDEMIA ALLERGIES DEMEROL: "DEADENS THE AREA OF INJECTION" - ALLERGY CODEINE SULFATE: ITCHING - CONTRAINDICATION SURGICAL HISTORY PELVIC/VAGINAL WALL PROLAPSE REPAIR X3 2010 HYSTERECTOMY 2006 COLONOSOPY 2014, 2018 AXILLARY LYMPH NODES RIGHT REMOVED..NEGATIVE 2004 KIDNEY STONES BY LASER 2016 EGD W/BIOPSY 06/2019 SOCIAL HISTORY GENERAL: TOBACCO USE ARE YOU A:FORMER SMOKER HOW LONG HAS IT BEEN SINCE YOU LAST SMOKED?5-10 YEARS LATEX QUESTIONNAIRE LATEX ALLERGY : HAVE YOU EVER DEVELOPED ANY TYPE OF REACTION AFTER HANDLING LATEX PRODUCTS SUCH RUBBER GLOVES, CONDOMS, DIAPHRAGMS, BALLOONS, SOCKS, OR UNDERWEAR?NO LATEX ALLERGY : HAVE YOU EVER DEVELOPED ANY TYPE OF REACTION DURING OR AFTER DENTAL APPOINTMENT, VAGINAL/RECTAL EXAMINATION, SURGICAL PROCEDURE, OR ANY OTHER EXPOSURE?NO LATEX RISK : HAVE YOU EVER HAD ANY DIFFICULTY BREATHING OR HIVES AFTER EATING OR HANDLING ANY FRUITS, OR VEGETABLES; SUCH KIWI, BANANAS, STONE FRUITS, OR CHESTNUTSNO LATEX RISK : DO YOU HAVE A PREVIOUS PERSONAL HISTORY OF MORE THAN NINE SURGERIES, SPINA BIFIDA, OR REPEATED CATHERIZATIONS? NO LATEX RISK : ARE YOU FREQUENTLY EXPOSED TO LATEX PRODUCTS IN YOUR OCCUPATION?NO DATE ASKED : 12/25/2020 ALCOHOL USE: NO. ALCOHOL SCREENING DID YOU HAVE A DRINK CONTAINING ALCOHOL IN THE PAST YEAR?NO POINTS0 INTERPRETATIONNEGATIVE RECREATIONAL DRUG USE DRUG USE?NO CAFFEINE CAFFEINE USE?YES 3 CUPS DAILY HIV / HEP-C SCREENING HIV TEST OFFERED TO PATIENT:YES DATE OFFERED:07/02/2020 HEP-C TEST OFFERED TO PATIENT:YES DATE OFFERED:07/02/2020 CONFUCIANISM CONFUCIANISM NO PREFERENCE LANGUAGE LANGUAGES SPOKEN:[place] EDUCATION LEVEL OF EDUCATION:FINISHED HIGH SCHOOL LEARNING BARRIERS / SPECIAL NEEDS CHANGE FROM LAST VISIT?NO BARRIERS TO LEARNING?NO HEARING IMPAIRED?NO VISION IMPAIRED?YES :CORRECTIVE LENSES COGNITIVELY IMPAIRED?NO READINESS TO LEARN?YES LEARNING PREFERENCES?NO LEARNING CAPABILITIES PRESENT?YES EMOTIONAL BARRIERS?NO SPECIAL DEVICES?NO 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 DIET: REGULAR. EXERCISE: NONE. MARITAL STATUS: . OTHERS AT HOME: SPOUSE. - PFS REFERRAL NEEDED?NO CLERGY REFERRAL NEEDED?NO PUBLIC HEALTH REFERRAL NEEDED?NO WAS THE PROVIDER NOTIFIED OF ANY PERTINENT INFO?YES HAS THE PATIENT BEEN EDUCATED REGARDING HIS/HER PLAN OF CARE?YES HAS THE PATIENT BEEN EDUCATED REGARDING PAIN, THE RISK FOR PAIN, THE IMPORTANCE OF EFFECTIVE PAIN MANAGEMENT, AND THE PAIN ASSESSMENT PROCESS?YES ADVANCE DIRECTIVE ADVANCE DIRECTIVE DISCUSSED WITH PATIENT:YES HCP - FERNIE MUKHERJEE () [phone] HOSPITALIZATION/MAJOR DIAGNOSTIC PROCEDURE SURGERIES KIDNEY STONES 2017 L KIDNEY STONES 2MM RENAL CALCULUS 2MM AT THE URETEROVESICULAR JUNCTION 08/19/2019- 08/21/2019 REVIEW OF SYSTEMS CONSTITUTIONAL: ANY RECENT FEVER NO . CHILLS NO . WEIGHT CHANGE OF UNKNOWN REASONS NO . GASTROENTEROLOGY: NEW UNEXPLAINABLE CHANGES IN BOWEL CONTROL NO . CONSTIPATION NO . GENITOURINARY: ANY NEW CHANGE IN BLADDER CONTROL? NO . NEUROLOGY: NEW ONSET DIZZINESS OR NEUROLOGICAL CHANGES NOT MENTIONED NO . NEW NUMBNESS OR PAIN PATTERNS NOT MENTIONED AND PERTINENT TO TODAY'S VISIT NO . CARDIOLOGY: NEW CHEST PRESSURE NO . PATIENT DENIES NO . RESPIRATORY: UNEXPLAINABLE COUGH NO . NEW SHORTNESS OF BREATH NO . VITAL SIGNS WT 184.2 LBS, HT 58 IN, BMI 38.49 INDEX, BP 129/64 MM HG, HR 104 /MIN, RR 18 /MIN, TEMP 97.0 F, OXYGEN SAT % 96%, SAFE IN ENV? (Y/N) YES, NA INITIALS [id number] ANGEL. EXAMINATION GENERAL EXAMINATION: GENERALAWAKE,ALERT ,PLEAASANT . PSYCHAFFECT NORMAL . LUNGS:LUNG CARLOS ARE CLEAR TO AUSCULTATION BILATERALLY. GOOD MOVEMENT OF AIR . HEART:S1, S2 IN A REGULAR RATE AND RHYTHM. NO SIGNIFICANT MURMURS, RUBS OR GALLOPS NOTED . CERVICAL:TRIGGER POINTS: CERVICAL AND TRAPEZIUS BILAT..PAIN IS AGGREVATED WITH ROJM NECK. ASSESSMENTS MYALGIA, OTHER SITE - M79.18 (PRIMARY) CERVICAL SPINAL STENOSIS - M48.02 TREATMENT MYALGIA, OTHER SITE MEDICATION: OXYCODONE HCL TAB 10MG ORALLY (ORDERED FOR 01/01/2021) MEDICATION: VALIUM TAB 10MG ORALLY (DIAZEPAM) (ORDERED FOR 01/01/2021) MED: PAIN ZOFRAN ODT TAB 4MG DISSOLVE ON TONGUE ONDANSETRON (ORDERED FOR 01/01/2021) NOTES: TRIGGER POINT INJECTIONS BILATERAL NECK, BILATERAL THORACIC, BILATERAL OCCIPITAL PINTED AND REVIEWED PRE PROCEDURE INFORMATION, PATIENT VERBALIZED UNDERSTANDING EDUARDO ANGEL. PROCEDURE CODES FA211 ESTABILISHED PATIENT [facility] CHARGE DISPOSITION & COMMUNICATION FOLLOW UP POST (REASON: TRIGGER POINT INJECTIONS BILATERAL NECK, BILATERAL THORACIC, BILATERAL OCCIPITAL) ELECTRONICALLY SIGNED BY TG AGARWAL ON 12/26/2020 AT 02:26 PM EDT DISCLAIMER : THIS IS A VISIT SUMMARY EXTRACTED FROM THE [employer] CHART. IT IS NOT A COPY OF THE [employer] PROGRESS NOTE. CAMILA
== END ==
LOC: M PAIN 11:30
PROVIDERS: ATTEND Nurse Practitioner Family
DX: M79.18 Myalgia, other site (principal); M48.02 Spinal stenosis, cervical region; K21.9 Gastro-esophageal reflux disease without esophagitis; G47.33 Obstructive sleep apnea (adult) (pediatric); Z86.59 Personal history of other mental and behavioral disorders; Z87.891 Personal history of nicotine dependence; Z88.5 Allergy status to narcotic agent; Z79.899 Other long term (current) drug therapy

== ENCOUNTER → 2020-12-31 | Outpatient (REF) | payer BC ==
[2020-12-31 16:09] LABS: ALT/SGPT 25 U/L (12-78); BILIRUBIN,TOTAL 0.4 MG/DL (0.2-1.0); BLOOD UREA NITROGEN 11 MG/DL (7-18); CALCIUM LEVEL 9.1 MG/DL (8.8-10.2); CARBON DIOXIDE LEVEL 28 MEQ/L (21-32); CHLORIDE LEVEL 109 MEQ/L (98-107); CHOLESTEROL LEVEL 350 MG/DL (<200); CREATININE FOR GFR 0.89 MG/DL (0.55-1.30); GLOMERULAR FILTRATION RATE > 60.0 (>45); GLUCOSE, FASTING 100 MG/DL (70-100); HDL CHOLESTEROL 56 MG/DL (>40); LDL CHOLESTEROL 256 MG/DL (<100); NON-HDL-C 294 MG/DL; POTASSIUM SERUM 3.9 MEQ/L (3.5-5.1); SODIUM LEVEL 142 MEQ/L (136-145); TOTAL PROTEIN 7.2 GM/DL (6.4-8.2); TRIGLYCERIDES LEVEL 188 MG/DL (<150)
[2020-12-31 16:11] LABS: TOTAL 25(OH) VITAMIN D 30.6 NG/ML (30.0-100.0)
[2020-12-31 17:24] LABS: HEMOGLOBIN A1c 5.9 %
== END ==
LOC: M SFHCPLAZ 13:32
PROVIDERS: ATTEND Nurse Practitioner Family
DX: E78.5 Hyperlipidemia, unspecified (principal); E04.1 Nontoxic single thyroid nodule; R73.01 Impaired fasting glucose; E55.9 Vitamin D deficiency, unspecified

== ENCOUNTER → 2021-01-02 | Outpatient (CLI) | payer BC | LOC: M LABSMTC 11:36 | PROVIDERS: ATTEND Anesthesiology | DX: Z20.822 Contact with and (suspected) exposure to COVID-19 (principal) ==

== ENCOUNTER → 2021-01-07 | Outpatient (CLI) | payer BC ==
[~2021-01-07] MED LIST changes: +BUPIVACAINE HCL 0.25% 10ML VIAL As Ordered ONE; +BUPIVACAINE HCL 0.25% 30ML VIAL As Ordered ONE; +ONDANSETRON 4 MG ORAL DISINTEGRATING TAB As Ordered ONE; +TRIAMCINOLONE ACETONIDE SUSP 40 MG/ML VIAL (J3301) As Ordered ONE; +diazePAM 5MG TABLET As Ordered ONE; +oxyCODONE 5MG TAB As Ordered ONE
--- NOTE | 2021-01-11 01:38 | ECWPNPC ---
PATIENT NAME: RAVEN MUKHERJEE : 1960 GENDER: FEMALE VISIT DATE: 01/07/2021 DISCHARGE DATE: 01/07/21 1206 VISIT LOCKED DATE TIME: PHYSICIAN: SARAH BETH CAO MD PHYSICIAN PAGER NO: ACTIVE RESOURCE: SARAH BETH CAO MD REASON FOR APPOINTMENT 1. TRIGGER POINT INJECTIONS BILATERAL NECK, BILATERAL THORACIC HISTORY OF PRESENT ILLNESS GENERAL: -. FALL RISK SCREENING: SCREENING : NO FALLS REPORTED IN THE LAST YEAR. PAIN SCREENING: PATIENT HAS A COMPLAINT OF ACUTE OR CHRONIC PAIN :YES LOCATION OF PAIN:HEAD, NECK INTENSITY OF PAIN (SCALE OF 1 TO 10):8 WHAT DOES YOUR PAIN FEEL LIKE:ACHING, SHOOTING, OTHER DURATION:CONTINOUS, AWAKENS FROM SLEEP PAIN IS INCREASED BY:ACTIVITIES, PROLONGED STANDING PAIN IS DECREASED BY:USE OF PAIN MEDICATIONS, OTHERS PLAN/GOALS/TREATMENT/INTERVENTION/FOLLOW UP:SEE PLAN NURSING NOTE: -. PAIN CENTER INTAKE QUESTIONS: DO YOU HAVE A HISTORY OF MRSA? :NO DO YOU TAKE A BLOOD THINNERS? :NO DO YOU HAVE ANY BLEEDING DISORDERS? :NO ANY NEW NUMBNESS OR WEAKNESS IN YOUR LEGS OR ARMS? :NO ANY PACEMAKER,DEFIBRILLATOR, OR DORSAL COLUMN STIMULATOR? :NO DO YOU HAVE ANY RASHES OR OPEN SORES? :NO ARE YOU ALLERGIC TO IV DYE? :NO ARE YOU DIABETIC? :NO ANY NEW PROBLEMS WITH YOUR MEDICATIONS? :NO HAVE YOU RECEIVED A VACCINE IN THE PAST 30 DAYS? :NO DO YOU PLAN TO RECEIVE A VACCINE IN THE NEXT 21 DAYS? :NO DO YOU TAKE ANY IMMUNOSUPPRESSIVE MEDICATIONS? :NO ANY HISTORY OF SEIZURES? :NO ANY HISTORY OF CARDIAC ISSUES OR EVENTS? :NO DO YOU HAVE ANY KIDNEY OR LIVER DISEASE? :NO DO YOU HAVE SLEEP APNEA? :NO ANY RECENT HEAD INJURY? :NO DO YOU HAVE ANY NEW INFECTIONS? :NO IS THERE A CHANCE YOU COULD BE ? :NO ARE YOU BREAST FEEDING? :NO WHEN DID YOU LAST EAT? : -------01/07 WHEN DID YOU LAST DRINK? : -----01/07 0500 WHAT DID YOU LAST DRINK? : -----TEA NAME OF PERSON DRIVING YOU HOME? : JAY DO YOU HAVE ANY OTHER QUESTIONS OR CONCERNS? : NO CURRENT MEDICATIONS TAKING AMBIEN 10 MG TABLET 1 TABLET AT BEDTIME NEEDED ORALLY ONCE A DAY TAKING HYOSCYAMINE SULFATE 0.125 MG TABLET DISINTEGRATING 1 TABLET ON THE TONGUE AND ALLOW TO DISSOLVE NEEDED ORALLY EVERY 6 HRS NEEDED TAKING MIRALAX - POWDER DIRECTED ORALLY DAILY TAKING VOLTAREN 1 % GEL DIRECTED TRANSDERMAL APPLY 4 GRAMM TO NECK Q 6 HRS PRN PAIN TAKING OMEPRAZOLE 40 MG CAPSULE DELAYED RELEASE 1 CAPSULE 30 MINUTES BEFORE MORNING MEAL ORALLY ONCE A DAY TAKING LIDODERM 5 % PATCH 1 PATCH REMOVE AFTER 12 HOURS EXTERNALLY ONCE A DAY TAKING TIZANIDINE HCL 4 MG TABLET 1 TABLET NEEDED ORALLY TWICE A DAY NEEDED FOR MUSCLE SPASM TYPE PAIN, NOTES: 01/06 TAKING DILAUDID 4 MG TABLET 1 TABLET NEEDED ORALLY Q8H PRN MDD3 #60 TAB SHOULD LAST 30 DAYS, NOTES: 01/05 TAKING CHOLECALCIFEROL 10 MCG (400 UNIT) CAPSULE 1 CAPSULE ORALLY ONCE A DAY TAKING CYMBALTA 30 MG CAPSULE DELAYED RELEASE PARTICLES 1 CAPSULE ORALLY ONCE A DAY TAKING PROMETHAZINE HCL 25 MG TABLET 1 TABLET NEEDED ORALLY DAILY TAKING ATORVASTATIN CALCIUM 80 MG TABLET 1 TABLET ORALLY ONCE A DAY PAST MEDICAL HISTORY HO NEPHROLITHIASIS HYPERLIPIDEMIA CHRONIC MDD/TERE/COMORBID INSOMNIA GERD/HO PUD PHI 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 DUNLAP HYPERLIPIDEMIA ALLERGIES DEMEROL: "DEADENS THE AREA OF INJECTION" - ALLERGY CODEINE SULFATE: ITCHING - CONTRAINDICATION SOCIAL HISTORY GENERAL: TOBACCO USE ARE YOU A:FORMER SMOKER HOW LONG HAS IT BEEN SINCE YOU LAST SMOKED?5-10 YEARS LATEX QUESTIONNAIRE LATEX ALLERGY : HAVE YOU EVER DEVELOPED ANY TYPE OF REACTION AFTER HANDLING LATEX PRODUCTS SUCH RUBBER GLOVES, CONDOMS, DIAPHRAGMS, BALLOONS, SOCKS, OR UNDERWEAR?NO LATEX ALLERGY : HAVE YOU EVER DEVELOPED ANY TYPE OF REACTION DURING OR AFTER DENTAL APPOINTMENT, VAGINAL/RECTAL EXAMINATION, SURGICAL PROCEDURE, OR ANY OTHER EXPOSURE?NO LATEX RISK : HAVE YOU EVER HAD ANY DIFFICULTY BREATHING OR HIVES AFTER EATING OR HANDLING ANY FRUITS, OR VEGETABLES; SUCH KIWI, BANANAS, STONE FRUITS, OR CHESTNUTSNO LATEX RISK : DO YOU HAVE A PREVIOUS PERSONAL HISTORY OF MORE THAN NINE SURGERIES, SPINA BIFIDA, OR REPEATED CATHERIZATIONS? NO LATEX RISK : ARE YOU FREQUENTLY EXPOSED TO LATEX PRODUCTS IN YOUR OCCUPATION?NO DATE ASKED : 01/04/2021 ALCOHOL USE: NO. ALCOHOL SCREENING DID YOU HAVE A DRINK CONTAINING ALCOHOL IN THE PAST YEAR?NO POINTS0 INTERPRETATIONNEGATIVE RECREATIONAL DRUG USE DRUG USE?NO CAFFEINE CAFFEINE USE?YES 3 CUPS DAILY HIV / HEP-C SCREENING HIV TEST OFFERED TO PATIENT:YES DATE OFFERED:07/02/2020 HEP-C TEST OFFERED TO PATIENT:YES DATE OFFERED:07/02/2020 HINDUISM HINDUISM NO PREFERENCE LANGUAGE LANGUAGES SPOKEN:[place] EDUCATION LEVEL OF EDUCATION:FINISHED HIGH SCHOOL LEARNING BARRIERS / SPECIAL NEEDS CHANGE FROM LAST VISIT?YES 01/04/21 BARRIERS TO LEARNING?NO HEARING IMPAIRED?NO VISION IMPAIRED?YES :CORRECTIVE LENSES COGNITIVELY IMPAIRED?NO READINESS TO LEARN?YES LEARNING PREFERENCES?NO LEARNING CAPABILITIES PRESENT?YES EMOTIONAL BARRIERS?NO SPECIAL DEVICES?YES 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 DIET: REGULAR. EXERCISE: NONE. MARITAL STATUS: . OTHERS AT HOME: SPOUSE. - PFS REFERRAL NEEDED?NO CLERGY REFERRAL NEEDED?NO PUBLIC HEALTH REFERRAL NEEDED?NO WAS THE PROVIDER NOTIFIED OF ANY PERTINENT INFO?YES HAS THE PATIENT BEEN EDUCATED REGARDING HIS/HER PLAN OF CARE?YES HAS THE PATIENT BEEN EDUCATED REGARDING PAIN, THE RISK FOR PAIN, THE IMPORTANCE OF EFFECTIVE PAIN MANAGEMENT, AND THE PAIN ASSESSMENT PROCESS?YES ADVANCE DIRECTIVE ADVANCE DIRECTIVE DISCUSSED WITH PATIENT:YES HCP - FERNIE MUKHERJEE () [phone] VITAL SIGNS WT 181.6 LBS, HT 58 IN, BMI 37.95 INDEX, BP 120/59 MM HG, HR 90 /MIN, RR 18 /MIN, TEMP 97.0 F, OXYGEN SAT % 94%, SAFE IN ENV? (Y/N) YES, NA INITIALS SC 10:42, REVIEWED BY: BIN GUZMÁN. EXAMINATION GENERAL: A HISTORY AND PHYSICAL EXAM ON THE PATIENT WAS DONE ON 12/25/2020 (DATE OF ORIGINAL ASSESSMENT) IN PREPARATION OF SURGERY/PROCEDURE. I HAVE NOW REASSESSED THIS PATIENT'S HEALTH STATUS AND PERFORMED AN UPDATED EXAM TODAY. ALL CHANGES IN THE PATIENT'S HISTORY, PHYSICAL EXAM, PRE-EXISTING CONDITONS, AND INDICATIONS/CONTRAINDICATIONS TO THE PLANNED PROCEDURE AND ANESTHESIA ARE DOCUMENTED AND EVALUATED BELOW. I ATTEST TO THE ADEQUACY AND APPROPRIATENESS OF MY ASSESSMENT, AND CONFIRM THE NECESSITY FOR THE PLANNED PROCEDURE. THE PATIENT IS ALERT, ORIENTED TIMES THREE AND COOPERATIVE. LUNGS ARE CLEAR TO AUSCULTATION. HEART SHOWS REGULAR RHYTHM, NO MURMURS AND NO GALLOPS. ASSESSMENTS MYALGIA, OTHER SITE - M79.18 (PRIMARY) TREATMENT MYALGIA, OTHER SITE COMPLETION OF PROCEDURAL VISIT WHEN MEETS CRITERIA MEDICATION: VALIUM TAB 10MG ORALLY (DIAZEPAM)BRANDEN ESQUIVEL 01/07/2021 10:56:04 AM > VERIFIED. SONJA MALHOTRA 01/07/2021 10:58:36 AM > ADMINISTERED MEDICATION: OXYCODONE HCL TAB 10MG ORALLYBRANDEN ESQUIVEL 01/07/2021 10:56:22 AM > VERIFIED. SONJA MALHOTRA 01/07/2021 10:57:57 AM > ADMINISTERED MED: PAIN ZOFRAN ODT TAB 4MG DISSOLVE ON TONGUE ONDANSETRONBRANDEN ESQUIVEL 01/07/2021 10:56:38 AM > VERIFIED. SONJA MALHOTRA 01/07/2021 11:00:28 AM > ADMINISTERED PROCEDURES PAIN NURSING RECORD PROCEDURE IN ROOM 1136, PHYSICIAN IN ROOM 1133, START 1144, FINISH 1148, PHYSICIAN OUT OF ROOM 1150, OUT OF ROOM 1159, ECG N/A, PATIENT SHIELDED N/A, SAFETY STRAP N/A, PREP ALCOHOL DR. CAO, DRESSING TEGADERM Priyank MALHOTRA RN LOC: 1. ALERT, ORIENTED RESP: 1. REGULAR, NO DYSPNEA COLOR: 1. PINK SKIN: 1. WARM, DRY POSITION: 5. SITTING VITALS: SONJA MALHOTRA 01/07/2021 11:56:46 AM > 140/77 HR 106 16 96% R/A D/C V/S COMPLETION OF PROCEDURE APPOINTMENT: POST PAIN 2, DRESSING SITE DRY AND INTACT, IV N/A, GAIT STEADY, TEACHING COMPLETED, PATIENT ACKNOWLEDGES UNDERSTANDING YES, PROCEDURE APPOINTMENT COMPLETED AT 1159 PN TRIGGER POINT INJECTION WITH STEROIDS PRE PROCEDURE DIAGNOSIS 1. MYALGIA 2. PAIN AT BILATERAL NECK AREA, BILATERAL THORACIC AREA POST PROCEDURE DIAGNOSIS 1. MYALGIA 2. PAIN AT BILATERAL NECK AREA, BILATERAL THORACIC AREA PROCEDURE TRIGGER POINT INJECTION AT BILATERAL NECK AREA, BILATERAL THORACIC AREA SURGEON DR. SARAH BETH CAO BIOINFORMATICS ANALYST NONE ANESTHESIA LOCAL PRE PROCEDURE NOTE THE PATIENT HAS A HISTORY OF CHRONIC PAIN AT THE RIGHT AND LEFT NECK AREA, RIGHT AND LEFT THORACIC AREA. I EVALUATED THE PATIENT AND REVIEWED THE CHART. THERE IS EVIDENCE OF BANDS OF TISSUE WITH RESTRICTION OF MOVEMENT AND PRESENCE OF TRIGGER POINT AT THE RIGHT AND LEFT NECK AREA, RIGHT AND LEFT THORACIC AREA. I WENT OVER THE RISKS, ALTERNATIVES, AND BENEFITS ASSOCIATED WITH THIS PROCEDURE. THE PATIENT WOULD LIKE TO PROCEED AND GIVE CONSENT TO PERFORMED THE PROCEDURE. THE PATIENT DENIES UNEXPLAINABLE WEIGHT LOSS, FEVER, CHILLS, OR NEW CHANGES IN URINARY OR BOWEL CONTROL. THE PATIENT IS COVID-19 NEGATIVE DESCRIPTION OF PROCEDURE THE PATIENT WAS BROUGHT TO THE PROCEDURE ROOM AND PLACED IN THE SITTING POSITION. THE AREA WAS CLEANED WITH ALCOHOL. THE PROCEDURE WAS DONE USING ASEPTIC STERILE TECHNIQUE. A TIMEOUT WAS PERFORMED WHERE THE CONSENTED SITE WAS VERIFIED WITH EVERYONE IN THE ROOM. USING A 25-GAUGE NEEDLE, TRIGGER POINTS WERE INJECTED AT THE RIGHT AND LEFT NECK AREA, RIGHT AND LEFT THORACIC AREA WITH A TOTAL OF 40 ML OF BUPIVACAINE 0.25% AND KENALOG 40 MG. THE MEDICATIONS WERE VERIFIED WITH THE NURSE. THERE WAS NO EVIDENCE OF BLOOD OR PARESTHESIA DURING THE PROCEDURE. THE PATIENT WAS SENT TO THE RECOVERY ROOM. THE PATIENT WAS MOVING THE EXTREMITIES AND DOING WELL. THERE WERE NO COMPLICATIONS DURING THE PROCEDURE. ESTIMATED BLOOD LOSS WAS LESS THAN 5 ML POST PROCEDURE NOTE THE PATIENT STATES THAT THE THERAPEUTIC FACET BLOCK DID NTO LAST LONG. CONSIDER REPEATING THE INJECTION WITH A FULL DOSE OF STEROIDS. THE PROCEDURE DONE WAS DISCUSSED WITH THE PATIENT. THE PATIENT WILL BE SEEN IN A FOLLOW UP IN THE NEXT FEW WEEKS. I AM LOOKING FOR LONG LASTING PAIN RELIEF FOR THE PATIENT WITH THIS INTERVENTION. INSTRUCTIONS WERE GIVEN, QUESTIONS WERE ANSWERED, AND THE PATIENT EXPRESSED UNDERSTANDING AND AGREES WITH THE PLAN. I, IVON NICOLE, DOCUMENTED THE ABOVE INFORMATION ACTING A SCRIBE FOR DR. CAO. I HAVE REVIEWED THE ABOVE DOCUMENT, WRITTEN BY IVON NICOLE, HIGH VALUE ASSOCIATE, AND I VERIFY THAT IT IS ACCURATE PROCEDURE CODES 57505 INJECT TRIGGER POINTS 3/> DISPOSITION & COMMUNICATION FOLLOW UP FOLLOW UP WITH DIRECTOR OF EVENT SALES (REASON: POST TRIGGER POINT INJECTIONS BILATERAL NECK, BILATERAL THORACIC) ELECTRONICALLY SIGNED BY SARAH BETH CAO MD, MD ON 01/10/2021 AT 04:25 PM EDT DISCLAIMER : THIS IS A VISIT SUMMARY EXTRACTED FROM THE [employer] CHART. IT IS NOT A COPY OF THE [employer] PROGRESS NOTE. CAMILA
== END ==
LOC: M PAIN 10:40
PROVIDERS: ATTEND Anesthesiology
DX: M79.18 Myalgia, other site (principal); K21.9 Gastro-esophageal reflux disease without esophagitis; G47.33 Obstructive sleep apnea (adult) (pediatric); Z86.59 Personal history of other mental and behavioral disorders; Z87.891 Personal history of nicotine dependence; Z88.5 Allergy status to narcotic agent; Z79.899 Other long term (current) drug therapy
CPT/HCPCS: 20553; J3301; Q0162

== ENCOUNTER → 2021-01-22 | Outpatient (CLI) | payer BC ==
[~2021-01-22] MED LIST changes: -BUPIVACAINE HCL 0.25% 10ML VIAL As Ordered ONE; -BUPIVACAINE HCL 0.25% 30ML VIAL As Ordered ONE; -ONDANSETRON 4 MG ORAL DISINTEGRATING TAB As Ordered ONE; -TRIAMCINOLONE ACETONIDE SUSP 40 MG/ML VIAL (J3301) As Ordered ONE; -diazePAM 5MG TABLET As Ordered ONE; -oxyCODONE 5MG TAB As Ordered ONE
--- NOTE | 2021-01-23 01:51 | ECWPNPC ---
PATIENT NAME: RAVEN MUKHERJEE : 1960 GENDER: FEMALE VISIT DATE: 01/22/2021 DISCHARGE DATE: 01/22/21 1457 VISIT LOCKED DATE TIME: PHYSICIAN: MARYELLEN GARZA PHYSICIAN PAGER NO: ACTIVE RESOURCE: MARYELLEN GARZA REASON FOR APPOINTMENT 1. POST TRIGGER POINT INJECTIONS TO BILATERAL NECK, BILATERAL THORACIC, AND BILATERAL OCCIPITAL HISTORY OF PRESENT ILLNESS GENERAL: HERE FOR POST PROCEDURE FOLLOW-UP. HEAD TRIGGER POINT INJECTIONS BILATERAL NECK, BILATERAL THORACIC ON 01/07/2021. REPORTING IMPROVEMENT IN PAIN THAT CONTINUES TODAY. ALSO STATES THAT PRIMARY CARE STARTED HER ON CYMBALTA AND SHE FEELS THOUGH THIS IS HELPING. CONTINUES TO TAKE DILAUDID 4 MG TWICE A DAY AND USES TIZANIDINE PERIODICALLY FOR SEVERE PAIN EPISODES. FINDS THESE MEDICATIONS HELPFUL AT REDUCING PAIN AND KEEPING HER FUNCTIONAL. DENIES ADVERSE SIDE EFFECTS OF MEDICATION. BRINGS IN HER PAIN MEDICATION WHICH IS APPROPRIATE FOR WHAT WAS DISPENSED. -. FALL RISK SCREENING: SCREENING : NO FALLS REPORTED IN THE LAST YEAR. PAIN SCREENING: PATIENT HAS A COMPLAINT OF ACUTE OR CHRONIC PAIN :YES LOCATION OF PAIN:HEAD INTENSITY OF PAIN (SCALE OF 1 TO 10):3 WHAT DOES YOUR PAIN FEEL LIKE:THROBBING DURATION:CONTINOUS, CONSTANT PAIN IS INCREASED BY:ACTIVITIES PAIN IS DECREASED BY:USE OF PAIN MEDICATIONS NURSING NOTE: -. PAIN CENTER INTAKE QUESTIONS: DO YOU HAVE A HISTORY OF MRSA? :NO DO YOU TAKE A BLOOD THINNERS? :NO DO YOU HAVE ANY BLEEDING DISORDERS? :NO ANY NEW NUMBNESS OR WEAKNESS IN YOUR LEGS OR ARMS? :NO LEFT LEG IS WEAK ANY PACEMAKER,DEFIBRILLATOR, OR DORSAL COLUMN STIMULATOR? :NO DO YOU HAVE ANY RASHES OR OPEN SORES? :NO ARE YOU ALLERGIC TO IV DYE? :NO ARE YOU DIABETIC? :NO ANY NEW PROBLEMS WITH YOUR MEDICATIONS? :NO HAVE YOU RECEIVED A VACCINE IN THE PAST 30 DAYS? :NO DO YOU PLAN TO RECEIVE A VACCINE IN THE NEXT 21 DAYS? :NO DO YOU NEED ANY PRESCRIPTION? :YES HYDROMORPHINE DO YOU TAKE ANY IMMUNOSUPPRESSIVE MEDICATIONS? :NO IS THERE A CHANCE YOU COULD BE ? :NO ARE YOU BREAST FEEDING? :NO CURRENT MEDICATIONS TAKING HYOSCYAMINE SULFATE 0.125 MG TABLET DISINTEGRATING 1 TABLET ON THE TONGUE AND ALLOW TO DISSOLVE NEEDED ORALLY EVERY 6 HRS NEEDED TAKING MIRALAX - POWDER DIRECTED ORALLY DAILY TAKING VOLTAREN 1 % GEL DIRECTED TRANSDERMAL APPLY 4 GRAMM TO NECK Q 6 HRS PRN PAIN TAKING OMEPRAZOLE 40 MG CAPSULE DELAYED RELEASE 1 CAPSULE 30 MINUTES BEFORE MORNING MEAL ORALLY ONCE A DAY TAKING LIDODERM 5 % PATCH 1 PATCH REMOVE AFTER 12 HOURS EXTERNALLY ONCE A DAY TAKING TIZANIDINE HCL 4 MG TABLET 1 TABLET NEEDED ORALLY TWICE A DAY NEEDED FOR MUSCLE SPASM TYPE PAIN TAKING DILAUDID 4 MG TABLET 1 TABLET NEEDED ORALLY Q8H PRN MDD3 #60 TAB SHOULD LAST 30 DAYS TAKING CHOLECALCIFEROL 10 MCG (400 UNIT) CAPSULE 1 CAPSULE ORALLY ONCE A DAY TAKING PROMETHAZINE HCL 25 MG TABLET 1 TABLET NEEDED ORALLY DAILY TAKING ATORVASTATIN CALCIUM 80 MG TABLET 1 TABLET ORALLY ONCE A DAY TAKING CYMBALTA 60 MG CAPSULE DELAYED RELEASE PARTICLES 1 CAPSULE ORALLY ONCE A DAY TAKING AMBIEN 10 MG TABLET 1 TABLET AT BEDTIME NEEDED ORALLY ONCE A DAY MEDICATION LIST REVIEWED AND RECONCILED WITH THE PATIENT PAST MEDICAL HISTORY HO NEPHROLITHIASIS HYPERLIPIDEMIA CHRONIC MDD/TERE/COMORBID INSOMNIA GERD/HO PUD PHI 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 DUNLAP HYPERLIPIDEMIA ALLERGIES DEMEROL: "DEADENS THE AREA OF INJECTION" - ALLERGY CODEINE SULFATE: ITCHING - CONTRAINDICATION SOCIAL HISTORY GENERAL: TOBACCO USE ARE YOU A:FORMER SMOKER HOW LONG HAS IT BEEN SINCE YOU LAST SMOKED?5-10 YEARS LATEX QUESTIONNAIRE LATEX ALLERGY : HAVE YOU EVER DEVELOPED ANY TYPE OF REACTION AFTER HANDLING LATEX PRODUCTS SUCH RUBBER GLOVES, CONDOMS, DIAPHRAGMS, BALLOONS, SOCKS, OR UNDERWEAR?NO LATEX ALLERGY : HAVE YOU EVER DEVELOPED ANY TYPE OF REACTION DURING OR AFTER DENTAL APPOINTMENT, VAGINAL/RECTAL EXAMINATION, SURGICAL PROCEDURE, OR ANY OTHER EXPOSURE?NO DATE ASKED : 01/04/2021 LATEX RISK : HAVE YOU EVER HAD ANY DIFFICULTY BREATHING OR HIVES AFTER EATING OR HANDLING ANY FRUITS, OR VEGETABLES; SUCH KIWI, BANANAS, STONE FRUITS, OR CHESTNUTSNO LATEX RISK : DO YOU HAVE A PREVIOUS PERSONAL HISTORY OF MORE THAN NINE SURGERIES, SPINA BIFIDA, OR REPEATED CATHERIZATIONS? NO LATEX RISK : ARE YOU FREQUENTLY EXPOSED TO LATEX PRODUCTS IN YOUR OCCUPATION?NO ALCOHOL USE: NO. ALCOHOL SCREENING DID YOU HAVE A DRINK CONTAINING ALCOHOL IN THE PAST YEAR?NO POINTS0 INTERPRETATIONNEGATIVE RECREATIONAL DRUG USE DRUG USE?NO CAFFEINE CAFFEINE USE?YES 3 CUPS DAILY HIV / HEP-C SCREENING HIV TEST OFFERED TO PATIENT:YES DATE OFFERED:07/02/2020 HEP-C TEST OFFERED TO PATIENT:YES DATE OFFERED:07/02/2020 CATHOLIC CATHOLIC NO PREFERENCE LANGUAGE LANGUAGES SPOKEN:BELARUSIAN EDUCATION LEVEL OF EDUCATION:FINISHED HIGH SCHOOL LEARNING BARRIERS / SPECIAL NEEDS CHANGE FROM LAST VISIT?YES 01/04/21 BARRIERS TO LEARNING?NO HEARING IMPAIRED?NO VISION IMPAIRED?YES COGNITIVELY IMPAIRED?NO :CORRECTIVE LENSES READINESS TO LEARN?YES LEARNING PREFERENCES?NO LEARNING CAPABILITIES PRESENT?YES EMOTIONAL BARRIERS?NO SPECIAL DEVICES?YES UPPER AND LOWER DENTURES HOSPICE SUPERINTENDENT 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 DIET: REGULAR. EXERCISE: NONE. MARITAL STATUS: . OTHERS AT HOME: SPOUSE. - PFS REFERRAL NEEDED?NO CLERGY REFERRAL NEEDED?NO PUBLIC HEALTH REFERRAL NEEDED?NO WAS THE PROVIDER NOTIFIED OF ANY PERTINENT INFO?YES HAS THE PATIENT BEEN EDUCATED REGARDING HIS/HER PLAN OF CARE?YES HAS THE PATIENT BEEN EDUCATED REGARDING PAIN, THE RISK FOR PAIN, THE IMPORTANCE OF EFFECTIVE PAIN MANAGEMENT, AND THE PAIN ASSESSMENT PROCESS?YES ADVANCE DIRECTIVE ADVANCE DIRECTIVE DISCUSSED WITH PATIENT:YES HCP - FERNIE MUKHERJEE () [phone] REVIEW OF SYSTEMS CONSTITUTIONAL: ANY RECENT FEVER NO . CHILLS NO . WEIGHT CHANGE OF UNKNOWN REASONS NO . GASTROENTEROLOGY: NEW UNEXPLAINABLE CHANGES IN BOWEL CONTROL NO . CONSTIPATION NO . GENITOURINARY: ANY NEW CHANGE IN BLADDER CONTROL? NO . NEUROLOGY: NEW ONSET DIZZINESS OR NEUROLOGICAL CHANGES NOT MENTIONED NO . NEW NUMBNESS OR PAIN PATTERNS NOT MENTIONED AND PERTINENT TO TODAY'S VISIT NO . CARDIOLOGY: NEW CHEST PRESSURE NO . PATIENT DENIES NO . RESPIRATORY: UNEXPLAINABLE COUGH NO . NEW SHORTNESS OF BREATH NO . VITAL SIGNS WT 182.6 LBS, HT 58 IN, BMI 38.16 INDEX, BP 133/63 MM HG, HR 99 /MIN, RR 18 /MIN, TEMP 97.1 F, OXYGEN SAT % 96%, SAFE IN ENV? (Y/N) Y, NA INITIALS AW 1407, REVIEWED BY: EM. EXAMINATION GENERAL EXAMINATION: GENERALAWAKE,ALERT ,PLEASANT . PSYCHAFFECT NORMAL . LUNGS:LUNG CARLOS ARE CLEAR TO AUSCULTATION BILATERALLY. GOOD MOVEMENT OF AIR . HEART:S1, S2 IN A REGULAR RATE AND RHYTHM. NO SIGNIFICANT MURMURS, RUBS OR GALLOPS NOTED . ASSESSMENTS OTHER CHRONIC PAIN - G89.29 (PRIMARY) MYALGIA, OTHER SITE - M79.18 CERVICAL SPINAL STENOSIS - M48.02 TREATMENT OTHER CHRONIC PAIN REFILL DILAUDID TABLET, 4 MG, 1 TABLET NEEDED, ORALLY, Q8H PRN MDD3 #60 TAB SHOULD LAST 30 DAYS, 30 DAYS, 60, REFILLS 0 REFILL TIZANIDINE HCL TABLET, 4 MG, 1 TABLET NEEDED, ORALLY, TWICE A DAY NEEDED FOR MUSCLE SPASM TYPE PAIN, 30 DAYS, 60, REFILLS 1 PAIN PROCEDURE LOGDATE OF PROCEDURE1PROCEDURE:TRIGGER POINT INJECTION BILATERAL NECK, BILATERAL THORACICAMOUNT OF PRE SEDATEVALIUM 10MG, OXYCODONE 10MG, ZOFRAN 4MGRESULT:MARKED IMPROVEMENT CONTINUES TODAY PROCEDURE CODES FA211 ESTABILISHED PATIENT [facility] CHARGE DISPOSITION & COMMUNICATION FOLLOW UP 3 MONTHS (REASON: MED MGMNT/UTOX) ELECTRONICALLY SIGNED BY TG AGARWAL ON 01/22/2021 AT 03:06 PM EDT DISCLAIMER : THIS IS A VISIT SUMMARY EXTRACTED FROM THE [employer] CHART. IT IS NOT A COPY OF THE [employer] PROGRESS NOTE. CAMILA
== END ==
LOC: M PAIN 14:00
PROVIDERS: ATTEND Nurse Practitioner Family
DX: M79.18 Myalgia, other site (principal); M48.02 Spinal stenosis, cervical region; K21.9 Gastro-esophageal reflux disease without esophagitis; G47.33 Obstructive sleep apnea (adult) (pediatric); Z86.59 Personal history of other mental and behavioral disorders; Z87.891 Personal history of nicotine dependence; Z88.5 Allergy status to narcotic agent; Z79.899 Other long term (current) drug therapy

== ENCOUNTER → 2021-04-02 | Outpatient (CLI) | payer BC | LOC: M LAB 16:02 | PROVIDERS: ATTEND Physician Assistant | DX: H47.019 Ischemic optic neuropathy, unspecified eye (principal) ==

== ENCOUNTER → 2021-05-21 | Outpatient (REF) | payer BC | LOC: M SFHCPLAZ 12:58 | PROVIDERS: ATTEND Nurse Practitioner Family | DX: J02.9 Acute pharyngitis, unspecified (principal) ==

== ENCOUNTER → 2021-06-17 | Outpatient (CLI) | payer BC ==
[~2021-06-17] MED LIST changes: +E-Z-GAS II EFFERVESCENT PACKET (SODIUM BICARB./CITRIC ACID/SIMETHICONE) As Ordered ONE; +E-Z-HD 98% w/w 340GM SUSP BTL As Ordered ONE; +E-Z-PAQUE 96% w/w SUSP 176GM BTL As Ordered ONE; +ISOVUE-370 76% 100ML VIAL As Ordered ONE
--- NOTE | 2021-06-17 08:46 | REPVR ---
PROCEDURE INFORMATION: Exam: CT Neck With Contrast Exam date and time: 06/17/2021 7:43 AM Age: 60 years old Clinical indication: Dysphagia / difficulty swallowing TECHNIQUE: Imaging protocol: Computed tomography images of the neck with contrast. Radiation optimization: All CT scans at this facility use at least one of these dose optimization techniques: automated exposure control; mA and/or kV adjustment per patient size (includes targeted exams where dose is matched to clinical indication); or iterative reconstruction. Contrast material: ISOVUE 370; Contrast volume: 75 ml; Contrast route: INTRAVENOUS (IV); COMPARISON: MRI-Spine,Cervical without con 12/13/2020 12:15 PM FINDINGS: Nasopharynx: Unremarkable. Oropharynx: Small tonsillar calcifications are typically postinflammatory and not of significance. No tonsillar enlargement or abscess. There is a small protrusion from left paracentral margin of posterior aspect of tongue base which is T2 hyperintense on MRI and unchanged measuring 6 mm. This may be a cyst given its T2 hyperintensity and low-density on sagittal CT and recommend direct visualization. Hypopharynx: Unremarkable. Un remarkable and symmetric appearance piriform sinuses and post cricoid hypopharynx. Larynx: Unremarkable. Normal epiglottis and aryepiglottic folds. Retropharyngeal space: Unremarkable. Submandibular/Parotid glands: Normal. Glands are normal in size. Thyroid: There is approximately 1.3 cm x 1.3 cm heterogeneous right thyroid nodule similar size to prior MRI. No follow-up is recommended. Lymph nodes: Unremarkable. No lymphadenopathy. Trachea: Visualized trachea is unremarkable. Lungs: Unremarkable as visualized. Bones/joints: Unremarkable. No acute fracture. Soft tissues: Visualized portion of the soft is appears unremarkable. IMPRESSION: 1. Small exophytic protrusion from left posterior tongue base unchanged from MRI. Consider direct visualization. 2. Right thyroid nodule with no follow-up recommended. COMMENTS: Consistent with the [employer]'s Incidental Findings Committee white paper (J [employer] Radiol 2015): In patients aged 35 years and older with an incidental thyroid nodule equal to or greater than 1.[address], MRI or extrathyroidal US, further evaluation with dedicated thyroid US is recommended for patients with normal life expectancy and without comorbidities. For smaller nodules without suspicious features, no further evaluation or follow up is recommended. Electronically signed by: Mary Shirley On 06/17/2021 08:45:54 AM
--- NOTE | 2021-06-17 18:07 | REP ---
INDICATION: DYSPHAGIA. COMPARISON: CT neck dated 06/17/2021 TECHNIQUE: This procedure was performed by LAURA Rosa, under the direct supervision of Dr. North. Images were reviewed with Dr. North prior to dictation. Liquid barium and gas producing crystals were given in the erect position, as well as liquid barium in the prone oblique position in order to perform a double contrast esophagram examination. FINDINGS: A single view PA chest x-ray is submitted as a box office clerk film. The superior mediastinal structures are midline. The heart size is within normal limits. The lungs are clear. The oral and pharyngeal stages of deglutition were unremarkable. Esophageal transport is prompt and efficient and there is no evidence of esophagitis, stricture, or mucosal ring. There is no evidence of a hiatal hernia. Gastroesophageal reflux was not observed on this examination. IMPRESSION: Unremarkable esophagram 0.4 minutes of fluoroscopy time was utilized for this procedure. Some fluoroscopic images are performed with last image hold technology. These images require no additional radiation. <Electronically signed by Alexandra Perry > 06/17/21 1536 <Electronically signed by Barry North > 06/17/21 1800
== END ==
LOC: M RAD 07:15
PROVIDERS: ATTEND Otolaryngology
DX: R13.10 Dysphagia, unspecified (principal)
CPT/HCPCS: 70491; 74220; Q9967

== ENCOUNTER → 2021-06-26 | Outpatient (CLI) | payer BC ==
[~2021-06-26] MED LIST changes: -E-Z-GAS II EFFERVESCENT PACKET (SODIUM BICARB./CITRIC ACID/SIMETHICONE) As Ordered ONE; -E-Z-HD 98% w/w 340GM SUSP BTL As Ordered ONE; -E-Z-PAQUE 96% w/w SUSP 176GM BTL As Ordered ONE; -ISOVUE-370 76% 100ML VIAL As Ordered ONE
== END ==
LOC: M PAIN 13:30
PROVIDERS: ATTEND Anesthesiology
DX: M50.10 Cervical disc disorder with radiculopathy, unspecified cervical region (principal); G89.29 Other chronic pain; K21.9 Gastro-esophageal reflux disease without esophagitis; G47.33 Obstructive sleep apnea (adult) (pediatric); Z86.59 Personal history of other mental and behavioral disorders; Z87.891 Personal history of nicotine dependence; Z88.5 Allergy status to narcotic agent; Z79.899 Other long term (current) drug therapy

== ENCOUNTER → 2021-07-01 | Outpatient (CLI) | payer BC ==
[2021-07-01 18:04] LABS: ALBUMIN 3.9 GM/DL (3.2-5.2); ALT/SGPT 24 U/L (12-78); BILIRUBIN,TOTAL 0.4 MG/DL (0.2-1.0); BLOOD UREA NITROGEN 12 MG/DL (7-18); CALCIUM LEVEL 9.3 MG/DL (8.8-10.2); CARBON DIOXIDE LEVEL 28 MEQ/L (21-32); CHLORIDE LEVEL 108 MEQ/L (98-107); CHOLESTEROL LEVEL 347 MG/DL (<200); CHOLESTEROL RISK RATIO 6.309 (<5); CREATININE FOR GFR 0.98 MG/DL (0.55-1.30); FREE T4 0.91 NG/DL (0.76-1.46); GLOMERULAR FILTRATION RATE > 60.0 (>45); GLUCOSE, FASTING 93 MG/DL (70-100); HDL CHOLESTEROL 55 MG/DL (>40); LDL CHOLESTEROL 255 MG/DL (<100); NON-HDL-C 292 MG/DL; SODIUM LEVEL 141 MEQ/L (136-145); TOTAL PROTEIN 7.1 GM/DL (6.4-8.2); TRIGLYCERIDES LEVEL 183 MG/DL (<150)
[2021-07-01 19:09] LABS: HEMOGLOBIN A1c 5.8 %
== END ==
LOC: M PLALAB 13:54
PROVIDERS: ATTEND Nurse Practitioner Family
DX: R73.01 Impaired fasting glucose (principal)

== ENCOUNTER → 2021-08-21 | Outpatient (CLI) | payer BC | LOC: M LABSMTC 11:40 | PROVIDERS: ATTEND Anesthesiology | DX: Z01.818 Encounter for other preprocedural examination (principal); Z11.52 Encounter for screening for COVID-19 ==

== ENCOUNTER → 2021-09-18 | Outpatient (CLI) | payer BC ==
[~2021-09-18] MED LIST changes: -OMEP-221 PO; +OMEP40CA5 PO
== END ==
LOC: M LABSMTC 12:23
PROVIDERS: ATTEND Anesthesiology
DX: Z20.822 Contact with and (suspected) exposure to COVID-19 (principal)

== ENCOUNTER → 2021-09-23 | Outpatient (CLI) | payer BC ==
[~2021-09-23] MED LIST changes: +ISOVUE-M 300 61% 15ML VIAL As Ordered ONE; +LIDOCAINE 1% SDV 30ML VIAL As Ordered ONE; +diazePAM 5MG TABLET As Ordered ONE; +diphenhydrAMINE 25MG CAP As Ordered ONE; +methylPREDNISolone SUSP 40MG/ML 1ML VIAL (DEPO MEDROL) As Ordered ONE; +oxyCODONE 5MG TAB As Ordered ONE
== END ==
LOC: M PAIN 13:00
PROVIDERS: ATTEND Anesthesiology
DX: M50.10 Cervical disc disorder with radiculopathy, unspecified cervical region (principal); K21.9 Gastro-esophageal reflux disease without esophagitis; Z86.59 Personal history of other mental and behavioral disorders; Z87.891 Personal history of nicotine dependence; Z88.5 Allergy status to narcotic agent; Z79.899 Other long term (current) drug therapy
CPT/HCPCS: 62321; J1030; Q9967

== ENCOUNTER → 2021-10-11 | Outpatient (CLI) | payer BC ==
[~2021-10-11] MED LIST changes: -ISOVUE-M 300 61% 15ML VIAL As Ordered ONE; -LIDOCAINE 1% SDV 30ML VIAL As Ordered ONE; -diazePAM 5MG TABLET As Ordered ONE; -diphenhydrAMINE 25MG CAP As Ordered ONE; -methylPREDNISolone SUSP 40MG/ML 1ML VIAL (DEPO MEDROL) As Ordered ONE; -oxyCODONE 5MG TAB As Ordered ONE
== END ==
LOC: M PAIN 09:45
PROVIDERS: ATTEND Anesthesiology
DX: M79.18 Myalgia, other site (principal); M48.061 Spinal stenosis, lumbar region without neurogenic claudication; K21.9 Gastro-esophageal reflux disease without esophagitis; G47.33 Obstructive sleep apnea (adult) (pediatric); Z86.59 Personal history of other mental and behavioral disorders; Z87.891 Personal history of nicotine dependence; Z88.5 Allergy status to narcotic agent; Z88.8 Allergy status to other drugs, medicaments and biological substances; Z79.899 Other long term (current) drug therapy

== ENCOUNTER → 2021-10-22 | Outpatient (CLI) | payer BC | LOC: M PAIN 16:15 → M TMPAIN 16:15 | PROVIDERS: ATTEND Anesthesiology | DX: M79.18 Myalgia, other site (principal); K21.9 Gastro-esophageal reflux disease without esophagitis; G47.33 Obstructive sleep apnea (adult) (pediatric); Z86.59 Personal history of other mental and behavioral disorders; Z87.891 Personal history of nicotine dependence; Z88.5 Allergy status to narcotic agent; Z88.8 Allergy status to other drugs, medicaments and biological substances; Z79.899 Other long term (current) drug therapy ==

== ENCOUNTER → 2021-10-28 | Outpatient (CLI) | payer BC | LOC: M LABSMTC 11:42 | PROVIDERS: ATTEND Anesthesiology | DX: Z01.818 Encounter for other preprocedural examination (principal); Z11.52 Encounter for screening for COVID-19 ==

== ENCOUNTER → 2021-10-31 | Outpatient (CLI) | payer BC ==
[~2021-10-31] MED LIST changes: +BUPIVACAINE HCL 0.25% 10ML VIAL As Ordered ONE; +BUPIVACAINE HCL 0.25% 30ML VIAL As Ordered ONE; +TRIAMCINOLONE ACETONIDE SUSP 40 MG/ML VIAL (J3301) As Ordered ONE
== END ==
LOC: M PAIN 08:30
PROVIDERS: ATTEND Anesthesiology
DX: M79.18 Myalgia, other site (principal); K21.9 Gastro-esophageal reflux disease without esophagitis; G47.33 Obstructive sleep apnea (adult) (pediatric); Z86.59 Personal history of other mental and behavioral disorders; Z88.5 Allergy status to narcotic agent; Z88.8 Allergy status to other drugs, medicaments and biological substances; Z79.899 Other long term (current) drug therapy
CPT/HCPCS: 20552; J3301

== ENCOUNTER → 2021-11-01 | Outpatient (CLI) | payer BC ==
[~2021-11-01] MED LIST changes: -BUPIVACAINE HCL 0.25% 10ML VIAL As Ordered ONE; -BUPIVACAINE HCL 0.25% 30ML VIAL As Ordered ONE; -TRIAMCINOLONE ACETONIDE SUSP 40 MG/ML VIAL (J3301) As Ordered ONE
== END ==
LOC: M TMPAIN 15:15 → M PAIN 15:15
PROVIDERS: ATTEND Anesthesiology
DX: M79.18 Myalgia, other site (principal); K21.9 Gastro-esophageal reflux disease without esophagitis; G47.33 Obstructive sleep apnea (adult) (pediatric); Z86.59 Personal history of other mental and behavioral disorders; Z87.891 Personal history of nicotine dependence; Z88.5 Allergy status to narcotic agent; Z88.8 Allergy status to other drugs, medicaments and biological substances; Z79.899 Other long term (current) drug therapy

== ENCOUNTER → 2021-12-06 | Outpatient (CLI) | payer BC | LOC: M PLAIMG 12:46 | PROVIDERS: ATTEND Anesthesiology | DX: M51.16 Intervertebral disc disorders with radiculopathy, lumbar region (principal); M51.26 Other intervertebral disc displacement, lumbar region ==

== ENCOUNTER → 2021-12-12 | Outpatient (CLI) | payer BC | LOC: M PAIN 11:30 | PROVIDERS: ATTEND Nurse Practitioner Family | DX: M51.16 Intervertebral disc disorders with radiculopathy, lumbar region (principal); G89.29 Other chronic pain; K21.9 Gastro-esophageal reflux disease without esophagitis; G47.33 Obstructive sleep apnea (adult) (pediatric); Z86.59 Personal history of other mental and behavioral disorders; Z87.891 Personal history of nicotine dependence; Z88.5 Allergy status to narcotic agent; Z79.891 Long term (current) use of opiate analgesic; Z79.899 Other long term (current) drug therapy ==

== ENCOUNTER → 2021-12-14 | Outpatient (CLI) | payer BC | LOC: M LABSMTC 11:42 | PROVIDERS: ATTEND Anesthesiology | DX: Z01.812 Encounter for preprocedural laboratory examination (principal); Z20.822 Contact with and (suspected) exposure to COVID-19 ==

== ENCOUNTER → 2021-12-18 | Outpatient (CLI) | payer BC ==
[~2021-12-18] MED LIST changes: +ISOVUE-M 300 61% 15ML VIAL As Ordered ONE; +LIDOCAINE 1% SDV 30ML VIAL As Ordered ONE; +diazePAM 5MG TABLET As Ordered ONE; +diphenhydrAMINE 25MG CAP As Ordered ONE; +methylPREDNISolone SUSP 40MG/ML 1ML VIAL (DEPO MEDROL) As Ordered ONE; +oxyCODONE 5MG TAB As Ordered ONE
== END ==
LOC: M PAIN 13:15
PROVIDERS: ATTEND Anesthesiology
DX: M51.16 Intervertebral disc disorders with radiculopathy, lumbar region (principal); E78.5 Hyperlipidemia, unspecified; F33.9 Major depressive disorder, recurrent, unspecified; F41.1 Generalized anxiety disorder; K21.9 Gastro-esophageal reflux disease without esophagitis; G47.33 Obstructive sleep apnea (adult) (pediatric); M47.812 Spondylosis without myelopathy or radiculopathy, cervical region; Z87.11 Personal history of peptic ulcer disease; Z87.891 Personal history of nicotine dependence; Z79.899 Other long term (current) drug therapy; Z79.891 Long term (current) use of opiate analgesic; Z88.5 Allergy status to narcotic agent; Z88.8 Allergy status to other drugs, medicaments and biological substances
CPT/HCPCS: 62323; J1030; Q9967

== ENCOUNTER → 2022-01-16 | Outpatient (CLI) | payer BC ==
[~2022-01-16] MED LIST changes: -ISOVUE-M 300 61% 15ML VIAL As Ordered ONE; -LIDOCAINE 1% SDV 30ML VIAL As Ordered ONE; -diazePAM 5MG TABLET As Ordered ONE; -diphenhydrAMINE 25MG CAP As Ordered ONE; -methylPREDNISolone SUSP 40MG/ML 1ML VIAL (DEPO MEDROL) As Ordered ONE; -oxyCODONE 5MG TAB As Ordered ONE
== END ==
LOC: M PAIN 13:00
PROVIDERS: ATTEND Anesthesiology
DX: G89.4 Chronic pain syndrome (principal); M48.062 Spinal stenosis, lumbar region with neurogenic claudication; M51.16 Intervertebral disc disorders with radiculopathy, lumbar region; K21.9 Gastro-esophageal reflux disease without esophagitis; G47.33 Obstructive sleep apnea (adult) (pediatric); Z86.59 Personal history of other mental and behavioral disorders; Z87.891 Personal history of nicotine dependence; Z88.5 Allergy status to narcotic agent; Z79.891 Long term (current) use of opiate analgesic; Z79.899 Other long term (current) drug therapy

== ENCOUNTER → 2022-06-01 | Outpatient (CLI) | payer BC | LOC: M LABSMTC 10:47 | PROVIDERS: ATTEND Anesthesiology | DX: Z01.812 Encounter for preprocedural laboratory examination (principal); Z11.52 Encounter for screening for COVID-19 ==

== ENCOUNTER → 2022-06-05 | Outpatient (CLI) | payer BC ==
[~2022-06-05] MED LIST changes: +BUPIVACAINE HCL 0.25% 30ML VIAL As Ordered ONE; +ISOVUE-M 300 61% 15ML VIAL As Ordered ONE; +LIDOCAINE 1% SDV 30ML VIAL As Ordered ONE; +dexameTHASONE 10MG/1ML VIAL PRES.FREE (J1100 PER 1MG) As Ordered ONE; +diazePAM 5MG TABLET As Ordered ONE; +diphenhydrAMINE 25MG CAP As Ordered ONE; +oxyCODONE 5MG TAB As Ordered ONE
== END ==
LOC: M PAIN 14:00
PROVIDERS: ATTEND Anesthesiology
DX: M48.062 Spinal stenosis, lumbar region with neurogenic claudication (principal); G89.29 Other chronic pain; K21.9 Gastro-esophageal reflux disease without esophagitis; G47.33 Obstructive sleep apnea (adult) (pediatric); Z86.59 Personal history of other mental and behavioral disorders; Z87.891 Personal history of nicotine dependence; Z88.5 Allergy status to narcotic agent; Z79.891 Long term (current) use of opiate analgesic; Z79.899 Other long term (current) drug therapy
CPT/HCPCS: 64483; 64484; J1100; Q9967

== ENCOUNTER → 2022-06-16 | Outpatient (CLI) | payer BC ==
[~2022-06-16] MED LIST changes: -BUPIVACAINE HCL 0.25% 30ML VIAL As Ordered ONE; -ISOVUE-M 300 61% 15ML VIAL As Ordered ONE; -LIDOCAINE 1% SDV 30ML VIAL As Ordered ONE; -dexameTHASONE 10MG/1ML VIAL PRES.FREE (J1100 PER 1MG) As Ordered ONE; -diazePAM 5MG TABLET As Ordered ONE; -diphenhydrAMINE 25MG CAP As Ordered ONE; -oxyCODONE 5MG TAB As Ordered ONE
== END ==
LOC: M PAIN 10:15
PROVIDERS: ATTEND Anesthesiology
DX: M51.16 Intervertebral disc disorders with radiculopathy, lumbar region (principal); M48.061 Spinal stenosis, lumbar region without neurogenic claudication; G89.29 Other chronic pain; K21.9 Gastro-esophageal reflux disease without esophagitis; G47.33 Obstructive sleep apnea (adult) (pediatric); Z86.59 Personal history of other mental and behavioral disorders; Z87.891 Personal history of nicotine dependence; Z88.5 Allergy status to narcotic agent; Z79.891 Long term (current) use of opiate analgesic; Z79.899 Other long term (current) drug therapy

== ENCOUNTER → 2022-08-22 | Outpatient (CLI) | payer BC | LOC: M RAD 17:12 | PROVIDERS: ATTEND Orthopaedic Surgery | DX: M25.551 Pain in right hip (principal) ==

== ENCOUNTER → 2022-09-05 | Outpatient (CLI) | payer BC | LOC: M PAIN 13:30 | PROVIDERS: ATTEND Anesthesiology | DX: R10.31 Right lower quadrant pain (principal); M25.551 Pain in right hip; M51.16 Intervertebral disc disorders with radiculopathy, lumbar region; G89.29 Other chronic pain; K21.9 Gastro-esophageal reflux disease without esophagitis; G47.33 Obstructive sleep apnea (adult) (pediatric); Z86.59 Personal history of other mental and behavioral disorders; Z87.891 Personal history of nicotine dependence; Z88.5 Allergy status to narcotic agent; E66.01 Morbid (severe) obesity due to excess calories; Z68.41 Body mass index [BMI] 40.0-44.9, adult; Z79.891 Long term (current) use of opiate analgesic; Z79.899 Other long term (current) drug therapy ==

== ENCOUNTER → 2022-11-21 | Outpatient (REF) | payer BC | LOC: M LAB REF 15:54 | PROVIDERS: ATTEND Physician Assistant | DX: J06.9 Acute upper respiratory infection, unspecified (principal) ==

== ENCOUNTER → 2022-12-31 | Outpatient (CLI) | payer BC | LOC: M PAIN 10:45 | PROVIDERS: ATTEND Anesthesiology | DX: G89.4 Chronic pain syndrome (principal); B33.0 Epidemic myalgia; M79.18 Myalgia, other site; K21.9 Gastro-esophageal reflux disease without esophagitis; G47.33 Obstructive sleep apnea (adult) (pediatric); Z86.59 Personal history of other mental and behavioral disorders; Z87.891 Personal history of nicotine dependence; Z88.5 Allergy status to narcotic agent; Z79.899 Other long term (current) drug therapy ==

== ENCOUNTER → 2023-02-19 | Outpatient (CLI) | payer BC ==
[~2023-02-19] MED LIST changes: +TRIAMCINOLONE ACETONIDE SUSP 40MG/ML 1ML VIAL As Ordered ONE
== END ==
LOC: M PAIN 09:30
PROVIDERS: ATTEND Anesthesiology
DX: M79.18 Myalgia, other site (principal); K21.9 Gastro-esophageal reflux disease without esophagitis; Z86.59 Personal history of other mental and behavioral disorders; Z87.891 Personal history of nicotine dependence; Z88.5 Allergy status to narcotic agent; Z79.891 Long term (current) use of opiate analgesic; Z79.899 Other long term (current) drug therapy
CPT/HCPCS: 20552; J3301; S0020

== ENCOUNTER → 2023-03-24 | Outpatient (CLI) | payer BC ==
[~2023-03-24] MED LIST changes: +DICL100G10 TOP; -DICL1GEL3 TOP; -TRIAMCINOLONE ACETONIDE SUSP 40MG/ML 1ML VIAL As Ordered ONE
== END ==
LOC: M PAIN 14:00
PROVIDERS: ATTEND Nurse Practitioner Family
DX: M79.10 Myalgia, unspecified site (principal); G89.29 Other chronic pain; K21.9 Gastro-esophageal reflux disease without esophagitis; Z86.59 Personal history of other mental and behavioral disorders; Z87.891 Personal history of nicotine dependence; Z88.5 Allergy status to narcotic agent; Z79.891 Long term (current) use of opiate analgesic; Z79.899 Other long term (current) drug therapy

== ENCOUNTER → 2023-04-15 | Outpatient (CLI) | payer BC | LOC: M PAIN 10:30 | PROVIDERS: ATTEND Anesthesiology | DX: M79.10 Myalgia, unspecified site (principal); M54.2 Cervicalgia; K21.9 Gastro-esophageal reflux disease without esophagitis; Z86.59 Personal history of other mental and behavioral disorders; Z87.891 Personal history of nicotine dependence; Z88.5 Allergy status to narcotic agent; Z79.891 Long term (current) use of opiate analgesic; Z79.899 Other long term (current) drug therapy ==

== ENCOUNTER → 2023-05-27 | Outpatient (CLI) | payer BC ==
[~2023-05-27] MED LIST changes: -OXYB5TAB10 PO; +OXYB5TAB11 PO
== END ==
LOC: M PAIN 15:30
PROVIDERS: ATTEND Anesthesiology
DX: M79.10 Myalgia, unspecified site (principal); M54.2 Cervicalgia; Z80.1 Family history of malignant neoplasm of trachea, bronchus and lung; Z80.8 Family history of malignant neoplasm of other organs or systems; Z87.891 Personal history of nicotine dependence; Z88.5 Allergy status to narcotic agent; Z79.891 Long term (current) use of opiate analgesic; Z79.899 Other long term (current) drug therapy

== ENCOUNTER → 2023-07-17 | Outpatient (CLI) | payer BC ==
[~2023-07-17] MED LIST changes: +TRIAMCINOLONE ACETONIDE SUSP 40MG/ML 1ML VIAL As Ordered ONE
== END ==
LOC: M PAIN 10:15
PROVIDERS: ATTEND Anesthesiology
DX: M79.18 Myalgia, other site (principal); G89.29 Other chronic pain; Z80.1 Family history of malignant neoplasm of trachea, bronchus and lung; Z80.3 Family history of malignant neoplasm of breast; Z80.8 Family history of malignant neoplasm of other organs or systems; Z87.891 Personal history of nicotine dependence; Z88.5 Allergy status to narcotic agent; Z79.891 Long term (current) use of opiate analgesic; Z79.899 Other long term (current) drug therapy
CPT/HCPCS: 20552; J0665; J3301

== ENCOUNTER → 2023-07-21 | Outpatient (CLI) | payer BC ==
[~2023-07-21] MED LIST changes: -TRIAMCINOLONE ACETONIDE SUSP 40MG/ML 1ML VIAL As Ordered ONE
== END ==
LOC: M PAIN 16:30
PROVIDERS: ATTEND Anesthesiology
DX: M79.18 Myalgia, other site (principal); M54.2 Cervicalgia; E78.5 Hyperlipidemia, unspecified; F33.9 Major depressive disorder, recurrent, unspecified; F41.1 Generalized anxiety disorder; G47.00 Insomnia, unspecified; K21.9 Gastro-esophageal reflux disease without esophagitis; M47.812 Spondylosis without myelopathy or radiculopathy, cervical region; M47.816 Spondylosis without myelopathy or radiculopathy, lumbar region; Z87.891 Personal history of nicotine dependence; Z79.899 Other long term (current) drug therapy; Z79.891 Long term (current) use of opiate analgesic; Z88.5 Allergy status to narcotic agent; Z88.8 Allergy status to other drugs, medicaments and biological substances

== ENCOUNTER → 2023-09-23 | Outpatient (CLI) | payer BC | LOC: M PAIN 11:30 | PROVIDERS: ATTEND Anesthesiology | DX: M54.2 Cervicalgia (principal); M54.50 Low back pain, unspecified; M47.812 Spondylosis without myelopathy or radiculopathy, cervical region; Z80.1 Family history of malignant neoplasm of trachea, bronchus and lung; Z80.8 Family history of malignant neoplasm of other organs or systems; Z80.3 Family history of malignant neoplasm of breast; Z87.891 Personal history of nicotine dependence; Z88.5 Allergy status to narcotic agent; Z79.899 Other long term (current) drug therapy ==

== ENCOUNTER → 2023-10-20 | Outpatient (CLI) | payer MEDICARE, BC ==
[~2023-10-20] MED LIST changes: -OXYB5TAB11 PO; +OXYB5TAB14 PO
[2023-10-20 17:57] LABS: BASO # 0.1 10^3/uL (0.0-0.2); BASO % 1.1 % (0.0-1.0); EOS # 0.2 10^3/uL (0.0-0.5); EOS % 3.2 % (0.0-3.0); HEMATOCRIT 40.8 % (36.0-47.0); HEMOGLOBIN 13.3 g/dl (12.0-15.5); LYMPH # 2.8 10^3/uL (1.5-5.0); LYMPH % 44.7 % (24.0-44.0); MEAN CORPUSCULAR HGB CONC 32.6 g/dl (32.0-36.5); MEAN CORPUSCULAR VOLUME 88.9 fl (80.0-96.0); MONO # 0.5 10^3/uL (0.0-0.8); MONO % 8.7 % (2.0-8.0); NEUTROPHILS # 2.6 10^3/uL (1.5-8.5); NEUTROPHILS % 42.1 % (36.0-66.0); PLATELET COUNT, AUTOMATED 238 10^3/uL (150-450); RED BLOOD COUNT 4.59 10^6/uL (4.00-5.40); WHITE BLOOD COUNT 6.2 10^3/uL (4.0-10.0)
[2023-10-20 18:12] LABS: HEMOGLOBIN A1c 5.6 % (4.0-6.0)
[2023-10-20 18:16] LABS: ALBUMIN 4.1 G/DL (3.2-5.2); ALKALINE PHOSPHATASE 100 U/L (46-116); ALT/SGPT 14 U/L (7.0-40); AST/SGOT 15 U/L (<34); BILIRUBIN,TOTAL 0.4 MG/DL (0.3-1.2); BLOOD UREA NITROGEN 14 MG/DL (9-23); CALCIUM LEVEL 8.6 MG/DL (8.3-10.6); CARBON DIOXIDE LEVEL 27 MMOL/L (20-31); CHLORIDE LEVEL 105 MMOL/L (98-107); CHOLESTEROL LEVEL 335 MG/DL (<200); CHOLESTEROL RISK RATIO 6.53 (<5); CREATININE FOR GFR 0.89 MG/DL (0.55-1.30); GLOMERULAR FILTRATION RATE > 60.0 (>45); GLUCOSE, FASTING 82 MG/DL (74-106); HDL CHOLESTEROL 51.3 MG/DL (>40); LDL CHOLESTEROL 255.3 MG/DL (<100); NON-HDL-C 283.7 MG/DL; POTASSIUM SERUM 4.3 MMOL/L (3.5-5.1); SODIUM LEVEL 138 MMOL/L (136-145); TOTAL PROTEIN 6.8 G/DL (5.7-8.2); TRIGLYCERIDES LEVEL 142 MG/DL (<150)
[2023-10-20 18:17] LABS: THYROID STIMULATING HORMONE 1.888 uIU/ML (0.55-4.78); TOTAL 25(OH) VITAMIN D 13.5 NG/ML (20.0-100.0)
== END ==
LOC: M PLALAB 15:37
PROVIDERS: ATTEND Nurse Practitioner Family
DX: E78.5 Hyperlipidemia, unspecified (principal)

== ENCOUNTER → 2024-01-27 | Outpatient (CLI) | payer MEDICARE, BC | LOC: M WHC 10:23 | PROVIDERS: ATTEND Nurse Practitioner Family | DX: Z12.31 Encounter for screening mammogram for malignant neoplasm of breast (principal); R92.323 Mammographic fibroglandular density, bilateral breasts; R92.1 Mammographic calcification found on diagnostic imaging of breast ==

== ENCOUNTER → 2024-03-28 | Outpatient (CLI) | payer MEDICARE ==
[2024-03-28 13:21] LABS: BASO # 0.1 10^3/uL (0.0-0.2); BASO % 1.3 % (0.0-1.0); EOS # 0.2 10^3/uL (0.0-0.5); EOS % 3.2 % (0.0-3.0); HEMATOCRIT 39.9 % (36.0-47.0); HEMOGLOBIN 12.8 g/dl (12.0-15.5); LYMPH # 2.6 10^3/uL (1.5-5.0); MEAN CORPUSCULAR HGB CONC 32.1 g/dl (32.0-36.5); MEAN CORPUSCULAR VOLUME 90.5 fl (80.0-96.0); MONO # 0.7 10^3/uL (0.0-0.8); MONO % 10.8 % (2.0-8.0); NEUTROPHILS # 2.7 10^3/uL (1.5-8.5); NEUTROPHILS % 42.5 % (36.0-66.0); PLATELET COUNT, AUTOMATED 209 10^3/uL (150-450); RED BLOOD COUNT 4.41 10^6/uL (4.00-5.40); WHITE BLOOD COUNT 6.3 10^3/uL (4.0-10.0)
[2024-03-28 13:33] LABS: HEMOGLOBIN A1c 5.5 % (4.0-6.0)
[2024-03-28 13:50] LABS: ALBUMIN 3.8 G/DL (3.2-5.2); ALKALINE PHOSPHATASE 112 U/L (46-116); ALT/SGPT 16 U/L (7.0-40); AST/SGOT 12 U/L (<34); BILIRUBIN,TOTAL 0.4 MG/DL (0.3-1.2); BLOOD UREA NITROGEN 13 MG/DL (9-23); CARBON DIOXIDE LEVEL 30 MMOL/L (20-31); CHLORIDE LEVEL 107 MMOL/L (98-107); CHOLESTEROL LEVEL 314 MG/DL (<200); CHOLESTEROL RISK RATIO 5.81 (<5); CREATININE FOR GFR 0.81 MG/DL (0.55-1.30); GLOMERULAR FILTRATION RATE > 60.0 (>45); GLUCOSE, FASTING 89 MG/DL (74-106); LDL CHOLESTEROL 232.6 MG/DL (<100); POTASSIUM SERUM 3.9 MMOL/L (3.5-5.1); SODIUM LEVEL 140 MMOL/L (136-145); THYROID STIMULATING HORMONE 1.638 uIU/ML (0.55-4.78); TOTAL PROTEIN 6.6 G/DL (5.7-8.2); TRIGLYCERIDES LEVEL 137 MG/DL (<150)
[2024-03-28 13:51] LABS: TOTAL 25(OH) VITAMIN D 57.6 NG/ML (20.0-100.0)
[2024-03-28 13:52] LABS: FREE T4 1.05 NG/DL (0.89-1.76)
== END ==
LOC: M PLALAB 09:05
PROVIDERS: ATTEND Nurse Practitioner Family
DX: E78.5 Hyperlipidemia, unspecified (principal); E04.1 Nontoxic single thyroid nodule; E55.9 Vitamin D deficiency, unspecified; R73.01 Impaired fasting glucose; M54.12 Radiculopathy, cervical region

== ENCOUNTER → 2024-05-26 | Outpatient (CLI) | payer MEDICARE | LOC: M PAIN 17:00 | PROVIDERS: ATTEND Nurse Practitioner Family | DX: M79.18 Myalgia, other site (principal); E78.2 Mixed hyperlipidemia; F33.9 Major depressive disorder, recurrent, unspecified; F41.1 Generalized anxiety disorder; G47.00 Insomnia, unspecified; K21.9 Gastro-esophageal reflux disease without esophagitis; M47.812 Spondylosis without myelopathy or radiculopathy, cervical region; M47.816 Spondylosis without myelopathy or radiculopathy, lumbar region; Z87.891 Personal history of nicotine dependence; Z79.899 Other long term (current) drug therapy; Z88.5 Allergy status to narcotic agent; Z88.8 Allergy status to other drugs, medicaments and biological substances ==

== ENCOUNTER → 2024-06-02 | Outpatient (CLI) | payer MEDICARE ==
[~2024-06-02] MED LIST changes: +TRIAMCINOLONE ACETONIDE SUSP 40MG/ML 1ML VIAL As Ordered ONE
== END ==
LOC: M PAIN 11:00
PROVIDERS: ATTEND Anesthesiology
DX: M79.12 Myalgia of auxiliary muscles, head and neck (principal); G89.29 Other chronic pain; E78.2 Mixed hyperlipidemia; F41.1 Generalized anxiety disorder; F33.9 Major depressive disorder, recurrent, unspecified; M47.812 Spondylosis without myelopathy or radiculopathy, cervical region; Z87.891 Personal history of nicotine dependence; Z79.899 Other long term (current) drug therapy; Z88.5 Allergy status to narcotic agent; Z88.8 Allergy status to other drugs, medicaments and biological substances
CPT/HCPCS: 20553; J0665; J3301

== ENCOUNTER → 2024-12-09 | Outpatient (CLI) | payer MEDICARE ==
[~2024-12-09] MED LIST changes: -AMBI10TA PO; -FLOM0.4C39 PO; +TAMS-18 PO; -TRIAMCINOLONE ACETONIDE SUSP 40MG/ML 1ML VIAL As Ordered ONE; +ZOLP-533 PO
[2024-12-09 13:57] LABS: BASO # 0.1 10^3/uL (0.0-0.2); BASO % 1.1 % (0.0-1.0); EOS # 0.2 10^3/uL (0.0-0.5); EOS % 3.2 % (0.0-3.0); HEMATOCRIT 41.3 % (36.0-47.0); HEMOGLOBIN 13.7 g/dl (12.0-15.5); LYMPH # 2.8 10^3/uL (1.5-5.0); LYMPH % 37.5 % (24.0-44.0); MEAN CORPUSCULAR HEMOGLOBIN 29.5 pg (27.0-33.0); MEAN CORPUSCULAR HGB CONC 33.2 g/dl (32.0-36.5); MONO # 0.8 10^3/uL (0.0-0.8); MONO % 10.3 % (2.0-8.0); NEUTROPHILS # 3.6 10^3/uL (1.5-8.5); NEUTROPHILS % 47.8 % (36.0-66.0); PLATELET COUNT, AUTOMATED 180 10^3/uL (150-450); RED BLOOD COUNT 4.64 10^6/uL (4.00-5.40); WHITE BLOOD COUNT 7.5 10^3/uL (4.0-10.0)
[2024-12-09 14:05] LABS: ALBUMIN 3.7 G/DL (3.2-5.2); BILIRUBIN,TOTAL 0.5 MG/DL (0.3-1.2); CALCIUM LEVEL 9.3 MG/DL (8.3-10.6); CHOLESTEROL RISK RATIO 6.08 (<5); CREATININE FOR GFR 0.8 MG/DL (0.55-1.30); GLOMERULAR FILTRATION RATE 81.2 (>45); HDL CHOLESTEROL 56.2 MG/DL (>40); NON-HDL-C 285.8 MG/DL; POTASSIUM SERUM 4.5 MMOL/L (3.5-5.1); TOTAL 25(OH) VITAMIN D 30.7 NG/ML (20.0-100.0); TOTAL PROTEIN 6.8 G/DL (5.7-8.2)
[2024-12-09 14:06] LABS: THYROID STIMULATING HORMONE 2.159 uIU/ML (0.55-4.78)
[2024-12-09 14:18] LABS: HEMOGLOBIN A1c 5.6 % (4.0-6.0)
== END ==
LOC: M PLALAB 11:25
PROVIDERS: ATTEND Nurse Practitioner Family
DX: M79.644 Pain in right finger(s) (principal); E04.1 Nontoxic single thyroid nodule; E78.5 Hyperlipidemia, unspecified; E55.9 Vitamin D deficiency, unspecified; R73.01 Impaired fasting glucose

== ENCOUNTER → 2024-12-26 | Outpatient (CLI) | payer MEDICARE ==
[2024-12-26 17:52] LABS: BASO # 0.1 10^3/uL (0.0-0.2); EOS # 0.3 10^3/uL (0.0-0.5); EOS % 3.6 % (0.0-3.0); HEMATOCRIT 43.7 % (36.0-47.0); HEMOGLOBIN 14.1 g/dl (12.0-15.5); LYMPH # 3.5 10^3/uL (1.5-5.0); MEAN CORPUSCULAR HGB CONC 32.3 g/dl (32.0-36.5); MEAN CORPUSCULAR VOLUME 89.7 fl (80.0-96.0); MONO # 0.8 10^3/uL (0.0-0.8); MONO % 9.7 % (2.0-8.0); NEUTROPHILS # 3.3 10^3/uL (1.5-8.5); NEUTROPHILS % 41.6 % (36.0-66.0); PLATELET COUNT, AUTOMATED 217 10^3/uL (150-450); RED BLOOD COUNT 4.87 10^6/uL (4.00-5.40); WHITE BLOOD COUNT 7.8 10^3/uL (4.0-10.0)
[2024-12-26 18:15] LABS: CALCIUM LEVEL 9.7 MG/DL (8.3-10.6); CREATININE FOR GFR 0.9 MG/DL (0.55-1.30); GLOMERULAR FILTRATION RATE 70.5 (>45); MAGNESIUM LEVEL 2.1 MG/DL (1.8-2.4); POTASSIUM SERUM 4.6 MMOL/L (3.5-5.1)
== END ==
LOC: M PLALAB 15:32
PROVIDERS: ATTEND Nurse Practitioner Family
DX: I10 Essential (primary) hypertension (principal); R53.83 Other fatigue